=== PATIENT | female | born 2005 | race Caucasian/White ===

== ENCOUNTER 2023-07-14 01:12 | Emergency (ER) | payer OTHER, SELFPAY ==
[2023-07-14 01:22] VITALS: BP 118/68; PULSE 55; TEMP 36.4; BMI 31.9
--- NOTE | 2023-07-14 01:35 | ED.FEMALEGU1 ---
HPI - Female Genitourinary General Chief complaint: Urogenital-Female Stated complaint: STD SCREEN Time Seen by Provider: 07/14/23 01:18 Source: patient Mode of arrival: walk-in Limitations: no limitations History of Present Illness HPI Narrative: Patient was exposed to a partner who had tested positive for chlamydia last week. She did not seek care or testing after she heard the news. She developed some dysuria yesterday. She said that she slept most of the day and then decided to come to the ED tonight/this morning for evaluation. She does not have a local PCP or [employer]. No fever. No vomiting. She admits to burning with urination and some whitish discharge. She also is concerned about possible since her LMP was in May. She did not get a home test. Related Data Previous Rx's ?Medication ?Instructions ?Recorded doxycycline hyclate 100 mg capsule 100 mg PO BID #13 caps 07/14/23 Allergies Allergy/AdvReac Type Severity Reaction Status Date / Time No Known Drug Allergies Allergy Verified 07/14/23 01:26 Exam Narrative Exam Narrative: Nurses notes and vital signs reviewed and patient is not hypoxic. afebrile General: Well-appearing and in no apparent distress. Skin: Warm, dry, no pallor noted. Eye: Pupils are equal, round and EOMI. No scleral icterus. Cardiovascular: Regular Rate and Rhythm without murmur, gallop or rub. Respiratory: No accessory muscle use or respiratory distress. Lungs are clear to auscultation, no wheezing, rales or rhonchi Back: No CVA tenderness GI: Abdomen is soft, non-distended. Normal bowel sounds. No tenderness to palpation. No rebound, guarding, or rigidity noted. Neurological: A&O x4. No cranial nerve dysfunction observed. No truncal ataxia. Moves all extremities. Sensation intact. Psychiatric: Cooperative and interactive. Normal mood and affect. Constitutional Vital Signs, click to edit/add: Last Vital Signs Temp 97.6 F 07/14/23 01:22 Pulse 55 L 07/14/23 01:22 Resp 16 07/14/23 01:22 BP 118/68 07/14/23 01:22 Course Vital Signs Vital signs: Vital Signs Temperature 97.6 F 07/14/23 01:22 Pulse Rate 55 L 07/14/23 01:22 Respiratory Rate 16 07/14/23 01:22 Blood Pressure 118/68 07/14/23 01:22 Temperature 97.6 F 07/14/23 01:22 Pulse Rate 55 L 07/14/23 01:22 Respiratory Rate 16 07/14/23 01:22 Blood Pressure 118/68 07/14/23 01:22 MDM - Female Genitourinary MDM Narrative Medical decision making narrative: Patient could not give a urine sample for over 2 hours. UA revealed acute UTI. Due to potential chlamydia exposure, she was started on doxycycline, which will cover her UTI and her chlamydia exposure.She was also given a dose of pyridium.She was discharged home and referred to Dr Colin. Lab Data Labs: Lab Results 07/14/23 Range/Units 02:37 Urine Color Lt. yellow (YELLOW) Urine Clarity Clear (CLEAR) Urine pH 6.0 (5.0-9.0) Ur Specific [place] 1.010 (1.005-1.025) Urine Protein Negative (NEG/TRACE) mg/dL Urine Glucose (UA) Negative (NEGATIVE) mg/dL Urine Ketones Negative (NEGATIVE) mg/dL Urine Occult Blood Negative (NEGATIVE) Urine Nitrite Negative (NEGATIVE) Urine Bilirubin Negative (NEGATIVE) Urine Urobilinogen 0.2 (0.2-1.0) EU/dL Ur Leukocyte Esterase Small A (NEGATIVE) Urine RBC None seen (0-2) #/HPF Urine WBC 10-20 A (NONE SEEN) #/HPF Ur Squamous Epith Cells Many A (NONE/RARE) #/LPF Urine Crystals None seen (None Seen) #/HPF Urine Bacteria Moderate A (NONE SEEN) #/HPF Urine Casts None seen (NONE SEEN) #/LPF Urine Mucus Trace A (NONE SEEN) Ur Culture Indicated? Yes Urine HCG, Qual Negative (NEGATIVE) Discharge Plan Discharge Stand Alone Forms: Portal Instructions Chief Complaint: Urogenital-Female Clinical Impression: Urinary tract infection, Potential exposure to STD Patient Disposition: Home, Self-Care Time of Disposition Decision: 03:00 Prescriptions / Home Meds: New doxycycline hyclate 100 mg capsule 100 mg PO BID Qty: 13 0RF Print Language: Gambian Instructions: Sexually Transmitted Diseases (ED), Urinary Tract Infection in Women (ED) Referrals: Garfield Colin, [Physician] - As soon as possible
[2023-07-14 02:48] LABS: Bilirubin Urine NEGATIVE (NEGATIVE); Blood Urine NEGATIVE (NEGATIVE); Clarity Urine CLEAR (CLEAR); Color Urine LT. YELLOW (YELLOW); Glucose Urine UA NEGATIVE (NEGATIVE); Ketones Urine NEGATIVE (NEGATIVE); Leukocyte Esterase Urine SMALL (NEGATIVE); Nitrite Urine NEGATIVE (NEGATIVE); Protein Urine NEGATIVE (NEG/TRACE); Urobilinogen Urine 0.2 EU/dL (0.2-1.0)
[2023-07-14 02:50] LABS: HCG Qualitative Urine* NEGATIVE (NEGATIVE)
[2023-07-14 02:51] LABS: Urine Microscopic Indicated YES
[2023-07-14 02:56] LABS: Bacteria Urine MODERATE #/HPF (NONE SEEN); Cast Seen? NONE SEEN #/LPF (NONE SEEN); Crystals Seen? None Seen #/HPF (None Seen); Mucus Urine TRACE (NONE SEEN); RBC Urine NONE SEEN #/HPF (0-2); Squamous Epithelial Cell Urine MANY #/LPF (NONE/RARE)
[2023-07-14 02:57] LABS: Urine Culture Indicated YES
[2023-07-14] MEDS: PHENAZOPYRIDINE 100 MG TABLET PO (03:12)
[2023-07-14] MEDS: DOXYCYCLINE MONOHYDRATE 100 MG CAPSULE PO (03:12)
[2023-07-16 22:08] LABS: Neisseria gonorrhoeae, NAA Negative (Negative)
== END 2023-07-14 03:20 | disposition home or self-care (01) ==
PROVIDERS: Emergency Provider Emergency Medicine; PCP Family Medicine
DX: N39.0 Urinary tract infection, site not specified (principal); Z20.2 Contact with and (suspected) exposure to infections with a predominantly sexual mode of transmission
CPT/HCPCS: 81001; 84703; 87086; 87491; 87591; 99283

== ENCOUNTER 2024-06-28 08:51 | Outpatient (OUT) | payer MEDICAID, SELFPAY ==
[2024-06-28 09:51] LABS: Estimated Average Glucose 100 mg/dL; Glycohemoglobin A1C 5.1 % (4.5-6.2)
[2024-06-29 08:12] LABS: Progesterone 0.4 ng/mL (.)
== END 2024-06-28 08:52 | disposition home or self-care (01) ==
PROVIDERS: Visit Provider Obstetrics & Gynecology
DX: N93.9 Abnormal uterine and vaginal bleeding, unspecified (principal); E28.2 Polycystic ovarian syndrome
CPT/HCPCS: 36415; 82397; 83036; 84144; 84443

== ENCOUNTER 2024-09-22 08:43 | Outpatient (OUT) | payer MEDICAID, SELFPAY ==
--- OUTSIDE RECORDS SUMMARY | 2024-09-22 09:03 | XMS_ITS | CCD ---
Author Organization [facility]iniSy[facility] Care Team Providers Care Braille Proofreader Name Role Phone DR JANIE FRAGOSO Primary Care Unavailable SHELDON, DR DYLAN Romero Admitting Unavailable SHELDON, DR DYLAN Romero Attending Unavailable SHELDON, DR DYLAN Romero Consulting Unavailable JOSEF BINGHAM Admitting Unavailable JOSEF BINGHAM Attending Unavailable FOUZIA, DR LIMA Primary Care Unavailable JOSEF BINGHAM Admitting Unavailable JOSEF BINGHAM Attending Unavailable FOUZIA, DR LIMA Primary Care Unavailable JOSEF BINGHAM Consulting Unavailable Phil Melvin Unavailable SAÚL Resendiz Attending Provider Jose Miguel Resendiz Unavailable Unallocated , Osito Provider Primary Care Provi marcelino Unallocated , Noms Provider Primary Care Provi marcelino DREW COLIN Attending Unavailable DREW COLIN Referring Unavailable DAVID VALENTIN Attending Unavailable DAVID VALENTIN Referring Unavailable PETER LI Attending Unavailable KENDAL RINCON Attending Unavailable Teresa Vitale APRN Attending Provider [phone] Teresa Vitale Attending Unavailable Teresa Vitale Admitting Unavailable Medications Current Medications Medication Drug Class(es) Dates Sig (Normalized) Sig (Original) clindamycin 20 mg/ml vaginal cream (1 source) Lincosamide Antibacterial Start: 11-30-2023 End: 12-07-2023 clindamycin (Cleocin) 2 % vaginal cream Indications: Bacterial Vaginosis Insert 1 applicator into the vagina at bedtime for 7 days 40 g 2 11/30/2023 12/07/2023 Active etonogestrel 68 mg drug implant (3 sources) Progestin Nexplanon 68 MG as directed Subcutaneous Active metFORMIN hydrochloride 500 mg oral tablet (3 sources) Biguanide Start: 06-04-2024 End: 06-04-2025 Metformin 500 mg tablet Active MG PO July 31, 2024 12:00am metroNIDAZOLE 500 mg oral tablet (3 sources) Nitroimidazole Antimicrobial Start: 09-29-2021 take 1 tablet by mouth every twelve hours metroNIDAZOLE 500 MG 1 tablet Orally Twice a day for 7 days Sep, Active nitrofurantoin, macrocrystals 25 mg / nitrofurantoin, monohydrate 75 mg oral capsule (1 source) Nitrofuran Antibacterial Start: 07-31-2024 take 1 capsule by mouth every twelve hours at mealtime Nitrofurantoin Monohyd/M-Cryst (Macrobid) 100 mg capsule Active 100 MG PO Every 12 hours 20 10July 31, 2024 12:00am must administer with a meal/food phenazopyridine hydrochloride 200 mg oral tablet (2 sources) Start: 01-28-2023 take 1 tablet by mouth every eight hours Pyridium 200 MG 1 tablet after meals Orally Three times a day for 2 day(s) Jan, Active sulfamethoxazole 800 mg / trimethoprim 160 mg oral tablet (8 sources) Dihydrofolate Reductase Inhibitor Antibacterial, Sulfonamide Antimicrobial Start: 01-28-2023 take 1 tablet by mouth every twelve hours Bactrim DS 800-160 MG 1 tablet Orally Twice a day for 7 days Jan, Active Start: 09-29-2021 take 1 tablet by neena th every twelve hours Bactrim DS 800-160 MG 1 tablet Orally Twice a day for 3 days Sep, Active Completed/Discontinued Medications Medication Drug Class(es) Dates Sig (Normalized) Sig (Original) amoxicillin 500 mg oral capsule (2 sources) Penicillin-class Antibacterial Start: 02-08-2024 End: 07-31-2024 take 1 capsule by mouth twice daily Amoxicillin 500 mg capsule Discontinued 500 MG PO Twice daily 26 01February 08, 2024 12:00am February 08, 2024 5:51pm ARIPiprazole 10 mg oral tablet (4 sources) Atypical Antipsychotic Start: 04-04-2020 End: 04-22-2021 take 1 tablet by mouth once daily Aripiprazole (Abilify) 10 mg tablet Discontinued 10 MG PO Daily August 20, 2020 10:36am April 22, 2021 4:30pm azithromycin 500 mg oral tablet (7 sources) Macrolide Antimicrobial Start: 11-26-2023 End: 12-06-2023 take 1 tablet by mouth once daily azithromycin (Zithromax) 500 MG tablet Indications: Acute vaginitis Take 1 tablet (500 mg) by mouth Daily for 10 days 10 tablet 1 11/26/2023 12/06/2023 Start: 10-04-2021 take 2 tablets by mouth once A zithromycin 500 MG 2 tablets Orally once for 1 day Sep, Active Norgestimate-Ethinyl Estradiol (2 sources) Progestin, Estrogen Start: 04-04-2020 End: 08-17-2020 Norgestimate-Ethinyl Estradiol (Tri Femynor) 0.18/0.215/0.25 mg-35 mcg (28) tablet Discontinued TAB TABLET April 04, 2020 1:00am August 17, 2020 1:28pm fluconazole 150 mg oral tablet (2 sources) Azole Antifungal Start: 11-26-2023 End: 11-26-2023 take 1 tablet by mouth once fluconazole (Diflucan) 150 MG tablet Indications: Acute vaginitis Take 1 tablet (150 mg) by mouth 1 (one) time for 1 dose 1 tablet 1 11/26/2023 11/26/2023 hydrOXYzine hydrochloride 50 mg oral tablet (2 sources) Antihistamine Start: 08-17-2020 End: 08-20-2020 take 1 tablet by mouth three times daily as needed for anxiety Hydroxyzine Hcl 50 mg tablet Discontinued 50 MG PO Three times daily as needed for Anxiety August 17, 2020 12:00am August 20, 2020 10:36am lamoTRIgine 100 mg oral tablet (4 sources) Mood Stabilizer, Anti-epileptic Agent Start: 08-17-2020 End: 08-20-2020 take 1 tablet by mouth once daily Lamotrigine 100 mg tablet Discontinued 100 MG PO Daily August 17, 2020 12:00am August 20, 2020 10:36am Start: 04-04-2020 End: 08-17-2020 Lamotrigine 25 mg tablet Dis continued TABLET April 04, 2020 1:00am August 17, 2020 1:28pm Start: 04-04-2020 End: 08-17-2020 Lamotrigine Discontinued TAB LET April 04, 2020 1:00am August 17, 2020 1:28pm ondansetron 4 mg disintegrating oral tablet (2 sources) Serotonin-3 Receptor Antagonist Start: 04-22-2021 End: 02-08-2024 take 1 tablet by mouth every six hours as needed for nausea and vomiting Ondansetron 4 mg tablet,disintegrating Discontinued 4 MG PO Q6H as needed for nausea and vomiting April 22, 2021 5:04pm February 08, 2024 4:08pm Problems Active Problems Problem Classification Problem Date Documented Da te Episodic/Chronic Female infertility (2 sources) Female infertility; Translations: [Female infertility, unspecified] 02-07-2024 Chronic Genitourinary symptoms and ill-defined conditions (4 sources) Dysuria; Translations: [Dysuria] Onset: 07-31-2024 Episodic Headache; including migraine (1 source) Headache; including migraine; Translations: [HEADACHE UNSPECIFIED] Onset: 04-21-2021 Immunizations and screening for infectious disease (8 sources) Patient encounter status; Translations: [Dietary counseling and surveillance] 01-14-2024 Episodic Inflammatory diseases of female pelvic organs (6 sources) Acute vaginitis; Translations: [Acute vaginitis] Onset: 10-03-2021 12-06-2023 Episodic Menstrual disorders (4 sources) Irregular periods; Translations: [Irregular menstruation, unspecified] 02-07-2024 Chronic Other endocrine disorders (2 sources) Polycystic ovary syndrome; Translations: [Polycystic ovarian syndrome] 06-04-2024 Chronic Other female genital disorders (2 sources) Abnormal uterine bleeding; Translations: [Abnormal uterine and vaginal bleeding, unspecified] 06-04-2024 Chronic Other inflammatory condition of skin (3 sources) Other pruritus; Translations: [OTHER PRURITUS] Onset: 10-02-2021 Episodic Other nutritional; endocrine; and metabolic disorders (2 sources) Obesity caused by energy imbalance; Translations: [Class 1 obesity due to excess calories without serious comorbidity with body mass index (BMI) of 33.0 to 33.9 in adult] 01-14-2024 Chronic Other screening for suspected conditions (not mental disorders or infectious disease) (4 sources) Decreased cortisol level; Translations: [Other specified abnormal findings of blood chemistry] 01-14-2024 Episodic Other upper respiratory infections (4 sources) Upper respiratory infection; Translations: [Acute upper respiratory infection, unspecified] 04-04-2020 Episodic Suicide and intentional self-inflicted injury (2 sources) Suicide attempt ; Translations: [Poisoning by unspecified drugs, medicaments and biological substances, intentional self-harm, initial encounter] 08-17-2020 Episodic Unclassified (3 sources) CONTACT W/AND (SUSP) EXPOS COVID-19; Translations: [CONTACT W/AND (SUSP) EXPOS COVID-19] Onset: 04-21-2021 Urinary tract infections (2 sources) Acute cystitis without hematuria; Translations: [Acute cystitis with hematuria] Onset: 09-29-2021 Resolved: 09-29-2021 Episodic Viral infection (2 sources) Disease caused by 2019-nCoV; Translations: [COVID-19] 04-22-2021 Episodic Past or Other Problems Problem Classification Problem Date Documented Date Episodic/Chronic Nausea and vomiting (1 source) Nausea; Translations: [NAUSEA] Onset: 04-21-2021 Episodic Other endocrine disorders (2 sources) Disorder of endocrine system; Translations: [Endocrine disorder, unspecified] 11-26-2023 Episodic Other endocrine disorders (2 sources) Gynecological endocrinology disorder; Translations: [Endocrine disorder, unspecified] 11-26-2023 Episodic Residual codes; unclassified (1 source) High risk bisexual behavior Onset: 09-29-2021 Resolved: 09-29-2021 Episodic Unclassified (1 source) CONTACT W/AND (SUSP) EXPOS COVID-19; Translations: [CONTACT W/AND (SUSP) EXPOS COVID-19] Onset: 04-14-2021 Results Test Name Value Interpretation Reference Range Facility Urine Cultureon 07-31-2024 Bacteria identified Cx Nom (U) 25,000 colonies/ml mixed bacterial skin contaminants 2 Days PERFORMED BY: [place] [address] PATHOLOGIST LEARNING DEVELOPER YUMIKO GRIER M.D. Normal [facility] Comment on above: Performed By: #### C UU #### [address] US PELVIC COMPLETE W/ TVon 0 06-24-2024 US PELVIC COMPLETE W/ TV EXAM: US PELVIC COMPLETE W/ TV HISTORY: Abnormal uterine bleeding. COMPARISON: None available. TECHNIQUE: Two-dimensional transabdominal grayscale ultrasound imaging of the pelvis was performed. Color flow Doppler imaging of the ovaries was also performed. Transvaginal was performed. FINDINGS: UTERUS 7.8 x 3.2 x 3.2 cm The uterus is anteverted in position and demonstrates a normal, homogeneous echotexture. There is a 2.6 cm anterior fibroid visualized. Multiple nabothian cysts are visualized within the cervix. ENDOMETRIUM 0.4 cm The endometrium demonstrates a normal, homogeneous echotexture. RIGHT OVARY 3.7 x 1.8 x 2.8 cm The right ovary demonstrates a normal echotexture. There is normal color Doppler flow. LEFT OVARY 2.8 x 2.4 x 2.7 cm The left ovary demonstrates a normal echotexture. There is normal color Doppler flow. No fluid is present within the cul-de-sac. IMPRESSION: 1. Uterine fibroid. 2. Normal color Doppler flow within the bilateral ovaries. Electronically Signed:Electronical ly signed by MADYSON WARREN II, MD, PHD at 26-Jun-2024 08:43:57 AM [facility] Normal Not Available Comment on above: Order Comment: US PE LVIS-TRANSVAG IF INDICATED Patient's last menstrual period was 05/05/2024. Cortisolon 12-03-2023 Cortisol [Mass/Vol] 4.7 ug/dL Low 6.2 - 19 .4 ug/dL [facility] Comment on above: Please Note: The ref erence interval and flagging for this test is for an AM collection. If this is a PM collection please use: Cortisol PM: 2.3-11.9 Interpretation and review of laboratory results Abnormal [facility] re DHEA-sulfateon 12-03-2023 DHEA-S [Mass/Vol] 267.0 ug/dL 110.0 - 43 1.7 ug/dL [facility] Estradiolon 12-03-2023 E2 [Mass/Vol] 188.0 pg/[facility] Comment on above: Adult Female Range Follicular phase 12.5 - 166.0 Ovulation phase 85.8 - 498.0 Luteal phase 43.8 - 211.0 Postmenopausal <6.0 - 54.7 1st trimester 215.0 - >4300.0 Vidya ECLIA methodology Estroneon 12-03-2023 E1 [Mass/Vol] 104 pg/mL 27 - 231 pg/mL [facility] Comment on above: Range Adult (Premenopausal) 27 - 231 Menstrual Cycle (1-10 days) 19 - 149 Menstrual Cycle (11-20 days) 32 - 176 Menstrual Cycle (21-30 days) 37 - 200 Performed at: [address] [id number] Fitter Machinist: Collette Mesa MD, Phone: [phone] [facility] Follicle stimulating hormone on 12-03-2023 Follitropin Qn 2.3 m[IU]/mL mIU/mL [facility] Comment on above: Adult Female Range Follicular phase 3.5 - 12.5 Ovulation phase 4.7 - 21.5 Luteal phase 1.7 - 7.7 Postmenopausal 25.8 - 134.8 Insulin, fastingon Insulin Qn 20.6 u[IU]/mL [facility] No Panel Informationon 12-02 Performed at: [address] [id number] Fitter Machinist: Keenan Murillo PhD, Phone: [phone] [facility] e Progesteroneon 12-03-2023 Progesterone [Mass/Vol] 11.4 ng/mL [facility] Comment on above: Follicular phase 0.1 - 0.9 Luteal phase 1.8 - 23.9 Ovulation phase 0.1 - 12.0 First trimester 11.0 - 44.3 Second trimester 25.4 - 83.3 Third trimester 58.7 - 214.0 Postmenopausal 0.0 - 0.1 TSHon 12-03-2023 TSH Qn 3.160 m[IU]/L [facility] No Panel Informationon 11-28 ACINETOBACTER BAUMANII 0.000 [facility] ACINETOBACTER BAUMANII Not detected [facility] ATOPOBIUM VAGINAE 22.732 Abnormal [facility] ATOPOBIUM VAGINAE Detected [facility] BVAB 2,3 (BACTERIAL VAGINOSIS ASSOCIATED BACTERIA 2, 3); MOBILUNCUS SPP 0.000 [facility] BVAB 2,3 (BACTERIAL VAGINOSIS ASSOCIATED BACTERIA 2, 3); MOBILUNCUS SPP Not detected [facility] TERESA ALBICANS, PARAPSILOSIS, TROPICALIS 0.000 [facility] TERESA ALBICANS, PARAPSILOSIS, TROPICALIS Not detected [facility] TERESA GLABRATA 0.000 [facility] TERESA GLABRATA Not detected [facility] TERESA KRUSEI 0.000 [facility] TERESA KRUSEI Not detected [facility] CHLAMYDIA TRACHOMATIS 0.000 [facility] CHLAMYDIA TRACHOMATIS Not detected [facility] CITROBACTER FREUNDII 0.000 [facility] CITROBACTER FREUNDII Not detected [facility] ENTEROBACTER AEROGENES, CLOACAE 0.000 [facility] ENTEROBACTER AEROGENES, CLOACAE Not detected [facility] ENTEROCOCCUS FAECALIS, FAECIUM 0.000 [facility] ENTEROCOCCUS FAECALIS, FAECIUM Not detected [facility] ESCHERICHIA COLI 0.000 [facility] ESCHERICHIA COLI Not detected [facility] GARDNERELLA VAGINALIS 0.000 [facility] GARDNERELLA VAGINALIS Not detected [facility] Interpretation and review of laboratory results Abnormal [facility] KLEBSIELLA PNEUMONIAE, OXYTOCA 0.000 [facility] KLEBSIELLA PNEUMONIAE, OXYTOCA Not detected [facility] MEGASPHAERA (TYPES 1, 2) 0.000 [facility] MEGASPHAERA (TYPES 1, 2) Not detected [facility] MORGANELLA MORGANII 0.000 [facility] MORGANELLA MORGANII Not detected [facility] MYCOPLASMA GENITALIUM 0.000 [facility] MYCOPLASMA GENITALIUM Not detected [facility] MYCOPLASMA HOMINIS 0.000 [facility] MYCOPLASMA HOMINIS Not detected [facility] NEISSERIA GONORRHOEAE 0.000 [facility] NEISSERIA GONORRHOEAE Not detected [facility] PROTEUS MIRABILIS, VULGARIS 0.000 [facility] PROTEUS MIRABILIS, VULGARIS Not detected [facility] PSEUDOMONAS AERUGINOSA 0.000 [facility] PSEUDOMONAS AERUGINOSA Not detected [facility] SERRATIA MARCESCENS 0.000 [facility] SERRATIA MARCESCENS Not detected [facility] STAPHYLOCOCCUS AUREUS 0.000 [facility] STAPHYLOCOCCUS AUREUS Not detected [facility] STAPHYLOCOCCUS EPIDERMIDIS, HAEMOLYTICUS, LUGDUNENSIS 0.000 [facility] STAPHYLOCOCCUS EPIDERMIDIS, HAEMOLYTICUS, LUGDUNENSIS Not detected [facility] STAPHYLOCOCCUS SAPROPHYTICUS 0.000 [facility] STAPHYLOCOCCUS SAPROPHYTICUS Not detected [facility] STREPTOCOCCUS AGALACTIAE (GROUP B STREP) 0.000 [facility] STREPTOCOCCUS AGALACTIAE (GROUP B STREP) Not detected [facility] STREPTOCOCCUS PYOGENES (GROUP A STREP) 0.000 [facility] STREPTOCOCCUS PYOGENES (GROUP A STREP) Not detected [facility] TET B, TET M 24.794 Abnormal [facility] TET B, TET M Detected Abnormal [facility] TRICHOMONAS VAGINALIS 0.000 [facility] TRICHOMONAS VAGINALIS Not detected [facility] UREAPLASMA PARVUM 27.453 Abnormal [facility] UREAPLASMA PARVUM Detected Abnormal [facility] UREAPLASMA UREALYTICUM 0.000 [facility] UREAPLASMA UREALYTICUM Not detected [facility] Urinalysis - DIPSTICKon 01-08 Appearance (U) cloudy [employer] Other Bilirubin Ql (U) Negative [place] Other Color (U) dark yellow-orange [facility] Other Glucose Ql (U) Negative [employer] Other Hemoglobin Ql (U) large [place] Other Ketones Ql (U) Negative [employer] Other Leukocyte esterase Test strip Ql (U) moderate [facility] Other Nitrite Ql (U) Positive [employer] Other pH (U) 7.0 [pH] [facility] Other Protein Ql (U) Negative [employer] Other Specific gravity (U) [Rel density] 1.010 [facility] Other Urobilinogen (U) [Mass/Vol] normal [facility] Other Urinalysis - DIPSTICK [facility] Other Urine Cultureon 01-28-2023 Urine Culture 75,000 [facility] Other Urine Culture <16 Susceptible [facility] [employer] [facility] [employer] Other Urine Culture <8/4 Susceptible [facility] [employer] [facility] [employer] Other Urine Culture <8 Susceptible [place] [employer] [employer] Other Urine Culture <4 Susceptible [place] [employer] Other Urine Culture <2 Susceptible [facility] [employer] [facility] [employer] Other Urine Culture <1 Susceptible [place] [employer] Other Urine Culture <0.25 Susceptible [place] [employer] Other Urine Culture <0.5 Susceptible [place] [employer] Other Urine Culture 4 Susceptible [place] [employer] [facility] [employer] Other Urine Culture <0.5/9.5 Susceptible [facility] [employer] [employer] Other Consenton 10-24-2021 Consent [id number]:127 Normal [facility] Registrationon 10-24-2021 Registration [id number]:127 Normal [facility] Quantiferon-TB Plus (Client Incubated)on 10-18-2021 Gamma interferon background IA Qn (Bld) 0.04 International_Unit/ mL Invalid Interpretation Code [facility] Comment on above: Performed By: #### 2 [id number], [id number] #### [facility] [address] [place] [address] M. tuberculosis stim IFN-g by CD4+ CD8+ T-cells corrected for background Qn (Bld) 0.01 International_Unit/ mL Invalid Interpretation Code [facility] Comment on above: Performed By: #### 2 [id number], [id number] #### [facility] [address] [place] [address] M. tuberculosis stim IFN-g by CD4+ T-cells corrected for background Qn (Bld) 0.01 International_Unit/ mL Invalid Interpretation Code [facility] Comment on above: Performed By: #### 2 [id number], [id number] #### [facility] [address] [place] [address] M. tuberculosis stim IFN-g Ql (Bld) [Interp] Negative Invalid Interpretation Code Negative [facility] Comment on above: Result Comment: The specimen received for QuantiFERON testing was incubated by the ordering institution. Specific procedures outlined in our Directory of Services and in the package insert for the QuantiFERON Gold (In Tube) test must be followed to enable for proper stimulation of cells for the production of interferon gamma. Chemiluminescence immunoassay methodology Performed at: [facility] [id number] PhD Chidi Hussein Performed By: #### 2 [id number], [id number], [id number] #### [facility] [address] [place] [address] Mitogen stimulated gamma interferon Qn (Bld) >10.00 Invalid Interpretation Code [facility] Comment on above: Performed By: #### 2 [id number], [id number] #### [facility] [address] [place] [address] Service comment (Unsp spec) [Interp] Comment Invalid Interpretation Code [facility] Comment on above: Result Comment: The QuantiFERON-TB Gold Plus result is determined by subtracting the Nil value from either TB antigen (Ag) tube. The mitogen tube serves as a control for the test. Performed By: #### 2 [id number], [id number] #### [facility] [address] [place] [address] Hep Bs Abon 10-15-2021 HBV surface Ab Ql (S) Reactive Invalid Interpretation Code [facility] Comment on above: Result Comment: Non Reactive: Inconsistent with immunity, less than 10 mIU/mL Reactive: Consistent with immunity, greater than 9.9 mIU/mL Performed at: [address] [id number] PhD Chidi Hussein Performed By: #### 2 [id number], [id number], [id number] #### [facility] [address] [place] [address] Measles/Mumps/Rubella Immuni tyon 10-15-2021 MeV IgG IA Qn (S) {index_val} Invalid Interpretation Code Immune >16.4 [facility] Comment on above: Result Comment: Nega tive <13.5 Equivocal 13.5 - 16.4 Positive >16.4 Presence of antibodies to Rubeola is presumptive evidence of immunity except when acute infection is suspected. Performed By: #### 2 [id number], [id number], [id number] #### [facility] [address] [place] [address] MuV IgG IA Qn (S) 243.0 A unit/mL Invalid Interpretation Code Immune >10.9 [facility] Comment on above: Result Comment: Nega tive <9.0 Equivocal 9.0 - 10.9 Positive >10.9 A positive result generally indicates past exposure to Mumps virus or previous vaccination. Performed at: [facility] [address] [place] [id number] PhD Chidi Hussein Performed By: #### 2 [id number], [id number], [id number] #### [facility] [address] [place] [address] Rubella virus IgG Qn (S) 16.20 [IU]/mL Invalid Interpretation Code Immune >0.99 [facility] Comment on above: Result Comment: Non- immune <0.90 Equivocal 0.90 - 0.99 Immune >0.99 Performed By: #### 2 [id number], [id number], [id number] #### [facility] [address] [place] [address] [place] [address] Varic IgGon 10-15-2021 VZV IgG IA Qn (S) 863 Invalid Interpretation Code Immune >165 [facility] Comment on above: Result Comment: Nega tive <135 Equivocal 135 - 165 Positive >165 A positive result generally indicates exposure to the pathogen or administration of specific immunoglobulins, but it is not indication of active infection or stage of disease. Performed at: [facility] [id number] PhD Chidi Hussein Performed By: #### 2 [id number], [id number], [id number] #### [facility] [address] [place] [address] Physician Orderon 10-14-2021 Physician Order [id number]:127 Normal [facility] CULTURE URINEon 10-02-2021 CULTURE URINE Culture Observations: MODERATE GROWTH OF MIXED GENITAL BETZY. NO POTENTIAL PATHOGENS SEEN. Normal [facility] Comment on above: Performed By: #### U RCX #### [facility] [address] [place] [address] Dr. Lisa Chirinos ER URINE PROFILEon 2 Bilirubin Ql (U) Negative Normal NEGATIVE [facility] Comment on above: Performed By: #### E ZEN PALAFOX UMICRO #### [facility] [address] [place] [address] Dr. Lisa Chirinos Clarity (U) CLEAR Normal CLEAR [facility] Comment on above: Performed By: #### E ZEN PALAFOX UMICRO #### [facility] [address] [address] [address] Lisa Chirinos Color (U) YELLOW Normal YELLOW [facility] Comment on above: Performed By: #### E ZEN PALAFOX UMICRO #### [facility] [facility] [address] [place] [address] Dr. Lisa Chirinos ERUAHD A micrscopic examination will be performed if indicated. Normal [facility] Comment on above: Performed By: #### E EDENR, PREGU, UMICRO #### [facility] [address] [address] [address] Lisa Chirinos Glucose Ql (U) Negative Normal NEGATIVE [facility] Comment on above: Performed By: #### E RUR, PREGU, UMICRO #### [facility] [address] [address] [address] Lisa Chirinos Hemoglobin Ql (U) Negative Normal NEGATIVE [facility] Comment on above: Performed By: #### E RUR, PREGU, UMICRO #### [facility] [address] [address] [address] Lisa Chirinos Ketones Ql (U) Negative Normal NEGATIVE [facility] Comment on above: Performed By: #### Narciso RUR, PREGU, UMICRO #### [facility] [address] [place] [address] Dr. Lisa Chirinos LEUKOCYTES SMALL Abnormal NEGATIVE [facility] Comment on above: Performed By: #### Narciso PALAFOX PREGU, UMICRO #### [facility] [address] [address] [address] Lisa Chirinos Nitrite Ql (U) Negative Normal NEGATIVE [facility] Comment on above: Performed By: #### Narciso PALAFOX PREGU, UMICRO #### [facility] [address] [address] [address] Lisa Chirinos pH (U) 8.0 [pH] Normal 5-9 The [facility] Comment on above: Performed By: #### Narciso RUHeather PREGU, UMICRO #### [facility] [address] [address] [address] Lisa Chirinos SPEC GRAVITY 1.015 Normal 1.005-<=1.025 The [facility] Comment on above: Performed By: #### Narciso RUR PREGU, UMICRO #### [facility] [address] [address] [address] Lisa Chirinos UA PROTEIN Negative Normal NEGATIVE/ TRACE The [facility] Comment on above: Performed By: #### Narciso RUR PREGU, UMICRO #### [facility] [address] [address] [address] Lisa Chirinos UR MICRO IND INDICATED Normal The [facility] Comment on above: Performed By: #### E RUR, PREGU, UMICRO #### [facility] [address] [address] [address] Lisa Chirinos Urobilinogen Qn (U) 0.2 {Jyothi'U}/dL Normal 0.2 - 1. 0 The [facility] Comment on above: Performed By: #### E RUR, PREGU, UMICRO #### [facility] [address] [place] [address] Dr. Lisa Chirinos URon 10-02-2021 , QUAL Negative Normal NEGATIVE The [facility] Comment on above: Performed By: #### E RUR, PREGU, UMICRO #### [facility] [address] [place] [address] Dr. Lisa Chirinos URINE MICROSCOPIC ONLYon BACTERIA SMALL Abnormal NONE SEEN The [facility] Comment on above: Performed By: #### E RUR, PREGU, UMICRO #### [facility] [address] [place] [address] Dr. Lisa Chirinos Bacteria identified Cx Nom (U) INDICATED Normal The [facility] Comment on above: Performed By: #### E RUR, PREGU, UMICRO #### [facility] [address] [place] [address] Dr. Lisa Chirinos CAST NONE SEEN Normal NONE SEEN The [facility] Comment on above: Performed By: #### E RUR, PREGU, UMICRO #### [facility] [address] [address] [address] Lisa Chirinos Crystals LM Nom (Urine sed) NONE SEEN Normal NONE SEEN The [facility] Comment on above: Performed By: #### E RUR, PREGU, UMICRO #### [facility] [address] [place] [address] Dr. Lisa Chirinos Epithelial cells LM Ql (Urine sed) FEW Abnormal NONE SEEN /RARE The [facility] Comment on above: Performed By: #### E RUR, PREGU, UMICRO #### [facility] [address] [address] [address] Lisa Chirinos MUCOUS NONE SEEN Normal NONE SEEN The [facility] Comment on above: Performed By: #### ZEN GONZALEZ UMICRO #### [facility] [address] [address] [address] Lisa Chirinos RBC 0-2 Normal 0-2 The [facility] Comment on above: Performed By: #### ZEN GONZALEZ UMICRO #### [facility] [address] [address] [address] Lisa Chirinos WBC 20-50 Abnormal NONE SEEN The [facility] Comment on above: Performed By: #### ZEN GONZALEZ UMICRO #### [facility] [address] [address] [address] Lisa Chirinos Chlamydia/GC/Trich NAAon Chlamydia/GC/Trich ANSON Positive Critically abnormal Negative [facility] Other Chlamydia/GC/Trich ANSON Negative Negative [facility] Other Urinalysis - DIPSTICKon 09-08 Appearance (U) cloudy [employer] Other Bilirubin Ql (U) Negative [place] Other Color (U) dark yellow [facility] Other Glucose Ql (U) Negative [employer] Other Hemoglobin Ql (U) trace [place] Other Ketones Ql (U) Negative [employer] Other Leukocyte esterase Test strip Ql (U) moderate [facility] Other Nitrite Ql (U) Negative [employer] Other pH (U) 6.5 [pH] [facility] Other Protein Ql (U) Negative [employer] Other Specific gravity (U) [Rel density] 1.020 [facility] Other Urobilinogen (U) [Mass/Vol] 0.2 mg/dL [facility] Other Urinalysis - DIPSTICK [facility] Other Urine Cultureon 09-29-2021 Bacteria identified Cx Nom (U) [facility] Other Covid-19 PCR ([facility])on SARS-CoV-2 (COVID-19) RNA ANSON+probe Ql (Unsp spec) Not detected Normal NOT DETECTED The [facility] Comment on above: Result Comment: This test is not yet approved or cleared by the [place] FDA. When there are no FDA-approved or cleared tests available, and other criteria are met, FDA can make tests available under an emergency access mechanism called an Emergency Use Authorization (EUA). The EUA for this test is supported by the [place] of Health and Human Service's (HHS's) declaration that circumstances exist to justify the emergency use of in vitro diagnostics for the detection and/or diagnosis of the virus that causes COVID-19. This EUA will remain in effect (meaning this test can be used) for the duration of the COVID-19 declaration justifying emergency of IVDs, unless it is terminated or revoked by FDA (after which the test may no longer be used). When diagnostic testing is negative, the possibility of a false negative should be considered in the context of a patient's recent exposures and the presence of clinical signs and symptoms consistent with SARS-CoV-2. Performed By: #### [facility] #### [facility] [address] [place] [address] Dr. Lisa Chirinos Vital Signs Date Time Vital Sign Value Performing Clinician Facility 07-31-2024 10:02-0400 Body height 160.02 cm Teresa Vitale APRN Work Phone: [facility] 07-31-2024 10:02-0400 Body mass index (BMI) [Ratio] 33.6 kg/m2 Teresa Vitale [employer] Work Phone: [facility] 07-31-2024 10:02-0400 Body temperature 98.3 [degF] Teresa Vitale [employer] Work Phone: [facility] 07-31-2024 10:02-0400 Body weight 86.18 kg Teresa Vitale [employer] Work Phone: [facility] 07-31-2024 10:02-0400 Diastolic blood pressure 71 mm[Hg] Teresa Vitale [employer] Work Phone: [facility] 07-31-2024 10:02-0400 Heart rate 84 /min Teresa Vitale [employer] Work Phone: [facility] 07-31-2024 10:02-0400 SaO2% (BldA) [Mass fraction] 97 % Teresa Vitale [employer] Work Phone: [facility] 07-31-2024 10:02-0400 Systolic blood pressure 108 mm[Hg] Teresa Vitale [employer] Work Phone: [facility] 06-04-2024 13:04-0500 Body mass index (BMI) [Ratio] 36.46 kg/m2 Drew Cristi DO Work Phone: [facility] 06-04-2024 13:04-0500 Body weight 93.35 kg Drew Cristi DO Work Phone: [facility] 06-04-2024 13:04-0500 Diastolic blood pressure 74 mm[Hg] Drew Cristi DO Work Phone: [facility] 06-04-2024 13:04-0500 Systolic blood pressure 110 mm[Hg] Drew Cristi DO Work Phone: [facility] 02-07-2024 08:17-0400 Body height 160 cm Kendal Rincon NP Work Phone: [facility] 02-07-2024 08:17-0400 Body mass index (BMI) [Ratio] 34.37 kg/m2 Kendal Rincon SPREADING MACHINE OPERATOR Work Phone: [facility] 02-07-2024 08:17-0400 Body weight 88 kg Kendal Rincon SPREADING MACHINE OPERATOR Work Phone: [facility] 02-07-2024 08:17-0400 Diastolic blood pressure 82 mm[Hg] Kendal Rincon SPREADING MACHINE OPERATOR Work Phone: [facility] 02-07-2024 08:17-0400 Systolic blood pressure 118 mm[Hg] Kendal Rincon SPREADING MACHINE OPERATOR Work Phone: [facility] 01-14-2024 10:16-0400 Body height 160 cm Peter Li MD Work Phone: [facility] 01-14-2024 10:16-0400 Body mass index (BMI) [Ratio] 33.66 kg/m2 Peter Li MD Work Phone: [facility] 01-14-2024 10:16-0400 Body weight 86.18 kg Peter Li MD Work Phone: [facility] 01-14-2024 10:16-0400 Heart rate 70 /min Peter Li MD Work Phone: [facility] 01-14-2024 10:16-0400 Respiratory rate 16 /min Peter Li MD Work Phone: [facility] 11-26-2023 13:06-0400 Body weight 89.36 kg David Valentin MD Work Phone: [facility] 11-26-2023 13:06-0400 Diastolic blood pressure 80 mm[Hg] David Valentin MD Work Phone: [facility] 11-26-2023 13:06-0400 Systolic blood pressure 100 mm[Hg] David Valentin MD Work Phone: [facility] 01-28-2023 12:05-0400 Body height 160.02 cm Jose Miguel Resendiz Other [employer] Other 01-28-2023 12:05-0400 Body mass index (BMI) [Ratio] 33.65 kg/m2 Jose Miguel Resendiz Other [employer] Other 01-28-2023 12:05-0400 Body temperature 98.5 [degF] Jose Miguel Resendiz Other [employer] Other 01-28-2023 12:05-0400 Body weight 86.18 kg Jose Miguel Resendiz Other [employer] Other 01-28-2023 12:05-0400 Diastolic blood pressure 81 mm[Hg] Jose Miguel Resendiz Other [employer] Other 01-28-2023 12:05-0400 Respiratory rate 18 /min Jose Miguel Resendiz Other [employer] Other 01-28-2023 12:05-0400 SaO2% (BldA) [Mass fraction] 97 % Jose Miguel Resendiz Other [employer] Other 01-28-2023 12:05-0400 Systolic blood pressure 122 mm[Hg] Jose Miguel Resendiz Other [employer] Other 09-29-2021 12:55-0400 Body height 160.02 cm Stacielucio Melvin Other [employer] Other 09-29-2021 12:55-0400 Body mass index (BMI) [Ratio] 31.88 kg/m2 Phil Melvin Other [employer] Other 09-29-2021 12:55-0400 Body temperature 98.9 [degF] Phil Melvin Other [employer] Other 09-29-2021 12:55-0400 Body weight 81.65 kg Stacielucio Ngozi Other [employer] Other 09-29-2021 12:55-0400 Respiratory rate 18 /min Phil Ngozi Other [employer] Other 09-29-2021 12:55-0400 SaO2% (BldA) [Mass fraction] 98 % Phil Ngozi Other [employer] Other Encounters Encounter Date Encounter Type Care Provider Facility Start: 07-31-2024 End: 07-31-2024 ambulatory Teresa Vitale [facility] Work Phone: Start: 07-31-2024 End: 07-31-2024 Departed Referred Teresa Vitale APRN Work Phone: [facility] Start: 07-31-2024 End: 07-31-2024 Patient encounter procedure Teresa Vitale APRN Work Phone: [facility] Work Phone: Start: 06-24-2024 End: 06-24-2024 ambulatory DREW CRISTI Not Available Start: 06-04-2024 End: 06-04-2024 Bamboo flowsheet Drew Cirsti DO Work Phone: [facility] Start: 06-04-2024 End: 06-04-2024 Bamboo flowsheet Drew Cirsti DO Work Phone: [facility] Start: 06-04-2024 End: 06-04-2024 Office outpatient visit 15 minutes Drew Cristi DO Work Phone: [facility] Comment on above: Abnormal uterine ble eding (AUB); PCOS (polycystic ovarian syndrome) Start: 06-04-2024 End: 06-04-2024 ambulatory DREW CRISTI Not Available Start: 02-07-2024 End: 02-07-2024 Bamboo flowsheet Kendal Rincon SPREADING MACHINE OPERATOR Work Phone: [facility] Start: 02-07-2024 End: 02-07-2024 Bamboo flowsheet Kendal Rincon SPREADING MACHINE OPERATOR Work Phone: [facility] Start: 02-07-2024 End: 02-07-2024 Office outpatient visit 15 minutes Kendal Elizabeth Rincon SPREADING MACHINE OPERATOR Work Phone: [facility] Comment on above: Irregular menses (Pr imary Dx); Female infertility Start: 02-07-2024 End: 02-07-2024 ambulatory KENDAL F RINCON Not Available Start: 01-30-2024 End: 01-30-2024 Telephone encounter Peter Li MD Work Phone: [facility] Start: 01-14-2024 End: 01-14-2024 Bamboo flowsheet Peter Li MD Work Phone: [facility] Start: 01-14-2024 End: 01-14-2024 Bamboo flowsheet Peter Li MD Work Phone: [facility] Start: 01-14-2024 End: 01-14-2024 Office outpatient new 30 minutes Peter Li MD Work Phone: [facility] Comment on above: Low serum cortisol l evel (Primary Dx); Encounter for dietary consultation; Class 1 obesity due to excess calories without serious comorbidity with body mass index (BMI) of 33.0 to 33.9 in adult Start: 01-14-2024 End: 01-14-2024 ambulatory PETER LI Not Available Start: 12-06-2023 End: 12-06-2023 Patient encounter procedure David Valentin MD Work Phone: [facility] Comment on above: Low serum cortisol l evel (Primary Dx); Acute vaginitis Start: 11-30-2023 End: 12-03-2023 Telephone encounter David Valentin MD Work Phone: [facility] Start: 11-26-2023 End: 12-03-2023 Orders Only David Valentin MD Work Phone: [facility] External Department Unsolicited Start: 11-26-2023 End: 11-26-2023 Office outpatient visit 15 minutes David Valentin MD Work Phone: [facility] Comment on above: Acute vaginitis (Rachel rianna Dx); Encounter for gynecological examination without abnormal finding; control counseling; Irregular menses; Hormone imbalance; Thyroid disorder screen; Imbalance of male hormones with irregular menstruation and ovulation; Screen for STD (sexually transmitted disease) Start: 11-26-2023 End: 11-26-2023 Patient encounter status David Valentin MD Work Phone: [facility] Start: 11-26-2023 End: 11-26-2023 ambulatory DAVID VALENTIN Not Available Start: 01-31-2023 End: 01-31-2023 ambulatory Jose Miguel Resendiz Other [employer] Other Start: 01-31-2023 Telephone encounter Jose Miguel [facility] Start: 01-28-2023 Office outpatient vi sit 15 minutes Jose Miguel Resendiz [facility] Start: 01-28-2023 End: 01-28-2023 ambulatory SPREADING MACHINE OPERATOR-C Jose Miguel Astrid Work Phone: [facility] Work Phone: Start: 01-28-2023 End: 01-28-2023 Departed Referred SPREADING MACHINE OPERATOR-C Jose Miguel [place] Work Phone: [facility] Start: 10-04-2021 End: 10-04-2021 ambulatory Phil Melvin Other [facility] Other Start: 10-04-2021 Telephone encounter Phil FOL[facility] [address] Start: 10-02-2021 End: 10-02-[address] JANIE FRAGOSO Facility: Start: 09-29-2021 End: 09-29-2021 ambulatory Phil Melvin Other [facility] [employer] Other Start: 09-29-2021 Office outpatient vi sit 15 minutes Phil Melvin [facility] Start: 04-14-2021 End: 04-14-2021 ambulatory JOSEF BINGHAM Facility: Start: 01-21-2021 ambulatory [facility] Facility: Procedures Date Procedure Procedure Detail Performing Clinician Start: 11-26-2023 GENITOURINARY INFECT ION (HTRX) David Valentin MD Work Phone: Start: 11-26-2023 Cortisol total David Valentin MD Work Phone: Start: 01-28-2023 Piperacillin/tazobactam Jose Miguel Astrid Other Plan of Treatment Date Care Activity Detail Author Start: 09-03-2024 End: 09-03-2024 Patient encounter procedure 09/03/2024 2:50 PM EDT Office Visit [facility] [address] [id number] Drew Colin, DO [address] [place] [address] [facility] Start: 07-31-2024 Bacteria identified in Urine by Culture Urine Culture [facility] Start: 07-31-2024 Urine culture [facility] Start: 06-24-2024 End: 06-24-2024 Professional / ancillary services management 06/24/2024 9:30 AM EDT Ancillary Procedure [facility] [address] [facility] [place] [id number] [facility] Start: 06-04-2024 End: 06-04-2025 Antimullerian hormone (AMH) Antimullerian hormone (AMH) Lab Routine Abnormal uterine bleeding (AUB) PCOS (polycystic ovarian syndrome) Expected: 06/04/2024 (Approximate), Expires: 06/04/2025 [facility] Comment on above: Expected: 06/04/2024 (Approximate), Expires: 06/04/2025 Start: 06-04-2024 End: 06-04-2025 US Pelvis US Pelvis w/ TV Imaging Routine Abnormal uterine bleeding (AUB) Expected: 06/04/2024, Expires: 06/04/2025 [facility] Comment on above: Expected: 06/04/2024 , Expires: 06/04/2025 Start: 06-04-2024 End: 06-04-2024 Patient encounter procedure 06/04/2024 1:10 PM EST Office Visit [facility] [address] [id number] Drew Colin DO [address] [place] [address] Arrived [facility] Comment on above: Arrived Start: 02-07-2024 End: 02-07-2024 Patient encounter procedure [facility] Comment on above: Arrived Start: 01-14-2024 End: 01-13-2025 ACTH ACTH Lab Routine Low serum cortisol level Expected: 01/14/2024 (Approximate), Expires: 01/13/2025 [facility] Comment on above: Expected: 01/14/2024 (Approximate), Expires: 01/13/2025 Start: 01-14-2024 End: 01-13-2025 Cortisol Cortisol Lab Routine Low serum cortisol level Expected: 01/14/2024 (Approximate), Expires: 01/13/2025 [facility] Work Phone: Comment on above: Expected: 01/14/2024 (Approximate), Expires: 01/13/2025 Start: 01-14-2024 End: 01-14-2024 Patient encounter procedure [facility] Comment on above: Arrived Start: 12-09-2023 Influenza vaccination Influenza Vacc ine (#1) [facility] Start: 12-06-2023 End: 12-06-2023 Patient encounter procedure 12/06/2023 8:15 AM EDT Office Visit [facility] [address] [place] [address] David Valentin MD [address] [place] [address] [facility] Start: 11-26-2023 End: 11-25-2024 Cortisol Cortisol Lab Routine Hormone imbalance Expected: 11/26/2023 (Approximate), Expires: 11/25/2024 [facility] Comment on above: Expected: 11/26/2023 (Approximate), Expires: 11/25/2024 Start: 11-26-2023 End: 11-25-2024 DHEA-sulfate DHEA-sulfate Lab Routine Hormone imbalance Expected: 11/26/2023 (Approximate), Expires: 11/25/2024 [facility] Comment on above: Expected: 11/26/2023 (Approximate), Expires: 11/25/2024 Start: 11-26-2023 End: 11-25-2024 Estradiol Estradiol Lab Routine Hormone imbalance Expected: 11/26/2023 (Approximate), Expires: 11/25/2024 [facility] Comment on above: Expected: 11/26/2023 (Approximate), Expires: 11/25/2024 Start: 11-26-2023 End: 11-25-2024 Estrone Estrone Lab Routine Hormone imbalance Expected: 11/26/2023 (Approximate), Expires: 11/25/2024 [facility] Comment on above: Expected: 11/26/2023 (Approximate), Expires: 11/25/2024 Start: 11-26-2023 End: 11-25-2024 Follicle stimulating hormone Follicle stimulating hormone Lab Routine Hormone imbalance Thyroid disorder screen Expected: 11/26/2023 (Approximate), Expires: 11/25/2024 [facility] Comment on above: Expected: 11/26/2023 (Approximate), Expires: 11/25/2024 Start: 11-26-2023 End: 11-25-2024 Insulin, random Insulin, random Lab Routine Imbalance of male hormones with irregular menstruation and ovulation Expected: 11/26/2023 (Approximate), Expires: 11/25/2024 [facility] Comment on above: Expected: 11/26/2023 (Approximate), Expires: 11/25/2024 Start: 11-26-2023 End: 11-25-2024 Luteinizing hormone [facility] Comment on above: Expected: 11/26/2023 (Approximate), Expires: 11/25/2024 Ordered: 11/26/2023 Start: 11-26-2023 End: 11-25-2024 Progesterone Progesterone Lab Routine Hormone imbalance Expected: 11/26/2023 (Approximate), Expires: 11/25/2024 [facility] Comment on above: Expected: 11/26/2023 (Approximate), Expires: 11/25/2024 Start: 11-26-2023 End: 11-25-2024 Thyrotropin [Units/volume] in Serum or Plasma TSH Lab Routine Hormone imbalance Thyroid disorder screen Expected: 11/26/2023 (Approximate), Expires: 11/25/2024 [facility] Work Phone: Comment on above: Expected: 11/26/2023 (Approximate), Expires: 11/25/2024 Start: 01-28-2023 Bacteria identified in Urine by Culture [facility] Cortisol Cortisol Lab Rou maritza Low serum cortisol level Ordered: 12/06/2023 [facility] Work Phone: Comment on above: Ordered: 12/06/2023 Hemoglobin A1c/Hemoglobin.total in Blood Hemoglobin A1c Lab Routine Imbalance of male hormones with irregular menstruation and ovulation Ordered: 11/26/2023 [facility] Comment on above: Ordered: 11/26/2023 Hemoglobin A1c/Hemoglobin.total in Blood Hemoglobin A1c Lab Routine Abnormal uterine bleeding (AUB) Ordered: 06/04/2024 [facility] Comment on above: Ordered: 06/04/2024 Progesterone Progesterone Lab Routine Abnormal uterine bleeding (AUB) PCOS (polycystic ovarian syndrome) Ordered: 06/04/2024 [facility] Work Phone: Comment on above: Ordered: 06/04/2024 Thyrotropin [Units/volume] in Serum or Plasma TSH Lab Routine Abnormal uterine bleeding (AUB) PCOS (polycystic ovarian syndrome) Ordered: 06/04/2024 [facility] Comment on above: Ordered: 06/04/2024 Immunizations Immunization Date Immunization Notes Care Provider Twyla galvez 10-28-2020 Do not use COVID-19 Pfizer 2 dose Phil Osborne [facility] 10-07-2020 COVID-19 mRNA, Comirnaty (Pfizer) SAÚL Nolascoaker Work Phone: [facility] Payers Date Payer Category Payer Medicaid [id number] 2023 Medicaid [id number] 2. [id number] 2003 Unknown [id number] 2.16.84 [id number] 2003 Unknown [id number] 2.16.84 [id number] 2003 Unknown [id number] 2.16.84 [id number] 2003 Unknown [id number] 2.16.84 [id number] 2003 Unknown [id number] 2.16.84 [id number] 2003 Unknown [id number] 2.16.84 [id number] 2003 Unknown [id number] 2.16.84 [id number] 2003 Unknown [id number] 2.16.84 [id number] 1959 Self-pay 1961 Unknown [id number] Unknown [id number] [id number] Social History Date Type Detail Facility Start: 11-26-2023 End: 02-07-2024 Sex Assigned At [facility] [email or web address] Other Start: 04-22-2021 End: 11-26-2023 Tobacco smoking status NHIS Never smoked tobacco (finding) [facility] Start: 2003 Sex Assigned At Female F [facility] Start: 11-26-2023 Tobacco use and exposure Smokeless tobacco non-user [facility] Start: 11-26-2023 End: 06-04-2024 Alcoholic beverage intake Lifetime non-drinker (finding) [facility] Start: 11-26-2023 End: 02-07-2024 History of Social function [facility] Start: 2003 Sex assigned at Not on [facility] How often to you hav e a drink containing alcohol? Never [facility] How many standard drinks containing alcohol do you have on a typical day? Patient does not drink [facility] Start: 08-01-2024 Sex Female (finding) [facility] Clinical Notes 09-29-2021 to 07-31-2024 Note Date & Type Note Facility 07-31-2024 Evaluation note Diagnosis Onset Date Resolution Dysuria acute July 31 9:45am [facility] Work Phone: [phone]) 856-628602-26-2025 History of Present illness Narrative* Mariana More, PABLO - 06/04/2024 1:10 PM EST Reason for Appointment: Patient ID: Anju Molina is a 19 y.o. female who presents for Infertility Patient presents today for Acute Visit. and Consult appointment. MEDICATIONS No current outpatient medications ALLERGIES No Known Allergies PROBLEMS Active Ambulatory Problems Diagnosis Date Noted No Active Ambulatory Problems Resolved Ambulatory Problems Diagnosis Date Noted No Resolved Ambulatory Problems Past Medical History: Diagnosis Date HSV-2 (herpes simplex virus 2) infection HISTORY PAST MEDICAL HISTORY SOCIAL HISTORY Past Medical History: Diagnosis Date HSV-2 (herpes simplex virus 2) infection Social History Tobacco Use Smoking status: Never Smokeless tobacco: Never Vaping Use Vaping status: Never Used Substance Use Topics Alcohol use: Never Drug use: Yes Types: Marijuana FAMILY HISTORY No family history on file. SURGICAL HISTORY History reviewed. No pertinent surgical history. REVIEW OF SYSTEMS Review of Systems: Review of Systems Constitutional: Negative. HENT: Negative. Eyes: Negative. Respiratory: Negative. Cardiovascular: Negative. Gastrointestinal: Negative. Genitourinary: Negative. Musculoskeletal: Negative. Skin: Negative. Neurological: Negative. All other systems reviewed and are negative. Hematological: Negative. Endocrine: Negative. Allergic/Immunologic: Negative. OBJECTIVE Objective: Physical Exam Constitutional: Appearance: Normal appearance. She is well-developed. Cardiovascular: Rate and Rhythm: Normal rate and regular rhythm. Pulmonary: Effort: Pulmonary effort is normal. Breath sounds: Normal breath sounds. Abdominal: General: Bowel sounds are normal. There is no distension. Palpations: Abdomen is soft. Tenderness: There is no abdominal tenderness. There is no guarding or rebound. Musculoskeletal: General: No swelling. Normal range of motion. Right lower leg: No edema. Left lower leg: No edema. Neurological: Mental Status: She is alert and oriented to person, place, and time. Skin: General: Skin is warm and dry. Psychiatric: Mood and Affect: Mood normal. Behavior: Behavior normal. Vitals and nursing note reviewed. Exam conducted with a underground electrician present. Vitals: Estimated body mass index is 36.46 kg/m as calculated from the following: Height as of 24: 5' 3 . Weight as of this encounter: 205 lb 12.8 oz. BP: 110/74 Patient's last menstrual period was 05/05/2024. ASSESSMENT & PLAN ICD-10-CM 1. Abnormal uterine bleeding (AUB) N93.9 2. PCOS (polycystic ovarian syndrome) E28.2 Patient presents today to discuss fertility. Patient was given a standing lab order and ultrasound to have obtained. Patient was instructed to call the office once menstrual cycle begins so femara can be called into patients pharmacy. Patient has been instructed to take Femara on days 3-7 of cycle.On day 21 of cycle patient is to have progesterone labs drawn. Patient was advised to have intercourse on days 12, 14, 16, 18, and 20 of cycle. We will do three rounds of Femara and if patient has not conceived by then, we will perform HSG. Patient has voiced understanding and will call our office for any further questions/concerns. Orders Placed This Encounter Procedures US Pelvis w/ TV Progesterone TSH Hemoglobin A1c Antimullerian hormone (AMH) Follow Up: 4 months Rtc 4 months Documented by Mariana More LPN on behalf of: Drew Colin DO documented in this encounterChildren's Mercy [id number] History of Present illness Narrative* Kendal Rincon NP - 02/07/2024 8:20 AM EDT Name: Benton Meggitt Date/Time of Service:02/07/2024 8:45 AM :2005 Age: 18 y.o. Chief Complaint Patient presents with Menstrual Problem SUBJECTIVE: History of Present Illness Anju Molina is a 18 y.o. nulliparous female here for irregular menses and fertility. She had nexplanon removed Jan 2023. She has been trying to get since then. Periods were about every 45 days which is typical for her. She had a period at the beginning of November and then notagain until 02-01-24. Her partner has not fathered any children. Pt has never been . Pt and partner smoke marijuana. She has not done ovulation testing. She is pt of Dr. Valentin - normal ovulation and hormonal levels were observed in her labwork. She wasdiscussing infertility. She saw endocrinology earlier this month for low cortisol. The lab was drawn after noon, so they are doing further testing. Pt has hx HSV-2 and chlamydia. Past Medical History: Diagnosis Date HSV-2 (herpes simplex virus 2) infection Review of Systems All others negative except those mentioned in HPI. Past Medical / Surgical History Past Medical History: Diagnosis Date HSV-2 (herpes simplex virus 2) infection History reviewed. No pertinent surgical history. Family History No family history on file. Social History reports that she has never smoked. She has never used smokeless tobacco. She reports current drug use. Drug: Marijuana. She reports that she does not drink alcohol. Vitals: 02/07/24 0817 BP: 118/82 MEDICATIONS: No current outpatient medications on file prior to visit. No current facility-administered medications on file prior to visit. No Known Allergies PHYSICAL EXAM: Vitals: 02/07/24 0817 BP: 118/82 Body mass index is 34.37 kg/m . Physical Exam Constitutional: Appearance: Normal appearance. HENT: Head: Normocephalic. Eyes: Extraocular Movements: Extraocular movements intact. Conjunctiva/sclera: Conjunctivae normal. Pulmonary: Effort: Pulmonary effort is normal. Neurological: Mental Status: She is alert and oriented to person, place, and time. Skin: General: Skin is warm and dry. Psychiatric: Mood and Affect: Mood normal. Behavior: Behavior normal. ASSESSMENT / PLAN Recommend for pt and partner to quit marijuana use. Recommend for pt to ovulation test and discussed timing of intercourse. Partner needs to have semenanalysis done. Follow up with Dr. Medeiros to discuss infertility. Diagnosis Plan 1. Irregular menses 2. Female infertility No follow-ups on file. documented in this [facility]10-23-2024 Telephone encounter Note* Telephone Encounter - Dung Albert - 01/30/2024 8:23 AM EDT Pt would like lab read please. Thank you! [facility] [id number] Miscellaneous Notes* Telephone Encounter - Dung Price - 01/30/2024 8:23 AM EDT Pt would like lab read please. Thank you! documented in this [facility]10-07-2024 History of Present illness Narrative* Peter Li MD - 01/14/2024 10:00 AM EDT Anju Molina is a 18 y.o. female No ref. provider found presents with chief complaint of cortisol and Follow-up HPI: HPI 01/[address] David Valentin during workup of her infertility and irregular cycle, found cortisol in the low side 4.7, but this done after noon at around 2:00 p.m. , denies dizziness or lightheadedness, no hyponatremia or hyperkalemia, other workup for DHEA-S, testosterone, thyroid hormone came back within normal limits. SUBJECTIVE: MEDICATIONS: No current outpatient medications ALLERGIES: No Known Allergies Past Medical History: Diagnosis Date HSV-2 (herpes simplex virus 2) infection No past surgical history on file. REVIEW OF SYMPTOMS: 14 POINT OF SYSTEM REVIEWED AND NEGATIVE OBJECTIVE: Lab Results Component Value Date TSH 3.160 11/26/2023 Visit Vitals Pulse 70 Resp 16 Ht 5' 3 Wt 190 lb BMI 33.66 kg/m OB Status Having periods Smoking Status Never BSA 1.96 m Physical Exam Constitutional: Appearance: Normal appearance. She is normal weight. HENT: Head: Normocephalic and atraumatic. Right Ear: External ear normal. Nose: Nose normal. Mouth/Throat: Pharynx: Oropharynx is clear. Eyes: Extraocular Movements: Extraocular movements intact. Pupils: Pupils are equal, round, and reactive to light. Cardiovascular: Rate and Rhythm: Normal rate and regular rhythm. Pulmonary: Effort: Pulmonary effort is normal. Abdominal: General: Abdomen is flat. Palpations: Abdomen is soft. Musculoskeletal: General: Normal range of motion. Skin: General: Skin is warm. Neurological: General: No focal deficit present. Mental Status: She is alert. Psychiatric: Mood and Affect: Mood normal. Behavior: Behavior normal. ASSESSMENT AND PLAN: Assessment/Plan Diagnoses and all orders for this visit: Low serum cortisol level - Cortisol; Future - ACTH; Future Low cortisol 4.7, but done after noon , so I will repeated in the morning with ACTH within 2 hours after walking up, if it is less than 10 then I will do ACTH stimulation test,, if above 10 no need further lab testing. Encounter for dietary consultation Class 1 obesity due to excess calories without serious comorbidity with body mass index (BMI) of 33.0 to 33.9 in adult Diet and exercise reviewed with the patient documented in this encounterChildren's Mercy [id number] History of Present illness Narrative* David Valentin MD - 12/06/2023 8:15 AM EDT Images from the original note were not included. David Valentin MD Obstetrics and Gynecology Patient: Anju Molina : 2005 (18 y.o.) Exam Date: 12/06/2023 Reason for Visit - Chief Complaint Patient presents with Televisit Televisit to discuss test results and follow up on vaginitis. The patient presented with concerns about her recent lab work. She reported that she had questions about her low cortisol levels and was interested in further evaluation by an computer engineering technologist. The patient was informed that a referral had been sent for an computer engineering technologist consultation and that additional testing would be required. She was also provided with some basic information about low cortisollevels in her chart. The remainder of her lab work was satisfactory, with normal hormonal levels and evidence of ovulation. She was given the option to repeat the cortisol test if desired, but expressed reluctance to do so, stating that she believes something may be wrong with her. The patient also inquired about the timeline for seeing an computer engineering technologist and was informed that it could take about a month, depending on the availability of the specialist. She expressed willingness to travel to see the first availableendocrinologist if necessary. Visit Vitals LMP 10/21/2023 (Exact Date) OB Status Having periods Smoking Status Never History of Present Illness, Associated Treatments and Results - OB History Para Term AB Living 0 0 0 0 0 0 SAB IAB Ectopic Multiple Live Births 0 0 0 0 0 Constitutional: Negative. HENT: Negative. Eyes: Negative. Respiratory: Negative. Cardiovascular: Negative. Gastrointestinal: Negative. Endocrine: Negative. Genitourinary: Negative. Musculoskeletal: Negative. Skin: Negative. Allergic/Immunologic: Negative. Neurological: Negative. Hematological: Negative. Psychiatric/Behavioral: Negative. No Known Allergies Current Outpatient Medications: azithromycin (Zithromax) 500 MG tablet, Take 1 tablet (500 mg) by mouth Daily for 10 days, Disp: 10tablet, Rfl: 1 clindamycin (Cleocin) 2 % vaginal cream, Insert 1 applicator into the vagina at bedtime for 7 days,Disp: 40 g, Rfl: 2 Past Medical History: Diagnosis Date HSV-2 (herpes simplex virus 2) infection No past surgical history on file. No family history on file. Social History Tobacco Use Smoking Status Never Smokeless Tobacco Never Assessment/Plan Verbal consent given for televisit over the phone. Provider in office and patient at home. ICD-10-CM 1. Acute vaginitis N76.0 1. Low cortisol levels - Plan: a) Referred the patient to an computer engineering technologist for further evaluation of adrenal function. b) The patient may consider repeating the cortisol test with fasting if desired. c) Educated the patient on low cortisol and its implications. 2. Ovulation and hormonal levels - Assessment: Normal ovulation and hormonal levels were observed in the lab work. - Plan: a) No further action needed at this time. 3. Patient's concern about the computer engineering technologist appointment - Plan: a) The patient will call the referral department to inquire about the earliest available appointment. documented in this encounterChildren's Mercy [id number] History of Present illness Narrative* David Valentin MD - 11/26/2023 1:00 PM EDT Images from the original note were not included. David Valentin MD Obstetrics and Gynecology Patient: Anju Molina : 2005 (18 y.o.) Yearly Wellness Exam Date: 11/26/2023 Reason for Visit - Chief Complaint Patient presents with Gynecologic Exam LMP: 10/21/23 Complaints: patient would like STD screening, urine sent, patient has current has HSV-2, and a hx of Chlamydia Visit Vitals BP 100/80 Wt 197 lb LMP 10/21/2023 (Exact Date) OB Status Having periods Smoking Status Never History of Present Illness, Associated Treatments and Results - OB History Para Term AB Living 0 0 0 0 0 0 SAB IAB Ectopic Multiple Live Births 0 0 0 0 0 Review of Systems - Constitutional: Negative. HENT: Negative. Eyes: Negative. Respiratory: Negative. Cardiovascular: Negative. Gastrointestinal: Negative. Endocrine: Negative. Genitourinary: Negative. Musculoskeletal: Negative. Skin: Negative. Allergic/Immunologic: Negative. Neurological: Negative. Hematological: Negative. Psychiatric/Behavioral: Negative. No Known Allergies No current outpatient medications on file. Past Medical History: Diagnosis Date HSV-2 (herpes simplex virus 2) infection History reviewed. No pertinent surgical history. No family history on file. Social History Tobacco Use Smoking Status Never Smokeless Tobacco Never Physical Exam - General appearance, mentation, extraocular movements, facial strength and movement, hearing, upper and lower extremity strength and tone, sensation to gross testing, coordination, and gait are normalor at baseline unless noted below. Physical Exam Constitutional: Appearance: Normal appearance. Genitourinary: Breasts: Breasts are soft. Right: Normal. Left: Normal. HENT: Head: Normocephalic and atraumatic. Pulmonary: Breath sounds: Normal breath sounds and air entry. Abdominal: Tenderness: There is no abdominal tenderness. Neurological: Mental Status: She is alert and oriented to person, place, and time. Psychiatric: Mood and Affect: Mood normal. Behavior: Behavior normal. Assessment/Plan ICD-10-CM 1. Acute vaginitis N76.0 azithromycin (Zithromax) 500 MG tablet fluconazole (Diflucan) 150 MG tablet 2. Encounter for gynecological examination without abnormal finding Z01.419 3. control counseling Z30.09 4. Irregular menses N92.6 5. Hormone imbalance E34.9 TSH Cortisol Luteinizing hormone DHEA-sulfate Estradiol Estrone Follicle stimulating hormone Progesterone TSH Cortisol Luteinizing hormone DHEA-sulfate Estradiol Estrone Follicle stimulating hormone Progesterone 6. Thyroid disorder screen Z13.29 TSH Luteinizing hormone Follicle stimulating hormone TSH Luteinizing hormone Follicle stimulating hormone 7. Imbalance of male hormones with irregular menstruation and ovulation E34.9 Luteinizing hormone E28.8 Insulin, random N92.6 Hemoglobin A1c Insulin, random 8. Screen for STD (sexually transmitted disease) Z11.3 GENITOURINARY INFECTION (HTRX) Anju was seen today for gynecologic exam. Diagnoses and all orders for this visit: Acute vaginitis (Primary) - azithromycin (Zithromax) 500 MG tablet; Take 1 tablet (500 mg) by mouth Daily for 10 days - fluconazole (Diflucan) 150 MG tablet; Take 1 tablet (150 mg) by mouth 1 (one) time for 1 dose Encounter for gynecological examination without abnormal finding control counseling Irregular menses Hormone imbalance - TSH; Future - Cortisol; Future - Luteinizing hormone; Future - DHEA-sulfate; Future - Estradiol; Future - Estrone; Future - Follicle stimulating hormone; Future - Progesterone; Future - TSH - Cortisol - Luteinizing hormone - DHEA-sulfate - Estradiol - Estrone - Follicle stimulating hormone - Progesterone Thyroid disorder screen - TSH; Future - Luteinizing hormone; Future - Follicle stimulating hormone; Future - TSH - Luteinizing hormone - Follicle stimulating hormone Imbalance of male hormones with irregular menstruation and ovulation - Luteinizing hormone - Insulin, random; Future - Hemoglobin A1c - Insulin, random Screen for STD (sexually transmitted disease) - GENITOURINARY INFECTION (HTRX) Pt presents for STD screen Cultures and bloodwork ordered . Recurrent vaginal infection with cramping, burning, and odor: - Plan: a) Prescribe Zithromax, based on past cultureresults b) Obtain vaginal culture to identify the causative organism c) Advise patient to call if symptoms do not improve or worsen, and schedule a follow-up visit for swabbing if needed d) Prescribe medication for yeast infection prophylaxis 2. History of herpes infection: - Plan: a) No active lesions or symptoms reported during this visit b) Continue monitoring for any outbreaks or complications 3. Anovulation and difficulty conceiving: - Plan: a) Obtain blood work to evaluate hormonal levels and possible causes of anovulation b) Consider prescribing medications to stimulate ovulation once the infection is cleared and blood work results are available c) Schedule a telephone visit to discuss blood work results and plan for fertility treatment sens Pt will be informed and results will be available [facility] Return for annual and prn documented in this encounterChildren's Mercy [id number] Evaluation note* Encounter Date Diagnosis Assessment Notes Treatment Notes Treatment Clinical Notes Jan, Dysuria (ICD-10 - R30.0) Jan, Acute cystitis with hematuria (ICD-10 - N30.01) Take medication as directed. Urine analysis shows abnormalities today in office. Urine culture will be sent to lab. Will call with results if resistance present to antibiotic. Increase fluid intake. Follow hygiene guidelines such as wiping front to back, avoid using perfumed lotions, bath beads, bubble bath. Prevention tips inlcude urinating after sexual intercourse. Follow up with primary care provider or boat canvas installer if no improvement of symptoms. [facility] Other 06-23-2022 Evaluation note* Encounter Date Diagnosis Assessment Notes Treatment Notes Treatment Clinical Notes Sep, High risk bisexual behavior (ICD-10 - Z72.53) Vaginal exam performed in office today. Pt treated prophylactically for BV. Specimen sent to lab and pt will be notified of results. Treatment plan may be adjusted accordingly based on these results. Pt advised to abstain from sexual activity while awaiting results. Pt understood and agreed to treatment plan. Sep, Acute cystitis without hematuria (ICD-10 - N30.00) Meds as prescribed. Push fluids. Urine sent for culture and pt will be notified of results if any change needs to be made. Advised good hygeine and no sexual activity while on meds. Pt to f/u as needed with pcp for persistent or recurrent sx. Immediate eval in ER for abdominal pain, severe back pain, N/V/D, fever/chills, or severe dehydration. Pt understood and agreed to teatment plan. [facility] Other Evaluation noteNo InformationNort [employer] Other Evaluation noteNo assessment information available [facility] Work Phone: Evaluation note* Diagnosis Low serum cortisol level- Primary Encounter for dietary consultation Class 1 obesity due to excess calories without serious comorbidity with body mass index (BMI) of 33.0 to 33.9 in adult documented in this encounter [facility] HealthcareEvaluation note* Diagnosis Low serum cortisol level- Primary Acute vaginitis Unspecified vaginitis and vulvovaginitis documented in this encounter [facility] HealthcareEvaluation note* Diagnosis Irregular menses- Primary Irregular menstrual cycle Female infertility Female infertility of unspecified origin documented in this encounter [facility] HealthcareEvaluation note* Diagnosis Acute vaginitis- Primary Unspecified vaginitis and vulvovaginitis documented in this encounter [facility] HealthcareEvaluation note* Diagnosis Acute vaginitis- Primary Unspecified vaginitis and vulvovaginitis Encounter for gynecological examination without abnormal finding control counseling Irregular menses Irregular menstrual cycle Hormone imbalance Thyroid disorder screen Screening for thyroid disorder Imbalance of male hormones with irregular menstruation and ovulation Polycystic ovaries Screen for STD (sexually transmitted disease) Screening examination for venereal disease documented in this encounter [facility] HealthcareEvaluation note* Diagnosis Abnormal uterine bleeding (AUB) PCOS (polycystic ovarian syndrome) Polycystic ovaries documented in this encounter [facility] HealthcareHistory general Narrative - Reported* Type Description Date Surgical History appendectomy [facility] Other Summary Purpose Family History No Family History Records FoundNo Family History Records FoundNo Family History Records FoundNo Family History Records Found Advance Directives No Advanced Directives Records Found Advance Directive Response Recorded Date/ Time Advance Directives No March 5:53pm Chief Complaint and Reason for Visit Chief Complaint Dysuria Chief Complaint Admit Date poss UTI July 31, 2024 9:4 5am Reason for Visit Admit Date Dysuria July 31, 2024 9:4 5am Additional Source Comments INFORMATION SOURCE (unrecogn ized section and content) DATE CREATED AUTHOR 10/03/2021 [facility] DATE CREATED AUTHOR AUTHOR'S ORGANIZ ATION 10/28/2021 [facility] DATE CREATED AUTHOR AUTHOR'S ORGANIZ ATION 06/28/2024 [facility] EPIC DATE CREATED AUTHOR AUTHOR'S ORGANIZ ATION 08/07/2024 [facility] REASON FOR VISIT (unrecogniz ed section and content) Reason Comments Infertility Reason Comments Gynecologic Exam Reason Comments Menstrual Problem Reason Comments Televisit Reason Comments cortisol Follow-up POSS UTISTI CHECK Care Teams (unrecognized sec tion and content) Team Status: Inactive Member Role Status Dates Jose Miguel Resendiz , SPREADING MACHINE OPERATOR-C Attending Provider Activ e Braille Proofreader Relationship Specialty Start Date End Date Unallocated, Osito Tsang MD [facility] [place] [place] [address] PCP - General Family Medicine 11/26/23 Braille Proofreader Relationship Specialty Start Date End Date Unallocated, Osito Tsang MD [facility] [place] [address] PCP - General Family Medicine 11/26/23 Braille Proofreader Relationship Specialty Start Date End Date Unallocated, Osito Tsang MD [facility] [place] [address] PCP - General Family Medicine 11/26/23 Braille Proofreader Relationship Specialty Start Date End Date Unallocated, Osito Tsang MD [facility] [place] [address] PCP - General Family Medicine 11/26/23 Braille Proofreader Relationship Specialty Start Date End Date Unallocated, Osito Tsang MD [facility] [place] [address] PCP - General Family Medicine 11/26/23 Braille Proofreader Relationship Specialty Start Date End Date Unallocated, Osito Tsang MD [address] [place] [address] [place] [address] PCP - General Family Medicine 11/26/23 Braille Proofreader Relationship Specialty Start Date End Date Unallocated, Osito Provider, [address] [place] [address] PCP - General Family Medicine 11/26/23 Braille Proofreader Relationship Specialty Start Date End Date Unallocated, Osito ProviderMD [address] [place] [address] PCP - General Family Medicine 11/26/23 Braille Proofreader Relationship Specialty Start Date End Date Unallocated, Osito Provider, [address] [place] [address] PCP - General Family Medicine 11/26/23 Team Status: Inactive Member Role Status Dates PHYSICIAN NO FAMILY Primary Care Provider Active Start: July 31, 2024 End: July 31, 2024 Teersa Vitale APRN Attending Provider Active Start: July 31, 2024 End: July 31, 2024 Team Status: Inactive Member Role Status Dates Teresa Vitale APRN Attending Provider Active Start: July 31, 2024 End: July 31, 2024 Goals (unrecognized section and content) Goals may be documented in a n alternate section FOR RECORDS PERTAINING TO PATIENTS WHO ARE OR HAVE BEEN ENROLLED IN A CHEMICAL DEPENDENCY/SUBSTANCEABUSE PROGRAM, SOME INFORMATION MAY BE OMITTED. This clinical summary was aggregated from multiple sources. Caution should be exercised in using it in the provision of clinical care. This summary normalizes information from multiple sources, and as a consequence, information in this document may materially change the coding, format and clinical context of patient data. In addition, data may be omitted in some cases. CLINICAL DECISIONS SHOULD BE BASED ON THE PRIMARY CLINICAL RECORDS. [employer] provides no warranty or guarantee of the accuracy or completeness of information in this document.
[2024-09-23 08:09] LABS: Progesterone 15.5 ng/mL (.)
== END 2024-09-22 08:44 | disposition home or self-care (01) ==
LOC: LAB 08:45
PROVIDERS: Visit Provider Obstetrics & Gynecology
DX: N93.9 Abnormal uterine and vaginal bleeding, unspecified (principal); E28.2 Polycystic ovarian syndrome; N92.6 Irregular menstruation, unspecified
CPT/HCPCS: 36415; 84144

== ENCOUNTER 2024-09-30 08:08 | Outpatient (RCR) | payer MEDICAID, SELFPAY | END 2024-10-07 09:47 | disposition home or self-care (01) | LOC: LAB 08:08 | PROVIDERS: Visit Provider Obstetrics & Gynecology | DX: Z51.81 Encounter for therapeutic drug level monitoring (principal); Z32.01 Encounter for pregnancy test, result positive | CPT/HCPCS: 36415; 84702 ==

== ENCOUNTER 2024-11-04 12:32 | Outpatient (OUT) | payer MEDICAID, SELFPAY ==
--- OUTSIDE RECORDS SUMMARY | 2024-10-30 12:30 | XMS_ITS ---
Author Organization [facility] es Address [address] [place] [address] Care Team Providers Care Sanitation Worker Name Role Phone Kandis Paredes Primary Care Provider Dali aRy Unavailable [phone] REASON FOR VISIT FILLING Encounters Encounter Location Date Provider Diagnosis [place] [address] [place] [address] 10/30/2024 Dali Ray Plan Of Treatment No Information Progress Notes * SAADKIMBERLEE PACHECOUM RDOB:[birth year] (19 yo F)Acc No.[id number]:10/30/2024 Patient: ETIENNE GARCIA Provider: Mae Ray DDS :2005 A ge:19 Y S ex:Female Date:10/30/2024 Address:[address] [place], [phone] Pcp:Kandis Paredes Subjective: * Chief Complaints: * 1 . FILLING. * Medical History: Objective: * Vitals: Assessment: Plan: * Treatment: * Images: * Electronic signature of Luz Elena Ray DDS on 11/04/2024 at 12:34 PM EDT Sign off status: Pending * Provider: Mae Ray DDS Date: 10/30/2024 Generated for Alejandro sullivan/Jeanne/Jeffersonsmitting on: 0 11/04/2024 12:34 PM EDT
--- OUTSIDE RECORDS SUMMARY | 2024-10-31 10:00 | XMS_ITS | Encounter Summary ---
Author Organization [facility] Address [address] [place] [address] Care Team Providers Care Toll Ticket Clerk Name Role Phone Unallocated, Noms Provider Primary Care Provi marcelino Encounter Details Date Type Department Care Team (Latest Contact Info) Description 10/31/2024 10:00 AM EDT Ancillary Procedure [facility] TRUJ[facility] [address] [place] [address] Missed menses; Positive urine test ([facility] Social History Tobacco Use Types Packs/Day Years Used Date Smoking Tobacco: Never Smokeless Tobacco: Never Alcohol Use Standard Drinks/Week Comments Never 0 (1 standard drink = 0.6 oz pur e alcohol) AUDIT-C Answer Date Recorded Q1: How often do you have a drink containing alcohol? Never 02/07/2024 Q2: How many drinks containi ng alcohol do you have on a typical day when you are drinking? Patient does not drink Q3: How often do you have si x or more drinks on one occasion? Never 02/07/2024 PHQ-2 Answer Date Recorded Patient Health Questionnaire-2 Score 0 11/26/2023 Estimated Date of Delivery Comme nts Yes 06/09/2025 Based on last me nstrual period of 09/02/2024 Sex and Gender Information Value Date Recorded Sex Assigned at Not on file Legal Sex Female 7:20 PM EDT Gender Identity Not on file Sexual Orientation Not on file documented as of this encounter Plan of Treatment Upcoming Encounters Date Type Department Care Team (Late Contact Info) Description 12/01/2024 10:50 AM EDT Routine F[facility]NA TRUJILLO [address] [place] [address] Garfield Colin, DO [address] [facility] [place] [address] documented as of this encounter Procedures Procedure Name Priority Date/Time Associated Diagnosis Comments US OB TRANSVAGINAL Routine 10/31/2024 10 :13 AM EDT Missed menses Positive urine test ([facility]) documented in this encounter Results * US OB transvaginal (10/31/2024 10:13 AM EDT) Anatomical Region Laterality Modality Body Ultrasound 11/03/2024 11:4 3 PM EDT Narrative 11/03/2024 11:44 PM EDT EXAM: US OB TRANSVAGINAL HISTORY: Dating. COMPARISON: None available. TECHNIQUE: Two-dimensional transvaginal grayscale ultrasound imaging of the pelvis was performed. Color Doppler evaluation of the ovaries was also performed. FINDINGS: The uterus demonstrates a normal homogeneous echotexture. 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 The cervix measures 3.6 cm in length and the cervical os is closed. The right ovary measures 3.2 x 2.7 x 2.8 cm and demonstrates a normal echotexture. There is normal color Doppler flow. There is a 2.5 cm presumed corpus luteal cyst. The left ovary measures 2.4 x 2.1 x 2.4 cm and demonstrates a normal echotexture. There is normal color Doppler flow. Trace fluid is present within the cul-de-sac. There is a single, live intrauterine gestation identified with a heart rate of 170 beats per minute and a crown-rump length measurement of 1.8 cm, correlating to a gestational age of 8 weeks 2 days (+/- 5 days). There is no subchorionic hemorrhage visualized. A yolk sac is visualized. IMPRESSION: 1. Single, live intrauterine gestation 8 weeks, 3 days by LMP. Today's ultrasound measurements correlate with a gestational age of 8 weeks 2 days (+/- 5 days). LILIANE by today's ultrasound is 06/10/2025. 2. Normal color Doppler evaluation of the bilateral ovaries. Interpreted by: Electronically signed by MADYSON WARREN II, MD, PHD at 03-Nov-2024 11:42:05 PM [facility] Procedure Note Madyson Warren MD - 11/03/2024 EXAM: US OB TRANSVAGINAL HISTORY: Dating. COMPARISON: None available. TECHNIQUE: Two-dimensional transvaginal grayscale ultrasound imaging ofthe pelvis was performed. Color Doppler evaluation of the ovaries was alsoperformed. FINDINGS: The uterus demonstrates a normal homogeneous echotexture. The performingtechnologist noted of a bicornuate uterus; however, is not welldemonstrated on the provided images. The cervix measures 3.6 cm in lengthand the cervical os is closed. The right ovary measures 3.2 x 2.7 x 2.8 cm and demonstrates a normalechotexture. There is normal color Doppler flow. There is a 2.5 cmpresumed corpus luteal cyst. The left ovary measures 2.4 x 2.1 x 2.4 cm and demonstrates a normalechotexture. There is normal color Doppler flow. Trace fluid is present within the cul-de-sac. There is a single, live intrauterine gestation identified with a fetalheart rate of 170 beats per minute and a crown-rump length measurement of1.8 cm, correlating to a gestational age of 8 weeks 2 days (+/- 5 days).There is no subchorionic hemorrhage visualized. A yolk sac isvisualized. IMPRESSION: 1. Single, live intrauterine gestation 8 weeks, 3 days by LMP. Today'sultrasound measurements correlate with a gestational age of 8 weeks 2 days(+/- 5 days). LILIANE by today's ultrasound is 06/10/2025. 2. Normal color Doppler evaluation of the bilateral ovaries. Interpreted by: Electronically signed by MADYSON WARREN II, MD, PHD [id number] 11:42:05 PM [facility] us Garfield Cristi DO IMG OB US PROCEDURES Final Resul t documented in this encounter Visit Diagnoses Diagnosis Missed menses Positive urine test ([facility]) documented in this encounter Care Teams Toll Ticket Clerk Relationship Specialty Start Date End Date Unallocated, Noms ProviderMD [address] [place] [address] PCP - General Family Medicine 11/26/23 documented as of this encounter
--- OUTSIDE RECORDS SUMMARY | 2024-11-03 04:00 | XMS_ITS ---
Author Organization [facility] es Address [address] [place] [address] Care Team Providers Care Mandrel Maker Name Role Phone Kandis Paredes Primary Care Provider Dali Ray Unavailable [phone] REASON FOR VISIT FILLING Encounters Encounter Location Date Provider Diagnosis [facility] [address] [address] 11/03/2024 Dali Ray Plan Of Treatment No Information Progress Notes * SAADKIMBERLEE PACHECOUM RDOB:[birth year] (19 yo F)Acc No.[id number]:11/03/2024 Patient: ETIENNE GARCIA Provider: Mae Ray DDS :2005 A ge:19 Y S ex:Female Date:11/03/2024 Address:[address] [place], [id number] Pcp:Kandis Paredes Subjective: * Chief Complaints: * 1 . FILLING. * Medical History: Objective: * Vitals: Assessment: Plan: * Treatment: * Images: * Electronic signature of Luz Elena Ray DDS on 11/04/2024 at 12:34 PM EDT Sign off status: Pending * Provider: Mae Ray DDS Date: 11/03/2024 Generated for Alejandro sullivan/Jeanne/Jeffersonsmitting on: 0 11/04/2024 12:34 PM EDT
--- OUTSIDE RECORDS SUMMARY | 2024-11-04 12:34 | XMS_ITS | Encounter Summary ---
Author Organization [facility] Address [address] [place] [address] Care Team Providers Care Child Development Specialist Name Role Phone Unallocated, Noms Provider Primary Care Provi marcelino Encounter Details Date Type Department Care Team (Late Contact Info) Description 07/10/2024 Abstract [facility]NA TRUJILLO [address] [place] [phone] Garfield Colin DO [address] [facility] [address] [place], [facility] Social History Tobacco Use Types Packs/Day Years [...] Recorded Patient Health Questionnaire-2 Score 0 11/26/2023 Comments No Sex and Gender Information Value Date Recorded Sex Assigned at Not on file Legal Sex Female 7:20 PM EDT Gender Identity Not on file Sexual Orientation Not on file documented as of this encounter Plan of Treatment Upcoming Encounters Date Type Department Care Team (Late Contact Info) Description 12/01/2024 10:50 AM EDT Routine [facility]NA TRUJILLO [address] [place] [address] Garfield Colin, [address] [place] [address] [place] [address] documented as of this encounter Visit Diagnoses Not on filedocumented in this encounter Care Teams Child Development Specialist Relationship Specialty Start Date End Date Unallocated, Noms Provider, [place] [address] PCP - General Family Medicine 11/26/23 documented as of this encounter
--- OUTSIDE RECORDS SUMMARY | 2024-11-04 12:34 | XMS_ITS | Patient Health Record ---
Author Organization [facility] es Address [address] [place] [address] Care Team Providers Care Director Regulatory Compliance Name Role Phone Kandis Paredes Primary Care Provider Saskia Contreras Unavailable [phone] Dali Ray Unavailable [phone] Reason For Referral No Information Medications Medication SIG (Take, Route, Frequency, Duration) Notes Start Date End Date Status Nexplanon Active Tri Femynor 0.18/0.215/0.25 MG-35 MCG 1 tablet Orally Once a day Not-Taking LaMICtal 25 MG 1 tab daily x 2 wks, 2 tabs daily x2 weeks, 3 tabs daily x2 wks, 4 tabs daily x2 wks Orally; Duration: 30 day(s) 03/21/2021 Active LaMICtal 100 MG 1 tablet Orally Once a day; Duration: 30 day(s) 03/30/2020 Not-Taking hydrOXYzine HCl 50 MG 1 tablet as needed Orally every 8 hrs; Duration: 30 day(s) 04/12/2020 Not-Taking Abilify 10 MG 1 tablet Orally Once a day; Duration: 30 day(s) 03/30/2020 Not-Taking Social History Tobacco Use: Social History Observation Description Date Details (start date - stop date) Never Smoker NA - NA Tobacco Screen: Question Answer Notes Are you a: never smoker Alcohol Screening: Question Answer Notes Did you have a drink contain ing alcohol in the past year? Yes How often did you have a dri nk containing alcohol in the past year? Monthly or less (1 point) How many drinks did you have on a typical day when you were drinking in the past year? 1 or 2 (0 points) How often did you have six o r more drinks on one occasion in the past year? Less than monthly (1 point) Points 2 Interpretation Negative Problems Problem Type SNOMED Code ICD Code Onset Dates Problem Status W/U Status Risk Notes Problem Anxiety (95773168) Anxiety (F41.9) Active confirmed Problem Bipolar disorder (F31.9) Active confirmed Encounters Encounter Location Date Provider Diagnosis [address] [address] 07/02/2024 Saskia Gomez Dental caries on pit and fissure surface penetrating into dentin K02.52 ; Encounter for dental examination and cleaning with abnormal findings Z01.21 ; Other dental procedure status Z98.818 and Disturbances in tooth eruption K00.[address] [address] 07/03/2024 Dali Ray Dental caries on pit and fissure surface penetrating into dentin K02.52 Assessments Encounter Date Diagnosis (ICD Code) Assessment Notes Treatment Notes Treatment Clinical Notes Section Notes 07/02/2024 Dental caries on pit and fissure surface penetrating into dentin (ICD-10 - K02.52) 07/03/2024 Dental caries on pit and fissure surface penetrating into dentin (ICD-10 - K02.52) 07/02/2024 Encounter for dental examination and cleaning with abnormal findings (ICD-10 - Z01.21) 07/02/2024 Other dental procedure status (ICD-10 - Z98.818) 07/02/2024 Disturbances in tooth eruption (ICD-10 - K00.6) Plan Of Treatment No Information Insurance Providers Payer Name Payer Address Payer Phone Subscriber Number Group Number Insured Name Patient Relationship to Insured Coverage Start Date Coverage End Date [employer] [place] Medicaid [address] [place] [address] [id number] ETIENNE LEYVA Self - patient is the insured 3 4 Wrap [facility] [address] [place] [address] [phone] [id number] ETIENNE LEYVA Self - patient is the insured 3 4 zDENTAL DQ PARAMOUNT -termed 22 [address] [place] [address] [id number] GORDON ETIENNE Self - patient is the insured 0 3 zDental MEDICAID CFC after PARAMOUNT -termed 22 [address] [place] [address] [id number] GORDON, ETIENNE Self - patient is the insured 0 3 zBH PARAMOUNT ADVANTAGE -termed 22 [address] [place] [address] [id number] GORDON ETIENNE Self - patient is the insured 1 3 z MEDICAID CFC after PARAMOUNT -termed 22 [address] [place] [address] [phone] [id number] GORDON ETIENNE Self - patient is the insured 1 3 Dental Quinn DQ Terminate d 24 [address] [place] [address] [id number] ETIENNE LEYVA Self - patient is the insured 3 4 Dental Wrap CF Quinn BCBS Termed 4 [address] [place] [address] [phone] [id number] GORDON ETIENNE Self - patient is the insured 3 4 [facility] [address] [place] [address] [id number] OLD, JUANJO Grandparent 3 4 BH [facility]rap [facility] [address] [place] [address] [id number] OLD, JUANJO Grandparent 3 4 Dental [employer] DQ [address] [address] [place] [address] [id number] ETIENNE LEYVA Self - patient is the insured 5 Dental Wrap C[employer] [address] [place] [address] [phone] [id number] ETIENNE LEYVA Self - patient is the insured 5 Medical (General) History Surgical History Surgery Date(Month/Year) APPENDECTOMY
--- OUTSIDE RECORDS SUMMARY | 2024-11-04 12:34 | XMS_ITS | Clinical Summary ---
Author Organization [facility] Address [address] [place] [address] Care Team Providers Care Channeler Outsole Name Role Phone Unallocated, Noms Provider Primary Care Provi marcelino Allergies No known active allergies Medications MV-Min-Fe Fum-FA-DHA ( 1 PO) Take 1 tablet by mouth Daily Active ondansetron ODT (Zofran-ODT) 4 MG disintegrating tabletIndications: Nausea Take 1 tablet (4 mg) by mouth every 6 (six) hours if needed for nausea or vomiting 30 tablet 2 11/01/19 25 025 Active metFORMIN (Glucophage) 500 MG tabletIndications: Abnormal uterine bleeding (AUB),PCOS (polycystic ovarian syndrome) Take 1 tablet (500 mg) by mouth in the morning. Take with meals. 30 tablet 11 06/04/19 25 025 Discontinued Active Problems Problem Noted Date Diagnosed Date Positive urine test ([facility]) 09/30/19 25 Abnormal uterine bleeding (AUB) 09/02/2024 PCOS (polycystic ovarian syndrome) 09/02/2024 Irregular menses 09/02/2024 Estimated Date of Delivery Comme nts Yes 06/09/2025 Based on last me nstrual period of 09/02/2024 Encounters Date Type Department Care Team Description 10/31/2024 10:30 [place] [address] [place]: 8w3d 10/31/2024 10:00 AM EDT [place] [address] Missed menses; Positive urine test ([facility]) 10/02/2024 Clinisync Result Encounter [facility] External Department Unsolicited Garfield Colin, DO 09/30/2024 Clinisync Result Encounter [facility]OMS External Department Unsolicited Garfield Colin, DO 09/29/2024 Telephone [facility] [address] [place] [address] Latanya Oneal LPN 09/25/2024 Telephone [facility] [address] [place] [address] Latanya Oneal LPN 09/22/2024 Clinisync Result Encounter [facility] External Department Unsolicited Garfield Colin, DO 09/22/2024 Refill [facility] [address] [place] [address] Garfield Colin, DO Genital herpes simplex, unspecified site 09/11/2024 Telephone [facility] [address] [facility] [place] [address] Latanya Oneal, PABLO 09/03/2024 Abstract [facility] [address] [facility] [place] [address] Garfield Colin, DO 09/02/2024 Telephone [facility] [address] [place] [address] Latanya Oneal, RECRUITMENT MANAGER from Last 3 Months Family History Relation Name Status Comments Father Alive Mother Alive Social History Tobacco Use Types Packs/Day Years Used Date Smoking Tobacco: Never Smokeless Tobacco: Never Tobacco Cessation:Counseling Given: Not Answered Alcohol Use Standard Drinks/Week Comments Never 0 [...] on file Sexual Orientation Not on file Last Filed Vital Signs Vital Sign Reading Time Taken Comments Blood Pressure 120/80 10/31/2024 10:35 AM EDT Pulse 70 01/14/2024 10:16 AM EDT Temperature - - Respiratory Rate 16 01/14/2024 10:16 AM EDT Oxygen Saturation - - Inhaled Oxygen Concentration - - Weight 93 kg (205 lb) 10/31/2024 10:35 AM EDT Height 160 cm (5' 3 ) 02/07/2024 8:17 AM EDT Body Mass Index 36.31 02/07/2024 8:17 AM EDT Plan of Treatment Upcoming Encounters Date Type Department Care Team (Late st Contact Info) Description 12/01/2024 10:50 AM EDT Routine [facility] [address] [facility] [place] [address] Garfield Colin DO [address] [facility] [address] [place], [place] [phone] Health Maintenance Due Date Last Done Comments Influenza Vaccine (#1) 2024 Procedures Procedure Name Priority Date/Time Associated Diagnosis Comments POCT URINALYSIS DIPSTICK Routine 10/31/2024 10:40 AM EDT Missed menses POCT , URINE Routine 10/31/2024 10:40 AM EDT Missed menses OB TRANSVAGINAL Routine 10/31/2024 10 :13 AM EDT Missed menses Positive urine test ([facility] PREG QUANT HCG Routine 10/02/2024 7: 53 AM EDT [facility] PREG QUANT HCG Routine 09/30/2024 8: 19 AM EDT ALL PROGESTERONE Routine 09/22/2024 8:54 AM EDT from Last 3 Months Results * (ABNORMAL) POCT , urine manually resulted (10/31/2024 10:40 AM EDT) Preg Test, Ur Positive Negative Urine 10/31/2024 10:4 0 AM EDT Garfield Cristi DO POINT OF CARE TEST ENTER/EDIT OR DERABLES Final Result * POCT urinalysis dipstick manually resulted (10/31/2024 10:40 AM EDT) Color, UA Yellow Clarity, UA Clear Glucose, UA Negative Negative - 2000(110) ++++ mg/dL Bilirubin, UA Negative Negative - 4(70) +++ mg/dL Ketones, UA Negative Negative - 160(16) ++++ mg/dL Spec Grav, UA 1.020 1 - 1.03 Blood, UA Negative Negative - 50 Juan Alberto/mcL pH, UA 6.5 5 - 9 Protein, UA Negative Negative - 2000(20) ++++ mg/dL Urobilinogen, UA 1.0 0.2 - 12 mg/dL Leukocytes, UA Negative Negative - 500+++ Artie/mcL Nitrite, UA Negative Negative - Positive Urine 10/31/2024 10:4 0 AM EDT Garfield Cristi DO POINT OF CARE TEST ENTER/EDIT OR DERABLES Final Result * US OB transvaginal (10/31/2024 10:13 AM [...] II, MD, PHD at 03-Nov-2024 11:42:05 PM [facility] Procedure Note Madyson Warren MD - [...] signed by MADYSON WARREN II, MD, PHD 11:42:05 PM [facility] us Garfield Cristi DO IMG OB US PROCEDURES Final Resul t * [facility] PREG QUANT HCG (10/02/2024 7:53 AM EDT) Only the most recent of2 resultswithin the time period is included. HCG QUANTITATIVE 454 mIU/mL [facility] Comment: 5-50 0.2-1 WEEK 50-500 1-2 WEEKS 100-5,000 2-3 WEEKS 500-10,000 3-4 WEEKS 1,000-50,000 4-5 WEEKS 10,000-100,000 5-6 WEEKS 15,000-200,000 6-8 WEEKS 10,000-100,000 2-3 MONTHS 10/02/2024 7:53 AM EDT 10/02/2024 7:54 AM EDT Narrative CLINISYNC - 10/02/2024 10:52 AM EDT us Garfield Cristi DO CLINISYNC Final Result [facility]NC TB * ALL PROGESTERONE (09/22/2024 8:54 AM EDT) PROGESTERONE 15.5 . ng/mL [facility] Comment: Follicular phase 0.1 - 0.9 Luteal phase 1.8 - 23.9 Ovulation phase 0.1 - 12.0 First trimester 11.0 - 44.3 Second trimester 25.4 - 83.3 Third trimester 58.7 - 214.0 Postmenopausal 0.0 - 0.1 Performed at: [facility] [address] [id number] Paper Final Inspector: Keenan Murillo PhD, Phone: [phone] 09/22/2024 8:54 AM EDT 09/22/2024 8:55 AM EDT Narrative CLINISYNC - 09/23/2024 8:09 AM EDT us Garfield Cristi DO CLINISYNC Final Result JIMMIE TB from Last 3 Months Insurance [employer] MED[employer] [place] Care Teams Channeler Outsole Relationship Specialty Start Date End Date Unallocated, Noms Provider, [address] [place] [address] PCP - General Family Medicine 11/26/23
--- OUTSIDE RECORDS SUMMARY | 2024-11-04 12:35 | XMS_ITS | Encounter Summary ---
Author Organization [facility] Address [address] [facility] [place] [address] Care Team Providers Care Assistant Production Editor Name Role Phone Unallocated, Noms Provider Primary Care Provi marcelino Encounter Details Date Type Department Care Team (Late Contact Info) Description 11/30/2023 Abstract [facility] [address] [facility] [address] [place] [address] Lisset Matos MD [address] [facility] [address] [place] [address] Social History Tobacco Use Types Packs/Day Years Used Date Smoking Tobacco: Never Smokeless Tobacco: Never Alcohol Use Standard Drinks/Week Comments Never 0 (1 standard drink = 0.6 oz pur e alcohol) PHQ-2 Answer Date Recorded Patient Health Questionnaire-2 [...] 10:50 AM EDT Routine FARHANA TRUJILLO [address] [place] [address] Garfield Colin DO [address] [place] [address] documented as of this encounter Visit Diagnoses Not on filedocumented in this encounter Care Teams Assistant Production Editor Relationship Specialty Start Date End Date Unallocated, Noms Provider, [address] [place] [address] PCP - General Family Medicine 11/26/23 documented as of this encounter
--- OUTSIDE RECORDS SUMMARY | 2024-11-04 12:35 | XMS_ITS | Clinical Summary ---
Author Organization [facility] Address [facility] [id number] [address] [place] [address] Care Team Providers Care Supervisor Propellant Charge Loading Name Role Phone Chato Sol MD Primary Care Provider [phone] Allergies No known active allergies Medications * This document contains information received from the source organization and may not represent a complete record from that organization. LAMOTRIGINE (LAMICTAL ORAL) Take by mouth. Active NAPROXEN ORAL Take by mouth. Active Active Problems Problem Noted Date Diagnosed Date Social phobia 07/02/2017 Social History Tobacco Use Types Packs/Day Years Used Date Smoking Tobacco: Never Smokeless Tobacco: Never Childcare Answer Date Recorded Childcare Unknown 09/12/2018 Employment Answer Date Recorded Employment Unknown 09/12/2018 Purpose - Life Answer Date Recorded Purpose and direction in life Unknown Comments Unknown Sex and Gender Information Value Date Recorded Sex Assigned at Not on file Legal Sex Female 10:43 AM EST Gender Identity Not on file Sexual Orientation Not on file Plan of Treatment Health Maintenance Due Date Last Done Comments Depression Screening 2015 Tobacco Screening 2015 Adult BMI Screening 2021 DTaP,Tdap and Td Vaccines (1 - Tdap) 2022 Pap Smear 2024 Influenza Vaccine 12/08/2024 Medical Devices Not on file Insurance [facility] [place] [address] [place] [address] MEDICAID Care Teams Supervisor Propellant Charge Loading Relationship Specialty Start Date End Date Chato Sol MD PCP - General 05/04/17
--- OUTSIDE RECORDS SUMMARY | 2024-11-04 12:35 | XMS_ITS | Encounter Summary ---
Author Organization [facility] Address [address] [place] [address] Care Team Providers Care Black Oxide Operator Name Role Phone Unallocated, Noms Provider Primary Care Provi marcelino Encounter Details Date Type Department Care Team (Late Contact Info) Description 07/10/2024 Abstract FARHANA TRUJILLO [address] [place] [id number] Garfield Colin DO [address] [facility] [address] [place], [facility] Social History Tobacco Use Types Packs/Day Years [...] EDT Routine FARHANA TRUJILLO [address] [place] [address] Garfield Colin, [address] [place] [address] [place] [address] documented as of this encounter Visit Diagnoses Not on filedocumented in this encounter Care Teams Black Oxide Operator Relationship Specialty Start Date End Date Unallocated, Noms Provider, [place] [address] PCP - General Family Medicine 11/26/23 documented as of this encounter
--- OUTSIDE RECORDS SUMMARY | 2024-11-04 12:35 | XMS_ITS | Encounter Summary ---
Author Organization [facility] Address [address] [place] [address] Care Team Providers Care Outdoor Adventure Guides Name Role Phone Unallocated, Noms Provider Primary Care Provi marcelino Encounter Details Date Type Department Care Team (Late Contact Info) Description 09/03/2024 Abstract FARHANA TRUJILLO [address] [place] [id number] Garfield Colin DO [address] [facility] [address] [place], [facility]11 Social History Tobacco Use Types Packs/Day [...] EDT Routine FARHANA TRUJILLO [address] [place] [address] Garfield Colin, [address] [place] [address] [place] [address] documented as of this encounter Visit Diagnoses Not on filedocumented in this encounter Care Teams Outdoor Adventure Guides Relationship Specialty Start Date End Date Unallocated, Noms Provider, [place] [address] PCP - General Family Medicine 11/26/23 documented as of this encounter
--- OUTSIDE RECORDS SUMMARY | 2024-11-04 12:35 | XMS_ITS | Encounter Summary ---
Author Organization [facility] Address [address] [facility] [place] [address] Care Team Providers Care Mortgage Specialist Name Role Phone Unallocated, Noms Provider Primary Care Provi marcelino Reason for Referral * Consultation (Routine) - Closed Specialty Diagnoses / Procedures Referred By Contac t Referred To Contact Endocrinology Diagnoses Low serum cortisol level Procedures IA OFFICE/OUTPATIENT NEW HIGH MDM 60 MINUTES Lisset Matos MD [address] [facility] [address] [place] [address] Phone: tel: fax: Peter Romero MD [address] [place] [address] Phone: tel: fax: Referral ID Status Reason Start Date Expiration Date V isits Requested Visits Authorized [id number] Closed Specialty Services Required 12/04/2023 06/01/2024 1 1 Encounter Details Date Type Department Care Team (Late st Contact Info) Description 12/04/2023 Orders Only [facility] [address] [facility] [address] [place] [phone] Lisset Matos MD [address] [facility] [address] [place] [address] Low serum cortisol level (Primary Dx) Social History Tobacco Use Types Packs/Day Years [...] Description 12/01/2024 10:50 AM EDT Routine [facility] [place] [facility] [address] [facility] [address] Garfield Colin DO [address] [facility] [place] [address] Scheduled Referrals Name Type Priority Associated Diagnoses Order Schedule Ambulatory referral to Endocrinology Outpatient Referral Routine Low serum cortisol level Expected: 12/04/2023 (Approximate), Expires: 06/05/2024 documented as of this encounter Visit Diagnoses Diagnosis Low serum cortisol level- Primary documented in this encounter Care Teams Mortgage Specialist Relationship Specialty Start Date End Date Unallocated, Noms MD Trinh [address] [place] [address] PCP - General Family Medicine 11/26/23 documented as of this encounter
[2024-11-04 13:08] LABS: Hematocrit 38.3 % (36.0-48.0); Hemoglobin 12.9 g/dL (12.0-16.0); Immature Granulocytes Abs Auto 0.02 10^3/uL (0.00-0.03); Immature Granulocytes Pct Auto 0.2 % (0.0-0.5); Lymphocytes Absolute Auto 2.1 10^3/uL (1.2-3.8); Mean Corpuscular HGB Conc 33.7 g/dL (29.9-35.2); Mean Corpuscular Hemoglobin 29.9 pg (26.7-34.0); Mean Corpuscular Volume 88.9 fL (81.0-99.0); Platelet Count 343 10^3/uL (150-450); Red Blood Count 4.31 10^6/uL (4.20-5.40); White Blood Count 11.2 10^3/uL (4.0-11.0)
[2024-11-04 13:56] LABS: Cannabinoid Screen Urine NEGATIVE (NEGATIVE); Methamphetamines Screen Urine NEGATIVE (NEGATIVE); Tricyclic Antidepressant Urine NEGATIVE (NEGATIVE)
[2024-11-05 08:09] LABS: Rubella Antibodies, IgG 8.86 index (Immune >0.99)
[2024-11-05 12:08] LABS: Rapid Plasma Reagin, Quant Non Reactive titer (NonRea<1:1)
== END 2024-11-04 12:33 | disposition home or self-care (01) ==
LOC: LAB 12:32
PROVIDERS: Visit Provider Obstetrics & Gynecology
DX: Z34.01 Encounter for supervision of normal first pregnancy, first trimester (principal); N92.6 Irregular menstruation, unspecified
CPT/HCPCS: 36415; 80307; 83036; 85025; 86592; 86762; 86803; 86850; 86900; 86901; 87086; 87340; 87389

== ENCOUNTER 2024-12-26 20:14 | Emergency (ER) | payer MEDICAID, SELFPAY ==
[2024-12-26 20:18] VITALS: BP 106/77; PULSE 94; TEMP 36.9; O2SAT 100; BMI 35.4
--- OUTSIDE RECORDS SUMMARY | 2024-12-26 20:23 | XMS_ITS | CCD ---
Author Organization [facility] Care Team Providers Care Project Management Consultant Name Role Phone DR JANIE FRAGOSO Primary [...] Provider Jose Miguel Resendiz Unavailable Unallocated , [place] Provider Primary Care Provi marcelino Unallocated , [place] Provider Primary Care Provi marcelino Teresa Vitale APRN Attending Provider [phone] Teresa Vitale Attending Unavailable Teresa Vitale Admitting Unavailable DREW COLIN Attending Unavailable DREW COLIN Referring Unavailable PETER LI Attending Unavailable DREW COLIN Attending Unavailable KENDAL RINCON Attending Unavailable Medications Current Medications Medication Drug Class(es) [...] Active metFORMIN hydrochloride 500 mg oral tablet (7 sources) Biguanide Start: 06-04-2024 End: 06-04-2025 take 1 tablet by mouth at mealtime metFORMIN (Glucophage) 500 MG tablet Indications: Abnormal uterine bleeding (AUB) , PCOS (polycystic ovarian syndrome) Take 1 tablet (500 mg) by mouth in the morning. Take with meals. 30 tablet 11 06/04/2024 10/31/2024 Discontinued metroNIDAZOLE 500 mg oral tablet (3 sources) [...] Active 100 MG PO Every 12 hours 14 July 31, 2024 12:00am must administer with a meal/food ondansetron 4 mg disintegrating oral tablet (4 sources) Serotonin-3 Receptor Antagonist Start: 10-31-2024 End: 11-30-2024 take 1 tablet by mouth every six hours as needed for nausea and vomiting and nausea and nausea ondansetron ODT (Zofran-ODT) 4 MG disintegrating tablet Indications: Nausea Take 1 tablet (4 mg) by mouth every 6 (six) hours if needed for nausea or vomiting 30 tablet 2 10/31/2024 11/30/2024 Active Start: 04-22-2021 End: 02-08-2024 take 1 tablet by mouth every six hours as needed for nausea and vomiting Ondansetron 4 mg tablet,disintegrating Discontinued 4 MG PO Q6H as needed for nausea and vomiting April 22, 2021 5:04pm February 08, 2024 4:08pm phenazopyridine hydrochloride 200 mg oral tablet (2 sources) Start: 01-28-2023 take 1 tablet by mouth every eight hours Pyridium 200 MG 1 tablet after meals Orally Three times a day for 2 day(s) Jan, Active MV-Min-Fe Fum-FA-DHA ( 1 PO) (5 sources) MV-Min-Fe Fum-FA-DHA ( 1 PO) Take 1 tablet by mouth Daily Active Vit-Fe Fumarate-FA ( Vitamins) 28-0.8 MG tablet (2 sources) Start: 12-01-2024 End: 12-01-2025 take 1 tablet by mouth once daily Vit-Fe Fumarate-FA ( Vitamins) 28-0.8 MG tablet Indications: Second trimester ([facility]) , 12 weeks gestation of ([facility]) Take 1 tablet by mouth Daily 30 tablet 11 12/01/2024 12/01/2025 Active sulfamethoxazole 800 mg / trimethoprim 160 [...] a day for 3 days Sep, Active valACYclovir 1000 mg oral tablet (3 sources) Herpesvirus Nucleoside Analog DNA Polymerase Inhibitor, Herpes Simplex Virus Nucleoside Analog DNA Polymerase Inhibitor, Herpes Zoster Virus Nucleoside Analog DNA Polymerase Inhibitor Start: 09-22-2024 End: 10-02-2024 take 1 tablet by mouth in the morning valACYclovir (Valtrex) 1 g tablet Indications: Genital herpes simplex, unspecified site Take 1 tablet (1,000 mg) by mouth in the morning and 1 tablet (1,000 mg) before bedtime. Do all this for 10 days. 20 tablet 09/22/2024 10/02/2024 Active Completed/Discontinued Medications Medication Drug Class(es) Dates Sig (Normalized) Sig (Original) amoxicillin 500 mg oral capsule (2 sources) Penicillin-class Antibacterial Start: 02-08-2024 End: 07-31-2024 take 1 capsule by mouth twice daily Amoxicillin 500 mg capsule Discontinued 500 MG PO Twice daily 20 February 08, 2024 12:00am February 08, 2024 5:51pm [...] 04, 2020 1:00am August 17, 2020 1:28pm Problems Active Problems Problem Classification Problem Date [...] vaginitis] Onset: 10-03-2021 12-06-2023 Episodic Menstrual disorders (13 sources) Irregular periods; Translations: [Irregular menstruation, unspecified] Onset: 09-02-2024 02-07-2024 Chronic Nausea and vomiting (2 sources) Nausea; Translations: [Nausea] Onset: 04-21-2021 10-31-2024 Episodic Other endocrine disorders (10 sources) Polycystic ovary syndrome; Translations: [Polycystic ovarian syndrome] Onset: 09-02-2024 06-04-2024 Chronic Other female genital disorders (10 sources) Abnormal uterine bleeding; Translations: [Abnormal uterine and vaginal bleeding, unspecified] Onset: 09-02-2024 06-04-2024 Chronic Other inflammatory condition of skin (3 sources) Other pruritus; Translations: [OTHER PRURITUS] Onset: 10-02-2021 Episodic Other nutritional; endocrine; and metabolic disorders (2 sources) Obesity caused by energy imbalance; Translations: [Class 1 obesity due to excess calories without serious comorbidity with body mass index (BMI) of 33.0 to 33.9 in adult] 01-14-2024 Chronic Other and delivery including normal (11 sources) Urine test positive; Translations: [Encounter for test, result positive] Onset: 09-29-2024 09-29-2024 Episodic Other screening for suspected conditions (not mental disorders or infectious disease) (4 sources) Decreased cortisol level; Translations: [Other specified abnormal findings of blood chemistry] 01-14-2024 Episodic Other upper respiratory infections (4 sources) Upper respiratory infection; Translations: [Acute upper respiratory infection, unspecified] 04-04-2020 Episodic Residual codes; unclassified (2 sources) Gestation period, 12 weeks; Translations: [12 weeks gestation of ] 12-01-2024 Episodic Suicide and intentional self-inflicted injury (2 [...] Problem Classification Problem Date Documented Date Episodic/Chronic Other endocrine disorders (2 sources) Disorder of [...] Test Name Value Interpretation Reference Range Facility Urinalysis macro (dipstick) panel (U)on 12-01-2024 Bilirubin, UA Negative Negative - 4(70) +++ mg/dL [facility] Blood, UA Negative Negative - 50 Juan Alberto/mcL [facility] Clarity, UA Clear [facility] Color, UA Yellow [facility] Glucose, UA Negative Negative - 2000(110) ++++ mg/dL [facility] Interpretation and review of laboratory results Normal [facility] Ketones, UA Negative Negative - 160(16) ++++ mg/dL [facility] Leukocytes, UA Negative Negative - 500+++ Artie/mcL [facility] Nitrite, UA Negative Negative - Positive [facility] pH, UA 7 5 - 9 [facility] Protein, UA Negative Negative - 1999(20) ++++ mg/dL [facility] Spec Grav, UA 1.01 1 - 1.03 [facility] Urobilinogen, UA 1.0 0.2 - 12 mg/dL [facility] BOX TESTon 11-04-2024 BOX TEST SENT OUT [facility] [address] [facility] [address]OX2 11/04/24 [facility] [employer] e HCG ( test) Ql (U)o n 10-31-2024 Interpretation and review of laboratory results Abnormal [facility] re Preg Test, Ur Positive Negative [facility] US OB TRANSVAGINALon 025 US OB TRANSVAGINAL EXAM: US OB TRANSVAGINAL HISTORY: Dating. COMPARISON: [...] II, MD, PHD at 03-Nov-2024 11:42:05 PM [facility] Normal Not Available Comment on above: Order Comment: US OB TRANSVAGINAL No LMP recorded. Urinalysis macro (dipstick) panel (U)on 10-31-2024 Bilirubin, UA Negative Negative - 4(70) +++ mg/dL [facility] Blood, UA Negative Negative - 50 Juan Alberto/mcL [facility] Clarity, UA Clear [facility] Color, UA Yellow [facility] [employer] Glucose, UA Negative Negative - 1999(110) ++++ mg/dL [facility] Interpretation and review of laboratory results Normal [facility] re Ketones, UA Negative Negative - 160(16) ++++ mg/dL [facility] Leukocytes, UA Negative Negative - 500+++ Artie/mcL [facility] Nitrite, UA Negative Negative - Positive [facility] pH, UA 6.5 5 - 9 [facility] [employer] [facility] Protein, UA Negative Negative - 1999(20) ++++ mg/dL [facility] Spec Grav, UA 1.02 1 - 1.03 [facility] Urobilinogen, UA 1.0 0.2 - 12 mg/dL [facility] PREG QUANT HCGon 10-02- 025 HCG QUANTITATIVE 454 mIU/mL [facility] Comment on above: 5-50 0.2-1 WEEK 50-500 1-2 WEEKS 100-5,000 2-3 WEEKS 500-10,000 3-4 WEEKS 1,000-50,000 4-5 WEEKS 10,000-100,000 5-6 WEEKS 15,000-200,000 6-8 WEEKS 10,000-100,000 2-3 MONTHS [facility] TBH PREG QUANT HCGon 09-30- 025 HCG QUANTITATIVE 156 mIU/mL [facility] Comment on above: 5-50 0.2-1 WEEK 50-500 1-2 WEEKS 100-5,000 2-3 WEEKS 500-10,000 3-4 WEEKS 1,000-50,000 4-5 WEEKS 10,000-100,000 5-6 WEEKS 15,000-200,000 6-8 WEEKS 10,000-100,000 2-3 MONTHS [facility] ALL PROGESTERONEon 5 PROGESTERONE 15.5 ng/mL . [facility] Health are Comment on above: Follicular phase 0.1 - 0.9 Luteal phase 1.8 - 23.9 Ovulation phase 0.1 - 12.0 First trimester 11.0 - 44.3 Second trimester 25.4 - 83.3 Third trimester 58.7 - 214.0 Postmenopausal 0.0 - 0.1 Performed at: - [facility] [id number] Rn Charge: Keenan Murillo PhD, Phone: [phone] [facility] [employer] [facility] Urine Cultureon 07-31-2024 Bacteria identified Cx Nom (U) 25,000 colonies/ml mixed bacterial skin contaminants 2 Days PERFORMED BY: [place] [address] PATHOLOGIST GRINDER AND HONER OPERATOR AUTOMATIC YUMIKO GRIER M.D. Normal [facility] Comment on above: Performed By: #### C UU #### [address] US PELVIC COMPLETE W/ TVon 0 [...] II, MD, PHD at 26-Jun-2024 08:43:57 AM [facility] Normal Not Available Comment on above: Order Comment: US PE LVIS-TRANSVAG IF INDICATED Patient's last menstrual period was 05/05/2024. Cortisolon 12-03-2023 Cortisol [Mass/Vol] 4.7 ug/dL Low 6.2 - 19 .4 ug/dL [facility] Comment on above: Please Note: The ref erence interval and flagging for this test is for an AM collection. If this is a PM collection please use: Cortisol PM: 2.3-11.9 Interpretation and review of laboratory results Abnormal [facility] re DHEA-sulfateon 12-03-2023 DHEA-S [Mass/Vol] 267.0 ug/dL 110.0 - 43 1.7 ug/dL [facility] Estradiolon 12-03-2023 E2 [Mass/Vol] 188.0 pg/mL [facility] Healt hcare Comment on above: Adult Female Range Follicular phase 12.5 - 166.0 Ovulation phase 85.8 - 498.0 Luteal phase 43.8 - 211.0 Postmenopausal <6.0 - 54.7 1st trimester 215.0 - >4300.0 [employer] ECLIA methodology Estroneon 12-03-2023 E1 [Mass/Vol] 104 pg/mL 27 - 231 pg/mL [facility] Comment on above: Range Adult (Premenopausal) 27 - 231 Menstrual Cycle (1-10 days) 19 - 149 Menstrual Cycle (11-20 days) 32 - 176 Menstrual Cycle (21-30 days) 37 - 200 Performed at: 02 - [address] [id number] Rn Charge: Collette Mesa MD, Phone: [phone] [facility] Follicle stimulating hormone on 12-03-2023 Follitropin Qn 2.3 m[IU]/mL mIU/mL [facility] Comment on above: Adult Female Range Follicular phase 3.5 - 12.5 Ovulation phase 4.7 - 21.5 Luteal phase 1.7 - 7.7 Postmenopausal 25.8 - 134.8 Insulin, fastingon Insulin Qn 20.6 u[IU]/mL [facility] No Panel Informationon 12-02 Performed at: [address] [place] [id number] Rn Charge: Keenan Murillo PhD, Phone: [phone] [facility] Progesteroneon 12-03-2023 Progesterone [Mass/Vol] 11.4 ng/mL [facility] Comment on above: Follicular phase 0.1 - 0.9 Luteal phase 1.8 - 23.9 Ovulation phase 0.1 - 12.0 First trimester 11.0 - 44.3 Second trimester 25.4 - 83.3 Third trimester 58.7 - 214.0 Postmenopausal 0.0 - 0.1 TSHon 12-03-2023 TSH Qn 3.160 m[IU]/L [facility] No Panel Informationon 11-28 ACINETOBACTER BAUMANII 0.000 [facility] ACINETOBACTER BAUMANII Not detected [facility] ATOPOBIUM VAGINAE 22.732 Abnormal [facility] ATOPOBIUM VAGINAE Detected Abnormal [facility] BVAB 2,3 (BACTERIAL VAGINOSIS ASSOCIATED BACTERIA 2, 3); MOBILUNCUS SPP 0.000 [facility] BVAB 2,3 (BACTERIAL VAGINOSIS ASSOCIATED BACTERIA 2, 3); MOBILUNCUS SPP Not detected [facility] TERESA ALBICANS, PARAPSILOSIS, TROPICALIS 0.000 [facility] TERESA ALBICANS, PARAPSILOSIS, TROPICALIS Not detected [facility] TERESA GLABRATA 0.000 [facility] TERESA GLABRATA Not detected [facility] TERESA KRUSEI 0.000 [facility] [...] STREPTOCOCCUS PYOGENES (GROUP A STREP) Not detected [facility] TET B, TET M 24.794 Abnormal [facility] TET B, TET M Detected Abnormal [facility] are TRICHOMONAS VAGINALIS 0.000 [facility] TRICHOMONAS VAGINALIS Not detected [facility] UREAPLASMA PARVUM 27.453 Abnormal [facility] UREAPLASMA PARVUM Detected Abnormal [facility] UREAPLASMA UREALYTICUM 0.000 [facility] UREAPLASMA UREALYTICUM Not detected [facility] Urinalysis - DIPSTICKon 10-2 Appearance (U) cloudy [facility] [employer] Other Bilirubin Ql (U) Negative [employer] Other Color (U) dark yellow-orange [employer] Other Glucose Ql (U) Negative [employer] Other Hemoglobin Ql (U) large [employer] Other Ketones Ql (U) Negative [employer] Other Leukocyte esterase Test strip Ql (U) moderate [employer] Other Nitrite Ql (U) Positive [employer] Other pH (U) 7.0 [pH] [employer] Other Protein Ql (U) Negative [employer] Other Specific gravity (U) [Rel density] 1.010 [employer] Other Urobilinogen (U) [Mass/Vol] normal [employer] Other Urinalysis - DIPSTICK [employer] Other Urine Cultureon 01-28-2023 Urine Culture 75,000 [employer] Other Urine Culture <16 Susceptible [employer] Other Urine Culture <8/4 Susceptible [employer] Other Urine Culture <8 Susceptible [employer] Other Urine Culture <4 Susceptible [employer] Other Urine Culture <2 Susceptible [employer] Other Urine Culture <1 Susceptible [employer] Other Urine Culture <0.25 Susceptible [employer] Other Urine Culture <0.5 Susceptible [employer] Other Urine Culture 4 Susceptible [employer] Other Urine Culture <0.5/9.5 Susceptible [employer] Other Consenton 10-24-2021 Consent [id number]:127 Normal [facility] Registrationon 10-24-2021 Registration [id number]:127 Normal [facility] Quantiferon-TB Plus (Client Incubated)on 10-18-2021 Gamma interferon background IA Qn (Bld) 0.04 International_Unit/ mL Invalid Interpretation Code [facility] Comment on above: Performed By: #### 2 [id number], [id number] #### [facility] Laboratory [address] [place] [address] M. tuberculosis stim IFN-g by CD4+ CD8+ T-cells corrected for background Qn (Bld) 0.01 International_Unit/ mL Invalid Interpretation Code [facility] Comment on above: Performed By: #### 2 [id number], [id number], [id number] #### [facility] [address] [place] [address] M. tuberculosis stim IFN-g by CD4+ T-cells corrected for background Qn (Bld) 0.01 International_Unit/ mL Invalid Interpretation Code [facility] Comment on above: Performed By: #### 2 346970, [id number] #### [facility] [address] [place] [address] M. tuberculosis stim IFN-g Ql (Bld) [Interp] Negative Invalid Interpretation Code Negative [facility] Comment on above: Result Comment: The specimen received for QuantiFERON testing was incubated by the ordering institution. Specific procedures outlined in our Directory of Services and in the package insert for the QuantiFERON Gold (In Tube) test must be followed to enable for proper stimulation of cells for the production of interferon gamma. Chemiluminescence immunoassay methodology Performed at: [facility] [address] [place], [place] [id number] PhD Chidi Hussein Performed By: #### 2 750096, [id number], [id number] #### [facility] [address] [place] [address] Mitogen stimulated gamma interferon Qn (Bld) >10.00 Invalid Interpretation Code [facility] Comment on above: Performed By: #### 2 [id number], [id number] #### [facility] [address] [place] [address] Service comment (Unsp spec) [Interp] Comment Invalid Interpretation Code [facility] Comment on above: Result Comment: The QuantiFERON-TB Gold Plus result is determined by subtracting the Nil value from either TB antigen (Ag) tube. The mitogen tube serves as a control for the test. Performed By: #### 2 [id number], [id number] #### [facility] [address] [place] [address] Hep Bs Abon 10-15-2021 HBV surface Ab Ql (S) Reactive Invalid Interpretation Code [facility] Comment on above: Result Comment: Non Reactive: Inconsistent with immunity, less than 10 mIU/mL Reactive: Consistent with immunity, greater than 9.9 mIU/mL Performed at: [facility] [address] [place], [place] [id number] PhD Chidi Hussein Performed By: #### 2 716057, [id number], [id number], [id number] #### [facility] [address] [place] [address] Measles/Mumps/Rubella Immuni tyon 10-15-2021 MeV IgG IA Qn (S) {index_val} Invalid Interpretation Code Immune >16.4 [facility] Comment on above: Result Comment: Nega tive <13.5 Equivocal 13.5 - 16.4 Positive >16.4 Presence of antibodies to Rubeola is presumptive evidence of immunity except when acute infection is suspected. Performed By: #### 2 [id number], [id number], [id number] #### [facility] [address] [place] [address] MuV IgG IA Qn (S) 243.0 A unit/mL Invalid Interpretation Code Immune >10.9 [facility] Comment on above: Result Comment: Nega tive <9.0 Equivocal 9.0 - 10.9 Positive >10.9 A positive result generally indicates past exposure to Mumps virus or previous vaccination. Performed at: [address] [id number] PhD Chidi Hussein Performed By: #### 2 278937, [id number], [id number], [id number] #### [facility] [address] [place] [address] Rubella virus IgG Qn (S) 16.20 [IU]/mL Invalid Interpretation Code Immune >0.99 [facility] Comment on above: Result Comment: Non- immune <0.90 Equivocal 0.90 - 0.99 Immune >0.99 Performed By: #### 2 [id number], [id number], [id number] #### [facility] [address] [place] [address] Varic IgGon 10-15-2021 VZV IgG IA Qn (S) 863 Invalid Interpretation Code Immune >165 [facility] Comment on above: Result Comment: Nega tive <135 Equivocal 135 - 165 Positive >165 A positive result generally indicates exposure to the pathogen or administration of specific immunoglobulins, but it is not indication of active infection or stage of disease. Performed at: [address] [id number] PhD Chidi Hussein Performed By: #### 2 981659, [id number], [id number] #### [facility] [address] [place] [address] Physician Orderon 10-14-2021 Physician Order [id number]:127 Normal [facility] CULTURE URINEon 10-02-2021 CULTURE URINE Culture Observations: MODERATE GROWTH OF MIXED GENITAL BETZY. NO POTENTIAL PATHOGENS SEEN. Normal [facility] Comment on above: Performed By: #### U RCX #### [facility] [address] [address] [address] Lisa Chirinos ER URINE PROFILEon Bilirubin Ql (U) Negative Normal NEGATIVE [facility] Comment on above: Performed By: #### E RUR, PREGU, UMICRO #### [facility] [address] [place] [address] Dr. Lisa Chirinos Clarity (U) CLEAR Normal CLEAR [facility] Comment on above: Performed By: #### E RUR, PREGU, UMICRO #### [facility] [address] [place] [address] Dr. Lisa Chirinos Color (U) YELLOW Normal YELLOW [facility] Comment on above: Performed By: #### E RUR, PREGU, UMICRO #### [facility] [address] [address] [address] Lisa RAMSAY A micrscopic examination will be performed if indicated. Normal [facility] Comment on above: Performed By: #### E RUR, PREGU, UMICRO #### [facility] [address] [address] [address] Lisa Chirinos Glucose Ql (U) Negative Normal NEGATIVE [facility] Comment on above: Performed By: #### E RUR, PREGU, UMICRO #### [facility] [address] [address] [address] Lisa Chirinos Hemoglobin Ql (U) Negative Normal NEGATIVE [facility] Comment on above: Performed By: #### E RUR, PREGU, UMICRO #### [facility] [address] [place] [address] Dr. Lisa Chirinos Ketones Ql (U) Negative Normal NEGATIVE [facility] Comment on above: Performed By: #### E RUR, PREGU, UMICRO #### [facility] [address] [place] [address] Dr. Lisa Chirinos LEUKOCYTES SMALL Abnormal NEGATIVE [facility] Comment on above: Performed By: #### E RUR, PREGU, UMICRO #### [facility] [address] [address] [address] Lisa Chirinos Nitrite Ql (U) Negative Normal NEGATIVE [facility] Comment on above: Performed By: #### E RUR, PREGU, UMICRO #### [facility] [address] [address] [address] Lisa Chirinos pH (U) 8.0 [pH] Normal 5-9 [facility] Comment on above: Performed By: #### E RUR, PREGU, UMICRO #### [facility] [address] [place] [address] Dr. Lisa Chirinos SPEC GRAVITY 1.015 Normal 1.005-<=1.025 [facility] Comment on above: Performed By: #### E RUR, PREGU, UMICRO #### [facility] [address] [address] [address] Lisa Chirinos UA PROTEIN Negative Normal NEGATIVE/ TRACE [facility] Comment on above: Performed By: #### E RUR, PREGU, UMICRO #### [facility] [address] [place] [address] Dr. Lisa Chirinos UR MICRO IND INDICATED Normal [facility] Comment on above: Performed By: #### E RUR, PREGU, UMICRO #### [facility] [address] [address] [address] Lisa Chirinos Urobilinogen Qn (U) 0.2 {Jyothi'U}/dL Normal 0.2 - 1. 0 [facility] Comment on above: Performed By: #### E RUR, PREGU, UMICRO #### [facility] [address] [place] [address] Dr. Lisa Chirinos URon 10-02-2021 , QUAL Negative Normal NEGATIVE [facility] Comment on above: Performed By: #### E RUR, PREGU, UMICRO #### [facility] [address] [address] [address] Lisa Chirinos URINE MICROSCOPIC ONLYon BACTERIA SMALL Abnormal NONE SEEN [facility] Comment on above: Performed By: #### E RUR, PREGU, UMICRO #### [facility] [address] [address] [address] Lisa Chirinos Bacteria identified Cx Nom (U) INDICATED Normal [facility] Comment on above: Performed By: #### E RUR, PREGU, UMICRO #### [facility] [address] [address] [address] Lisa Chirinos CAST NONE SEEN Normal NONE SEEN [facility] Comment on above: Performed By: #### E RUR, PREGU, UMICRO #### [facility] [address] [address] [address] Lisa Chirinos Crystals LM Nom (Urine sed) NONE SEEN Normal NONE SEEN [facility] Comment on above: Performed By: #### E RUR, PREGU, UMICRO #### [facility] [address] [address] [address] Lisa Chirinos Epithelial cells LM Ql (Urine sed) FEW Abnormal NONE SEEN /RARE [facility] Comment on above: Performed By: #### E RUR, PREGU, UMICRO #### [facility] [address] [address] [address] Lisa Chirinos MUCOUS NONE SEEN Normal NONE SEEN [facility] Comment on above: Performed By: #### E RUR, PREGU, UMICRO #### [facility] [address] [address] [address] Lisa Chirinos RBC 0-2 Normal 0-2 [facility] Comment on above: Performed By: #### E RUR, PREGU, UMICRO #### [facility] [address] [address] [address] Lisa Chirinos WBC 20-50 Abnormal NONE SEEN [facility] Comment on above: Performed By: #### E RUR, PREGU, UMICRO #### [facility] [address] [address] [address] Lisa Chirinos Chlamydia/GC/Trich NAAon Chlamydia/GC/Trich ANSON Positive Critically abnormal Negative [facility] Other Chlamydia/GC/Trich ANSON Negative Negative [facility] Other Urinalysis - DIPSTICKon 09-08 Appearance (U) cloudy [employer] Other Bilirubin Ql (U) Negative [employer] Other Color (U) dark yellow [facility] Other Glucose Ql (U) Negative [employer] Other Hemoglobin Ql (U) trace [employer] Other Ketones Ql (U) Negative [employer] Other Leukocyte esterase Test strip Ql (U) moderate [facility] Other Nitrite Ql (U) Negative [employer] Other pH (U) 6.5 [pH] [facility] Other Protein Ql (U) Negative [employer] Other Specific gravity (U) [Rel density] 1.020 [facility] Other Urobilinogen (U) [Mass/Vol] 0.2 mg/dL [facility] Other Urinalysis - DIPSTICK [facility] Other Urine Cultureon 09-29-2021 Bacteria identified Cx Nom (U) [facility] Other Covid-19 PCR (CVDTB)on SARS-CoV-2 (COVID-19) RNA ANSON+probe Ql (Unsp spec) Not detected Normal NOT DETECTED [facility] Comment on above: Result Comment: This test is not yet approved or cleared by the [place] FDA. When there are no FDA-approved or cleared tests available, and other criteria are met, FDA can make tests available under an emergency access mechanism called an Emergency Use Authorization (EUA). The EUA for this test is supported by the Congress of Health and Human Service's (HHS's) declaration [...] consistent with SARS-CoV-2. Performed By: #### C FOR[facility] #### [facility] [address] [place] [address] Dr. Lisa Chirinos Vital Signs Date Time Vital Sign Value Performing Clinician Facility 12-01-2024 11:07-0400 Body mass index (BMI) [Ratio] 36.34 kg/m2 Drew bluebottlebiz Work Phone: [facility] 12-01-2024 [id number] Body weight 93.04 kg Drew [employer] Work Phone: [facility] 12-01-2024 11:07-0400 Diastolic blood pressure 74 mm[Hg] Drew Cristi DO Work Phone: [facility] 12-01-2024 11:07-0400 Systolic blood pressure 116 mm[Hg] Drew [employer] Work Phone: [facility] 10-31-2024 10:35-0400 Body mass index (BMI) [Ratio] 36.31 kg/m[facility] 10-31-2024 10:35-0400 Body weight 92.99 kg [facility] 10-31-2024 10:35-0400 Diastolic blood pressure 80 mm[Hg] [facility] 10-31-2024 10:35-0400 Systolic blood pressure 120 mm[Hg] Cristi Ob [facility] 07-31-2024 10:02-0400 Body height 160.02 cm Teresa Vitale APPLICATION ANALYST Work Phone: [facility] 07-31-2024 10:02-0400 Body mass index (BMI) [Ratio] 33.6 kg/m2 Teresa Vitale APPLICATION ANALYST Work Phone: [facility] 07-31-2024 10:02-0400 Body temperature 98.3 [degF] Teresa Vitale APPLICATION ANALYST Work Phone: [facility] 07-31-2024 10:02-0400 Body weight 86.18 kg Teresa Vitale APPLICATION ANALYST Work Phone: [facility] 07-31-2024 10:02-0400 Diastolic blood pressure 71 mm[Hg] Teresa Vitale APPLICATION ANALYST Work Phone: [facility] 07-31-2024 10:02-0400 Heart rate 84 /min Teresa Vitale APPLICATION ANALYST Work Phone: [facility] 07-31-2024 10:02-0400 SaO2% (BldA) [Mass fraction] 97 % Teresa Vitale APPLICATION ANALYST Work Phone: [facility] 07-31-2024 10:02-0400 Systolic blood pressure 108 mm[Hg] Teresa Vitale APPLICATION ANALYST Work Phone: [facility] 06-04-2024 13:04-0500 Body mass index (BMI) [Ratio] 36.46 kg/m2 Drew Cristi DO Work Phone: [facility] 06-04-2024 13:04-0500 Body weight 93.35 kg Drew Cristi DO Work Phone: [facility] 06-04-2024 13:04-0500 Diastolic blood pressure 74 mm[Hg] Drew Cristi DO Work Phone: [facility] 06-04-2024 13:04-0500 Systolic blood pressure 110 mm[Hg] Drew Colin DO Work Phone: [facility] 02-07-2024 08:17-0400 Body height 160 cm Kendal Rincon LICENSE EXAMINER Work Phone: [facility] 02-07-2024 08:17-0400 Body mass index (BMI) [Ratio] 34.37 kg/m2 Kendal Rincon LICENSE EXAMINER Work Phone: [facility] 02-07-2024 08:17-0400 Body weight 88 kg Kendal Rincon LICENSE EXAMINER Work Phone: [facility] 02-07-2024 08:17-0400 Diastolic blood pressure 82 mm[Hg] Kendal Rincon LICENSE EXAMINER Work Phone: [facility] 02-07-2024 08:17-0400 Systolic blood pressure 118 mm[Hg] Kendal Rincon LICENSE EXAMINER Work Phone: [facility] 01-14-2024 10:16-0400 Body height 160 cm Peter Li MD Work Phone: [facility] 01-14-2024 10:16-0400 Body mass index (BMI) [Ratio] 33.66 kg/m2 Peter Li MD Work Phone: [facility] 01-14-2024 10:16-0400 Body weight 86.18 kg Peter Li MD Work Phone: [facility] 01-14-2024 10:16-0400 Heart rate 70 /min Peter Li MD Work Phone: [facility] 01-14-2024 10:16-0400 Respiratory rate 16 /min Peter Li MD Work Phone: [facility] 11-26-2023 13:06-0400 Body weight 89.36 kg Lisset Matos MD Work Phone: [facility] 11-26-2023 13:06-0400 Diastolic blood pressure 80 mm[Hg] Lisset Matos MD Work Phone: [facility] 11-26-2023 13:06-0400 Systolic blood pressure 100 mm[Hg] Lisset Matos MD Work Phone: [facility] 01-28-2023 12:05-0400 Body height 160.02 cm Jose Miguel Resendiz Other [facility] Other 01-28-2023 12:05-0400 Body mass index (BMI) [Ratio] 33.65 kg/m2 Jose Miguel Resendiz Other [facility] Other 01-28-2023 12:05-0400 Body temperature 98.5 [degF] Jose Miguel Resendiz Other [facility] Other 01-28-2023 12:05-0400 Body weight 86.18 kg Jose Miguel Resendiz Other [facility] Other 01-28-2023 12:05-0400 Diastolic blood pressure 81 mm[Hg] Jose Miguel Resendiz Other [facility] Other 01-28-2023 12:05-0400 Respiratory rate 18 /min Jose Miguel Resendiz Other [facility] Other 01-28-2023 12:05-0400 SaO2% (BldA) [Mass fraction] 97 % Jose Miguel Resendiz Other [facility] Other 01-28-2023 12:05-0400 Systolic blood pressure 122 mm[Hg] Jose Miguel Resendiz Other [facility] Other 09-29-2021 12:55-0400 Body height 160.02 cm Phil Melvin Other [facility] Other 09-29-2021 12:55-0400 Body mass index (BMI) [Ratio] 31.88 kg/m2 Phil Melvin Other [facility] Other 09-29-2021 12:55-0400 Body temperature 98.9 [degF] Phil Melvin Other [facility] Other 09-29-2021 12:55-0400 Body weight 81.65 kg Phil Melvin Other [facility] Other 09-29-2021 12:55-0400 Respiratory rate 18 /min Phil Melvin Other [facility] Other 09-29-2021 12:55-0400 SaO2% (BldA) [Mass fraction] 98 % Phil Melvin Other [facility] Other Encounters Encounter Date Encounter Type Care Provider Facility Start: 12-01-2024 End: 12-01-2024 Bamboo flowsheet Drew Cristi DO Work Phone: [facility] Start: 12-01-2024 End: 12-01-2024 Bamboo flowsheet Drew Cristi DO Work Phone: [facility] Start: 12-01-2024 End: 12-01-2024 Office outpatient visit 15 minutes Drew Cristi DO Work Phone: [facility] Comment on above: Second trimester pre gnancy ([facility]); 12 weeks gestation of ([facility]) Start: 12-01-2024 End: 12-01-2024 ambulatory DREW CRISTI Not Available Start: 11-04-2024 End: 11-04-2024 Clinisync Result Encounter Drew Cristi DO Work Phone: [facility] Unsolicited Start: 11-04-2024 End: 11-04-2024 Clinisync Result Encounter Drew Cristi DO Work Phone: [facility] Unsolicited Start: 10-31-2024 End: 10-31-2024 Office outpatient visit 5 minutes Cristi Nurse [facility] Comment on above: GA: 8w3d Start: 10-31-2024 End: 10-31-2024 ambulatory DREW CRISTI Not Available Start: 10-02-2024 End: 10-02-2024 Clinisync Result Encounter Drew Cristi DO Work Phone: [facility] Unsolicited Start: 10-02-2024 End: 10-02-2024 Clinisync Result Encounter Drew Cristi DO Work Phone: [facility] Unsolicited Start: 09-30-2024 End: 09-30-2024 Clinisync Result Encounter Drew Cristi DO Work Phone: [facility] Unsolicited Start: 09-30-2024 End: 09-30-2024 Clinisync Result Encounter Drew Cristi DO Work Phone: [facility] Unsolicited Start: 09-22-2024 End: 09-23-2024 Clinisync Result Encounter Drew Cristi DO Work Phone: [facility] Unsolicited Start: 09-22-2024 End: 09-23-2024 Clinisync Result Encounter Drew Cristi DO Work Phone: [facility] Unsolicited Start: 07-31-2024 End: 07-31-2024 ambulatory Teresa Vitale [facility] Work Phone: Start: 07-31-2024 End: 07-31-2024 Departed Referred Teresa Vitale APRN Work Phone: [facility] Start: 07-31-2024 End: 07-31-2024 Patient encounter procedure Teresa Vitale APRN Work Phone: [facility] Work Phone: Start: 06-24-2024 End: 06-24-2024 ambulatory DREW CRISTI Not Available Start: 06-04-2024 End: 06-04-2024 Bamboo flowsheet Drew Cristi DO Work Phone: [facility] Start: 06-04-2024 End: 06-04-2024 Bamboo flowsheet Drew Cristi DO Work Phone: [facility] Start: 06-04-2024 End: 06-04-2024 Office outpatient visit 15 minutes Drew Cristi DO Work Phone: [facility] Comment on above: Abnormal uterine ble eding (AUB); PCOS (polycystic ovarian syndrome) Start: 06-04-2024 End: 06-04-2024 ambulatory DREW CRISTI Not Available Start: 02-07-2024 End: 02-07-2024 Bamboo flowsheet Kendal Rincon LICENSE EXAMINER Work Phone: [facility] Start: 02-07-2024 End: 02-07-2024 Bamboo flowsheet Kendal Rincon LICENSE EXAMINER Work Phone: [facility] Start: 02-07-2024 End: 02-07-2024 Office outpatient visit 15 minutes Kendal Rincon LICENSE EXAMINER Work Phone: [facility] Comment on above: Irregular menses (Pr imary Dx); Female infertility Start: 02-07-2024 End: 02-07-2024 ambulatory KENDAL RINCON Not Available Start: 01-30-2024 End: 01-30-2024 Telephone encounter Peter Li MD Work Phone: [facility] Start: 01-14-2024 End: 01-14-2024 Bamboo flowsheet Peter Li MD Work Phone: [facility] Start: 01-14-2024 End: 01-14-2024 Bamboo flowsheet Peter Li MD Work Phone: [facility] Start: 01-14-2024 End: 01-14-2024 Office outpatient new 30 minutes Peter Li MD Work Phone: [facility] Comment on above: Low serum cortisol l evel (Primary Dx); Encounter for dietary consultation; Class 1 obesity due to excess calories without serious comorbidity with body mass index (BMI) of 33.0 to 33.9 in adult Start: 01-14-2024 End: 01-14-2024 ambulatory PETER LI Not Available Start: 12-06-2023 End: 12-06-2023 Patient encounter procedure Lisset Matos MD Work Phone: [facility] Comment on above: Low serum cortisol l evel (Primary Dx); Acute vaginitis Start: 11-30-2023 End: 12-03-2023 Telephone encounter Lisset Matos MD Work Phone: [facility] Start: 11-26-2023 End: 12-03-2023 Orders Only Lisset Matos MD Work Phone: [facility] External Department Unsolicited Start: 11-26-2023 End: 11-26-2023 Office outpatient visit 15 minutes Lisset Matos MD Work Phone: [facility] Comment on above: Acute vaginitis (Rachel rianna Dx); Encounter for gynecological examination without abnormal finding; control counseling; Irregular menses; Hormone imbalance; Thyroid disorder screen; Imbalance of male hormones with irregular menstruation and ovulation; Screen for STD (sexually transmitted disease) Start: 11-26-2023 End: 11-26-2023 Patient encounter status Lisset Matos MD Work Phone: [facility] Start: 01-31-2023 End: 01-31-2023 ambulatory Jose Miguel eRsendiz Other [facility] Other Start: 01-31-2023 Telephone encounter Jose Miguel [facility] Start: 01-28-2023 Office outpatient vi sit 15 minutes Jose Miguel Resendiz [facility] Start: 01-28-2023 End: 01-28-2023 ambulatory LICENSE EXAMINER-C Jose Miguel Resendiz Work Phone: [facility] Work Phone: Start: 01-28-2023 End: 01-28-2023 Departed Referred LICENSE EXAMINER-C Jose Miguel Resendiz Work Phone: [facility] Start: 10-04-2021 End: 10-04-2021 ambulatory Phil Melvin Other [facility] Other Start: 10-04-2021 Telephone encounter Phil Melvin [facility] [address] Start: 10-02-2021 End: 10-02-[address] JANIE FRAGOSO Facility:[facility] Start: 09-29-2021 End: 09-29-2021 ambulatory Phil Melvin Other [facility] Other Start: 09-29-2021 Office outpatient vi sit 15 minutes Phil Melvin [facility] [address] Start: 04-14-2021 End: 04-14-2021 ambulatory JOSEF BINGHAM Facility:[facility] Start: 01-21-2021 ambulatory JOSEF BINGHAM Facility: Procedures Date Procedure Procedure Detail Performing Clinician Start: 12-01-2024 Urnls dip stick/tabl et rgnt non-auto w/o micrscp Drew Cristi DO Work Phone: Start: 11-04-2024 BOX TEST Drew Fazi o DO Work Phone: Start: 10-31-2024 Urnls dip stick/tabl et rgnt non-auto w/o micrscp Drew Cristi DO Work Phone: Start: 10-02-2024 [facility] PREG QUANT HCG Core y Cristi DO Work Phone: Start: 09-30-2024 [facility] PREG QUANT HCG Core y Cristi DO Work Phone: Start: 09-22-2024 ALL PROGESTERONE Drew Cristi DO Work Phone: Start: 11-26-2023 GENITOURINARY INFECT ION (HTRX) Lisset Matos MD Work Phone: Start: 11-26-2023 Cortisol total Lisset Matos MD Work Phone: Start: 01-28-2023 Piperacillin/tazobactam Jose Miguel [employer] Other Plan of Treatment Date Care Activity Detail Author Start: 12-29-2024 End: 12-29-2024 Patient encounter procedure 12/29/2024 11:00 AM EDT Routine [facility] [address] [place] [id number] Kimberley Knott PA [address] [place], [place] [id number] [facility] Start: 12-08-2024 Influenza vaccination N [facility] Start: 12-01-2024 End: 12-01-2024 Patient encounter procedure [facility] Comment on above: Arrived Start: 10-31-2024 End: 10-31-2025 ABO/Rh ABO/Rh Lab Routine Missed menses , unspecified gestational age ([facility]) Expected: 10/31/2024 (Approximate), Expires: 10/31/2025 [facility] Comment on above: Expected: 10/31/2024 (Approximate), Expires: 10/31/2025 Start: 10-31-2024 End: 10-31-2025 Blood type and Indirect antibody screen panel - Blood Type and screen Lab Routine Missed menses , unspecified gestational age [facility] Expected: 10/31/2024 (Approximate), Expires: 10/31/2025 [facility] Work Phone: Comment on above: Expected: 10/31/2024 (Approximate), Expires: 10/31/2025 Start: 10-31-2024 End: 10-31-2025 Drugs of abuse panel - Urine by Screen method Rapid drug screen, urine Lab Routine , unspecified gestational age ([facility]) Encounter for supervision of normal first in first trimester ([facility]) Expected: 10/31/2024 (Approximate), Expires: 10/31/2025 [facility] Comment on above: Expected: 10/31/2024 (Approximate), Expires: 10/31/2025 Start: 09-03-2024 End: 09-03-2024 Patient encounter procedure 09/03/2024 2:50 PM EDT Office Visit [facility] [address] [place] [address] Drew Colin, [address] [place], [place] [address] [address] [facility] Start: 07-31-2024 Bacteria identified in Urine by Culture Urine [facility] Start: 07-31-2024 Urine culture [facility] Start: 06-24-2024 End: 06-24-2024 Professional / ancillary services management 06/24/2024 9:30 AM EDT Ancillary Procedure [facility] [address] [place] [address] [place] [address] [facility] Start: 06-04-2024 End: 06-04-2025 Antimullerian hormone (AMH) Antimullerian hormone (AMH) Lab Routine Abnormal uterine bleeding (AUB) PCOS (polycystic ovarian syndrome) Expected: 06/04/2024 (Approximate), Expires: 06/04/2025 [facility] Comment on above: Expected: 06/04/2024 (Approximate), Expires: 06/04/2025 Start: 06-04-2024 End: 06-04-2025 US Pelvis US Pelvis w/ TV Imaging Routine Abnormal uterine bleeding (AUB) Expected: 06/04/2024, Expires: 06/04/2025 [facility] Comment on above: Expected: 06/04/2024 , Expires: 06/04/2025 Start: 06-04-2024 End: 06-04-2024 Patient encounter procedure 06/04/2024 1:10 PM EST Office Visit [facility] [address] [place] [address] Drew Colin, DO [address] [place] [address] Arrived [facility] Comment on above: Arrived Start: 02-07-2024 End: 02-07-2024 Patient encounter procedure [facility] Comment on above: Arrived Start: 01-14-2024 End: 01-13-2025 ACTH ACTH Lab Routine Low serum cortisol level Expected: 01/14/2024 (Approximate), Expires: 01/13/2025 [facility] Comment on above: Expected: 01/14/2024 (Approximate), Expires: 01/13/2025 Start: 01-14-2024 End: 01-13-2025 Cortisol Cortisol Lab Routine Low serum cortisol level Expected: 01/14/2024 (Approximate), Expires: 01/13/2025 [facility] Work Phone: Comment on above: Expected: 01/14/2024 (Approximate), Expires: 01/13/2025 Start: 01-14-2024 End: 01-14-2024 Patient encounter procedure [facility] Comment on above: Arrived Start: 12-09-2023 Influenza vaccination Influenza Vacc ine (#1) [facility] Start: 12-06-2023 End: 12-06-2023 Patient encounter procedure 12/06/2023 8:15 AM EDT Office Visit [facility] [address] [facility] [address] [place] [phone] Lisset Matos MD [address] [facility] [address] [place] [address] [facility] Start: 11-26-2023 End: 11-25-2024 Cortisol Cortisol Lab Routine Hormone imbalance Expected: 11/26/2023 (Approximate), Expires: 11/25/2024 [facility] Comment on above: Expected: 11/26/2023 (Approximate), Expires: 11/25/2024 Start: 11-26-2023 End: 11-25-2024 DHEA-sulfate DHEA-sulfate Lab Routine Hormone imbalance Expected: 11/26/2023 (Approximate), Expires: 11/25/2024 [facility] Comment on above: Expected: 11/26/2023 (Approximate), Expires: 11/25/2024 Start: 11-26-2023 End: 11-25-2024 Estradiol Estradiol Lab Routine Hormone imbalance Expected: 11/26/2023 (Approximate), Expires: 11/25/2024 [facility] Comment on above: Expected: 11/26/2023 (Approximate), Expires: 11/25/2024 Start: 11-26-2023 End: 11-25-2024 Estrone Estrone Lab Routine Hormone imbalance Expected: 11/26/2023 (Approximate), Expires: 11/25/2024 [facility] Comment on above: Expected: 11/26/2023 (Approximate), Expires: 11/25/2024 Start: 11-26-2023 End: 11-25-2024 Follicle stimulating hormone Follicle stimulating hormone Lab Routine Hormone imbalance Thyroid disorder screen Expected: 11/26/2023 (Approximate), Expires: 11/25/2024 [facility] Comment on above: Expected: 11/26/2023 (Approximate), Expires: 11/25/2024 Start: 11-26-2023 End: 11-25-2024 Insulin, random Insulin, random Lab Routine Imbalance of male hormones with irregular menstruation and ovulation Expected: 11/26/2023 (Approximate), Expires: 11/25/2024 [facility] Comment on above: Expected: 11/26/2023 (Approximate), Expires: 11/25/2024 Start: 11-26-2023 End: 11-25-2024 Luteinizing hormone [facility] Comment on above: Expected: 11/26/2023 (Approximate), Expires: 11/25/2024 Ordered: 11/26/2023 Start: 11-26-2023 End: 11-25-2024 Progesterone Progesterone Lab Routine Hormone imbalance Expected: 11/26/2023 (Approximate), Expires: 11/25/2024 [facility] Comment on above: Expected: 11/26/2023 (Approximate), Expires: 11/25/2024 Start: 11-26-2023 End: 11-25-2024 Thyrotropin [Units/volume] in Serum or Plasma TSH Lab Routine Hormone imbalance Thyroid disorder screen Expected: 11/26/2023 (Approximate), Expires: 11/25/2024 [facility] Work Phone: Comment on above: Expected: 11/26/2023 (Approximate), Expires: 11/25/2024 Start: 01-28-2023 Bacteria identified in Urine by Culture [facility] Bacteria identified in Urine by Culture Urine culture Microbiology Routine Missed menses Ordered: 10/31/2024 [facility] Comment on above: Ordered: 10/31/2024 CBC W Auto Different ial panel - Blood CBC and differential Lab Routine Missed menses , unspecified gestational age ([facility]) Ordered: 10/31/2024 [facility] Comment on above: Ordered: 10/31/2024 Cortisol Cortisol Lab Rou maritza Low serum cortisol level Ordered: 12/06/2023 [facility] Work Phone: Comment on above: Ordered: 12/06/2023 Hemoglobin A1c/Hemoglobin.total in Blood Hemoglobin A1c Lab Routine Imbalance of male hormones with irregular menstruation and ovulation Ordered: 11/26/2023 [facility] Comment on above: Ordered: 11/26/2023 Hemoglobin A1c/Hemoglobin.total in Blood Hemoglobin A1c Lab Routine Abnormal uterine bleeding (AUB) Ordered: 06/04/2024 [facility] Comment on above: Ordered: 06/04/2024 Hemoglobin A1c/Hemoglobin.total in Blood Hemoglobin A1c Lab Routine Missed menses , unspecified gestational age ([facility]) Ordered: 10/31/2024 [facility] Comment on above: Ordered: 10/31/2024 Hepatitis B virus surface Ag [Presence] in Serum or Plasma by Immunoassay Hepatitis B surface antigen Lab Routine Missed menses , unspecified gestational age ([facility]) Ordered: 10/31/2024 [facility] Comment on above: Ordered: 10/31/2024 Hepatitis C virus Ab [Presence] in Serum or Plasma by Immunoassay Hepatitis C antibody Lab Routine Missed menses , unspecified gestational age ([facility]) Ordered: 10/31/2024 [facility] Comment on above: Ordered: 10/31/2024 HIV-1/HIV-2 antigen/antibody combination immunoassay HIV-1 and HIV-2 antibodies Lab Routine Missed menses , unspecified gestational age ([facility]) Ordered: 10/31/2024 [facility] Comment on above: Ordered: 10/31/2024 Progesterone Progesterone Lab Routine Abnormal uterine bleeding (AUB) PCOS (polycystic ovarian syndrome) Ordered: 06/04/2024 [facility] Work Phone: Comment on above: Ordered: 06/04/2024 Reagin Ab [Presence] in Serum by RPR RPR Lab Routine Missed menses , unspecified gestational age ([facility]) Ordered: 10/31/2024 [facility] Comment on above: Ordered: 10/31/2024 Rubella antibody, IgG Rubella an tibody, IgG Lab Routine Missed menses , unspecified gestational age ([facility]) Ordered: 10/31/2024 [facility] Comment on above: Ordered: 10/31/2024 Thyrotropin [Units/volume] in Serum or Plasma TSH Lab Routine Abnormal uterine bleeding (AUB) PCOS (polycystic ovarian syndrome) Ordered: 06/04/2024 [facility] Comment on above: Ordered: 06/04/2024 Immunizations Immunization Date Immunization Notes Care Provider Twyla galvez 10-28-2020 Do not use COVID-19 Pfizer 2 dose Phil Melvin Other [facility] 10-07-2020 COVID-19 Balta Warner (Pfizer) SAÚL Resendiz Work Phone: [facility] Payers Date Payer Category Payer Medicaid [id number] 2023 Medicaid [id number]. [id number] 2003 Unknown [id number] [id number] 2003 Unknown [id number] [id number] [id number] 2003 Unknown [id number] [id number] [id number] 2003 Unknown [id number] [id number] 2003 Unknown [id number] 2.16.8 [id number] 2003 Unknown [id number] 2.16.8 [id number] 2003 Unknown [id number] 2.16.84 [id number] 2003 Unknown [id number] 2.16.84 [id number] 2003 Unknown [id number] 2.16.84 [id number] 2003 Unknown [id number] 2.16.84 [id number] 1961 Self-pay 1961 Unknown [id number] Unknown [id number] [id number] Social History Date Type Detail Facility Start: 11-26-2023 End: 02-07-2024 Sex Assigned At [facility] Other Start: 04-22-2021 End: 11-26-2023 Tobacco smoking status NHIS Never smoked tobacco (finding) [facility] Start: 2005 Sex Assigned At Female F [facility] Start: 11-26-2023 Tobacco use and exposure Smokeless tobacco non-user [facility] Start: 11-26-2023 End: 12-01-2024 Alcoholic beverage intake Lifetime non-drinker (finding) [facility] Start: 11-26-2023 End: 02-07-2024 History of Social function [facility] Start: 2005 Sex assigned at Not on file [facility] How often to you hav e a drink containing alcohol? Never [facility] How many standard drinks containing alcohol do you have on a typical day? Patient does not drink [facility] Start: 08-01-2024 Sex Female (finding) [facility] Start: 09-16-2024 [facility] Clinical Notes 09-29-2021 to 12-01-2024 Tiana Renner NP - 12/01/2024 10:50 AM EDTCarryasmin Alves LPN - 10/31/2024 10:30 AM EDT Note Date & Type Note Facility 12-01-2024 History of Presen t illness Narrative Reason for Appointment: Patient ID: Anju Molina is a 19 y.o. female who presents for Routine Visit Patient presents today for Return OB appointment. MEDICATIONS Current Outpatient Medications Medication Instructions MV-Min-Fe Fum-FA-DHA ( 1 PO) 1 tablet, Daily Vit-Fe Fumarate-FA ( Vitamins) 28-0.8 MG tablet 1 tablet, Oral, Daily ALLERGIES No Known Allergies PROBLEMS Active Ambulatory Problems Diagnosis Date Noted Abnormal uterine bleeding (AUB) 09/02/2024 PCOS (polycystic ovarian syndrome) 09/02/2024 Irregular menses 09/02/2024 Positive urine test ([facility]) 09/29/2024 Resolved Ambulatory Problems Diagnosis Date Noted No [...] No family history on file. SURGICAL HISTORY Past Surgical History: Procedure Laterality Date APPENDECTOMY REVIEW OF SYSTEMS Review of Systems: Review [...] nursing note reviewed. Exam conducted with a candy spreader present. Vitals: Estimated body mass index is 36.34 kg/m as calculated from the following: Height as of 24: 5' 3 . Weight as of this encounter: 205 lb 1.9 oz. BP: 116/74 Patient's last menstrual period was 09/02/2024. ASSESSMENT & PLAN ICD-10-CM 1. Second trimester ([facility]) Z34.92 Vit-Fe Fumarate-FA ( Vitamins) 28-0.8 MG tablet POCT urinalysis dipstick manually resulted 2. 12 weeks gestation of ([facility]) Z3A.12 Vit-Fe Fumarate-FA ( Vitamins) 28-0.8 MG tablet POCT urinalysis dipstick manually resulted Return OB: Patient presents today for a routine obstetrics appointment. Patient is currently 12w6d . Patient states she is doing well but has complaints of being tired due to current . Patient has verbalizes frequent movement. labor precautions was discussed/given and patient was instructed to perform kick counts three times a day. Orders Placed This Encounter Procedures POCT urinalysis dipstick manually resulted Follow Up: Patient is to return to office in 4 week for routine OB appointment. Documented by Tiana Renner NP on behalf of: Drew Colin DO documented in this encounter [facility] 10-31-2024 History of Presen t illness Narrative Reason for Appointment: Patient ID: Anju Molina is a 19 y.o. female who presents for No chief complaint on file. Patient presents today for a Nurse OB Intake appointment. Patient is 8w3d with a Estimated Date of Delivery: 06/09/25 OB History Para Term AB Living 1 0 0 0 0 0 SAB IAB Ectopic Multiple Live Births 0 0 0 0 0 # Outcome Date GA Lbr Jose Angel/2nd Weight Sex Type Anes PTL Lv 1 Current Current Medications: has a current medication list which includes the following prescription(s): mv-min-fe fum-fa-dha. Medical History: Active Ambulatory Problems Diagnosis Date Noted Abnormal uterine bleeding (AUB) 09/02/2024 PCOS (polycystic ovarian syndrome) 09/02/2024 Irregular menses 09/02/2024 Positive urine test ([facility]) 09/29/2024 Resolved Ambulatory Problems Diagnosis Date Noted No Resolved Ambulatory Problems Past Medical History: Diagnosis Date HSV-2 (herpes simplex virus 2) infection No family history on file. Social History Tobacco Use Smoking status: Never Smokeless tobacco: Never Vaping Use Vaping status: Never Used Substance Use Topics Alcohol use: Never Drug use: Yes Types: Marijuana Past Surgical History: Procedure Laterality Date APPENDECTOMY No Known Allergies Vitals: Estimated body mass index is 36.31 kg/m as calculated from the following: Height as of 02/07/24: 5' 3 . Weight as of this encounter: 205 lb. BP: 120/80 Patient's last menstrual period was 09/02/2024. Assessment/Plan Diagnoses and all orders for this visit: Missed menses - Type and screen; Future - ABO/Rh; Future - CBC and differential - Hemoglobin A1c - RPR - Rubella antibody, IgG - Hepatitis B surface antigen - Hepatitis C antibody - HIV-1 and HIV-2 antibodies - Urine culture - POCT , urine manually resulted - POCT urinalysis dipstick manually resulted , unspecified gestational age ([facility]) - Type and screen; Future - ABO/Rh; Future - CBC and differential - Hemoglobin A1c - RPR - Rubella antibody, IgG - Hepatitis B surface antigen - Hepatitis C antibody - HIV-1 and HIV-2 antibodies - Rapid drug screen, urine; Future Encounter for supervision of normal first in first trimester ([facility]) - Rapid drug screen, urine; Future Nurse Note: OB Intake: Patient presents today for first OB visit. Patients history has been reviewed in great detail including any potential risks. Patient signed consent forms and patient desires testing in both trimesters. Patient currently has no complaints and has been advised to drink 6-8 glasses of water a day, eat no raw or undercooked meat, and stay away from [facility]. Patient has also been advised to not change litter boxes and eat 6 small meals a day. Patient has been consulted regarding the do's and don'ts of . Patient was given labs and all questions and concerns were answered. Patient was given [place] to have completed at initial lab draw. 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 Follow Up: Patient is to return in 4 weeks for routine OB appointment. Follow Up: Patient is to have labs drawn at directed and return to office for initial OB appointment with provider. Patient may call office as needed with any concerns or questions. Nurse Visit Completed by: Nichol Alves LPN documented in this encounter [facility] 07-31-2024 Evaluation note Diagnosis Onset Date Resolution Dysuria acute July 31 9:45am [facility] Work Phone: [phone] History of Present illness Narrative* Mariana More LPN - 06/04/2024 1:10 PM EST Reason for [...] nursing note reviewed. Exam conducted with a candy spreader present. Vitals: Estimated body mass index is [...] of: Drew Colin DO documented in this encounterSt. Luke's [id number] History of Present illness Narrative* Kendal Rincon NP - 02/07/2024 8:20 AM EDT Name: Anju Molina Date/Time of Service:02/07/2024 8:45 AM :2005 Age: [...] ovulation testing. She is pt of Dr. Matos - normal ovulation and hormonal levels were [...] she does not drink alcohol. Vitals: 02/07/24 08 BP: 118/82 MEDICATIONS: No current outpatient medications on file prior to visit. No current facility-administered medications on file prior to visit. No Known Allergies PHYSICAL EXAM: Vitals: 02/07/2417 BP: 118/82 Body mass index is 34.37 [...] No follow-ups on file. documented in this [facility]10-23-2024 Telephone encounter Note* Telephone Encounter - Dung Albert - 01/30/2024 8:23 AM EDT Pt would like lab read please. Thank you! [facility] [id number] Miscellaneous Notes* Telephone Encounter - Dungsteven Price - 01/30/2024 8:23 AM EDT Pt would like lab read please. Thank you! documented in this [facility]10-07-2024 History of Present illness Narrative* Peter Li MD - 01/14/2024 10:00 AM EDT Anju Molina is a 18 y.o. female No ref. provider found presents with chief complaint of cortisol and Follow-up HPI: HPI 01/[address] Lisset Matos during workup of her infertility and irregular [...] reviewed with the patient documented in this encounterSt. Luke's [id number] History of Present illness Narrative* Lisset Matos MD - 12/06/2023 8:15 AM EDT Images from the original note were not included. Lisset Matos MD Obstetrics and Gynecology Patient: Anju Molina : 2005 (18 y.o.) Exam Date: 12/06/2023 Reason for Visit - Chief Complaint Patient presents with Televisit Televisit to discuss test results and follow up on vaginitis. The patient presented with concerns about her recent lab work. She reported that she had questions about her low cortisol levels and was interested in further evaluation by an denier control operator. The patient was informed that a referral had been sent for an denier control operator consultation and that additional testing would be [...] inquired about the timeline for seeing an denier control operator and was informed that it could take [...] Plan: a) Referred the patient to an denier control operator for further evaluation of adrenal function. b) The patient may consider repeating the cortisol test with fasting if desired. c) Educated the patient on low cortisol and its implications. 2. Ovulation and hormonal levels - Assessment: Normal ovulation and hormonal levels were observed in the lab work. - Plan: a) No further action needed at this time. 3. Patient's concern about the denier control operator appointment - Plan: a) The patient will call the referral department to inquire about the earliest available appointment. documented in this encounterSt. Luke's [id number] History of Present illness Narrative* Lisset Matos MD - 11/26/2023 1:00 PM EDT Images from the original note were not included. Lisset Matos MD Obstetrics and Gynecology Patient: Anju Molina [...] informed and [facility] Return for annual and prn documented in this encounterSt. Luke's [id number] Evaluation note* Encounter Date Diagnosis Assessment Notes [...] Follow up with primary care provider or security systems technician if no improvement of symptoms. [facility] 06-23-2022 Evaluation note* Encounter Date Diagnosis [...] Pt understood and agreed to teatment plan. [facility] Other Evaluation noteNo InformationNort [employer] Other Evaluation noteNo assessment information available [facility] Work Phone: Evaluation note* Diagnosis Low serum cortisol level- Primary Encounter for dietary consultation Class 1 obesity due to excess calories without serious comorbidity with body mass index (BMI) of 33.0 to 33.9 in adult [facility] Diagnosis Low serum cortisol level- Primary Acute vaginitis Unspecified vaginitis and vulvovaginitis [facility]* Diagnosis Irregular menses- Primary Irregular menstrual cycle Female infertility Female infertility of unspecified origin [facility] Diagnosis Acute vaginitis- Primary Unspecified vaginitis and vulvovaginitis [facility] Diagnosis Acute vaginitis- Primary Unspecified vaginitis and vulvovaginitis Encounter for gynecological examination without abnormal finding control counseling Irregular menses Irregular menstrual cycle Hormone imbalance Thyroid disorder screen Screening for thyroid disorder Imbalance of male hormones with irregular menstruation and ovulation Polycystic ovaries Screen for STD (sexually transmitted disease) Screening examination for venereal disease [facility] Diagnosis Abnormal uterine bleeding (AUB) PCOS (polycystic ovarian syndrome) Polycystic ovaries [facility] Diagnosis Missed menses , unspecified gestational age ([facility]) Encounter for supervision of normal first in first trimester ([facility]) Nausea Nausea alone [facility] Diagnosis Second trimester ([facility]) state, incidental 12 weeks gestation of ([facility]) documented in this encounter [facility] Narrative - Reported* Type Description Date Surgical History appendectomy [facility] Other Summary Purpose Family History No Family [...] DATE CREATED AUTHOR AUTHOR'S ORGANIZ ATION 10/28/2021 [place] [facility] DATE CREATED AUTHOR AUTHOR'S ORGANIZ ATION 08/07/2024 [facility] DATE CREATED AUTHOR AUTHOR'S ORGANIZ ATION 12/02/2024 [facility] EPIC REASON FOR VISIT (unrecogniz ed section and content) Reason Comments Routine Visit Reason Comments Infertility Reason Comments Gynecologic Exam Reason Comments Menstrual Problem Reason Comments Televisit Reason Comments cortisol Follow-up POSS UTISTI CHECK Care Teams (unrecognized sec tion and content) Team Status: Inactive Member Role Status Dates Jose Miguel Resendiz , LICENSE EXAMINER-C Attending Provider Activ e Project Management Consultant Relationship Specialty Start Date End Date Unallocated, Osito Tsang MD [facility] [place] [address] PCP - General Family Medicine 11/26/23 Project Management Consultant Relationship Specialty Start Date End Date Unallocated, Osito Tsang MD [address] [place] [address] [place] [address] PCP - General Family Medicine 11/26/23 Project Management Consultant Relationship Specialty Start Date End Date Unallocated, Osito Tsang MD [facility] [place] [address] PCP - General Family Medicine 11/26/23 Project Management Consultant Relationship Specialty Start Date End Date Unallocated, Osito Tsang MD [facility] [place] [address] PCP - General Family Medicine 11/26/23 Project Management Consultant Relationship Specialty Start Date End Date Unallocated, Osito Tsang MD [facility] [place] [address] PCP - General Family Medicine 11/26/23 Project Management Consultant Relationship Specialty Start Date End Date Unallocated, [place] [address] PCP - General Family Medicine 11/26/23 Project Management Consultant Relationship Specialty Start Date End Date Unallocated, [place] [address] PCP - General Family Medicine 11/26/23 Project Management Consultant Relationship Specialty Start Date End Date Unallocated, Osito Tsang MD [address] [place] [address] PCP - General Family Medicine 11/26/23 Project Management Consultant Relationship Specialty Start Date End Date Unallocated, [place] [address] PCP - General Family Medicine 11/26/23 Team Status: Inactive Member Role Status Dates PHYSICIAN NO FAMILY Primary Care Provider Active Start: July 31, 2024 End: July 31, 2024 Teresa Vitale APRN Attending Provider Active Start: July 31, 2024 End: July 31, 2024 Team Status: Inactive Member Role Status Dates Teresa Vitale APRN Attending Provider Active Start: July 31, 2024 End: July 31, 2024 Project Management Consultant Relationship Specialty Start Date End Date Unallocated, Osito Tsang MD [address] [place] [address] PCP - General Family Medicine 11/26/23 Project Management Consultant Relationship Specialty Start Date End Date Unallocated, [place] [address] PCP - General Family Medicine 11/26/23 Project Management Consultant Relationship Specialty Start Date End Date Unallocated, [place] [address] PCP - General Family Medicine 11/26/23 Project Management Consultant Relationship Specialty Start Date End Date Unallocated, [place] [address] PCP - General Family Medicine 11/26/23 Goals (unrecognized section and content) Goals may [...] BE BASED ON THE PRIMARY CLINICAL RECORDS. [email or web address] provides no warranty or guarantee of the accuracy or completeness of information in this document.
--- NOTE | 2024-12-26 20:37 | ED_ITS ---
HPI HPI - General Adult General Chief complaint: Skin/Abscess/Foreign Body Stated complaint: RASH ON BACK HAS GOTTEN BIGGER Time Seen by Provider: 12/26/24 20:15 Source: patient Mode of arrival: walk-in Limitations: no limitations History of Present Illness HPI narrative: Patient is a healthy 19-year-old female presenting to the emergency department for evaluation of a rash on her back. Patient is currently 17 weeks by ultrasound. She states she has had a normal up to this point with no complications. She has had routine follow-up with her AUTOMOTIVE HARDWARE ENGINEER. Patient states that 1 week ago she had a small rash on the lower part of her back. Since then, the rash is spread to involve almost the entire back. She states it is itchy and painful, interfering with her ability to sleep at night. She has been trying Benadryl, topical steroids, and aloe vera, however symptoms seem to worsen. She denies any new detergents, soaps, or other possible allergen exposures. She has had no new or changes in medications. She denies any involvement of her eyes or mouth. She has no other systemic symptoms such as chest pain, shortness of breath, fevers, chills, abdominal pain, nausea, or vomiting. No vaginal bleeding or pelvic cramping. Related Data Previous Rx's ?Medication ?Instructions ?Recorded doxycycline hyclate 100 mg capsule 100 mg PO BID #13 c aps 07/14/23 prednisone 20 mg tablet 20 mg PO ONCE 4 days #4 tabs 12/26/24 Allergies Allergy/AdvReac Type Severity Reaction Status Date / Time No Known Drug Allergies Allergy Verified 12/26/24 20:24 Opioid HPI Opioid Management Most Recent Opioid Data: Ur Phencyclidine Scrn, (NEGATIVE) Negative , 12:41 Review of Systems ROS Status of ROS 10 or more systems reviewed and unremark able except as noted in history and below PFSH PFSH Social History Little interest or pleasure in doing things: not at all Feeling down, depressed, or hopeless: not at all Exam Narrative Exam Narrative: CONSTITUTIONAL: Well-appearing, answering questions and following commands appropriately SKIN: On the patient's back, more so on the left side, there is a large confluent erythematous rash with wheals. There is no evidence of superimposed infection/cellulitis. There is no induration or fluctuance. There are no vesicles. No blistering. No sloughing of the skin, EYES: Sclerae white. No conjunctival exudates. No orbital lesions. EARS, NOSE, THROAT: Moist oral mucosa. There are no lesions or blistering within the oral mucosa/lips. No tongue swelling. No facial edema. Speaking with a normal voice. RESPIRATORY: Clear to auscultation bilaterally, no wheezes, crackles, or stridor, no use of accessory muscles CARDIOVASCULAR: Normal rate and regular rhythm. There is no S3, S4, murmur, rub. GASTROINTESTINAL: Abdomen is nontender and nondistended. MUSCULOSKELETAL: No peripheral edema. NEUROLOGIC: Patient is awake and alert. Facies were symmetrical. Constitutional Vital Signs, click to edit/add: Last Vital Signs Temp 98.4 F 12/26/24 20:18 Pulse 94 H 12/26/24 20:18 Resp 16 12/26/24 20:18 BP 106/77 12/26/24 20:18 Pulse Ox 100 12/26/24 20:18 O2 Del Method Room Air 12/26/24 20:18 Course Vital Signs Vital signs: Vital Signs Temperature 98.4 F 12/26/24 20:18 Pulse Rate 94 H 12/26/24 20:18 Respiratory Rate 16 12/26/24 20:18 Blood Pressure 106/77 12/26/24 20:18 Pulse Oximetry 100 12/26/24 20:18 Oxygen Delivery Method Room Air 12/26/24 20:18 Temperature 98.4 F 12/26/24 20:18 Pulse Rate 94 H 12/26/24 20:18 Respiratory Rate 16 12/26/24 20:18 Blood Pressure 106/77 12/26/24 20:18 Pulse Oximetry 100 12/26/24 20:18 Oxygen Delivery Method Room Air 12/26/24 20:18 Medical Decision Making MDM Narrative Medical decision making narrative: Patient is a healthy 19-year-old female, currently 17 weeks , presenting to the emergency department for evaluation of 1 week history of a rash on the patient's back. Her vital signs on arrival are within normal limits. She is afebrile and hemodynamically stable. Patient's history and physical examination is consistent with hives/urticarial rash. The rash is localized to the back, crosses midline, and does not involve mucosal surfaces. She has no other systemic symptoms and has had no new/changes in medication. I have low concern for more insidious etiology such as herpes zoster/SJS/TENS/DRESS syndrome. She has no evidence of anaphylaxis or angioedema. I do believe the patient is stable for discharge at this time. She was given 10 mg IM dexamethasone in the ED for treatment. She was also given a prescription for prednisone 20 mg daily x 4 days. I recommened continued use of antihistamines. They were instructed to follow up with her AUTOMOTIVE HARDWARE ENGINEER, she has an appointment already scheduled for next week. Return precautions were given including any new or worsening symptoms. Patient understands and agrees to the plan. FINAL IMPRESSION: #Acute urticaria DISPOSITION: Discharged home CONDITION: Good Discharge Plan Discharge Chief Complaint: Skin/Abscess/Foreign Body Clinical Impression: Acute urticaria Patient Disposition: Home, Self-Care Time of Disposition Decision: 20:26 Condition: Good Mode of Transportation: Private Vehicle Prescriptions / Home Meds: New prednisone 20 mg tablet 20 mg PO ONCE 4 Days Qty: 4 0RF No Action doxycycline hyclate 100 mg capsule 100 mg PO BID Qty: 13 0RF Print Language: Tristanian Instructions: Urticaria (ED) Referrals: Physician,Non-Staff, MD [Primary Care Provider] - 1 week
[2024-12-26] MEDS: DEXAMETHASONE SOD PHOS 10 MG/ML VIAL IM (20:39)
== END 2024-12-26 20:45 | disposition home or self-care (01) ==
PROVIDERS: Emergency Provider Student in an Organized Health Care Education/Training Program
DX: O99.891 Other specified diseases and conditions complicating pregnancy (principal); L50.9 Urticaria, unspecified; Z3A.17 17 weeks gestation of pregnancy
CPT/HCPCS: 96372; 99284; J1100

== ENCOUNTER 2024-12-29 21:19 | Outpatient (REF) | payer MEDICAID, SELFPAY ==
--- OUTSIDE RECORDS SUMMARY | 2024-12-29 21:24 | XMS_ITS | CCD ---
Author Organization [facility] Care Team Providers Care Frame Carver Spindle Name Role Phone DR JANIE FRAGOSO Primary [...] Provi marcelino Teresa Vitale APRN Attending Provider [phone] Teresa Vitale Attending Unavailable Teresa Vitale Admitting [...] Nexplanon 68 MG as directed Subcutaneous Active fluconazole 150 mg oral tablet (4 sources) Azole Antifungal Start: 12-29-2024 End: 12-29-2024 fluconazole (Diflucan) 150 MG tablet Indications: Tinea Take 1 tablet (150 mg) by mouth 1 (one) time for 1 dose Repeat in 7 days if symptoms persist. 2 tablet 12/29/2024 12/29/2024 Active Start: 11-26-2023 End: 11-26-2023 take 1 tablet by mouth once fluconazole (Diflucan) 150 MG tablet Indications: Acute vaginitis Take 1 tablet (150 mg) by mouth 1 (one) time for 1 dose 1 tablet 1 11/26/2023 11/26/2023 metFORMIN hydrochloride 500 mg oral tablet (7 sources) Biguanide Start: 06-04-2024 End: 06-04-2025 take 1 tablet by mouth at mealtime metFORMIN (Glucophage) 500 MG tablet Indications: Abnormal uterine bleeding (AUB) , PCOS (polycystic ovarian syndrome) Take 1 tablet (500 mg) by mouth in the morning. Take with meals. 30 tablet 11 06/04/2024 10/31/2024 Discontinued methylPREDNISolone (2 sources) Corticosteroid Start: 12-29-2024 End: 01-05-2025 methylPREDNISolone (Medrol Dospak) 4 MG tablets Indications: Tinea Follow schedule on package instructions 21 tablet 12/29/2024 01/05/2025 Active metroNIDAZOLE 500 mg oral tablet (3 sources) [...] Jan, Active MV-Min-Fe Fum-FA-DHA ( 1 PO) (8 sources) MV-Min-Fe Fum-FA-DHA ( 1 PO) Take 1 tablet by mouth Daily Active Vit-Fe Fumarate-FA ( Vitamins) 28-0.8 MG tablet (5 sources) Start: 12-01-2024 End: 12-01-2025 take 1 tablet by mouth once daily Vit-Fe Fumarate-FA ( Vitamins) 28-0.8 MG tablet Indications: Second trimester ([facility]) , 12 weeks gestation of ([facility]) Take 1 tablet by mouth Daily 30 [...] 04, 2020 1:00am August 17, 2020 1:28pm hydrOXYzine hydrochloride 50 mg oral tablet (2 [...] Active Problems Problem Classification Problem Date Documented Date Episodic/Chronic Female infertility (2 sources) Female infertility; Translations: [Female infertility, unspecified] 02-07-2024 Chronic Genitourinary symptoms and ill-defined conditions (4 sources) Dysuria; Translations: [Dysuria] Onset: 07-31-2024 Episodic Headache; including migraine (1 source) Headache; including migraine; Translations: [HEADACHE UNSPECIFIED] Onset: 04-21-2021 Immunizations and screening for infectious disease (10 sources) Patient encounter status; Translations: [Dietary counseling and surveillance] 01-14-2024 Episodic Immunizations and screening for infectious disease (2 sources) Exposure to sexually transmissible disorder; Translations: [Contact with and (suspected) exposure to infections with a predominantly sexual mode of transmission] 12-29-2024 Episodic Inflammatory diseases of female pelvic organs (6 sources) Acute vaginitis; Translations: [Acute vaginitis] Onset: 10-03-2021 12-06-2023 Episodic Menstrual disorders (16 sources) Irregular periods; Translations: [Irregular menstruation, unspecified] Onset: 09-02-2024 02-07-2024 Chronic Mycoses (2 sources) Dermatophytosis; Translations: [Dermatophytosis, unspecified] 12-29-2024 Episodic Nausea and vomiting (2 sources) Nausea; Translations: [Nausea] Onset: 04-21-2021 10-31-2024 Episodic Other endocrine disorders (13 sources) Polycystic ovary syndrome; Translations: [Polycystic ovarian syndrome] Onset: 09-02-2024 06-04-2024 Chronic Other female genital disorders (13 sources) Abnormal uterine bleeding; Translations: [Abnormal uterine [...] 01-14-2024 Chronic Other and delivery including normal (16 sources) Urine test positive; Translations: [Encounter for [...] [12 weeks gestation of ] 12-01-2024 Episodic Residual codes; unclassified (2 sources) Gestation period, 16 weeks; Translations: [16 weeks gestation of ] 12-29-2024 Episodic Suicide and intentional self-inflicted injury (2 [...] Range Facility Urinalysis macro (dipstick) panel (U)on 12-29-2024 Bilirubin, UA Negative Negative - 4(70) +++ mg/dL [facility] Blood, UA Negative Negative - 50 Juan Alberto/mcL [facility] Clarity, UA Clear [facility] Color, UA Yellow [facility] Glucose, UA Negative Negative - 1999(110) ++++ mg/dL [facility] Interpretation and review of laboratory results Abnormal [facility] Ketones, UA Negative Negative - 160(16) ++++ mg/dL [facility] Leukocytes, UA Positive Negative - 500+++ Artie/mcL [facility] Healthcare Comment on above: 1+ Nitrite, UA Negative Negative - Positive [facility] pH, UA 7 5 - 9 [facility] Protein, UA Negative Negative - 1999(20) ++++ mg/dL [facility] Spec Grav, UA 1.01 1 - 1.03 [facility] Urobilinogen, UA 0.2 0.2 - 12 mg/dL [facility] Urinalysis macro (dipstick) panel (U)on 12-01-2024 Bilirubin, UA Negative Negative - 4(70) +++ mg/dL [facility] Blood, UA Negative Negative - 50 Juan Alberto/mcL [facility] Clarity, UA Clear [facility] Color, UA Yellow [facility] Glucose, UA Negative Negative - 1999(110) ++++ mg/dL [facility] Interpretation and review of laboratory results Normal [facility] Ketones, UA Negative Negative - 160(16) ++++ mg/dL [facility] Leukocytes, UA Negative Negative - 500+++ Artie/mcL [facility] Nitrite, UA Negative Negative - Positive [facility] pH, UA 7 5 - 9 [facility] Protein, UA Negative Negative - 1999(20) ++++ mg/dL [facility] Spec Grav, UA 1.01 1 - 1.03 [facility] Urobilinogen, UA 1.0 0.2 - 12 mg/dL [facility] BOX TESTon 11-04-2024 BOX TEST SENT OUT [facility] [address] HENRRY [facility] [employer] [facility] [place] [facility] [address] 11/04/24 [facility] she[facility] e HCG ( test) Ql (U)o n 10-31-2024 Interpretation and review of laboratory results Abnormal [facility] [facility] [place] [facility] Preg Test, Ur Positive Negative [facility] OB TRANSVAGINALon 025 US [...] II, MD, PHD at 03-Nov-2024 11:42:05 PM [facility] Normal Not Available Comment on above: Order Comment: US OB TRANSVAGINAL No LMP recorded. Urinalysis macro (dipstick) panel (U)on 10-31-2024 Bilirubin, UA Negative Negative - 4(70) +++ mg/dL [facility] Blood, UA Negative Negative - 50 Juan Alberto/mcL [facility] Clarity, UA Clear [facility] Color, UA Yellow [facility] Glucose, UA Negative Negative - 1999(110) ++++ mg/dL [facility] Interpretation and review of laboratory results Normal [facility] re Ketones, UA Negative Negative - 160(16) ++++ mg/dL [facility] Leukocytes, UA Negative Negative - 500+++ Ratie/mcL [facility] Nitrite, UA Negative Negative - Positive [facility] pH, UA 6.5 5 - 9 [facility] Protein, UA Negative Negative - 1999(20) ++++ mg/dL [facility] Spec Grav, UA 1.02 1 - 1.03 [facility] Urobilinogen, UA 1.0 0.2 - 12 mg/dL [facility] TBH PREG QUANT HCGon 10-02- 025 HCG QUANTITATIVE 454 mIU/mL [facility] Comment on above: 5-50 0.2-1 WEEK 50-500 1-2 WEEKS 100-5,000 2-3 WEEKS 500-10,000 3-4 WEEKS 1,000-50,000 4-5 WEEKS 10,000-100,000 5-6 WEEKS 15,000-200,000 6-8 WEEKS 10,000-100,000 2-3 MONTHS [facility] Health[facility] e TBH PREG QUANT HCGon 09-30- 025 HCG QUANTITATIVE 156 mIU/mL [facility] Comment on above: 5-50 0.2-1 WEEK 50-500 1-2 WEEKS 100-5,000 2-3 WEEKS 500-10,000 3-4 WEEKS 1,000-50,000 4-5 WEEKS 10,000-100,000 5-6 WEEKS 15,000-200,000 6-8 WEEKS 10,000-100,000 2-3 MONTHS [facility] ALL PROGESTERONEon PROGESTERONE 15.5 ng/mL . [facility] Comment on above: Follicular phase 0.1 - 0.9 Luteal phase 1.8 - 23.9 Ovulation phase 0.1 - 12.0 First trimester 11.0 - 44.3 Second trimester 25.4 - 83.3 Third trimester 58.7 - 214.0 Postmenopausal 0.0 - 0.1 Performed at: - [facility] [id number] Crew Caller: Keenan Murillo PhD, Phone: [phone] [facility] Urine Cultureon 07-31-2024 Bacteria identified Cx Nom (U) 25,000 colonies/ml mixed bacterial skin contaminants 2 Days PERFORMED BY: [place] [address] PATHOLOGIST [employer] SUPERVISOR YUMIKO GRIER M.D. Normal [facility] Comment on above: Performed By: #### C UU #### [address] US PELVIC COMPLETE W/ TVon 0 [...] II, MD, PHD at 26-Jun-2024 08:43:57 AM [facility] Normal Not Available Comment on above: Order Comment: US PE LVIS-TRANSVAG IF INDICATED Patient's last menstrual period was 05/05/2024. Cortisolon 12-03-2023 Cortisol [Mass/Vol] 4.7 ug/dL Low 6.2 - 19 .4 ug/dL [facility] Comment on above: Please Note: The ref erence interval and flagging for this test is for an AM collection. If this is a PM collection please use: Cortisol PM: 2.3-11.9 Interpretation and review of laboratory results Abnormal [facility] re DHEA-sulfateon 12-03-2023 DHEA-S [Mass/Vol] 267.0 ug/dL 110.0 - 43 1.7 ug/dL [facility] Estradiolon 12-03-2023 E2 [Mass/Vol] 188.0 pg/mL [facility] Comment on above: Adult Female Range Follicular phase 12.5 - 166.0 Ovulation phase 85.8 - 498.0 Luteal phase 43.8 - 211.0 Postmenopausal <6.0 - 54.7 1st trimester 215.0 - >4300.0 Vidya ECLIA methodology Estroneon 12-03-2023 E1 [Mass/Vol] 104 pg/mL 27 - 231 pg/mL [facility] Comment on above: Range Adult (Premenopausal) 27 - 231 Menstrual Cycle (1-10 days) 19 - 149 Menstrual Cycle (11-20 days) 32 - 176 Menstrual Cycle (21-30 days) 37 - 200 Performed at: 02 - [address] [id number] Crew Caller: Collette Mesa MD, Phone: [phone] [facility] Follicle stimulating hormone on 12-03-2023 Follitropin Qn 2.3 m[IU]/mL mIU/mL [facility] Comment on above: Adult Female Range Follicular phase 3.5 - 12.5 Ovulation phase 4.7 - 21.5 Luteal phase 1.7 - 7.7 Postmenopausal 25.8 - 134.8 Insulin, fastingon Insulin Qn 20.6 u[IU]/mL [facility] No Panel Informationon 12-02 Performed at: 01 - [facility] [address] [id number] Crew Caller: Keenan Murillo PhD, Phone: [phone] [facility] Progesteroneon 12-03-2023 Progesterone [Mass/Vol] 11.4 ng/mL [facility] Comment on above: Follicular phase 0.1 - 0.9 Luteal phase 1.8 - 23.9 Ovulation phase 0.1 - 12.0 First trimester 11.0 - 44.3 Second trimester 25.4 - 83.3 Third trimester 58.7 - 214.0 Postmenopausal 0.0 - 0.1 TSHon 12-03-2023 TSH Qn 3.160 m[IU]/L [facility] No Panel Informationon 11-28 ACINETOBACTER BAUMANII 0.000 [facility] ACINETOBACTER BAUMANII Not detected [facility] ATOPOBIUM VAGINAE 22.732 Abnormal [facility] ATOPOBIUM VAGINAE Detected Abnormal [facility] BVAB 2,3 (BACTERIAL VAGINOSIS ASSOCIATED BACTERIA 2, 3); MOBILUNCUS SPP 0.000 [facility] BVAB 2,3 (BACTERIAL VAGINOSIS ASSOCIATED BACTERIA 2, 3); MOBILUNCUS SPP Not detected [facility] TERESA ALBICANS, PARAPSILOSIS, TROPICALIS 0.000 [facility] TERESA ALBICANS, PARAPSILOSIS, TROPICALIS Not detected [facility] TERESA GLABRATA 0.000 [facility] TERESA GLABRATA Not detected [facility] TERESA KRUSEI 0.000 [facility] TERESA KRUSEI Not detected [facility] CHLAMYDIA TRACHOMATIS 0.000 [facility] CHLAMYDIA TRACHOMATIS Not detected [facility] CITROBACTER FREUNDII 0.000 [facility] CITROBACTER FREUNDII Not detected [facility] ENTEROBACTER AEROGENES, CLOACAE 0.000 [facility] ENTEROBACTER AEROGENES, CLOACAE Not detected [facility] re ENTEROCOCCUS FAECALIS, FAECIUM 0.000 [facility] ENTEROCOCCUS FAECALIS, FAECIUM Not detected [facility] ESCHERICHIA COLI 0.000 [facility] ESCHERICHIA COLI Not detected [facility] GARDNERELLA VAGINALIS 0.000 [facility] GARDNERELLA VAGINALIS Not detected [facility] Healthcare Interpretation and review of laboratory results [...] Healthcare [facility] Urinalysis - DIPSTICKon 10-2 Appearance (U) cloudy [employer] Other Bilirubin Ql (U) Negative [employer] Other Color (U) dark yellow-orange [employer] Other Glucose Ql (U) Negative [employer] Other Hemoglobin Ql (U) large [employer] Other Ketones Ql (U) Negative [employer] Other Leukocyte esterase Test strip Ql (U) moderate [employer] Other Nitrite Ql (U) Positive [employer] Other pH (U) 7.0 [pH] [employer] Other Protein Ql (U) Negative [employer] Other Specific gravity (U) [Rel density] 1.010 [employer] Other Urobilinogen (U) [Mass/Vol] normal [employer] Other Urinalysis - DIPSTICK [employer] Other Urine Cultureon 01-28-2023 Urine Culture 75,000 [employer] Other Urine Culture <16 Susceptible [employer] Other Urine Culture <8/4 Susceptible [employer] Other Urine Culture <8 Susceptible [employer] Other Urine Culture <4 Susceptible [employer] Other Urine Culture <2 Susceptible [employer] Other Urine Culture <1 Susceptible [employer] Other Urine Culture <0.25 Susceptible [employer] Other Urine Culture <0.5 Susceptible [employer] Other Urine Culture 4 Susceptible [employer] Other Urine Culture <0.5/9.5 Susceptible [employer] Other Consenton 10-24-2021 Consent [id number]:127 Normal [facility] Registrationon 10-24-2021 Registration [id number]:127 Normal [facility] Quantiferon-TB Plus (Client Incubated)on 10-18-2021 Gamma interferon background IA Qn (Bld) 0.04 International_Unit/ mL Invalid Interpretation Code [facility] Comment on above: Performed By: #### 2 [id number], [id number], [id number], [id number] #### [facility] [address] [place] [address] M. tuberculosis stim IFN-g by CD4+ CD8+ T-cells corrected for background Qn (Bld) 0.01 International_Unit/ mL Invalid Interpretation Code [facility] Comment on above: Performed By: #### 2 447394, [id number], [id number], [id number] #### [facility] [address] [place] [address] M. tuberculosis stim IFN-g by CD4+ T-cells corrected for background Qn (Bld) 0.01 International_Unit/ mL Invalid Interpretation Code [facility] Comment on above: Performed By: #### 2 260483, [id number], [id number], [id number] #### [facility] [address] [place] [address] M. tuberculosis stim IFN-g Ql (Bld) [Interp] Negative Invalid Interpretation Code Negative [facility] Comment on above: Result Comment: The specimen received for QuantiFERON testing was incubated by the ordering institution. Specific procedures outlined in our Directory of Services and in the package insert for the QuantiFERON Gold (In Tube) test must be followed to enable for proper stimulation of cells for the production of interferon gamma. Chemiluminescence immunoassay methodology Performed at: [facility] [id number] PhD Chidi Hussein Performed By: #### 2 [id number], [id number], [id number] #### [facility] [address] [place], [place] [id number] Mitogen stimulated gamma interferon Qn (Bld) >10.00 Invalid Interpretation Code [facility] Comment on above: Performed By: #### 2 710693, [id number], [id number], [id number] #### [facility] [address] [place], [place] [id number] Service comment (Unsp spec) [Interp] Comment Invalid Interpretation Code [facility] Comment on above: Result Comment: The QuantiFERON-TB Gold Plus result is determined by subtracting the Nil value from either TB antigen (Ag) tube. The mitogen tube serves as a control for the test. Performed By: #### 2 616402, [id number], [id number] #### [facility] [address] [place], [place] [id number] Hep Bs Abon 10-15-2021 HBV surface Ab Ql (S) Reactive Invalid Interpretation Code [facility] Comment on above: Result Comment: Non Reactive: Inconsistent with immunity, less than 10 mIU/mL Reactive: Consistent with immunity, greater than 9.9 mIU/mL Performed at: [facility] [id number] PhD Chidi Hussein Performed By: #### 2 032460, [id number], [id number], [id number] #### [facility] [address] [place] [address] Measles/Mumps/Rubella Immuni tyon 10-15-2021 MeV IgG IA Qn (S) {index_val} Invalid Interpretation Code Immune >16.4 [facility] Comment on above: Result Comment: Nega tive <13.5 Equivocal 13.5 - 16.4 Positive >16.4 Presence of antibodies to Rubeola is presumptive evidence of immunity except when acute infection is suspected. Performed By: #### 2 929832, [id number], [id number], [id number] #### [facility] [address] [place] [address] MuV IgG IA Qn (S) 243.0 A unit/mL Invalid Interpretation Code Immune >10.9 [facility] Comment on above: Result Comment: Nega tive <9.0 Equivocal 9.0 - 10.9 Positive >10.9 A positive result generally indicates past exposure to Mumps virus or previous vaccination. Performed at: [address] [id number] PhD Chidi Hussein Performed By: #### 2 507393, [id number], [id number], [id number] #### [facility] [address] [place] [address] Rubella virus IgG Qn (S) 16.20 [IU]/mL Invalid Interpretation Code Immune >0.99 [facility] Comment on above: Result Comment: Non- immune <0.90 Equivocal 0.90 - 0.99 Immune >0.99 Performed By: #### 2 351174, [id number], [id number], [id number] #### [facility] [address] [place] [address] Varic IgGon 10-15-2021 VZV IgG IA Qn (S) 863 Invalid Interpretation Code Immune >165 [facility] Comment on above: Result Comment: Nega tive <135 Equivocal 135 - 165 Positive >165 A positive result generally indicates exposure to the pathogen or administration of specific immunoglobulins, but it is not indication of active infection or stage of disease. Performed at: [address] [id number] PhD Chidi Hussein Performed By: #### 2 265024, [id number], [id number], [id number] #### [facility] [address] [place] [address] Physician Orderon 10-14-2021 Physician Order [id number]:127 Normal [facility] CULTURE URINEon 10-02-2021 CULTURE URINE Culture Observations: MODERATE GROWTH OF MIXED GENITAL BETZY. NO POTENTIAL PATHOGENS SEEN. Normal [facility] Comment on above: Performed By: #### U RCX #### [facility] [address] [place] [address] Dr. Lisa Chirinos ER URINE PROFILEon 2 Bilirubin Ql (U) Negative Normal NEGATIVE [facility] Comment on above: Performed By: #### E RUR, PREGU, UMICRO #### [facility] [address] [place] [address] Dr. Lisa Chirinos Clarity (U) CLEAR Normal CLEAR [facility] Comment on above: Performed By: #### E RUR, PREGU, UMICRO #### [facility] [address] [place] [address] Dr. Lisa Chirinos Color (U) YELLOW Normal YELLOW [facility] Comment on above: Performed By: #### E RUR, PREGU, UMICRO #### [facility] [address] [place] [address] Dr. Lisa CAMARGOAHTricia A micrscopic examination will be performed if indicated. Normal [facility] Comment on above: Performed By: #### E RUR, PREGU, UMICRO #### [facility] [address] [place] [address] Dr. Lisa Chirinos Glucose Ql (U) Negative Normal NEGATIVE [facility] Comment on above: Performed By: #### E RUR, PREGU, UMICRO #### [facility] [address] [address] [address] Lisa Chirinos Hemoglobin Ql (U) Negative Normal NEGATIVE [facility] Comment on above: Performed By: #### E RUR, PREGU, UMICRO #### [facility] [address] [place] [address] Dr. Lisa Chirinos Ketones Ql (U) Negative Normal NEGATIVE [facility] Comment on above: Performed By: #### E RUR, PREGU, UMICRO #### [facility] [address] [place] [address] Dr. Lisa Chirinos LEUKOCYTES SMALL Abnormal NEGATIVE [facility] Comment on above: Performed By: #### E RUR, PREGU, UMICRO #### [facility] [address] [place] [address] Dr. Lisa Chirinos Nitrite Ql (U) Negative Normal NEGATIVE [facility] Comment on above: Performed By: #### E RUR, PREGU, UMICRO #### [facility] [address] [place] [address] Dr. Lisa Chirinos pH (U) 8.0 [pH] Normal 5-9 [facility] Comment on above: Performed By: #### E RUR, PREGU, UMICRO #### [facility] [address] [place] [address] Dr. Lisa Chirinos SPEC GRAVITY 1.015 Normal 1.005-<=1.025 [facility] Comment on above: Performed By: #### E RUR, PREGU, UMICRO #### [facility] [address] [place] [address] Dr. Lisa Chirinos UA PROTEIN Negative Normal NEGATIVE/ TRACE [facility] Comment on above: Performed By: #### E RUR, PREGU, UMICRO #### [facility] [address] [place] [address] Dr. Lisa Chirinos UR MICRO IND INDICATED Normal [facility] Comment on above: Performed By: #### E RUR, PREGU, UMICRO #### [facility] [address] [place] [address] Dr. Lisa Chirinos Urobilinogen Qn (U) 0.2 {Jyothi'U}/dL Normal 0.2 - 1. 0 [facility] Comment on above: Performed By: #### E RUR, PREGU, UMICRO #### [facility] [address] [place] [address] Dr. Lisa Cihrinos URon 10-02-2021 , QUAL Negative Normal NEGATIVE [facility] Comment on above: Performed By: #### E RUR, PREGU, UMICRO #### [facility] [address] [place] [address] Dr. Lisa Chirinos URINE MICROSCOPIC ONLYon BACTERIA SMALL Abnormal NONE SEEN [facility] Comment on above: Performed By: #### Narciso RUR PREGU, UMICRO #### [facility] [address] [place] [address] Dr. Lisa Chirinos Bacteria identified Cx Nom (U) INDICATED Normal [facility] Comment on above: Performed By: #### E RUR PREGU, UMICRO #### [facility] [address] [place] [address] Dr. Lisa Chirinos CAST NONE SEEN Normal NONE SEEN [facility] Comment on above: Performed By: #### Narciso RUR PREGU, UMICRO #### [facility] [address] [place] [address] Dr. Lisa Chirinos Crystals LM Nom (Urine sed) NONE SEEN Normal NONE SEEN [facility] Comment on above: Performed By: #### Narciso RUR PREGU, UMICRO #### [facility] [address] [place] [address] Dr. Lisa Chirinos Epithelial cells LM Ql (Urine sed) FEW Abnormal NONE SEEN /RARE [facility] Comment on above: Performed By: #### Narciso RUR PREGU, UMICRO #### [facility] [address] [place] [address] Dr. Lisa Chirinos MUCOUS NONE SEEN Normal NONE SEEN [facility] Comment on above: Performed By: #### Narciso RUR PREGU, UMICRO #### [facility] [address] [place] [address] Dr. Lisa Chirinos RBC 0-2 Normal 0-2 [facility] Comment on above: Performed By: #### E RUR PREGU, UMICRO #### [facility] [address] [place] [address] Dr. Lisa Chirinos WBC 20-50 Abnormal NONE SEEN [facility] Comment on above: Performed By: #### E RUR PREGU, UMICRO #### [facility] [address] [place] [address] Dr. Lisa Chirinos Chlamydia/GC/Trich NAAon Chlamydia/GC/Trich ANSON Positive Critically abnormal Negative [employer] Other Chlamydia/GC/Trich ANSON Negative Negative [employer] Other Urinalysis - DIPSTICKon 09-08 Appearance (U) cloudy [employer] Other Bilirubin Ql (U) Negative [employer] Other Color (U) dark yellow [employer] Other Glucose Ql (U) Negative [employer] Other Hemoglobin Ql (U) trace [employer] Other Ketones Ql (U) Negative [employer] Other Leukocyte esterase Test strip Ql (U) moderate [employer] Other Nitrite Ql (U) Negative [employer] Other pH (U) 6.5 [pH] [employer] Other Protein Ql (U) Negative [employer] Other Specific gravity (U) [Rel density] 1.020 [employer] Other Urobilinogen (U) [Mass/Vol] 0.2 mg/dL [employer] Other Urinalysis - DIPSTICK [employer] Other Urine Cultureon 09-29-2021 Bacteria identified Cx Nom (U) [employer] Other Covid-19 PCR (CVDTB)on SARS-CoV-2 (COVID-19) RNA ANSON+probe Ql (Unsp spec) Not detected Normal NOT DETECTED [facility] Comment on above: Result Comment: This test is not yet approved or cleared by the [place] FDA. When there are no FDA-approved or cleared tests available, and other criteria are met, FDA can make tests available under an emergency access mechanism called an Emergency Use Authorization (EUA). The EUA for this test is supported by the [place] of Health and Human Service's (HHS's) declaration [...] consistent with SARS-CoV-2. Performed By: #### C [facility] #### [facility] [address] [place] [address] Dr. Lisa Chirinos Vital Signs Date Time Vital Sign Value Performing Clinician Facility 12-29-2024 11:16-0400 Body mass index (BMI) [Ratio] 36.58 kg/m2 Kimberley Knott PA Work Phone: [facility] 12-29-2024 11:16-0400 Body weight 93.67 kg Kimberley Knott PA Work Phone: [facility] 12-29-2024 11:16-0400 Diastolic blood pressure 70 mm[Hg] Kimberley Knott PA Work Phone: [facility] 12-29-2024 11:16-0400 Systolic blood pressure 108 mm[Hg] Kimberley Knott PA Work Phone: [facility] 12-01-2024 11:07-0400 Body mass index (BMI) [Ratio] 36.34 kg/m2 Drew Cristi DO Work Phone: [facility] 12-01-2024 11:07-0400 Body weight 93.04 kg Drew Cristi DO Work Phone: [facility] 12-01-2024 11:07-0400 Diastolic blood pressure 74 mm[Hg] Drew Cristi DO Work Phone: [facility] 12-01-2024 11:07-0400 Systolic blood pressure 116 mm[Hg] Drew Colin DO Work Phone: [facility] 10-31-2024 10:35-0400 Body mass index (BMI) [Ratio] 36.31 kg/m2 Cristi Ob [facility] 10-31-2024 10:35-0400 Body weight 92.99 kg Cristi Ob [facility] 10-31-2024 10:35-0400 Diastolic blood pressure 80 mm[Hg] Cristi Ob [facility] 10-31-2024 10:35-0400 Systolic blood pressure 120 mm[Hg] Cristi Ob [facility] 07-31-2024 10:02-0400 Body height 160.02 cm Teresa Iam CARPENTERN Work Phone: [facility] 07-31-2024 10:02-0400 Body mass index (BMI) [Ratio] 33.6 kg/m2 Teresa Iam CARPENTERN Work Phone: [facility] 07-31-2024 10:02-0400 Body temperature 98.3 [degF] Teresa Vitale [employer]AX SERVICES SPECIALIST Work Phone: [facility] 07-31-2024 10:02-0400 Body weight 86.18 kg Teresa Vitale TAX SERVICES SPECIALIST Work Phone: [facility] 07-31-2024 10:02-0400 Diastolic blood pressure 71 mm[Hg] Treesa Vitale TAX SERVICES SPECIALIST Work Phone: [facility] 07-31-2024 10:02-0400 Heart rate 84 /min Teresa Vitale TAX SERVICES SPECIALIST Work Phone: [facility] 07-31-2024 10:02-0400 SaO2% (BldA) [Mass fraction] 97 % Teresa Vitale TAX SERVICES SPECIALIST Work Phone: [facility] 07-31-2024 10:02-0400 Systolic blood pressure 108 mm[Hg] Teresa Vitale TAX SERVICES SPECIALIST Work Phone: [facility] 06-04-2024 13:04-0500 Body mass index (BMI) [Ratio] 36.46 kg/m2 Drew Cristi DO Work Phone: [facility] 06-04-2024 13:04-0500 Body weight 93.35 kg Drew Cristi DO Work Phone: [facility] 06-04-2024 13:04-0500 Diastolic blood pressure 74 mm[Hg] Drew Cristi DO Work Phone: [facility] 06-04-2024 13:04-0500 Systolic blood pressure 110 mm[Hg] Drew Cristi DO Work Phone: [facility] 02-07-2024 08:17-0400 Body height 160 cm Kendal Robbinsman [employer] Work Phone: [facility] 02-07-2024 08:17-0400 Body mass index (BMI) [Ratio] 34.37 kg/m2 Kendalmarc Robbinsman [employer] Work Phone: [facility] 02-07-2024 08:17-0400 Body weight 88 kg Kendal Robbinsman [employer] Work Phone: [facility] 02-07-2024 08:17-0400 Diastolic blood pressure 82 mm[Hg] Kendal Robbinsman [employer] Work Phone: [facility] 02-07-2024 08:17-0400 Systolic blood pressure 118 mm[Hg] Kendal Rincon [employer] Work Phone: [facility] 01-14-2024 10:16-0400 Body height 160 cm Peter Li MD Work Phone: [facility] 01-14-2024 10:16-0400 Body mass index (BMI) [Ratio] 33.66 kg/m2 Peter Li MD Work Phone: [facility] 01-14-2024 10:16-0400 Body weight 86.18 kg Peter Li MD Work Phone: [facility] 01-14-2024 10:16-0400 Heart rate 70 /min Peter Li MD Work Phone: [facility] [employer] 01-14-2024 10:16-0400 Respiratory rate 16 /min Peter Li MD Work Phone: [facility] [employer] 11-26-2023 13:06-0400 Body weight 89.36 kg Lisset Matos MD Work Phone: [facility] [employer] 11-26-2023 13:06-0400 Diastolic blood pressure 80 mm[Hg] Lisset Matos MD Work Phone: [facility] [employer] 11-26-2023 13:06-0400 Systolic blood pressure 100 mm[Hg] Lisset Matos MD Work Phone: [facility] [employer] 01-28-2023 12:05-0400 Body height 160.02 cm Jose Miguel Resendiz Other [employer] Other 01-28-2023 12:05-0400 Body mass index (BMI) [Ratio] 33.65 kg/m2 Jose Miguel Resendiz Other [employer] Other 01-28-2023 12:05-0400 Body temperature 98.5 [degF] Jose Miguel Resendiz Other [employer] Other 01-28-2023 12:05-0400 Body weight 86.18 kg Jose Miguel Resendiz Other [employer] Other 01-28-2023 12:05-0400 Diastolic blood pressure 81 mm[Hg] Jose Miguel Resendiz Other [employer] Other 01-28-2023 12:05-0400 Respiratory rate 18 /min Jose Miguel Resendiz Other [employer] Other 01-28-2023 12:05-0400 SaO2% (BldA) [Mass fraction] 97 % Jose Miguel Resendiz Other [employer] Other 01-28-2023 12:05-0400 Systolic blood pressure 122 mm[Hg] Jose Miguel Resendiz Other [employer] Other 09-29-2021 12:55-0400 Body height 160.02 cm Phil Melvin Other [employer] Other 09-29-2021 12:55-0400 Body mass index (BMI) [Ratio] 31.88 kg/m2 Phil Melvin Other [employer] Other 09-29-2021 12:55-0400 Body temperature 98.9 [degF] Phil Melvin Other [employer] Other 09-29-2021 12:55-0400 Body weight 81.65 kg Phil Melvin Other [employer] Other 09-29-2021 12:55-0400 Respiratory rate 18 /min Phil Melvin Other [employer] Other 09-29-2021 12:55-0400 SaO2% (BldA) [Mass fraction] 98 % Phil Melvin Other [employer] Other Encounters Encounter Date Encounter Type Care Provider Facility Start: 12-29-2024 End: 12-29-2024 Bamboo flowsheet Kimberley HAINES Work Phone: [facility] Start: 12-29-2024 End: 12-29-2024 Bamboo flowsheet Kimberley HAINES Work Phone: [facility] Start: 12-29-2024 End: 12-29-2024 Patient encounter procedure Kimberley HAINES Work Phone: [facility] Start: 12-29-2024 End: 12-29-2024 Periodic preventive med est patient 18-39 yrs Kimberley HAINES Work Phone: [facility] Comment on above: Tinea (Primary Dx); Second trimester ([facility]); 16 weeks gestation of ([facility]); Screening, , for anatomic survey ([facility]); STD exposure; Well woman exam with routine gynecological exam Start: 12-01-2024 End: 12-01-2024 Bamboo flowsheet Drew Cristi DO Work Phone: [facility] Start: 12-01-2024 End: 12-01-2024 Bamboo flowsheet Drew Cristi DO Work Phone: [facility] Start: 12-01-2024 End: 12-01-2024 Office outpatient visit 15 minutes Drew Cristi DO Work Phone: [facility] Comment on above: Second trimester pre gnancy ([facility]); 12 weeks gestation of ([facility]) Start: 12-01-2024 End: 12-01-2024 ambulatory DREW CRISTI [...] Start: 07-31-2024 End: 07-31-2024 ambulatory Teresa Vitale [facility] Work Phone: Start: 07-31-2024 End: 07-31-2024 Departed Referred Teresa Vitale TAX SERVICES SPECIALIST Work Phone: [facility] Start: 07-31-2024 End: 07-31-2024 Patient encounter procedure Teresa Vitale APRN Work Phone: [facility] [place] Work Phone: Start: 06-24-2024 End: 06-24-2024 ambulatory DREW CRISTI Not Available Start: 06-04-2024 End: 06-04-2024 Bamboo flowsheet Drew Cristi DO Work Phone: [facility] Start: 06-04-2024 End: 06-04-2024 Bamboo flowsheet Drew Cristi DO Work Phone: [facility] Start: 06-04-2024 End: 06-04-2024 Office outpatient visit 15 minutes Drew Cristi DO Work Phone: [facility] Comment on above: Abnormal uterine ble eding (AUB); PCOS (polycystic ovarian syndrome) Start: 06-04-2024 End: 06-04-2024 ambulatory DREW COLIN Not Available Start: 02-07-2024 End: 02-07-2024 Bamboo flowsheet Kendal Rincon [employer] Work Phone: [facility] Start: 02-07-2024 End: 02-07-2024 Bamboo flowsheet Kendal Rincon [employer] Work Phone: [facility] Start: 02-07-2024 End: 02-07-2024 Office outpatient visit 15 minutes Kendal Rincon [employer] Work Phone: [facility] Comment on above: Irregular menses (Pr imary Dx); Female infertility Start: 02-07-2024 End: 02-07-2024 ambulatory KENDAL RINCON Not Available Start: 01-30-2024 End: 01-30-2024 Telephone encounter Peter Li MD Work Phone: [facility] Start: 01-14-2024 End: 01-14-2024 Bamboo flowsheet Peter Li MD Work Phone: [facility] Start: 01-14-2024 End: 01-14-2024 Bamboo flowsheet Peter Li MD Work Phone: [facility] Start: 01-14-2024 End: 01-14-2024 Office outpatient new 30 minutes Peter Li MD Work Phone: [facility] Comment on above: Low serum cortisol l evel (Primary Dx); Encounter for dietary consultation; Class 1 obesity due to excess calories without serious comorbidity with body mass index (BMI) of 33.0 to 33.9 in adult Start: 01-14-2024 End: 01-14-2024 ambulatory PETER LI Not Available Start: 12-06-2023 End: 12-06-2023 Patient encounter procedure Lisset Matos MD Work Phone: [facility] Comment on above: Low serum cortisol l evel (Primary Dx); Acute vaginitis Start: 11-30-2023 End: 12-03-2023 Telephone encounter Lisset Matos MD Work Phone: [facility] Start: 11-26-2023 End: 12-03-2023 Orders Only Lisset Matos MD Work Phone: [facility] External Department Unsolicited Start: 11-26-2023 End: 11-26-2023 Office outpatient visit 15 minutes Lisset Matos MD Work Phone: [facility] Comment on above: Acute vaginitis (Rachel rianna Dx); Encounter for gynecological examination without abnormal finding; control counseling; Irregular menses; Hormone imbalance; Thyroid disorder screen; Imbalance of male hormones with irregular menstruation and ovulation; Screen for STD (sexually transmitted disease) Start: 11-26-2023 End: 11-26-2023 Patient encounter status Lisset Matos MD Work Phone: [facility] Start: 01-31-2023 End: 01-31-2023 ambulatory Jose Miguel Resendiz Other [employer] Other Start: 01-31-2023 Telephone encounter Jose Miguel [facility] Start: 01-28-2023 Office outpatient vi sit 15 minutes Jose Miguel Resendiz [facility] Start: 01-28-2023 End: 01-28-2023 ambulatory [employer] Jose Miguel Resendiz Work Phone: [facility] Work Phone: Start: 01-28-2023 End: 01-28-2023 Departed Referred [employer]C Jose Miguel Resendiz Work Phone: [facility] Start: 10-04-2021 End: 10-04-2021 ambulatory Phil Melvin Other [employer] Other Start: 10-04-2021 Telephone encounter Phil Melvin [facility] Start: 10-02-2021 End: 10-02-[address] JANIE FRAGOSO Facility:[facility] Start: 09-29-2021 End: 09-29-2021 ambulatory Phil Melvin Other [employer] Other Start: 09-29-2021 Office outpatient vi sit 15 minutes Phil Melvin [facility] Start: 04-14-2021 End: 04-14-2021 ambulatory JOSEF BINGHAM Facility:[facility] Start: 01-21-2021 ambulatory JOSEFML BINGHAM Facility: Procedures Date Procedure Procedure Detail Performing Clinician Start: 12-29-2024 Urnls dip stick/tabl et rgnt non-auto w/o micrscp Kimberley HAINES Work Phone: Start: 12-01-2024 Urnls dip stick/tabl et rgnt [...] Treatment Date Care Activity Detail Author Start: 01-26-2025 End: 01-26-2025 Patient encounter procedure 01/26/2025 10:00 AM EDT Routine [facility] [address] [place] [phone] Drew Colin DO [address] [place] [address] [facility] Start: 01-26-2025 End: 01-26-2025 Professional / ancillary services management 01/26/2025 9:00 AM EDT Ancillary Procedure [facility] [address] [place] [phone] [facility] Start: 12-29-2024 End: 02-28-2025 Alpha fetoprotein, maternal Alpha fetoprotein, maternal Lab Routine 16 weeks gestation of ([facility]) Expected: 12/29/2024 (Approximate), Expires: 02/28/2025 [facility] Comment on above: Expected: 12/29/2024 (Approximate), Expires: 02/28/2025 Start: 12-29-2024 End: 03-30-2025 US for US OB 14+ weeks anatomy scan Imaging Routine Screening, , for anatomic survey ([facility]) Expected: 12/29/2024, Expires: 03/30/2025 [facility] Comment on above: Expected: 12/29/2024 , Expires: 03/30/2025 Start: 12-29-2024 End: 12-29-2024 Patient encounter procedure [facility] Comment on above: Arrived Start: 12-08-2024 Influenza vaccination [facility] Start: 12-01-2024 End: 12-01-2024 Patient encounter procedure [facility] Comment on above: Arrived Start: 10-31-2024 End: 10-31-2025 ABO/Rh ABO/Rh Lab Routine Missed menses , unspecified gestational age ([facility]) Expected: 10/31/2024 (Approximate), Expires: 10/31/2025 [facility] Comment on above: Expected: 10/31/2024 (Approximate), Expires: 10/31/2025 Start: 10-31-2024 End: 10-31-2025 Blood type and Indirect antibody screen panel - Blood Type and screen Lab Routine Missed menses , unspecified gestational age ([facility]) Expected: 10/31/2024 (Approximate), Expires: 10/31/2025 [facility] Work Phone: Comment on above: Expected: 10/31/2024 (Approximate), Expires: 10/31/2025 Start: 10-31-2024 End: 10-31-2025 Drugs of abuse panel - Urine by Screen method Rapid drug screen, urine Lab Routine , unspecified gestational age ([facility]) Encounter for supervision of normal first in first trimester ([facility]) Expected: 10/31/2024 (Approximate), Expires: 10/31/2025 [facility] Comment on above: Expected: 10/31/2024 (Approximate), Expires: 10/31/2025 Start: 09-03-2024 End: 09-03-2024 Patient encounter procedure 09/03/2024 2:50 PM EDT Office Visit [facility] [address] [place] [phone] Drew Colin, DO [address] [place] [address] [facility] Start: 07-31-2024 Bacteria identified in Urine by Culture Urine Culture [facility] Start: 07-31-2024 Urine culture [facility] Start: 06-24-2024 End: 06-24-2024 Professional / ancillary services management 06/24/2024 9:30 AM EDT Ancillary Procedure [facility] [address] [place] [phone] [facility] Start: 06-04-2024 End: 06-04-2025 Antimullerian hormone (AMH) Antimullerian hormone (AMH) Lab Routine Abnormal uterine bleeding (AUB) PCOS (polycystic ovarian syndrome) Expected: 06/04/2024 (Approximate), Expires: 06/04/2025 [facility] Comment on above: Expected: 06/04/2024 (Approximate), Expires: 06/04/2025 Start: 06-04-2024 End: 06-04-2025 US Pelvis US Pelvis w/ TV Imaging Routine Abnormal uterine bleeding (AUB) Expected: 06/04/2024, Expires: 06/04/2025 [facility] Comment on above: Expected: 06/04/2024 , Expires: 06/04/2025 Start: 06-04-2024 End: 06-04-2024 Patient encounter procedure 06/04/2024 1:10 PM EST Office Visit [facility] [address] [phone] Drew Colin DO [address] [place] [address] Arrived [facility] Comment on above: Arrived Start: 02-07-2024 End: 02-07-2024 Patient encounter procedure [facility] Comment on above: Arrived Start: 01-14-2024 End: 01-13-2025 ACTH ACTH Lab Routine Low serum cortisol level Expected: 01/14/2024 (Approximate), Expires: 01/13/2025 [facility] Comment on above: Expected: 01/14/2024 (Approximate), Expires: 01/13/2025 Start: 01-14-2024 End: 01-13-2025 Cortisol Cortisol Lab Routine Low serum cortisol level Expected: 01/14/2024 (Approximate), Expires: 01/13/2025 [facility] Work Phone: Comment on above: Expected: 01/14/2024 (Approximate), Expires: 01/13/2025 Start: 01-14-2024 End: 01-14-2024 Patient encounter procedure [facility] Comment on above: Arrived Start: 12-09-2023 Influenza vaccination Influenza Vacc ine (#1) [facility] Start: 12-06-2023 End: 12-06-2023 Patient encounter procedure 12/06/2023 8:15 AM EDT Office Visit [facility] [address] [place] [phone] Lisset Matos MD [address] [place] [address] [facility] Start: 11-26-2023 End: 11-25-2024 Cortisol Cortisol Lab Routine Hormone imbalance Expected: 11/26/2023 (Approximate), Expires: 11/25/2024 [facility] Comment on above: Expected: 11/26/2023 (Approximate), Expires: 11/25/2024 Start: 11-26-2023 End: 11-25-2024 DHEA-sulfate DHEA-sulfate Lab Routine Hormone imbalance Expected: 11/26/2023 (Approximate), Expires: 11/25/2024 [facility] Comment on above: Expected: 11/26/2023 (Approximate), Expires: 11/25/2024 Start: 11-26-2023 End: 11-25-2024 Estradiol Estradiol Lab Routine Hormone imbalance Expected: 11/26/2023 (Approximate), Expires: 11/25/2024 [facility] Comment on above: Expected: 11/26/2023 (Approximate), Expires: 11/25/2024 Start: 11-26-2023 End: 11-25-2024 Estrone Estrone Lab Routine Hormone imbalance Expected: 11/26/2023 (Approximate), Expires: 11/25/2024 [facility] Comment on above: Expected: 11/26/2023 (Approximate), Expires: 11/25/2024 Start: 11-26-2023 End: 11-25-2024 Follicle stimulating hormone Follicle stimulating hormone Lab Routine Hormone imbalance Thyroid disorder screen Expected: 11/26/2023 (Approximate), Expires: 11/25/2024 [facility] Comment on above: Expected: 11/26/2023 (Approximate), Expires: 11/25/2024 Start: 11-26-2023 End: 11-25-2024 Insulin, random Insulin, random Lab Routine Imbalance of male hormones with irregular menstruation and ovulation Expected: 11/26/2023 (Approximate), Expires: 11/25/2024 [facility] Comment on above: Expected: 11/26/2023 (Approximate), Expires: 11/25/2024 Start: 11-26-2023 End: 11-25-2024 Luteinizing hormone [facility] Comment on above: Expected: 11/26/2023 (Approximate), Expires: 11/25/2024 Ordered: 11/26/2023 Start: 11-26-2023 End: 11-25-2024 Progesterone Progesterone Lab Routine Hormone imbalance Expected: 11/26/2023 (Approximate), Expires: 11/25/2024 [facility] Comment on above: Expected: 11/26/2023 (Approximate), Expires: 11/25/2024 Start: 11-26-2023 End: 11-25-2024 Thyrotropin [Units/volume] in Serum or Plasma TSH Lab Routine Hormone imbalance Thyroid disorder screen Expected: 11/26/2023 (Approximate), Expires: 11/25/2024 [facility] Work Phone: Comment on above: Expected: 11/26/2023 (Approximate), Expires: 11/25/2024 Start: 01-28-2023 Bacteria identified in Urine by Culture [facility] Bacteria identified in Urine by Culture Urine culture Microbiology Routine Missed menses Ordered: 10/31/2024 [facility] Comment on above: Ordered: 10/31/2024 CBC W Auto Different ial panel - Blood CBC and differential Lab Routine Missed menses , unspecified gestational age ([facility]) Ordered: 10/31/2024 [facility] Comment on above: Ordered: 10/31/2024 CHLAMYDIA TRACHOMATI S (GENITO/STI) CHLAMYDIA TRACHOMATIS (GENITO/STI) Lab Routine STD exposure Ordered: 12/29/2024 [facility] Comment on above: Ordered: 12/29/2024 Cortisol Cortisol Lab Rou maritza Low serum cortisol level Ordered: 12/06/2023 [facility] [employer] Work Phone: Comment on above: Ordered: 12/06/2023 Cytology Cervical or vaginal smear or scraping study Pap Smear Pathology and Cytology Routine Well woman exam with routine gynecological exam Ordered: 12/29/2024 [facility] Work Phone: Comment on above: Ordered: 12/29/2024 Hemoglobin A1c/Hemoglobin.total in Blood Hemoglobin A1c Lab Routine Imbalance of male hormones with irregular menstruation and ovulation Ordered: 11/26/2023 [facility] Comment on above: Ordered: 11/26/2023 Hemoglobin A1c/Hemoglobin.total in Blood Hemoglobin A1c Lab Routine Abnormal uterine bleeding (AUB) Ordered: 06/04/2024 [facility] Comment on above: Ordered: 06/04/2024 Hemoglobin A1c/Hemoglobin.total in Blood Hemoglobin A1c Lab Routine Missed menses , unspecified gestational age ([facility]) Ordered: 10/31/2024 [facility] Comment on above: Ordered: 10/31/2024 Hepatitis B virus surface Ag [Presence] in Serum or Plasma by Immunoassay Hepatitis B surface antigen Lab Routine Missed menses , unspecified gestational age ([facility]) Ordered: 10/31/2024 [facility] Comment on above: Ordered: 10/31/2024 Hepatitis C virus Ab [Presence] in Serum or Plasma by Immunoassay Hepatitis C antibody Lab Routine Missed menses , unspecified gestational age ([facility]) Ordered: 10/31/2024 [facility] Comment on above: Ordered: 10/31/2024 HIV-1/HIV-2 antigen/antibody combination immunoassay HIV-1 and HIV-2 antibodies Lab Routine Missed menses , unspecified gestational age ([facility]) Ordered: 10/31/2024 [facility] Comment on above: Ordered: 10/31/2024 Neisseria gonorrhoea e DNA [Presence] in Unspecified specimen by ANSON with probe detection Neisseria gonorrhea DNA probe, direct Lab Routine STD exposure Ordered: 12/29/2024 [facility] Comment on above: Ordered: 12/29/2024 Progesterone Progesterone Lab Routine Abnormal uterine bleeding (AUB) PCOS (polycystic ovarian syndrome) Ordered: 06/04/2024 [facility] Work Phone: Comment on above: Ordered: 06/04/2024 Reagin Ab [Presence] in Serum by RPR RPR Lab Routine Missed menses , unspecified gestational age ([facility]) Ordered: 10/31/2024 [facility] Comment on above: Ordered: 10/31/2024 Rubella antibody, IgG Rubella an tibody, IgG Lab Routine Missed menses , unspecified gestational age ([facility]) Ordered: 10/31/2024 [facility] Comment on above: Ordered: 10/31/2024 SURESWAB(R) ADVANCED VAGINITIS PLUS, TMA SURESWAB(R) ADVANCED VAGINITIS PLUS, TMA Pathology and Cytology Routine STD exposure Ordered: 12/29/2024 [facility] Comment on above: Ordered: 12/29/2024 Thyrotropin [Units/volume] in Serum or Plasma TSH Lab Routine Abnormal uterine bleeding (AUB) PCOS (polycystic ovarian syndrome) Ordered: 06/04/2024 [facility] Comment on above: Ordered: 06/04/2024 Immunizations Immunization Date Immunization Notes Care Provider Twyla galvez 10-28-2020 Do not use COVID-19 Pfizer 2 dose Phil Melvin Other [facility] 10-07-2020 COVID-19 mRNA, Comirnaty (Pfizer) SAÚL Nolascoaker Work Phone: [facility] Payers Date Payer Category Payer Medicaid [id number] 2023 Medicaid [id number] 2. [id number] 2003 Unknown [id number] 2.16.84 [id number] 2003 Unknown [id number] 2.16.84 0.1.507022.3.579.2.593 2003 Unknown [id number] 2.16.84 0.1.239732.3.579.2.593 2003 Unknown [id number] 2.16.8 40.1.359385.3.579.2.1259 2003 Unknown [id number] 2.16.8 40.1.622342.3.579.2.1259 2003 Unknown [id number] 2.16.8 40.1.297519.3.579.2.1259 2003 Unknown [id number] 2.16.84 0.1.184961.3.579.2.1259 2003 Unknown [id number] 2.16.84 0.1.359594.3.579.2.1259 2003 Unknown [id number] 2.16.84 0.1.386195.3.579.2.1259 2003 Unknown [id number] 2.16.84 0.1.576595.3.579.2.1259 1959 Self-pay 1959 Unknown [id number] Unknown [id number] 2.16.8 [id number] Social History Date Type Detail Facility Start: 11-26-2023 End: 02-07-2024 Sex Assigned At [facility] [employer] Other Start: 04-22-2021 End: 11-26-2023 Tobacco smoking status NHIS Never smoked tobacco (finding) [facility] Start: 2003 Sex Assigned At Female [facility] Start: 11-26-2023 Tobacco use and exposure [...] [facility] Start: 08-01-2024 Sex Female (finding) [facility] Start: 09-16-2024 [facility] Clinical Notes 09-29-2021 to 12-29-2024 YANCY Izquierdo - 12/29/2024 11:00 AM Maximino Renner NP - 12/01/2024 10:50 AM Umberto Alves LPN - 10/31/2024 10:30 AM EDT Note Date & Type Note Facility 12-29-2024 History of Presen t illness Narrative Reason [...] 09/02/2024 Irregular menses 09/02/2024 Positive urine test ([facility]) 09/29/2024 Resolved Ambulatory Problems Diagnosis Date Noted [...] Negative. Genitourinary: Negative. Musculoskeletal: Negative. Skin: Negative. Tinea rash to back trunk Neurological: Negative. All other systems reviewed and are negative. Hematological: Negative. Endocrine: Negative. Allergic/Immunologic: Negative. OBJECTIVE Objective: Physical Exam Constitutional: Appearance: Normal appearance. She is well-developed. Genitourinary: Vulva normal. Breasts: Breasts are soft. Right: Normal. Left: Normal. Cardiovascular: Rate and Rhythm: Normal rate and [...] Skin: General: Skin is warm and dry. Comments: Tinea versicolor rash to back Psychiatric: Mood and Affect: Mood normal. Behavior: Behavior normal. Vitals and nursing note reviewed. Exam conducted with a security ambassador present. Vitals: Estimated body mass index is 36.58 kg/m as calculated from the following: Height as of 24: 5' 3 . Weight as of this encounter: 206 lb 8 oz. BP: 108/70 Patient's last menstrual period was 09/02/2024. ASSESSMENT & PLAN ICD-10-CM 1. Second trimester ([facility]) Z34.92 2. 16 weeks gestation of ([facility]) Z3A.16 POCT urinalysis dipstick manually resulted Alpha fetoprotein, maternal Alpha fetoprotein, maternal 3. Screening, , for anatomic survey ([facility]) Z36.89 US OB 14+ weeks anatomy scan US OB 14+ weeks anatomy scan 4. STD exposure Z20.2 SURESWAB(R) ADVANCED VAGINITIS PLUS, TMA CHLAMYDIA TRACHOMATIS (GENITO/STI) Neisseria gonorrhea DNA probe, direct 5. Well woman exam with routine gynecological exam Z01.419 Pap Smear Return OB/Annual Exam: Patient presents today for a annual exam/routine obstetrics appointment. Patient is currently 16w6d . Patient states she is doing well but has complaints of nausea in the morning. Pap and cultures was obtained without difficulty and patient was given orders for anatomy scan and msAFP to be obtained. Orders Placed This Encounter Procedures US OB 14+ weeks anatomy scan Alpha fetoprotein, maternal CHLAMYDIA TRACHOMATIS (GENITO/STI) Neisseria gonorrhea DNA probe, direct POCT urinalysis dipstick manually resulted Follow Up: Patient is to schedule annual exam for next year and return to office in 4 weeks for OB appointment. Documented by Tiana Renner NP on behalf of: YANCY Izquierdo documented in this encounter [facility] 12-01-2024 History of Presen t illness Narrative [...] 09/02/2024 Irregular menses 09/02/2024 Positive urine test ([facility]) 09/29/2024 Resolved Ambulatory Problems Diagnosis Date [...] nursing note reviewed. Exam conducted with a security ambassador present. Vitals: Estimated body mass index is 36.34 kg/m as calculated from the following: Height as of 02/07/24: 5' 3 . Weight as of this encounter: 205 lb 1.9 oz. BP: 116/74 Patient's last menstrual period was 09/02/2024. ASSESSMENT & PLAN ICD-10-CM 1. Second trimester ([facility]) Z34.92 Vit-Fe Fumarate-FA ( Vitamins) 28-0.8 MG tablet POCT urinalysis dipstick manually resulted 2. 12 weeks gestation of ([facility]) Z3A.12 Vit-Fe Fumarate-FA ( Vitamins) 28-0.8 [...] Drew Colin DO documented in this encounter [facility] 10-31-2024 History of Presen t illness [...] 09/02/2024 Irregular menses 09/02/2024 Positive urine test ([facility]) 09/29/2024 Resolved Ambulatory Problems Diagnosis Date [...] dipstick manually resulted , unspecified gestational age ([facility]) - Type and screen; Future - ABO/Rh; Future - CBC and differential - Hemoglobin A1c - RPR - Rubella antibody, IgG - Hepatitis B surface antigen - Hepatitis C antibody - HIV-1 and HIV-2 antibodies - Rapid drug screen, urine; Future Encounter for supervision of normal first in first trimester ([facility]) - Rapid drug screen, urine; Future [...] or undercooked meat, and stay away from [facility]. Patient has also been advised to not change litter boxes and eat 6 small meals a day. Patient has been consulted regarding the do's and don'ts of . Patient was given labs and all questions and concerns were answered. Patient was given [place] to have completed at initial lab draw. [...] Nichol Alves LPN documented in this encounter [facility] 07-31-2024 Evaluation note Diagnosis Onset Date Resolution Dysuria acute July 31 9:45am [facility] Work Phone: [phone]) 723-805402-26-2025 History of Present illness Narrative* Mariana More, DIRECTOR OF ARCHITECTURE - 06/04/2024 1:10 PM EST Reason for [...] nursing note reviewed. Exam conducted with a security ambassador present. Vitals: Estimated body mass index is [...] of: Drew Colin DO documented in this encounterEastern [facility] HospitalUqwunihuwj23-15-7605 History of Present illness Narrative* Kendal Rincon [...] that she does not drink alcohol. Vitals: 02/07/24816 BP: 118/82 MEDICATIONS: No current outpatient medications on file prior to visit. No current facility-administered medications on file prior to visit. No Known Allergies PHYSICAL EXAM: Vitals: 02/07/24816 BP: 118/82 Body mass index is 34.37 [...] No follow-ups on file. documented in this encounterEastern Missouri State HospitalLborbrppok91-08-1062 Telephone encounter Note* Telephone Encounter - Dung Price - 01/30/2024 8:23 AM EDT Pt would like lab read please. Thank you! [facility] [id number] Miscellaneous Notes* Telephone Encounter - Dung Price - 01/30/2024 8:23 AM EDT Pt would like lab read please. Thank you! documented in this encounterEastern Missouri State [id number] History of Present illness Narrative* Peter Li [...] reviewed with the patient documented in this encounterEastern [facility] State HospitalRpgjebebth92-06-6051 History of Present illness Narrative* Lisset Matos [...] was interested in further evaluation by an mechanical engineering director. The patient was informed that a referral had been sent for an mechanical engineering director consultation and that additional testing would be [...] inquired about the timeline for seeing an mechanical engineering director and was informed that it could take [...] Plan: a) Referred the patient to an mechanical engineering director for further evaluation of adrenal function. b) The patient may consider repeating the cortisol test with fasting if desired. c) Educated the patient on low cortisol and its implications. 2. Ovulation and hormonal levels - Assessment: Normal ovulation and hormonal levels were observed in the lab work. - Plan: a) No further action needed at this time. 3. Patient's concern about the mechanical engineering director appointment - Plan: a) The patient will call the referral department to inquire about the earliest available appointment. documented in this encounterEastern Missouri State HospitalLpncppmean37-78-0745 History of Present illness Narrative* Lisset Matos [...] [facility] and [facility] Return for annual and prn documented in this encounterEastern [facility] State HospitalDrfwdcywqm36-18-5201 Evaluation note* Encounter Date Diagnosis Assessment Notes [...] Follow up with primary care provider or cardiac cath tech if no improvement of symptoms. [employer] Other 06-23-2022 Evaluation note* Encounter Date Diagnosis [...] Pt understood and agreed to teatment plan. [employer] Other Evaluation noteNo InformationNort [employer] Other Evaluosepv noteNo assessment information available [facility] Work Phone: Evalufmaxx note* Diagnosis Low serum cortisol level- Primary Encounter for dietary consultation Class 1 obesity due to excess calories without serious comorbidity with body mass index (BMI) of 33.0 to 33.9 in adult documented in this encounter [facility] HealthcareEvaluation note* Diagnosis Low serum cortisol [...] Diagnosis Missed menses , unspecified gestational age ([facility]) Encounter for supervision of normal first in first trimester ([facility]) Nausea Nausea alone [facility] Diagnosis Second trimester ([facility]) state, incidental 12 weeks gestation of ([facility]) documented in this [facility]* Diagnosis Tinea- Primary Dermatophytosis of unspecified site Second trimester ([facility]) state, incidental 16 weeks gestation of ([facility]) Screening, , for anatomic survey ([facility]) Encounter for anatomic survey STD exposure Well woman exam with routine gynecological exam Routine gynecological examination documented in this encounter [facility] general Narrative - Reported* Type Description Date Surgical History appendectomy [employer] Other Summary Purpose Family History No Family History Records FoundNo Family History Records FoundNo Family History Records FoundNo Family History Records Found Advance Directives Advance Directive Response Recorded Date/ Time Advance Directives No March 5:53pm Chief Complaint and Reason for Visit Chief Complaint Dysuria Chief Complaint Admit Date poss UTI July 31, 2024 9:4 5am Reason for Visit Admit Date Dysuria July 31, 2024 9:4 5am Additional Source Comments INFORMATION SOURCE (unrecogn ized section and content) DATE CREATED AUTHOR 10/03/2021 Michael langford DATE CREATED AUTHOR AUTHOR'S ORGANIZ ATION 10/28/2021 [facility] DATE CREATED AUTHOR AUTHOR'S ORGANIZ ATION 08/07/2024 [facility] DATE CREATED AUTHOR AUTHOR'S ORGANIZ ATION 12/02/2024 [facility] EPIC REASON FOR VISIT (unrecogniz ed section and content) Reason Comments Routine Visit Reason Comments Infertility Reason Comments Gynecologic Exam Reason Comments Menstrual Problem Reason Comments Televisit Reason Comments cortisol Follow-up POSS UTISTI CHECK Care Teams (unrecognized sec tion and content) Team Status: Inactive Member Role Status Dates Jose Miguel Resendiz , CIELO-C Attending Provider Activ e Frame Carver Spindle Relationship Specialty Start Date End Date Unallocated, Osito Tsang MD [facility] [place] [address] PCP - General Family Medicine 11/26/23 Frame Carver Spindle Relationship Specialty Start Date End Date Unallocated, Osito Tsang MD [address] [place] [address] [place] [address] PCP - General Family Medicine 11/26/23 Frame Carver Spindle Relationship Specialty Start Date End Date Unallocated, Osito Tsang MD [facility] [place] [address] PCP - General Family Medicine 11/26/23 Frame Carver Spindle Relationship Specialty Start Date End Date Unallocated, Osito Tsang MD [facility] [place] [address] PCP - General Family Medicine 11/26/23 Frame Carver Spindle Relationship Specialty Start Date End Date Unallocated, Osito Tsang MD [facility] [address] [facility] [place] [address] PCP - General Family Medicine 11/26/23 Frame Carver Spindle Relationship Specialty Start Date End Date Unallocated, Osito Tsang MD [facility] [address] [facility] [place] [address] PCP - General Family Medicine 11/26/23 Frame Carver Spindle Relationship Specialty Start Date End Date Unallocated, Osito Tsang MD [facility] [place] [address] PCP - General Family Medicine 11/26/23 Frame Carver Spindle Relationship Specialty Start Date End Date Unallocated, [facility] [place] [address] PCP - General Family Medicine 11/26/23 Frame Carver Spindle Relationship Specialty Start Date End Date Unallocated, [place] [address] PCP - General Family Medicine 11/26/23 Team Status: Inactive Member Role Status Dates PHYSICIAN NO FAMILY Primary Care Provider Active Start: July 31, 2024 End: July 31, 2024 Teresa Vitale APRN Attending Provider Active Start: July 31, 2024 End: July 31, 2024 Team Status: Inactive Member Role Status Dates Teresa Vitale APRN Attending Provider Active Start: July 31, 2024 End: July 31, 2024 Frame Car[employer] Spindle Relationship Specialty Start Date End Date Unallocated, Osito Tsang MD [facility] [place] [address] PCP - General Family Medicine 11/26/23 Frame Carver Spindle Relationship Specialty Start Date End Date Unallocated, Osito Tsang [facility] [place] [address] PCP - General Family Medicine 11/26/23 Frame Carver Spindle Relationship Specialty Start Date End Date Unallocated, [place] [address] PCP - General Family Medicine 11/26/23 Frame Carver Spindle Relationship Specialty Start Date End Date Unallocated, [place] [address] PCP - General Family Medicine 11/26/23 Frame Carver Spindle Relationship Specialty Start Date End Date Unallocated, [place] [address] PCP - General Family Medicine 11/26/23 Goals [...] BE BASED ON THE PRIMARY CLINICAL RECORDS. [facility] [employer] [facility]. provides no warranty or guarantee of the accuracy or completeness of information in this document.
[2025-01-05 19:08] LABS: Age Gdln ACOG Testing Note (.); IGP, rfx Aptima HPV ASCU Note (.)
== END 2024-12-29 21:20 | disposition home or self-care (01) ==
LOC: LAB 21:19
PROVIDERS: Visit Provider Physician Assistant
DX: Z01.419 Encounter for gynecological examination (general) (routine) without abnormal findings (principal)
CPT/HCPCS: 88175

== ENCOUNTER 2025-02-10 09:26 | Outpatient (OUT) | payer MEDICAID, SELFPAY ==
--- OUTSIDE RECORDS SUMMARY | 2024-02-05 10:07 | XMS_ITS | Continuity of Care Document ---
Author Organization [facility] Address [address] [place] [address] Phone Care Team Providers Care Web Site Specialist Name Role Phone Clayton Latanya JUAREZ Unavailable Unavaila ble Allergies, Adverse Reactions, Alerts Substance Reaction Status Criticality No Known Allergies Active No Inform ation Medications Medication Instructions Dosage Effective Dates (start - stop) Status Comments Valtrex 500 mg tablet take 1 tablet by oral route BID PRN for 3-5 days - Active nystatin 100,000 unit/gram topical cream apply by topical route 2 times every day to the affected area(s) 0.00 - Active 30 gram tube triamcinolone acetonide 0.025 % topical cream apply by topical route 2 times every day a thin layer to the affected area(s) 0.00 - Active 30gm tube ibuprofen 200 mg capsule take 1 capsule by oral route every 6 hours as needed 200 MG - Active fluconazole 100 mg tablet take 1 tablet by oral route every day 100 MG - Active Domeboro 952 mg-1,347 mg topical powder in packet Apply to area TID as needed - Active Apply to area PRN Problems Condition Type Effective Dates (start - stop) Clini katherine Status Comments No Known Problems Procedures Procedure Date PREV VISIT, EST, AGE 18-39 URINALYSIS NONAUTO W/O SCOPE OFFICE/OUTPATIENT VISIT, EST Imm Admin Through 18 Yrs Of Age 021 MENB RP W/OMV VACCINE IM Imm Admin Through 18 Yrs Of Age Meningococcal Conjugate Vaccine Imm Admin Through 18 Yrs Of Age 021 MENB RP W/OMV VACCINE IM Nexplanon 68mg Implant INSERT DRUG IMPLANT DEVICE OFFICE/OUTPATIENT VISIT, EST URINE TEST PREV VISIT, NEW, AGE 12-17 HEPB VACC PED/ADOL 3 DOSE IM DTAP VACCINE, < 7 YRS, IM MMR VACCINE, SC POLIOVIRUS, IPV, SC/IM CHICKEN POX VACCINE, DC OFFICE/OUTPATIENT VISIT, EST Advance Directives Directive Yes / No Effective Date File Name No Information Encounters Encounter Description Practice Location Reason(s) For Visit Diagnoses Date Provider Providers Copied on Encounter [facility], [address] [place] [address], [id number] , tel:+ [phone] [facility] No Information 4 [facility] Latanya. [address] [place] [address], [id number] , [place]. tel:[phone] PREV VISIT, EST, AGE 18-39 [facility], [address], [place], [id number] , [place] tel:+ [phone] [facility] annual exam (chief complaint) Encounter for gynecological examination (general) (routine) without abnormal findingsBody mass index [BMI] 31.0-31.9, adult- STD screen- STD liefstyle codeHerpes 2 [facility] Latanya. [address] [place] [address], [id number] , [place]. tel:+ [phone] OFFICE/OUTPA TIENT VISIT, EST [facility], [address], [place], [id number] , [place] tel: [phone] [facility] annual exam (chief complaint) - STD liefstyle codeBody mass index [BMI] 31.0-31.9, adult- STD screenVulvar lesionDysuria 2 [facility] Latanya. [address], [place], [id number] , [place]. tel: [phone] [facility], [address] [place] [address], [id number] , [place] tel: [phone] [facility] No Information 1 Karlenetan Farah. [address], [place], [id number] , [place]. tel: [phone] [facility], [address] [place] [address], [id number] , [place] tel: [phone] [facility] No Information 1 Edilson LAO Ivan. [address], [place], [id number] , [place]. tel: [phone] OFFICE/OUTPA TIENT VISIT, EST [facility], [address] [place] [address], [id number] , [place] tel: [phone] [facility] contraception (chief complaint) Encounter for test, result negativeBody mass index [BMI]30.0-30.9, adultInsertion of NexplanonEncounte r for surveillance of other contraceptives 1 [facility] Latanya. [address], [place], [id number] , [place]. tel: [phone] PREV VISIT, NEW, AGE 12-17 [facility], [address] [place] [address], [id number] , [place] tel: [phone] [facility] annual exam (chief complaint) Body mass index [BMI]30.0-30.9, adult- Well woman normal findings- STD screen- STD liefstyle codecontraceptive management 1 [facility] Latanya. [address], [place], [id number] , [place]. tel: [phone] OFFICE/OUTPA TIENT VISIT, EST [facility], [address], [place], [id number] , [place] tel: [phone] [facility] No Information Mar-0 3-200 9 Visci DO Ivan. [address], [place], [id number] , [place]. tel: [phone] Family History Family Member Type Diagnosis Age At Onset No Information Immunizations Vaccine Date Status Comments meningococcal B, OMV, 2 dose schedule administered Source: New Immuniza tion Record Meningococcal MCV4O administered Source: New Immunization Record meningococcal B, OMV, 2 dose schedule administered Source: New Immuniza tion Record Payers Payer name Insurance type Covered constitution party ID Authoriza tion(s) Medicaid [facility] [id number] [place] [facility] 190 [id number] Medicaid Wrap [facility] [id number] [place] [employer] 190 [id number] Medicaid Wrap - [facility] [id number] Social History Type Description Quantity Date Captured Comments Alcohol Use Details Unknown Caffeine Use Details Unknown Tobacco Use Status No Information Smoking Status No Information Sex Female Sexual Orientation Straight or heterosexual Gender Identity Female Chief Complaint And Reason For Visit No Information Reason For Referral Reason For Referral No Information Plan Of Treatment Date Type Action Status Goal Influenza vaccine. Due on Oc due Goal RLP. Due on due Goal Tdap Vaccine. Due on 2023 due Goal Tdap. Due on due Goal Hepatitis C scre ening. Due on due Goal Hep A. Due on du e Goal Unhealthy drug u se screening. Due on due Goal PRAPARE ASSESSMENT. Due on O due Goal Depression scree clau. Due on due Goal Tdap. Due on due Goal Depression scree clau. Due on due Goal Influenza vaccine. Due on l due Goal RLP. Due on due Goal Dietary manageme nt education, guidance, and counseling completed Goal Tdap. Due on due Goal Influenza vaccine. Due on Ju n due Goal RLP. Due on due Goal Depression scree clau. Due on due Goal Dietary manageme nt education, guidance, and counseling completed Goal Dietary manageme nt education, guidance, and counseling completed Goal Dietary manageme nt education, guidance, and counseling completed Future Order: Lab Order Ct, Ng, Trich vag by ANSON ([id number]), Collected on: , Sent on: Sent History Of Present Illness Encounter Date Complaint History Of Prese nt Illness annual exam Currently pregna nt: no. The patient states she uses Nexplanon for control. Her menses is absent. Negative for dysmenorrhea and menorrhagia. Negative for: breast discharge, breast lump(s), breast pain and breast self exam. The patient does not use tobacco. She does not drink alcohol. Additional information: Patient is here for annual exam. She is currently using Nexplanon for prevention of . States her herpes lesions resolved and she is doing well. SHe had IC last PM and c/o cut in the perineum area. It is irritation and not pain. 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 Denies other problems at this time.. annual exam Currently pregna nt: no. Patient is not contemplating . The patient states she uses Nexplanon for control. Her menses is absent. Negative for dysmenorrhea and menorrhagia. Negative for: breast discharge, breast lump(s), breast pain and breast self exam. The patient does not use tobacco. She does not drink alcohol. Additional information: Patient is here due to lesions of the vaginal area. States she went to the ER 2 days ago and the physician would not physically evaluate her issue. She now c/o day 3-4 of painful lesion in the vaginal area. States the lesions have ruptures and have yellow pus and blood. States she has done some research and believes it may be HSV.. contraception Patient is here for Nexplanon insertion. States understanding of BTB associated with Nexplanon and is willing to have Nexplanon inserted today. annual exam Patient is not c ontemplating . The patient states she uses oral contraceptive for control. Last LMP was 04/03/2020. Her menses is regular with heavy flow with a frequency of every 28 days. Negative for dysmenorrhea and menorrhagia. Negative for: breast discharge, breast lump(s), breast pain and breast self exam.The patient is not post-menopausal. Negative for Hormone replacement therapy. Additional information: Patient is here for annual exam. Currently on OCPs for BC and desires to change to Nexplanon. Expected to start her menses later this week and desires to schedule appt for early next week. Has had 3 lifetime partner and has completed the gardasil vaccine. States she has an open relationship with her parents. Denies other collarette separator problems at this time.. Functional Status Date Functional Assessmen t No Information Instructions Date Instruction Additional Infor brenna Discussed HSV type 1 in detail and Rx for valtrex to keep on hand was sent to her pharmacy. Related to Herpes Cervical cultures se nt to lab. Patient to call in 1 week for results Related to - STD screen Encouraged monthly B SE. Recommend calcium 1000mg QD. Encouraged good dietary intake and exercise. Laboratory specimens sent to lab. Patient to call in 2 weeks if desires results.Discussed control options and patient desires to continue Nexplanon Related to Encounter for gynecological examination (general) (routine) without abnormal findings Dietary management e ducation, guidance, and counseling Related to Body mass index [BMI] 31.0-31.9, adult Giving encouragement to exercise Related to Body mass index [BMI] 31.0-31.9, adult Discussed HSV in det ail and Rx for valtrex 1gm BID for 10 days, Domburrow solution apply to area TID or as needed for pain. Encouraged Motrin 800mg and rest. Patient to RTC in 2 weeks for annual exam. Related to Vulvar lesion Urine culture sent to lab. Relat ed to Dysuria HSV culture sent to lab. Patient to call in 1 week for result. Related to - STD liefstyle code Dietary management e ducation, guidance, and counseling Related to Body mass index [BMI] 31.0-31.9, adult Giving encouragement to exercise Related to Body mass index [BMI] 31.0-31.9, adult Encouraged to monito r Nexplanon insertion site for s/s of infection. RTC 1 month for follow up visit. Encouraged condoms to prevent STDs. May take motrin 800mg po Q 8hr PRN discomfort. Patient states understanding Related to Insertion of Nexplanon Dietary management e ducation, guidance, and counseling Related to Body mass index [BMI]30.0-30.9, adult Giving encouragement to exercise Related to Body mass index [BMI]30.0-30.9, adult Cervical cultures se nt to lab. Patient to call in 1 week for results Related to - STD screen Discussed BC options and patient desires to change from OCPs to the nexplanon. Understands there may be BTB associated with Nexplanon and is okay with that side effect Related to contraceptive management Encouraged monthly B SE. Recommend calcium 1000mg QD. Encouraged good dietary intake and exercise. Laboratory specimens sent to lab. Patient to call in 2 weeks if desires results.Discussed control options and patient desires change from OCPs to Nexplanon Related to - Well woman normal findings Dietary management e ducation, guidance, and counseling Related to Body mass index [BMI]30.0-30.9, adult Giving encouragement to exercise Related to Body mass index [BMI]30.0-30.9, adult Assessments Type Assessment Date No Information Patient Care Teams Name Effective Dates (start - stop) Status Members No Information
--- NOTE | 2025-02-10 09:29 | US_ITS ---
The [address] [address] Patient Name: ETIENNE LEYVA MRN: [id number] date: 2005 Sex: F Assigned Patient Location: Current Patient Location: [place] Accession/Order Number: [id number] Exam Date: 02/10/2025 09:34 Report Date: 02/10/2025 10:31 At the request of: DREW BRASHER DO Procedure: US OB cervical length CLINICAL DATA: Follow-up anatomy. ULTRASOUND OB INCOMPLETE ANATOMY COMPARISON: 01/27/2024 There is a single live intrauterine gestation in cephalic presentation. There is cardiac and somatic activity with heart rate of 147 bpm. The facial features were imaged. The spine is better visualized and no abnormalities were detected. US/US OB incomplete anatomy IMPRESSION: NO DETECTED SPINAL ABNORMALITIES. ULTRASOUND OB CERVICAL COMPARISON: 01/27/2024 The cervix was evaluated with the transvaginal probe. Minimal funneling is again seen. Estimated cervical length is 3.2 cm. There is a posterior placenta with no evidence of previa. IMPRESSION: MINOR FUNNELING. CERVICAL LENGTH 3.2 CM. Impression dictated by: Mariana Lan M.D. 02/10/2025 10:31 AM Dictation Location: [place] [address] Electronically authenticated by: [id number] Y Date: 02/10/2025 10:31
--- NOTE | 2025-02-10 09:29 | US_ITS ---
The [address] [address] Patient Name: ETIENNE LEYVA MRN: [id number] date: 2005 Sex: F Assigned Patient Location: Current Patient Location: US Accession/Order Number: [id number] Exam Date: 02/10/2025 09:34 Report Date: 02/10/2025 10:31 At the request of: DREW BRASHER DO Procedure: US OB cervical length CLINICAL DATA: Follow-up anatomy. ULTRASOUND OB INCOMPLETE ANATOMY COMPARISON: 01/27/2024 There is a single live intrauterine gestation in cephalic presentation. There is cardiac and somatic activity with heart rate of 147 bpm. The facial features were imaged. The spine is better visualized and no abnormalities were detected. US/US OB cervical length IMPRESSION: NO DETECTED SPINAL ABNORMALITIES. ULTRASOUND OB CERVICAL COMPARISON: 01/27/2024 The cervix was evaluated with the transvaginal probe. Minimal funneling is again seen. Estimated cervical length is 3.2 cm. There is a posterior placenta with no evidence of previa. IMPRESSION: MINOR FUNNELING. CERVICAL LENGTH 3.2 CM. Impression dictated by: Mariana Lan M.D. 02/10/2025 10:31 AM Dictation Location: [place] [address] Electronically authenticated by: [id number] Y Date: 02/10/2025 10:31
--- OUTSIDE RECORDS SUMMARY | 2025-02-10 09:29 | XMS_ITS | Clinical Summary ---
Author Organization [employer] [facility] tem Address [id number] [address] [place] [address] Care Team Providers Care Cane Feeder Name Role Phone Chato Sol MD Primary Care Provider [phone] Allergies No known active allergies Medications * This document contains information received from the source organization and may not represent a complete record from that organization. MedicationSigDispense QuantityRefillsLast FilledStart DateEnd DateStatus LAMOTRIGINE (LAMICTAL ORAL) Take by mouth.Active NAPROXEN ORAL Take by mouth.Active Active Problems ProblemNoted DateDiagnosed DateSocial ffxlus5307/02/2017 Social History Tobacco UseTypesPacks/DayYears UsedDateSmoking Tobacco: NeverSmokeless Tobacco: NeverChildcareAnswerDate MojgyeltNedipmuvkCmhqdpo37/06/2019EmploymentAnswerDate WryezbjcZdcevlkcbjYnnvuku94/06/2019Purpose - LifeAnswerDate RecordedPurpose and direction in gastMxyumjt76/11/2021CommentsUnknownSex and Gender InformationValueDate RecordedSex Assigned at BirthNot on fileLegal SexFemale 05/03/2017 10:43 AM ESTGender IdentityNot on fileSexual OrientationNot on file Plan of Treatment Health MaintenanceDue DateLast DoneCommentsDepression Reatgkhcc01/15/2015Tobacco Huhaalxtj82/15/2015dult BMI Qjfipmeef89/15/2021DTaP,Tdap and Td Vaccines (1 - Tdap)2Pap Smear2024Influenza Dnasbha8412/08/2024 Medical Devices Not on file Insurance Care Teams Team MemberRelationshipSpecialtyStart DateEnd Chato Sol MD PCP - General05/04/17
--- OUTSIDE RECORDS SUMMARY | 2025-02-10 09:29 | XMS_ITS | Encounter Summary ---
Author Organization [facility] Address [address] [place] [address] Care Team Providers Care Director Community Health Nursing Name Role Phone Unallocated, [facility]oms Provider Primary Care Provi marcelino Encounter Details DateTypeDepartmentCare Team (Latest Contact Info)Visvslxhdgz10/30/2025Telephone FARHANA Mitchell O[facility]YJ[facility] [address] [place] [address] Yanelis Bradford MA [address] [place] [address] Social History Tobacco UseTypesPacks/DayYears UsedDateSmoking Tobacco: NeverSmokeless Tobacco: NeverAlcohol UseStandard Drinks/WeekCommentsNever0 (1 standard drink = 0.6 oz pure alcohol)AUDIT-CAnswerDate RecordedQ1: How often do you have a drink containing alcohol?Never02/07/2024Q2: How many drinks containing alcohol do you have on a typical day when you are drinking?Patient does not drink02/07/2024Q3: How often do you have six or more drinks on one occasion?Never02/07/2024HQ-2 AnswerDate RecordedPatient Health Questionnaire-2 [id number] Estimated Date of SbddsmxcJstbvelbVmr00/03/2026Based on last menstrual period of 09/02/2024Sex and Gender InformationValueDate RecordedSex Assigned at BirthNot on fileLegal WvjZytrct47/15/2023 7:20 PM EDTGender IdentityNot on fileSexual OrientationNot on filedocumented as of this encounter Plan of Treatment DateTypeDepartmentCare Team (Latest Contact Info)Rjmgsjcrguq16/17/2025 9:30 AM ESTRoutine NOMMeño Mitchell OBG[facility] [address] [id number] Kimberley Knott PA [address] [place] [address] NameTypePriorityAssociated DiagnosesOrder ScheduleUS OB transvaginalImaging Routine Encounter for screening for cervical length ([facility]) Expected: 03/08/2025 (Approximate), Expires: 04/07/2025documented as of this encounter Visit Diagnoses Diagnosis Encounter for screening for cervical length ([facility]) documented in this encounter Care Teams Team MemberRelationshipSpecialtyStart DateEnd Date Unallocated, Noms MD Trinh [address] [place] [address] PCP - GeneralFamily Medicine11/26/23documented as of this encounter
--- OUTSIDE RECORDS SUMMARY | 2025-02-10 09:29 | XMS_ITS | Clinical Summary ---
Author Organization [facility] Address [address] [place] [address] Care Team Providers Care On Site Soil Evaluator Name Role Phone Unallocated, Noms Provider Primary Care Provi marcelino Allergies No known active allergies Medications MedicationSigDispense QuantityRefillsLast FilledStart DateEnd DateStatus MV-Min-Fe Fum-FA-DHA ( 1 PO) Take 1 tablet by mouth DailyActive Vit-Fe Fumarate-FA ( Vitamins) 28-0.8 MG tablet Indications:Second trimester ([facility]),12 weeks gestation of ([facility])Take 1 tablet by mouth Daily 30 tablet 1108/169950/6Active Active Problems ProblemNoted DateDiagnosed DateEncounter for follow-up ultrasound of anatomy ([facility])02/09/2025Positive urine test ([facility])09/29/2024 Abnormal uterine bleeding (AUB)09/02/2024PCOS (polycystic ovarian syndrome) 09/02/2024Irregular irrtgp3309/02/2024Estimated Date of DeliveryComments Yes06/09/2025ased on last menstrual period of 09/02/2024 Encounters DateTypeDepartmentCare CvdpIasqiklkzcw97/03/2025Telephone [facility] [address] [place] [address] Tiana Renner NP 02/05/2025Telephone [facility] [address] [place] [address] Yanelis Bradford MA 01/26/2025 10:00 AM EDTRoutine [facility] [address] [place] [address] Garfield Colin DO Second trimester ([facility]); 20 weeks gestation of ([facility])01/26/2025 9:00 AM EDTAncillary Procedure [facility] [address] [place] [address] 01/13/2025Orders Only [facility] [address] [place] [address] Yanelis Bradford MA 12/30/2024Telephone [facility] [address] [place] [address] Kimberley Knott PA 12/29/2024 11:00 AM EDTRoutine [facility] [address] [place] [address] Kimberley Knott PA Tinea (Primary Dx); Second trimester ([facility]); 16 weeks gestation of ([facility]); Screening, , for anatomic survey ([facility]); STD exposure; Well woman exam with routine gynecological exam12/29/2024linisync Result Encounter [facility] External Department Unsolicited Kimberley Knott PA 12/29/2024External Result Encounter [facility] External Department Unsolicited Kimberley Knott PA 12/29/2024amboo flowsheet [facility] [address] [place] [address] Kimberley Knott PA 12/15/2024bstract [facility] [address] [place] [address] Garfield Colin DO 12/01/2024 10:50 AM EDTRoutine [facility] [address] [place] [address] Garfield Colin DO Second trimester ([facility]); 12 weeks gestation of ([facility])12/01/2024[place] [address] Garfield Colin DO from Last 3 Months Family History RelationNameStatusCommentsFatherAliveMotherAlive Social History Tobacco UseTypesPacks/DayYears UsedDateSmoking Tobacco: NeverSmokeless Tobacco: Never Tobacco Cessation:Counseling Given: Not Answered Alcohol UseStandard Drinks/WeekCommentsNever0 (1 standard drink = 0.6 oz pure alcohol)AUDIT-CAnswerDate RecordedQ1: How often do you have a drink containing alcohol?Never02/07/2024Q2: How many drinks containing alcohol do you have on a typical day when you are drinking?Patient does not drink02/07/2024Q3: How often do you have six or more drinks on one occasion?Never02/07/2024HQ-2AnswerDate RecordedPatient Health Questionnaire-2 Zvmiv212Estimated Date of MhjxucixIfscsnnuFxz21/03/2026ased on last menstrual period of 09/02/2024Sex and Gender InformationValueDate RecordedSex Assigned at BirthNot on fileLegal Sex Phfhuo7406/21/2022 7:20 PM EDTGender IdentityNot on fileSexual OrientationNot on file Last Filed Vital Signs Vital SignReadingTime TakenCommentsBlood Lhhjclcc104/801 11:16 AM EDT Uwipk700601/14/2024 10:16 AM EDTTemperature--Respiratory Ncyw3673 10:16 AM EDTOxygen Saturation--Inhaled Oxygen Concentration--Pexlkr71.3 kg (208 lb) 01/26/2025 11:16 AM GNXQrkoma626 cm (5' 3 )02/07/2024 8:17 AM EDTBody Mass Index 36.8502/07/2024 8:17 AM EDT Plan of Treatment DateTypeDepartmentCare Team (Latest Contact Info)Anvuhtzvdjg25/17/2025 9:30 AM ESTRoutine [facility] [place] [address] Kimberley Knott PA [address] [place] [address] Health MaintenanceDue DateLast DoneCommentsCOVID-19 Vaccine (2024- season) , 10/07/2020Influenza Vaccine (#1)2024Pneumococcal Vaccine: Pediatrics (0 to 5 Years) and At-Risk Patients (6 to 64 Years)Aged Out No longer eligible based on patient's age to complete this topic Procedures Procedure NamePriorityDate/TimeAssociated DiagnosisCommentsPOCT URINALYSIS TTQSWMBXCenmquc87/20/2025 11:17 AM EDT 20 weeks gestation of ([facility]) OB 14+ WEEKS ANATOMY XTOJDrhnegl25/20/2025 10:33 AM EDT Screening, , for anatomic survey ([facility]) RECURRENT VAGINITIS (HTRX)Geejcun7112/29/2024 12:49 PM EDT POCT URINALYSIS LPRHJBRGEkljwsx70/22/2025 11:22 AM EDT 16 weeks gestation of ([facility]) IGP,APTIMA HPV,AGE JMQKBgslrrd85/22/2025 11:02 AM EDT PAP HAQFIIutanvk22/22/2025 12:00 AM EDTPOCT URINALYSIS AMUIEIUTCwvbger19/25/2025 11:13 AM EDT Second trimester ([facility]) 12 weeks gestation of ([facility]) from Last 3 Months Results * (ABNORMAL) POCT urinalysis dipstick manually resulted (01/26/2025 11:17 AM EDT) Only the most recent of3 resultswithin the time period is included. ComponentValueRef RangeTest MethodAnalysis TimePerformed AtPathologist Signature Color, UAAmberClarity, UAClearGlucose, UANegativeNegative - 2000(110) ++++ mg/dL Bilirubin, UANegativeNegative - 4(70) +++ mg/dLKetones, UANegativeNegative - 160(16) ++++ mg/dLSpec Grav, UA1.0201 - 1.03Blood, UANegativeNegative - 50 Juan Alberto/mcLpH, UA6.05 - 9Protein, UANegativeNegative - 2000(20) ++++ mg/dL Urobilinogen, UA1.00.2 - 12 mg/dLLeukocytes, UA3+Negative - 500+++ Artie/mcL Nitrite, UANegativeNegative - PositiveSpecimen (Source)Anatomical Location / LateralityCollection Method / VolumeCollection TimeReceived QnriUwpyh72/20/2025 11:17 AM EDT Narrative Authorizing ProviderResult TypeResult StatusCorey Cristi DOPOINT OF CARE TEST ENTER/EDIT ORDERABLESFinal Result * US OB 14+ weeks anatomy scan (01/26/2025 10:33 AM EDT)Anatomical Region LateralityModalityBodyUltrasoundSpecimen (Source)Anatomical Location / LateralityCollection Method / VolumeCollection TimeReceived Time01/26/2025 2:20 PM EDT Addenda Addendum by Dony José MD on 01/27/2025 7:40 AM EDT ADDENDUM #1 Spinal anatomy was suboptimal at time of imaging. Recommend follow-up dedicated spinal anatomy evaluation. TRANSCRIBED BY: ? ELECTRONICALLY SIGNED BY: Dony José MD Impressions 01/26/2025 2:30 PM EDT 1. Single, live intrauterine , current sonographic age of 20 weeks and 2 days, with an estimated date of delivery of June 13, 2025 2. Very subtle funneling of the internal cervical os. ??This study can serve as a baseline for follow-up examinations. * ??Estimated Weight (g) by Percentile is based upon an accurate estimated age based onlast menstrual period. ?? TRANSCRIBED BY: ? ELECTRONICALLY SIGNED BY: Dony José MD Narrative 01/26/2025 2:30 PM EDT FINDINGS: A single, live intrauterine is present with normal cardiac rate of 149 ??beats per minute. Normal activity and amniotic fluid volume. Morphology is grossly normal. The cervix islong and closed, 3.7 cm. ??The placenta is posterior, inferior margin 3.3 cm from the cervical os, 3.9 cm. ?? Subtle funneling of the internal cervical os. ??The current sonographic age is 20 weeks and 2 days, based on the following measurements: ?BPD ? 4.3 cm (19 weeks, 1 day) ?Head Circumference ?17.7 cm (20 weeks, 1 day) ?Abdominal Circumference ?16.0 cm (21 weeks, 1 day) ?Femur Length ?3.5 cm (20 weeks, 6 days) ?Placenta ? Posterior Grade I ? Weight (g) by Percentile ??42.8 % * These measurements result in an estimated date of delivery of June 13, 2025. ?? The current estimated weight is 380 grams (0 pounds, 13 ounces). ?? Procedure Note Dony José MD - 01/26/2025 FINDINGS: A single, live intrauterine is present with normal cardiacrate of 149 beats per minute. Normal activity and amniotic fluidvolume. Morphology is grossly normal. The cervix is long and closed, 3.7cm. The placenta is posterior, inferior margin 3.3 cm from the cervicalos, 3.9 cm. Subtle funneling of the internal cervical os. The currentsonographic age is 20 weeks and 2 days, based on the followingmeasurements: BPD 4.3 cm (19 weeks, 1 day) Head Circumference 17.7 cm (20 weeks, 1 day) Abdominal Circumference 16.0 cm (21 weeks, 1 day) Femur Length 3.5 cm (20 weeks, 6 days) Placenta Posterior Grade I Weight (g) by Percentile 42.8 % * These measurements result in an estimated date of delivery of June. The current estimated weight is 380 grams (0 pounds, 13ounces). IMPRESSION: 1. Single, live intrauterine , current sonographic age of 20weeks and 2 days, with an estimated date of delivery of June 13, 2025 2. Very subtle funneling of the internal cervical os. This study canserve as a baseline for follow-up examinations. * Estimated Weight (g) by Percentile is based upon an accurateestimated age based on last menstrual period. TRANSCRIBED BY: ELECTRONICALLY SIGNED BY: Dony José MD Authorizing ProviderResult TypeResult StatusAmy Nikos BARROSO OB US PROCEDURES Edited Result - Final * (ABNORMAL) RECURRENT VAGINITIS (HTRX) (12/29/2024 12:49 PM EDT)ComponentValue Ref RangeTest MethodAnalysis TimePerformed AtPathologist SignatureATOPOBIUM NZWCSGB23.285(A)19.961 - 24.689 ppm12/30/2024 8:16 AM EDTHealthTrackRx at [facility] CenterATOPOBIUM VAGINAEDetected(A)19.961 - 24.689 ppm12/30/2024 8:16 AM EDT [facility] (BACTERIAL VAGINOSIS ASSOCIATED BACTERIA 2, 3); MOBILUNCUS WCZ356.961 - 24.689 ppm12/30/2024 8:16 AM EDTHealthTrackRx at [facility] HospitalAB 2,3 (BACTERIAL VAGINOSIS ASSOCIATED BACTERIA 2, 3); MOBILUNCUS SPP Not Jycvogle13.961 - 24.689 ppm12/30/2024 8:16 AM EDTHealthTrackRx at [facility] TERESA ALBICANS, PARAPSILOSIS, AULHIACVYF029.000 - 30.347 ppm12/30/2024 8:16 AM EDTHealthTrackRx at [facility] CenterCANDIDA ALBICANS, PARAPSILOSIS, TROPICALISNot Niuzazmp65.000 - 30.347 ppm12/30/2024 8:16 AM EDTHealthTrackRx at [facility] [place] XOXJNQGA742.000 - 31.618 ppm12/30/2024 8:16 AM EDTHealthTrackRx at LabPortCANDIDA GLABRATANot Vyapokpq15.000 - 31.618 ppm12/30/2024 8:16 AM EDT [facility]CANDIDA RIEDQQ919.000 - 30.873 ppm12/30/2024 8:16 AM EDTHealthTrackRx at LabPortCANDIDA KRUSEINot Cjltczip94.000 - 30.873 ppm 12/30/2024 8:16 AM EDTHealthTrackRx at LabPortCHLAMYDIA EJQDSDHPZMS286.000 - 31.586 ppm12/30/2024 8:16 AM EDTHealthTrackRx at LabPortCHLAMYDIA TRACHOMATIS Not Avnobelt84.000 - 31.586 ppm12/30/2024 8:16 AM EDTHealthTrackRx at [facility] GARDNERELLA JYTJYUJKJ41.6180(A)19.961 - 24.689 ppm12/30/2024 8:16 AM EDT [facility]GARDNERELLA VAGINALISDetected(A)19.961 - 24.689 ppm 12/30/2024 8:16 AM EDTHealthTrackRx at LabPortMEGASPHAERA (TYPES 1, 2)019.961 - 24.689 ppm12/30/2024 8:16 AM EDTHealthTrackRx at LabPortMEGASPHAERA (TYPES 1, 2)Not Kvxtsooe38.961 - 24.689 ppm12/30/2024 8:16 AM EDTHealthTrackRx at LabPortNEISSERIA QJXKWIZFKXR774.000 - 32.587 ppm12/30/2024 8:16 AM EDT [facility] LabPortNEISSERIA GONORRHOEAENot Nnihkhwv15.000 - 32.587 ppm 12/30/2024 8:16 AM EDTHealthTrackRx at LabPortTRICHOMONAS VLKKBXNCY812.000 - 31.995 ppm12/30/2024 8:16 AM EDTHealthTrackRx at LabPortTRICHOMONAS VAGINALIS Not Bbnexpfb70.000 - 31.995 ppm12/30/2024 8:16 AM EDTHealthTrackRx at [facility] MYCOPLASMA HBOIASMZLR898.961 - 24.689 ppm12/30/2024 8:16 AM EDTHealthTrackRx at [facility] CenterMYCOPLASMA GENITALIUMNot Oybzlvkq38.961 - 24.689 ppm12/30/2024 8:[address] [facility], C; MEFA19.094(A)23.000 - 27.500 ppm 12/30/2024 8:[address] [facility], C; MEFADetected(A)23.000 - 27.500 ppm12/30/2024 8:16 AM EDTHealthTrackRx at [facility] CenterTET B, TET M16.686(A) 23.000 - 27.500 ppm12/30/2024 8:16 AM EDTHealthTrackRx at [facility] CenterTET B, TET M Detected(A)23.000 - 27.500 ppm12/30/2024 8:16 AM EDTHealthTrackRx at [facility] Specimen (Source)Anatomical Location / LateralityCollection Method / Volume Collection TimeReceived JhfhDybiep44/22/2025 12:49 PM EDT12/30/2024 2:48 AM EDT Narrative Authorizing ProviderResult TypeResult StatusAmy Nikos WILKERSON BLOOD ORDERABLES Final ResultPerforming OrganizationAddressCity/State/ZIP CodePhone Number [facility] [address] [address] * IGP,APTIMA HPV,AGE GDLN (12/29/2024 11:02 AM EDT)ComponentValueRef RangeTest MethodAnalysis TimePerformed AtPathologist SignatureAGE GDLN ACOG TESTINGNote. TBHComment: ?? TESTS ? RESULT ??FLAG ??UNITS ?REF RANGE ??LAB ?? Clinician Provided Cytology Information ?? Source.............Endocervix ?? Other.............. ?? No. of containers..01 ThinPrep Vial Age Algo ACOG Cat... ??21-29 ? 01 ?FLAG LEGEND: ?L-Low Normal,H-High Normal,LL-Alert Low,HH-Alert High <-Panic Low,>-Panic High,A-Abnormal,AA-Critical Abnormal Performed at: 01 =G ?[facility] ?? [address] [place] ??[address] ?? Noemi Bond MD, IGP, RFX APTIMA HPV ASCUNote.TBHComment: ?? TESTS ? RESULT ??FLAG ??UNITS ?REF RANGE ??LAB DIAGNOSIS: ?02 ?? NEGATIVE FOR INTRAEPITHELIAL LESION OR MALIGNANCY. Specimen adequacy: ?02 ?? Satisfactory for evaluation. ??Endocervical and/or squamous metaplastic ?? cells (endocervical component) are present. Performed by: ? 02 ?? [employer] Utility Locator (ASCP) . ? 02 Note: ? Note ?02 ?? The Pap smear is a screening test designed to aid in the ?? detection of premalignant and malignant conditions of the ?? uterine cervix. ??It is not a diagnostic procedure and ?? should not be used as the sole means of detecting cervical ?? cancer. ??Both false-positive and false-negative reports do ?? occur. Test Methodology: ? Note ?02 ?? This liquid based ThinPrep(R) pap test was screened with ?? the use of an image guided system. . ? 02 ?? The HPV DNA reflex criteria were not met with this specimen ?? result therefore, no HPV testing was performed. ?FLAG LEGEND: ?L-Low Normal,H-High Normal,LL-Alert Low,HH-Alert High <-Panic Low,>-Panic High,A-Abnormal,AA-Critical Abnormal Performed at: 02 WB ?[facility] ?? [address] [place], [place] ??[address] ?? Noemi Bond MD, Performed at: ??=G - [facility] ??[id number] Jacker Feeder: Noemi Bond MD, Phone: ??[phone] Performed at: ??WB - [facility] ??[id number] Jacker Feeder: Noemi Bond MD, Phone: ??[phone] Specimen (Source)Anatomical Location / LateralityCollection Method / Volume Collection TimeReceived Time12/29/2024 11:02 AM EDT12/30/2024 6:48 AM EDT Narrative CLINISYNC - 01/05/2025 7:08 PM EDT SPATULA-ALONE ENDOCERVIX Authorizing ProviderResult TypeResult StatusAmy [facility] BLOOD ORDERABLES Final ResultPerforming OrganizationAddressCity/State/ZIP CodePhone Number CLINISYNC [facility] * Pap Smear (12/29/2024 12:00 AM EDT)Specimen (Source)Anatomical Location / LateralityCollection Method / VolumeCollection TimeReceived TimeSwabCervical swab / Unknown Narrative Authorizing ProviderResult TypeResult StatusAmy Nikos PALAB CYTOLOGY ORDERABLES Final ResultPerforming OrganizationAddressCity/State/ZIP CodePhone Number EXTERNAL LAB from Last 3 Months Insurance Care Teams Team MemberRelationshipSpecialtyStart DateEnd Date Unallocated, Noms Provider, [address] [place], [place] [id number] PCP - GeneralFamily Medicine11/26/23
--- OUTSIDE RECORDS SUMMARY | 2025-02-10 09:29 | XMS_ITS | Encounter Summary ---
Author Organization [facility] Address [address] [place] [address] Care Team Providers Care Digital Marketing Strategist Name Role Phone Unallocated, Noms Provider Primary Care Provi marcelino Encounter Details DateTypeDepartmentCare Team (Latest Contact Info)Dnzmmuriviv65/03/2025Telephone [facility] [place] [facility] [address] [place] [address] Tiana Renner, CIELO [address] [place] [address] Social History Tobacco UseTypesPacks/DayYears UsedDateSmoking Tobacco: NeverSmokeless [...] on one occasion?Never02/07/2024HQ-2 AnswerDate RecordedPatient Health Questionnaire-2 Zijtn6554 Estimated Date of CgimgznzZrlgxprnGmb44/03/2026Based on last menstrual period of 09/02/2024Sex and Gender InformationValueDate RecordedSex Assigned at BirthNot on fileLegal BamZwawxi92/15/2023 7:20 PM EDTGender IdentityNot on fileSexual OrientationNot on filedocumented as of this encounter Miscellaneous Notes * Addendum Note - Latanya Thurman LPN - 02/09/2025 5:09 PM ESTAddended by: LATANYA THURMAN on: 02/09/2025 05:09 PM Modules accepted: Orders * Telephone Encounter - Nichol Alves LPN - 02/09/2025 11:19 AM EST Hi, this is Jennifer. Over at [facility] scheduling extension [phone]. Calling in regards to patient Anju Molina. Anju is scheduled tomorrow for a follow up anatomy ultrasound. Well, then we might have that ultrasound order bear with me. She called in and said she was scheduling a follow up. When I talked to the office. They said it was a follow up anatomy from her anatomy scan that she had. Okay, so we called for an order we did not get one before the office closed on Sunday and we end up having to reschedule her to Sunday, so she is coming in tomorrow. So the order that I got is follow up cervical length, which is not what Yanelis and I spoke about, I believe on . So I just want to double check and make sure that, yes, she is not coming in for a follow up anatomy. She is Coming injust for cervical length tomorrow, if that is the case, then the order we have is fine. If it is supposed to be a follow up anatomy to then we will need an order for that as well. So if someone couldjust give me a call extension [phone] just want to make sure we are doing the right test for her tomor row. Spoke with Yanelis to clarify and advised the correct testing was ordered for a cervical length to be repeated not Anatomy. Jennifer was called and advised the correct order was sent over and Anatomy is not needed. Jennifer voiced understanding and correct order was sent over and they do have. documented in this encounter Plan of Treatment DateTypeDepartmentCare Team (Latest Contact Info)Bqzpasnbdax24/17/2025 9:30 AM ESTRoutine [facility] [address] [place] [address] Kimberley Knott PA [address] [place] [address] NameTypePriorityAssociated DiagnosesOrder ScheduleUS OB limited 1+ fetuses ImagingRoutine Encounter for follow-up ultrasound of anatomy ([facility]) Cervical funneling Expected: 02/09/2025, Expires: 05/12/2025US OB transvaginalImagingRoutine Encounter for follow-up ultrasound of anatomy ([facility]) Cervical funneling Expected: 02/09/2025, Expires: 05/12/2025documented as of this encounter Visit Diagnoses Diagnosis Encounter for follow-up ultrasound of anatomy ([facility]) Cervical funneling Other specified noninflammatory disorder of cervix documented in this encounter Care Teams Team MemberRelationshipSpecialtyStart DateEnd Date Unallocated, Nomjennie Tsang MD [address] [place] [address] PCP - GeneralFamily Medicine11/26/23documented as of this encounter
--- OUTSIDE RECORDS SUMMARY | 2025-02-10 09:32 | XMS_ITS | CCD ---
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 Name Role Phone DR JANIE FRAGOSO Primary [...] Attending Provider Jose Miguel Resendiz Unavailable Unallocated Osito EDMONDS Provider Primary Care Provi marcelino Unallocated , [place] Provider Primary Care Provi marcelino Teresa Vitale APRN Attending Provider [phone] Teresa Vitale Attending Unavailable Teresa Vitale Admitting Unavailable GARFIELD COLIN Attending Unavailable GARFIELD COLIN Referring Unavailable GARFIELD COLIN Attending Unavailable KIMBERLEY STEVENSON Attending Unavailable KENDAL RINCON Attending Unavailable KIMBERLEY STEVENSON Referring Unavailable GARFIELD COLIN Attending Unavailable Medications Current Medications MedicationDrug Class(es)DatesSig (Normalized)Sig (Original)clindamycin 20 mg/ml vaginal cream (1 source)Lincosamide AntibacterialStart: 11-30-2023 End: 90-86-6507ffzgmjsomfl (Cleocin) 2 % vaginal cream Indications: Bacterial Vaginosis Insert 1 applicator into the vagina at bedtime for 7 days 40 g 2 11/30/2023 12/07/2023 Activeetonogestrel 68 mg drug implant (3 sources)ProgestinNexplanon 68 MG as directed Subcutaneous Activefluconazole 150 mg oral tablet (4 sources)Azole AntifungalStart: 12-29-2024 End: 47-29-2101ikjjlyjreex (Diflucan) 150 MG tablet Indications: Tinea Take 1 tablet (150 mg) by mouth 1 (one) time for 1 dose Repeat in 7 days if symptoms persist. 2 tablet 12/29/2024 12/29/2024 ActiveStart: 11-26-2023 End: 02-66-7444urpx 1 tablet by mouth oncefluconazole (Diflucan) 150 MG tablet Indications: Acute vaginitis Take 1 tablet (150 mg) by mouth 1(one) time for 1 dose 1 tablet 1 11/26/2023 11/26/2023 ExpiredmetFORMIN hydrochloride 500 mg oral tablet (7 sources)BiguanideStart: 06-04-2024 End: 74-72-2007ikjg 1 tablet by mouth at mealtimemetFORMIN (Glucophage) 500 MG tablet Indications: Abnormal uterine bleeding (AUB) , PCOS (polycystic ovarian syndrome) Take 1 tablet (500 mg) by mouth in the morning. Take with meals. 30 tablet 11 06/04/2024 10/31/2024 DiscontinuedmethylPREDNISolone (4 sources)CorticosteroidStart: 12-29-2024 End: 08-68-6560yeixwpFIYUONKlrskd (Medrol Dospak) 4 MG tablets Indications: Tinea Follow schedule on package instructions 21 tablet 12/29/2024 01/05/2025 ActivemetroNIDAZOLE 500 mg oral tablet (3 sources)Nitroimidazole AntimicrobialStart: 34-18-3999ejkm 1 tablet by mouth every twelve hoursmetroNIDAZOLE 500 MG 1 tablet Orally Twice a day for 7 days Sep, Activenitrofurantoin, macrocrystals 25 mg / nitrofurantoin, monohydrate 75 mg oral capsule (1 source)Nitrofuran AntibacterialStart: 91-15-6591xopo 1 capsule by mouth every twelve hours at mealtimeNitrofurantoin Monohyd/M-Cryst (Macrobid) 100 mg capsule Active 100 MG PO Every 12 hours 14 2024 12:00am must administer with a meal/foodondansetron 4 mg disintegrating oral tablet (4 sources)Serotonin-3 Receptor AntagonistStart: 10-31-2024 End: 34-83-6937okwq 1 tablet by mouth every six hours as needed for nausea and vomiting and nausea and nauseaondansetron ODT (Zofran-ODT) 4 MG disintegrating tablet Indications: Nausea Take 1 tablet (4 mg) bymouth every 6 (six) hours if needed for nausea or vomiting 30 tablet 2 10/31/2024 11/30/2024 ActiveStart: 04-22-2021 End: 65-54-4898lwmx 1 tablet by mouth every six hours as needed for nausea and vomitingOndansetron 4 mg tablet,disintegrating Discontinued 4 MG PO Q6H as needed for nausea and vomiting April 22, 2021 5:04pm February 08, 2024 4:08pmphenazopyridine hydrochloride 200 mg oral tablet (2 sources)Start: 82-97-5045qjuw 1 tablet by mouth every eight hoursPyridium 200 MG 1 tablet after meals Orally Three times a day for 2 day(s) Jan, ActivePrenatal MV-Min-Fe Fum-FA-DHA ( 1 PO) (12 sources) MV-Min-Fe Fum-FA-DHA ( 1 PO) Take 1 tablet by mouth Daily ActivePrenatal Vit-Fe Fumarate-FA ( Vitamins) 28-0.8 MG tablet (9 sources)Start: 12-01-2024 End: 99-03-9043cjwe 1 tablet by mouth once dailyPrenatal Vit-Fe Fumarate-FA ( Vitamins) 28-0.8 MG tablet Indications: Second trimester ([facility]) , 12 weeks gestation of ([facility] Take 1 tablet by mouth Daily 30 tablet 11 12/01/2024 12/01/2025 Activesulfamethoxazole 800 mg / trimethoprim 160 mg oral tablet (8 sources)Dihydrofolate Reductase Inhibitor Antibacterial, Sulfonamide AntimicrobialStart: 99-99-0442lawt 1 tablet by mouth every twelve hoursBactrim DS 800-160 MG 1 tablet Orally Twice a day for 7 days Jan, ActiveStart: 21-60-9203rnop 1 tablet by mouth every twelve hoursBactrim DS 800-160 MG 1 tablet Orally Twice a day for 3 days Sep, ActivevalACYclovir 1000 mg oral tablet (3 sources)Herpesvirus Nucleoside Analog DNA Polymerase Inhibitor, Herpes Simplex Virus Nucleoside Analog DNA Polymerase Inhibitor, Herpes Zoster Virus Nucleoside Analog DNA Polymerase InhibitorStart: 09-22-2024 End: 35-31-7341hyxe 1 tablet by mouth in the morningvalACYclovir (Valtrex) 1 g tablet Indications: Genital herpes simplex, unspecified site Take 1 tablet (1,000 mg) by mouth in the morning and 1 tablet (1,000 mg) before bedtime. Do all this for 10 days. 20 tablet 09/22/2024 10/02/2024 Active Completed/Discontinued Medications MedicationDrug Class(es)DatesSig (Normalized)Sig (Original)amoxicillin 500 mg oral capsule (2 sources)Penicillin-class AntibacterialStart: 02-08-2024 End: 52-67-6449ufhb 1 capsule by mouth twice dailyAmoxicillin 500 mg capsule Discontinued 500 MG PO Twice daily 26 01February 08, 2024 12:00am February 08, 2024 5:51pmARIPiprazole 10 mg oral tablet (4 sources)Atypical AntipsychoticStart: 04-04-2020 End: 86-73-6837uqyq 1 tablet by mouth once dailyAripiprazole (Abilify) 10 mg tablet Discontinued 10 MG PO Daily August 20, 2020 10:36am April 22, 2021 4:30pmazithromycin 500 mg oral tablet (7 sources)Macrolide AntimicrobialStart: 11-26-2023 End: 23-66-3658melf 1 tablet by mouth once dailyazithromycin (Zithromax) 500 MG tablet Indications: Acute vaginitis Take 1 tablet (500 mg) by mouthDaily for 10 days 10 tablet 1 11/26/2023 12/06/2023 ExpiredStart: 64-45-6954dgqn 2 tablets by mouth onceAzithromycin 500 MG 2 tablets Orally once for 1 day Sep, ActiveNorgestimate-Ethinyl Estradiol (2 sources)Progestin, EstrogenStart: 04-04-2020 End: 10-00-0856Qqgjocmmokqs-Ethinyl Estradiol (Tri Femynor) 0.18/0.215/0.25 mg- 35 mcg () tablet Discontinued TABTABLET April 04, 2020 1:00am August 17, 2020 1:28pmhydrOXYzine hydrochloride 50 mg oral tablet (2 sources)AntihistamineStart: 08-17-2020 End: 17-46-7378rvqe 1 tablet by mouth three times daily as needed for anxiety Hydroxyzine Hcl 50 mg tablet Discontinued 50 MG PO Three times daily as needed for Anxiety August 17, 2020 12:00am August 20, 2020 10:36amlamoTRIgine 100 mg oral tablet (4 sources)Mood Stabilizer, Anti-epileptic AgentStart: 08-17-2020 End: 97-62-8809wdwx 1 tablet by mouth once dailyLamotrigine 100 mg tablet Discontinued 100 MG PO Daily August 17, 2020 12:00am August 20, 2020 10:36amStart: 04-04-2020 End: 70-37-9901Wnvnztshosu 25 mg tablet Discontinued TABLET April 04, 2020 1:00am August 17, 2020 1:28pmStart: 04-04-2020 End: 12-40-0151Kkmmoxtqxou Discontinued TABLET April 04, 2020 1:00am August 17, 2020 1:28pm Problems Active Problems Problem ClassificationProblemDateDocumented DateEpisodic/ChronicFemale infertility (2 sources)Female infertility; Translations: [Female infertility, unspecified] 25-05-1879HkzzuxjHknxegsoziglt symptoms and ill-defined conditions (4 sources)Dysuria; Translations: [Dysuria]Onset: 73-69-7410OmiupgtrUbrqboqe; including migraine (1 source)Headache; including migraine; Translations: [HEADACHE UNSPECIFIED] Onset: 10-48-8979Ffgxdzjitcyoq and screening for infectious disease (10 sources)Patient encounter status; Translations: [Dietary counseling and surveillance]59-79-5566NvisdpemIduwloqhihiph and screening for infectious disease (2 sources)Exposure to sexually transmissible disorder; Translations: [Contact with and (suspected) exposure to infections with a predominantly sexual mode of transmission]35-47-7530ZwomsogxHdgbozyvxcyr diseases of female pelvic organs (6 sources)Acute vaginitis; Translations: [Acute vaginitis]Onset: 10-03-2021 76-21-5776EkpyjjnnMfyxyhotn disorders (20 sources)Irregular periods; Translations: [Irregular menstruation, unspecified]Onset: 094689-57-0053SzaaantKmpaivv (2 sources)Dermatophytosis; Translations: [Dermatophytosis, unspecified] 82-45-0255YpnyiawdVcrxuc and vomiting (2 sources)Nausea; Translations: [Nausea]Onset: 277674-94-8646Xukjigkb Other endocrine disorders (17 sources)Polycystic ovary syndrome; Translations: [Polycystic ovarian syndrome]Onset: 310700-39-4749CbmtfvsExovk female genital disorders (17 sources)Abnormal uterine bleeding; Translations: [Abnormal uterine and vaginal bleeding, unspecified]Onset: 776136-96-9350FjfyqajXymnj inflammatory condition of skin (3 sources)Other pruritus; Translations: [OTHER PRURITUS]Onset: 10-02-2021 EpisodicOther nutritional; endocrine; and metabolic disorders (2 sources)Obesity caused by energy imbalance; Translations: [Class 1 obesity due to excess calories without serious comorbidity with body mass index (BMI) of 33.0 to 33.9 in adult]42-21-3574UuhavpwWjfoy and delivery including normal (20 sources)Urine test positive; Translations: [Encounter for test, result positive]Onset: 099605-15-7966EdtpsdlkFhumy screening for suspected conditions (not mental disorders or infectious disease) (4 sources)Decreased cortisol level; Translations: [Other specified abnormal findings of blood chemistry]29-26-5153GojbkdptOebnu upper respiratory infections (4 sources)Upper respiratory infection; Translations: [Acute upper respiratory infection, unspecified]62-49-2892WkwpwjudVxnswbhj codes; unclassified (2 sources)Gestation period, 12 weeks; Translations: [12 weeks gestation of ]44-41-0291XddchqgcLxtnbliw codes; unclassified (2 sources)Gestation period, 16 weeks; Translations: [16 weeks gestation of ]08-51-0417LnzhkyqcCaswgakb codes; unclassified (2 sources)Gestation period, 20 weeks; Translations: [20 weeks gestation of ]40-02-7161AgsrhquzNxdpvnt and intentional self-inflicted injury (2 sources)Suicide attempt ; Translations: [Poisoning by unspecified drugs, medicaments and biological substances, intentional self-harm, initial encounter] 81-40-9199LniampqtLrxhtmjezmsw (3 sources)CONTACT W/AND (SUSP) EXPOS COVID-19; Translations: [CONTACT W/AND (SUSP) EXPOS COVID-19]Onset: 94-33-4130Tljqguq tract infections (2 sources)Acute cystitis without hematuria; Translations: [Acute cystitis with hematuria]Onset: 09-29-2021 Resolved: 18-96-2067DlnumbzkUcefb infection (2 sources)Disease caused by 2019-nCoV; Translations: [COVID-19]04-22-2021 Episodic Past or Other Problems Problem ClassificationProblemDateDocumented DateEpisodic/ChronicOther endocrine disorders (2 sources)Disorder of endocrine system; Translations: [Endocrine disorder, unspecified]62-42-9700QrzxmmouGqism endocrine disorders (2 sources)Gynecological endocrinology disorder; Translations: [Endocrine disorder, unspecified]29-98-3861IdemkxqgAkrnqlrx codes; unclassified (1 source)High risk bisexual behaviorOnset: 09-29-2021 Resolved: 19-86-4919QllmauzpZyzpjcgkmgxt (1 source)CONTACT W/AND (SUSP) EXPOS COVID-19; Translations: [CONTACT W/AND (SUSP) EXPOS COVID-19]Onset: 04-14-2021 Results Test NameValueInterpretationReference RangeFacilityUrinalysis macro (dipstick) panel (U)on 80-83-9544Ufosqeksw, UANegativeNegative - 4(70) +++ mg/dLNOMS HealthcareBlood, UANegativeNegative - 50 Juan Alberto/mcLNOMS HealthcareClarity, UAClear NOMS HealthcareColor, UAAmberNOMS HealthcareGlucose, UANegativeNegative - 2000(110) ++++ mg/dLNOMS HealthcareInterpretation and review of laboratory resultsAbnormalNOMS HealthcareKetones, UANegativeNegative - 160(16) ++++ mg/dL NOMS HealthcareLeukocytes, UA3+Negative - 500+++ Artie/mcLNOMS HealthcareNitrite, UANegativeNegative - PositiveNOMS HealthcarepH, UA6.05 - 9N[facility] Healthcare Protein, UANegativeNegative - 2000(20) ++++ mg/dLNOMS HealthcareSpec Grav, UA 1.0201 - 1.03NOMS HealthcareUrobilinogen, UA1.00.2 - 12 mg/dLNOMS HealthcareNOMS HealthcareIGP,APTIMA HPV,AGE GDLNon 62-59-1787RBH GDLN ACOG TESTINGNote.[facility] HealthcareComment on above:TESTS RESULT FLAG UNITS REF RANGE LAB Clinician Provided Cytology Information Source.............Endocervix Other.............. No. of containers..01 ThinPrep Vial Age Algo ACOG Cat... FLAG LEGEND: L-Low Normal,H-High Normal,LL-Alert Low,HH-Alert High <-Panic Low,>-Panic High,A-Abnormal,AA-Critical Abnormal Performed at: 01 =[facility] [address] [facility] [place] [address] Noemi Bond MD, IGP, RFX APTIMA HPV ASCUNote.[facility] HealthcareComment on above:TESTS RESULT FLAG UNITS REF RANGE LAB DIAGNOSIS: 02 NEGATIVE FOR INTRAEPITHELIAL LESION OR MALIGNANCY. Specimen adequacy: 02 Satisfactory for evaluation. Endocervical and/or squamous metaplastic cells (endocervical component) are present. Performed by: 02 Sin [place] Examiner ([facility]) . 02 Note: Note 02 The Pap smear is a screening test designed to aid in the detection of premalignant and malignant conditions of the uterine cervix. It is not a diagnostic procedure and should not be used as the sole means of detecting cervical cancer. Both false-positive and false-negative reports do occur. Test Methodology: Note 02 This liquid based ThinPrep(R) pap test was screened with the use of an image guided system. . 02 The HPV DNA reflex criteria were not met with this specimen result therefore, no HPV testing was performed. FLAG LEGEND: L-Low Normal,H-High Normal,LL-Alert Low,HH-Alert High <-Panic Low,>-Panic High,A-Abnormal,AA-Critical Abnormal Performed at: [address] [address] Noemi Bond MD, Performed at: =G - [facility] [address] [id number] Fast Food Sales Assistant: Noemi Bond MD, Phone: [phone] Performed at: - [address] [id number] Fast Food Sales Assistant: Noemi Bond MD, Phone: [phone] SPATULA-ALONE ENDOCERVIX CLINISYNCNOMS HealthcareRECURRENT VAGINITIS (HTRX)on 78-11-1511RYEZRELXC VAGINAE 24.285AbnormalNOMS HealthcareATOPOBIUM VAGINAEDetectedAbnormalNOMS Healthcare BVAB 2,3 (BACTERIAL VAGINOSIS ASSOCIATED BACTERIA 2, 3); MOBILUNCUS [id number] HealthcareBVAB 2,3 (BACTERIAL VAGINOSIS ASSOCIATED BACTERIA 2, 3); MOBILUNCUS SPPNot detectedNOMS HealthcareCANDIDA ALBICANS, PARAPSILOSIS, [id number] HealthcareCANDIDA ALBICANS, PARAPSILOSIS, TROPICALISNot detectedNOMS Healthcare TERESA ZTCEKCEH3AHWW HealthcareCANDIDA GLABRATANot detectedNOMS Healthcare TERESA UXRVHM6EOQY HealthcareCANDIDA KRUSEINot detectedNOMS HealthcareCHLAMYDIA XVFATSUFYYA5WMEQ HealthcareCHLAMYDIA TRACHOMATISNot detectedNOMS HealthcareERMB, C; MEFA19.094AbnormalNOMS HealthcareERMB, C; MEFADetectedAbnormalNOMS Healthcare GARDNERELLA FWEYCBNHD69.618AbnormalNOMS HealthcareGARDNERELLA VAGINALISDetected AbnormalNOMS HealthcareInterpretation and review of laboratory resultsAbnormal NOMS HealthcareMEGASPHAERA (TYPES 1, 2)0NOMS HealthcareMEGASPHAERA (TYPES 1, 2) Not detectedNOMS HealthcareMYCOPLASMA UAUEEUORWE2DRLI HealthcareMYCOPLASMA GENITALIUMNot detectedNOMS HealthcareNEISSERIA MHPLINGABGI5UESO Healthcare NEISSERIA GONORRHOEAENot detectedNOMS HealthcareTET B, TET M16.686AbnormalNOMS HealthcareTET B, TET MDetectedAbnormalNOMS HealthcareTRICHOMONAS EAJGMCESK7SAIV HealthcareTRICHOMONAS VAGINALISNot detectedNOMS HealthcareNOMS HealthcareUS OB 14+ WEEKS ANATOMY SCANon 32-70-4395JL OB 14+ WEEKS ANATOMY SCAN ADDENDUM #1 Spinal anatomy was suboptimal at time of imaging. Recommend follow-up dedicated spinal anatomy evaluation. TRANSCRIBED BY: ELECTRONICALLY SIGNED BY: Dony José MD FINDINGS: A single, live intrauterine is present with normal cardiac rate of 149 beats per minute. Normal activity and amniotic fluid volume. Morphology is grossly normal. The cervix is long and closed, 3.7 cm. The placenta is posterior, inferior margin 3.3 cm from the cervical os, 3.9 cm. Subtle funneling of the internal cervical os. The current sonographic age is 20 weeks and 2 days, based on the following measurements: BPD 4.3 cm (19 weeks, 1 day) Head Circumference 17.7 cm (20 weeks, 1 day) Abdominal Circumference 16.0 cm (21 weeks, 1 day) Femur Length 3.5 cm (20 weeks, 6 days) Placenta Posterior Grade I Weight (g) by Percentile 42.8 % * These measurements result in an estimated date of delivery of June 13, 2025. The current estimated weight is 380 grams (0 pounds, 13 ounces). IMPRESSION: 1. Single, live intrauterine , current sonographic age of 20 weeks and 2 days, with an estimated date of delivery of June 13, 2025 2. Very subtle funneling of the internal cervical os. This study can serve as a baseline for follow-up examinations. * Estimated Weight (g) by Percentile is based upon an accurate estimated age based on last menstrual period. TRANSCRIBED BY: ELECTRONICALLY SIGNED BY: Monisha GallowayNot AvailableComment on above:Order Comment: US OB ANATOMY SINGLE W US OB CERVICAL LENGTH Estimated Date of Delivery: 06/09/25 Gestational Age as of 12/29/2024: 27k7yUigkeuaavv macro (dipstick) panel (U)on 66-90-8739Llvoinewa, UANegativeNegative - 4(70) +++ mg/dLNOMS HealthcareBlood, UANegativeNegative - 50 Juan Alberto/mcLNOMS HealthcareClarity, UAClearNOMS Healthcare Color, UAYellowNOMS HealthcareGlucose, UANegativeNegative - 2000(110) ++++ mg/dL NOMS HealthcareInterpretation and review of laboratory resultsAbnormalNOMS HealthcareKetones, UANegativeNegative - 160(16) ++++ mg/dLNOMS Healthcare Leukocytes, UAPositiveNegative - 500+++ Artie/mcLNOMS HealthcareComment on above: 1+Nitrite, UANegativeNegative - PositiveNOMS HealthcarepH, UA75 - 9NOMS HealthcareProtein, UANegativeNegative - 2000(20) ++++ mg/dLNOMS HealthcareSpec Grav, UA1.011 - 1.03NOMS HealthcareUrobilinogen, UA0.20.2 - 12 mg/dLNOMS HealthcareNOMS HealthcareUrinalysis macro (dipstick) panel (U)on 12-01-2024 Bilirubin, UANegativeNegative - 4(70) +++ mg/dLMOUNTAINSTAR HEALTHCARE HealthcareBlood, UANegative Negative - 50 Juan Alberto/mcLMOUNTAINSTAR HEALTHCARE HealthcareClarity, UAClearNOVA HealthcareColor, UA YellowNOVA HealthcareGlucose, UANegativeNegative - 2000(110) ++++ mg/dLMOUNTAINSTAR [facility]ALTHCARE HealthcareInterpretation and review of laboratory resultsNoEinstein [facility] Center-[place] Ketones, UANegativeNegative - 160(16) ++++ mg/dLResearch Belton HospitalLeukocytes, UA NegativeNegative - 500+++ Artie/mcLResearch Belton HospitalNitrite, UANegativeNegative - PositiveNOVA HealthcarepH, UA75 - 9NOVA HealthcareProtein, UANegativeNegative - 2000(20) ++++ mg/dLMOUNTAINSTAR HEALTHCARE HealthcareSpec Grav, UA1.011 - 1.03[facility] Urobilinogen, UA1.00.2 - 12 mg/dLReynolds County General [facility] HealthcareBOX TESTon 20-85-8228CKO TEST SENT OUTUNUniversity of Tennessee Medical CenterYyrexrhpybWKF9IXHXUOSLD HealthcareBOX2 11/04/24NOCedar County Memorial HospitalCLINISYNCNOMS HealthcareHCG ( test) Ql (U)on 64-97-5024Ztrunnnwtnyesb and review of laboratory resultsAbnoEinstein Medical Center-[place] Preg Test, UrPositiveNegativeReynolds County General Memorial Hospital HealthcareUS OB TRANSVAGINALon 88-97-7809BL OB TRANSVAGINALEXAM: US OB TRANSVAGINAL HISTORY: Dating. COMPARISON: None [...] II, MD, PHD at 03-Nov-2024 11:42:05 PM [facility]-Turk[facility] TeleradiologyNormalNot AvailableComment on above:Order Comment: US OB TRANSVAGINAL No LMP recorded.Urinalysis macro (dipstick) panel (U)on 72-42-1574Kwtlcnvkh, UA NegativeNegative - 4(70) +++ mg/dLNOVA HealthcareBlood, UANegativeNegative - 50 Juan Alberto/[facility] HealthcareClarity, UAClearNOVA HealthcareColor, UAYellowNOVA HealthcareGlucose, UANegativeNegative - 2000(110) ++++ mg/dLNOVA Healthcare Interpretation and review of laboratory resultsNormalNOVA HealthcareKetones, UA NegativeNegative - 160(16) ++++ mg/dLMOUNTAINSTAR HEALTHCARE HealthcareLeukocytes, UANegative Negative - 500+++ Artie/[facility] HealthcareNitrite, UANegativeNegative - Positive NOMS HealthcarepH, UA6.55 - 9NOMS HealthcareProtein, UANegativeNegative - 2000(20) ++++ mg/dLNOVA HealthcareSpec Grav, UA1.021 - 1.03N[facility] Healthcare Urobilinogen, UA1.00.2 - 12 mg/dLNOMS HealthcareNOVA HealthcareTBH PREG QUANT HCGon 76-11-1667ZAP OSSOMQGHRKFQ211yHV/mLNOMS HealthcareComment on above:5-50 0.2-1 WEEK 50-500 1-2 WEEKS 100-5,000 2-3 WEEKS 500-10,000 3-4 WEEKS 1,000-50,000 4-5 WEEKS 10,000-100,000 5-6 WEEKS 15,000-200,000 6-8 WEEKS 10,000-100,000 2-3 MONTHS [facility] CountyTB[facility] PREG QUANT HCGon 52-74-5790WJA TJJYTBFDYIIV092rSE/mL NOMS HealthcareComment on above:5-50 0.2-1 WEEK 50-500 1-2 WEEKS 100-5,000 2-3 WEEKS 500-10,000 3-4 WEEKS 1,000-50,000 4-5 WEEKS 10,000-100,000 5-6 WEEKS 15,000-200,000 6-8 WEEKS 10,000-100,000 2-3 MONTHS [facility] CountyALL PROGESTERONEon 31-00-8534EQJQXKRCPKCR93.5 ng/mL.NOMS HealthcareComment on above:Follicular phase 0.1 - 0.9 Luteal phase 1.8 - 23.9 Ovulation phase 0.1 - 12.0 First trimester 11.0 - 44.3 Second trimester 25.4 - 83.3 Third trimester 58.7 - 214.0 Postmenopausal 0.0 - 0.1 Performed at: [facility] [id number] Fast Food Sales Assistant: Keenan Murillo PhD, Phone: [phone] [facility] CountyUrine Cultureon 26-75-5836Haouhvwd identified Cx Nom (U) 25,000 colonies/ml mixed bacterial skin contaminants 2 Days PERFORMED BY: [place] [address] PATHOLOGIST MANAGER UNIVERSAL YUMIKO GRIER M.D.[facility] Boulevard Physician GroupComment on above: Performed By: #### CUU #### [place] [address] USAUS PELVIC COMPLETE W/ TVon 75-59-6411KE PELVIC COMPLETE W/ TVEXAM: US PELVIC COMPLETE W/ TV HISTORY: Abnormal uterine bleeding. COMPARISON: None available. TECHNIQUE: Two-dimensional transabdominal grayscale ultrasound imaging of the pelvis was performed.Color flow Doppler imaging of the ovaries was also performed. Transvaginal was performed. FINDINGS: UTERUS 7.8 x 3.2 x 3.2 cm The uterus is anteverted in position and demonstrates a normal, homogeneous echotexture. There is a2.6 cm anterior fibroid visualized. Multiple nabothian cysts [...] Doppler flow within the bilateral ovaries. Electronically Signed:Electronically signed by MADYSNO WARREN II, MD, PHD at 26-Jun-2024 08:43:57 AM [facility]-Turk[facility] TeleradiologyNormalNot AvailableComment on above:Order Comment: US PELVIS-TRANSVAG IF INDICATED Patient's last menstrual period was 05/05/2024.Cortisolon 56-25-7427Iijrlbod [Mass/Vol]4.7 ug/dLLow6.2 - 19.4 ug/dLNOVA HealthcareComment on above:Please Note: The reference interval and flagging for this test is for an AM collection. If this is a PM collection please use: Cortisol PM: 2.3-11.9 Interpretation and review of laboratory resultsAbnormalNOCedar County Memorial Hospital DHEA-sulfateon 98-02-9706MWUN-S [Mass/Vol]267.0 ug/dL110.0 - 431.7 ug/dLNOVA HealthcareEstradiolon 86-17-5834G5 [Mass/Vol]188.0 pg/mLNOMS HealthcareComment on above:Adult Female Range Follicular phase 12.5 - 166.0 Ovulation phase 85.8 - 498.0 Luteal phase 43.8 - 211.0 Postmenopausal <6.0 - 54.7 1st trimester 215.0 - >4300.0 Vidya ECLIA methodology Estroneon 79-76-6642Y3 [Mass/Vol]104 pg/mL27 - 231 pg/mLNOMS HealthcareComment on above:Range Adult (Premenopausal) 27 - 231 Menstrual Cycle (1-10 days) 19 - 149 Menstrual Cycle (11-20 days) 32 - 176 Menstrual Cycle (21-30 days) 37 - 200 Performed at: - [address] [id number] Fast Food Sales Assistant: Collette Mesa MD, Phone: [phone] stimulating hormoneon 56-62-5057Cozclzpmlyp Qn2.3 m[IU]/mLmIU/mLNOMS HealthcareComment on above:Adult Female Range Follicular phase 3.5 - 12.5 Ovulation phase 4.7 - 21.5 Luteal phase 1.7 - 7.7 Postmenopausal 25.8 - 134.8 Insulin, fastingon 25-94-8320Vmvnkdp Qn20.6 u[IU]/mLNOMS HealthcareNo Panel Informationon 18-75-9743Ktglkaaqf at: [address] [id number] Fast Food Sales Assistant: Keenan Murillo PhD, Phone: [phone] Healthcare Progesteroneon 97-68-8928Ohjkxeknhnve [Mass/Vol]11.4 ng/mLNOMS HealthcareComment on above:Follicular phase 0.1 - 0.9 Luteal phase 1.8 - 23.9 Ovulation phase 0.1 - 12.0 First trimester 11.0 - 44.3 Second trimester 25.4 - 83.3 Third trimester 58.7 - 214.0 Postmenopausal 0.0 - 0.1 TSHon 06-09-4821NTI Qn3.160 m[IU]/LNOMS HealthcareNo Panel Informationon 31-72-3712KVLLRNLJVYBRW BAUMANII0.000NOMS HealthcareACINETOBACTER BAUMANIINot detectedNOMS HealthcareATOPOBIUM YZBYGQN61.732AbnormalNOMS HealthcareATOPOBIUM VAGINAEDetectedAbnormalNOMS HealthcareBVAB 2,3 (BACTERIAL VAGINOSIS ASSOCIATED BACTERIA 2, 3); MOBILUNCUS SPP0.000NOMS HealthcareBVAB 2,3 (BACTERIAL VAGINOSIS ASSOCIATED BACTERIA 2, 3); MOBILUNCUS SPPNot detectedNOMS HealthcareCANDIDA ALBICANS, PARAPSILOSIS, TROPICALIS0.000NOMS HealthcareCANDIDA ALBICANS, PARAPSILOSIS, TROPICALISNot detectedNOMS HealthcareCANDIDA GLABRATA0.000NOMS HealthcareCANDIDA GLABRATANot detectedNOMS HealthcareCANDIDA KRUSEI0.000NOMS HealthcareCANDIDA KRUSEINot detectedNOMS HealthcareCHLAMYDIA TRACHOMATIS0.000 NOMS HealthcareCHLAMYDIA TRACHOMATISNot detectedNOMS HealthcareCITROBACTER FREUNDII0.000NOMS HealthcareCITROBACTER FREUNDIINot detectedNOMS Healthcare ENTEROBACTER AEROGENES, CLOACAE0.000NOMS HealthcareENTEROBACTER AEROGENES, CLOACAENot detectedNOMS HealthcareENTEROCOCCUS FAECALIS, FAECIUM0.000NOMS HealthcareENTEROCOCCUS FAECALIS, FAECIUMNot detectedNOMS HealthcareESCHERICHIA COLI0.000NOMS HealthcareESCHERICHIA COLINot detectedNOMS HealthcareGARDNERELLA VAGINALIS0.000NOMS HealthcareGARDNERELLA VAGINALISNot detectedNOMS Healthcare Interpretation and review of laboratory resultsAbnormalNOMS HealthcareKLEBSIELLA PNEUMONIAE, OXYTOCA0.000NOMS HealthcareKLEBSIELLA PNEUMONIAE, OXYTOCANot detectedNOMS HealthcareMEGASPHAERA (TYPES 1, 2)0.000NOMS HealthcareMEGASPHAERA (TYPES 1, 2)Not detectedNOMS HealthcareMORGANELLA MORGANII0.000[facility] MORGANELLA MORGANIINot detectedNOMS HealthcareMYCOPLASMA GENITALIUM0.000NOMS HealthcareMYCOPLASMA GENITALIUMNot detectedNOMS HealthcareMYCOPLASMA HOMINIS 0.000NOMS HealthcareMYCOPLASMA HOMINISNot detectedNOMS HealthcareNEISSERIA GONORRHOEAE0.000NOMS HealthcareNEISSERIA GONORRHOEAENot detectedNOMS Healthcare PROTEUS MIRABILIS, VULGARIS0.000NOMS HealthcarePROTEUS MIRABILIS, VULGARISNot detectedNOMS HealthcarePSEUDOMONAS AERUGINOSA0.000NOMS HealthcarePSEUDOMONAS AERUGINOSANot detectedNOMS HealthcareSERRATIA MARCESCENS0.000[facility] SERRATIA MARCESCENSNot detectedNOMS HealthcareSTAPHYLOCOCCUS AUREUS0.000NOMS HealthcareSTAPHYLOCOCCUS AUREUSNot detectedNOMS HealthcareSTAPHYLOCOCCUS EPIDERMIDIS, HAEMOLYTICUS, LUGDUNENSIS0.000NOMS HealthcareSTAPHYLOCOCCUS EPIDERMIDIS, HAEMOLYTICUS, LUGDUNENSISNot detectedNOMS HealthcareSTAPHYLOCOCCUS SAPROPHYTICUS0.000NOMS HealthcareSTAPHYLOCOCCUS SAPROPHYTICUSNot detectedNOMS HealthcareSTREPTOCOCCUS AGALACTIAE (GROUP B STREP)0.000[facility] STREPTOCOCCUS AGALACTIAE (GROUP B STREP)Not detectedNOMS HealthcareSTREPTOCOCCUS PYOGENES (GROUP A STREP)0.000NOMS HealthcareSTREPTOCOCCUS PYOGENES (GROUP A STREP)Not detectedNOMS HealthcareTET B, TET M24.794AbnormalNOMS HealthcareTET B, TET MDetectedAbnormalNOMS HealthcareTRICHOMONAS VAGINALIS0.000[facility] TRICHOMONAS VAGINALISNot detectedNOMS HealthcareUREAPLASMA QWPFSK88.453Abnormal NOMS HealthcareUREAPLASMA PARVUMDetectedAbnormalNOMS HealthcareUREAPLASMA UREALYTICUM0.000NOMS HealthcareUREAPLASMA UREALYTICUMNot detectedNOMS Healthcare NOMS HealthcareUrinalysis - DIPSTICKon 98-61-7467Ptainjnsmh (U)cloudFulton State Hospital [employer] Other Bilirubin Ql (U)NegativeBaydin [employer] Other Color (U)dark yellow-orangeBaydin [employer] Other Glucose Ql (U)NegativeBaydin [employer] Other Hemoglobin Ql (U)largePetty [employer] Other Ketones Ql (U)NegativePetty [employer] Other Leukocyte esterase Test strip Ql (U)moderatePetty [employer] Other Nitrite Ql (U)PositivePetty [employer] Other pH (U)7.0 [pH]Petty [employer] Other Protein Ql (U)NegativeBaydin [employer] Other Specific gravity (U) [Rel density]1.010Petty [employer] Other Urobilinogen (U) [Mass/Vol]normalPetty [employer] Other Urinalysis - DIPSTICKBaydin [employer] Other Urine Cultureon 63-72-3491Yvyqb Alcgmha26,000North [employer] Other Urine Culture<16SusceptibleNorth i[employer] Other Urine Culture<8/4SusceptibleNorth [employer] Other Urine Culture<8SusceptibleNortProjjix Other Urine Culture<4SusceptibleNorth i[employer] Other Urine Culture<2SusceptibleNorth i[employer] Other Urine Culture<1SusceptibleNorth [employer] Other Urine Culture<0.25SusceptibleNorth [employer] Other Urine Culture<0.5SusceptibleNortProjjix Other Urine Hgftwnq5VebcaddznvhWanlxProjjix Other Urine Culture<0.5/9.5SusceptibleNorth [employer] Other Consenton 76-00-1252Kabzyeq [id number]#1.00CD:[address] [place], [place] [address]Registrationon 10-36-3606Evkwbbhmoqeg [id number]#1.00CD:[address] [place], [place] [address]Quantiferon-TB Plus (Client Incubated)on 92-20-9360Jtvgx interferon background IA Qn (Bld)0.04 International_Unit/mLInvalid Interpretation Code [facility] HospitalComment on above:Performed By: #### [id number], [id number], [id number], [id number] #### [facility] [address] [place] [address]. tuberculosis stim IFN-g by CD4+ CD8+ T-cells corrected for background Qn (Bld)0.01 International_Unit/mLInvalid Interpretation [facility] HospitalComment on above:Performed By: #### [id number], [id number], [id number], [id number] #### [facility] [address], [place] [address]Y. tuberculosis stim IFN-g by CD4+ T-cells corrected for background Qn (Bld)0.01 International_Unit/mLInvalid Interpretation [facility] HospitalComment on above:Performed By: #### [id number], [id number], [id number], [id number] #### [facility] [address], [place] [address]T. tuberculosis stim IFN-g Ql (Bld) [Interp]NegativeInvalid Interpretation CodeNegativeGerman HospitalComment on above:Result Comment: The specimen received for QuantiFERON testing was incubated by the ordering institution. Specific procedures outlined in our Directory of Services and in the package insert for the QuantiFERON Gold (In Tube) test must be followed to enable for proper stimulation of cells for the production of interferon gamma. Chemiluminescence immunoassay methodology Performed at: [address] [id number] PhD Chidi Del Rosarioformed By: #### [id number], [id number], [id number], [id number] #### [facility] [address] [place] [address]Yonypni stimulated gamma interferon Qn (Bld)>10.00Invalid Interpretation [facility] HospitalComment on above:Performed By: #### [id number], [id number], [id number], [id number] #### [facility] [address], [place] [address]Igzocue comment (Unsp spec) [Interp]CommentInvalid Interpretation [facility] HospitalComment on above:Result Comment: The QuantiFERON-TB Gold Plus result is determined by subtracting the Nil value from either TB antigen (Ag) tube. The mitogen tube serves as a control for the test.Performed By: #### [id number], [id number], [id number], [id number] #### [facility] [address], [place] [address]Wgq Bs Abon 89-99-3488IIE surface Ab Ql (S)ReactiveInvalid Interpretation CodeGerman HospitalComment on above:Result Comment: Non Reactive: Inconsistent with immunity, less than 10 mIU/mL Reactive: Consistent with immunity, greater than 9.9 mIU/mL Performed at: [address] [id number] PhD Chidi HusseinPerformed By: #### [id number], [id number], [id number], [id number] #### [facility] [address], [place] [address]Sfumuvi/Mumps/Rubella Immunityon 22-86-3545RaQ IgG IA Qn (S) {index_val}Invalid Interpretation CodeImmune >16.4FMercy Health – The Jewish Hospital Comment on above:Result Comment: Negative <13.5 Equivocal 13.5 - 16.4 Positive >16.4 Presence of antibodies to Rubeola is presumptive evidence of immunity except when acute infection is suspected.Performed By: #### [id number], [id number], [id number], [id number] #### [facility] [address], [place] [address]SoC IgG IA Qn (S)243.0 A unit/mLInvalid Interpretation Code Immune >10.9German HospitalComment on above:Result Comment: Negative <9.0 Equivocal 9.0 - 10.9 Positive >10.9 A positive result generally indicates past exposure to Mumps virus or previous vaccination. Performed at: [address] [id number] PhD Chidi Del Rosarioformed By: #### [id number], [id number], [id number], [id number] #### [facility] [address] [place] [address]Ykaothr virus IgG Qn (S)16.20 [IU]/mLInvalid Interpretation CodeImmune >0.99German HospitalComment on above:Result Comment: Non- immune <0.90 Equivocal 0.90 - 0.99 Immune >0.99Performed By: #### [id number], [id number], [id number], [id number] #### [facility] [address] [place], [place] [address]Oqpgj IgGon 73-50-6088NLI IgG IA Qn (S)863Invalid Interpretation CodeImmune >165German HospitalComment on above:Result Comment: Negative <135 Equivocal 135 - 165 Positive >165 A positive result generally indicates exposure to the pathogen or administration of specific immunoglobulins, but it is not indication of active infection or stage of disease. Performed at: [facility] [id number] PhD Chidi HusseinPerformed By: #### [id number], [id number], [id number], [id number] #### [facility] [address] [place] [address]Vepsyrodp Orderon 25-80-5305Jvuvpopnd Order [id number]#1.00CD:127NormalGerman HospitalCULTURE URINEon 29-28-1583IHWMMCP URINECulture Observations: MODERATE GROWTH OF MIXED GENITAL BETZY. NO POTENTIAL PATHOGENS SEEN.NormalSelect Medical Specialty Hospital - Akron HospitalComment on above:Performed By: #### URCX #### [facility] [address] [place] [address] Dr. Lisa Kirkpatrick URINE PROFILEon 96-33-4378Qqiuljvuu Ql (U)NegativeNormal NEGATIVEMount St. Mary HospitalComment on above:Performed By: #### ZEN PAGE UMICRO #### [facility] [address] [place] [address] Dr. Gonzalez ChangClarity (U)CLEARNormalCLEARMount St. Mary HospitalComment on above: Performed By: #### ERUR, PREGU, UMICRO #### [facility] [address] [address] [address] Lisa Beck (U)YELLOWNormalYELLOWMount St. Mary HospitalComment on above: Performed By: #### ERUR, PREGU, UMICRO #### [facility] [address] [address] [address] Lisa Mendosa micrscopic examination will be performed if indicated. NormalThe [place] HospitalComment on above:Performed By: #### ERUR, PREGU, UMICRO #### [facility] [address] [address] [address] Lisa ChirinosGlucose Ql (U)NegativeNormalNEGATIVEMount St. Mary HospitalComment on above:Performed By: #### ERUR, PREGU, UMICRO #### [facility] [address] [address] [address] Lisa ChirinosHemoglobin Ql (U)NegativeNormalNEGATIVEThe [facility] Comment on above:Performed By: #### ERUR, PREGU, UMICRO #### [facility] [address] [address] [address] Lisa Jacobsen Ql (U)NegativeNormalNEGATIVEMount St. Mary HospitalComment on above:Performed By: #### ERUR, PREGU, UMICRO #### [facility] [address] [address] [address] Lisa ChirinosLEUKOCYTESSMALLAbnormalNEGATIVEMount St. Mary HospitalComment on above:Performed By: #### ERUR, PREGU, UMICRO #### [facility] [address] [address] [address] Lisa ChirinosNitrite Ql (U)NegativeNormalNEGATIVEMount St. Mary HospitalComment on above:Performed By: #### ERUR, PREGU, UMICRO #### [facility] [address] [address] [address] Lisa ChirinospH (U)8.0 [pH]Normal5-9The [facility] GlenbeighComment on above: Performed By: #### ERUR, PREGU, UMICRO #### [facility] [address] [address] [address] Lisa ChirinosSPEC GRAVITY1.195Cwsiyx4.005-<=1.025The [facility] GlenbeighComment on above:Performed By: #### ERUR, PREGU, UMICRO #### [facility] [address] [address] [address] Lisa ChirinosUA PROTEINNegativeNormalNEGATIVE/ TRACEThe [facility] Comment on above:Performed By: #### ERUR, PREGU, UMICRO #### [facility] [address] [address] [address] Lisa Rubalcava MICRO INDINDICATEDBethesda North HospitalComment on above: Performed By: #### ERUR, PREGU, UMICRO #### [facility] [address] [place] [address] Dr. Lisa Treviñobilinogen Qn (U)0.2 {Jyothi'U}/dLNormal0.2 - 1.0The [facility] GlenbeighComment on above:Performed By: #### ERUR, PREGU, UMICRO #### [facility] [address] [address] [address] Lisa ClineGNANCY URon 82-28-1404ZPQGUHGXM, QUALNegativeNormalNEGATIVEThe [facility] GlenbeighComment on above:Performed By: #### ERUR, PREGU, UMICRO #### [facility] [address] [address] [address] Lisa Mooney MICROSCOPIC ONLYon 51-88-7081PZHAHLSLCQQLSDxsfgyqcKXXC SEEN The [facility] GlenbeighComment on above:Performed By: #### ERUR, PREGU, UMICRO #### [facility] [address] [place] [address] Dr. Lisa Corbett identified Cx Nom (U)INDICATEDNoAkron Children's HospitalComment on above:Performed By: #### ERUR, PREGU, UMICRO #### [facility] [address] [place] [address] Dr. Lisa ChirinosCASTCOURTNEY SEENNormalNONE SEENThe [facility] GlenbeighComment on above:Performed By: #### ERUR, PREGU, UMICRO #### [facility] [address] [address] [address] Lisa ChirinosCrystals LM Nom (Urine sed)NONE SEENNormalNONE SEENThe [facility] GlenbeighComment on above:Performed By: #### ERUR, PREGU, UMICRO #### [facility] [address] [address] [address] Lisa Valenzuelathelial cells LM Ql (Urine sed)FEWAbnormalNONE SEEN /RAREThe [facility]ighCombeaumont hospital on above:Performed By: #### ERUR, PREGU, UMICRO #### [facility] [address] [place] [address] Dr. Lisa AlexUSCOURTNEY SEENNormalNONE SEENThe [facility]ighCombeaumont hospital on above:Performed By: #### ERUR, PREGU, UMICRO #### [facility] [address] [address] [address] Lisa BurkettXvzctZOC1-8Ptxzyh1-5Ydi [facility]ighComment on above:Performed By: #### ERUR, PREGU, UMICRO #### [facility] [address] [place] [address] Dr. Lisa ChirinosTmfiqHZC25-63AnrnqeujAMAW SEENThe [facility]ighCombeaumont hospital on above: Performed By: #### ERUR, PREGU, UMICRO #### [facility] [address] [place] [address] Dr. Lisa ChirinosChlamydia/GC/Trich NAAon 19-22-8245Yowsdkpwz/GC/Trich NAAPositive Critically abnormalNegativeVoxli Other Chlamydia/GC/Trich NAANegativeNegativeVoxli Other Urinalysis - DIPSTICKon 81-02-6629Yqsypgrbuj (U)[facility] [employer] Other Bilirubin Ql (U)NegativeNoranken jordan pediatric specialty hospital [employer] Other Color (U)dark yellowNoranken jordan pediatric specialty hospital [employer] Other Glucose Ql (U)NegativePetty i[employer] Other Hemoglobin Ql (U)traceNoranken jordan pediatric specialty hospital [employer] Other Ketones Ql (U)NegativePetty [employer] Other Leukocyte esterase Test strip Ql (U)moderateNoranken jordan pediatric specialty hospital [employer] Other Nitrite Ql (U)NegativePetty [employer] Other pH (U)6.5 [pH]Petty [employer] Other Protein Ql (U)[facility] [employer] Other Specific gravity (U) [Rel density]1.020Norank[facility] [employer] Other Urobilinogen (U) [Mass/Vol]0.2 mg/dLPetty i[employer] Other Urinalysis - DIPSTICKPetty i[employer] Other Urine Cultureon 07-39-2270Icgvpbdv identified Cx Nom (U)[facility] [employer] Other 086-7035Jzqrw-89 PCR (CVDTBH)on 44-10-7808QRXJ-CoV-2 (COVID- 19) RNA ANSON+probe Ql (Unsp spec)Not detectedNormalNOT DETECTEDThe Marion Hospitalment on above:Result Comment: This test is not yet approved or cleared by the [place] FDA. When there are no FDA-approved or cleared tests available, and other criteria are met, FDA can make tests available under an emergency access mechanism called an Emergency Use Authorization (EUA). The EUA for this test is supported by the [place] of Health and Human Service's (HHS's) declaration [...] of clinical signs and symptoms consistent with SARS-CoV-2.Performed By: #### CVDTB #### [facility] [address] [address] [address] Lisa Chirinos Vital Signs Date TimeVital SignValuePerforming CoznhspqhOppvnajc75-34-1684 11:16-0400Body mass index (BMI) [Ratio]36.85 kg/w9DhaqhBomgar Work Phone: [phone] HospitalOtzchgrzfq65-93-2094 11:16-0400Body ekqiey29.35 kgCorey [employer] Work Phone: [phone] [place], [place] [address]Pyxsvsdriy76-62-2186 11:16-0400Diastolic blood mm[Hg]GarfieldBomgar Work Phone: [phone] HospitalHprrtpdjlf85-29-8402 11:16-0400Systolic blood mm[Hg]GarfieldBomgar Work Phone: [phone] HospitalKnbbrvdmxq68-83-8522 11:16-0400Body mass index (BMI) [Ratio]36.58 kg/m2Kimberley HAINES Work Phone: [phone] HospitalOuaflvumdu42-13-0204 11:16-0400Body uhscpo45.67 kgKimberley HAIENS Work Phone: [phone] access hospitalResearch Belton HospitalOytturvabo53-79-2113 11:16-0400Diastolic blood mm[Hg]Kimberley HAINES Work Phone: [phone] access hospitalResearch Belton HospitalXxflmxhzgj93-97-1767 11:16-0400Systolic blood rigebmkh862 mm[Hg]Kimberley HAINES Work Phone: [phone] [place], [place] [address]Pfhvcikusc53-35-7559 11:07-0400Body mass index (BMI) [Ratio]36.34 kg/d5Sprde Cristi DO Work Phone: [facility] HospitalRridalfejk71-56-0865 11:07-0400Body ihexwz07.04 kgCorey Cristi DO Work Phone: [facility] HospitalPgmdzlzdqf67-66-7902 11:07-0400Diastolic blood ckglrmaf48 mm[Hg]Garfield Cristi DO Work Phone: [facility] HospitalOerpnsircj08-20-3355 11:07-0400Systolic blood dulnrpar089 mm[Hg]Garfield Cristi DO Work Phone: [phone] [place], [place] [address]Dajgqvecxs71-61-2983 10:35-0400Body mass index (BMI) [Ratio]36.31 kg/m2TyohmNY[facility]07-25-2025 10:35-0400Body weight 92.99 kgNY[facility]07-25-2025 10:35-0400Diastolic blood edcoomvw90 mm[Hg][facility]07-25-2025 10:35-0400Systolic blood yhvvslkg347 mm[Hg][facility]04-24-2025 10:02-0400Body qvlgde869.02 Sea Vitale APRN Work Phone: [facility]04-24-2025 10:02-0400 Body mass index (BMI) [Ratio]33.6 kg/l1FoviuTeresa Vitale APRN Work Phone: [facility]04-24-2025 10:02-0400 Body tafzdjtpvum63.3 [degF]Teresa Vitale APRN Work Phone: [facility]04-24-2025 10:02-0400 Body hubdvl82.18 kgTeresa Vitale APRN Work Phone: [facility]04-24-2025 10:02-0400 Diastolic blood nylzwzfl31 mm[Hg]Teresa Vitale APRN Work Phone: [facility]04-24-2025 10:02-0400 Heart rate84 /minTeresa Vitale APRN Work Phone: [facility]04-24-2025 10:02-0400 SaO2% (BldA) [Mass fraction]97 %Teresa Vitale APRN Work Phone: [facility]04-24-2025 10:02-0400 Systolic blood nuitfngc848 mm[Hg]Teresa Vitale APRN Work Phone: [facility]02-26-2025 13:04-0500 Body mass index (BMI) [Ratio]36.46 kg/u3Ggsrh Cristi DO Work Phone: [facility] HospitalUuwivbmtcv91-41-4766 13:04-0500Body scwuxc89.35 kgCorey Cristi DO Work Phone: [facility] HospitalJpgiunezvi96-75-6159 13:04-0500Diastolic blood jnporoan19 mm[Hg]Garfield Cristi DO Work Phone: [facility] HospitalUpkatubltb25-26-6285 13:04-0500Systolic blood clfkhzat546 mm[Hg]Garfield Cristi DO Work Phone: [facility] HospitalXbfysxfmls04-25-9080 08:17-0400Body izrkun129 cm Kendal Rincon CHEMICAL RADIATION TECHNICIAN Work Phone: [facility] HospitalJbyjeucnax84-17-7204 08:17-0400Body mass index (BMI) [Ratio]34.37 kg/k9Skyrpssenloretta Rincon CHEMICAL RADIATION TECHNICIAN Work Phone: [facility] HospitalXbfyxdcgtw44-75-9055 08:17-0400Body boobpb83 kg Kendal Rincon CHEMICAL RADIATION TECHNICIAN Work Phone: [facility] HospitalOgbngiwlmc55-20-5076 08:17-0400Diastolic blood qbgzhpsi24 mm[Hg]Kendal Rincon CHEMICAL RADIATION TECHNICIAN Work Phone: [facility] HospitalFaxxgnngat28-48-6124 08:17-0400Systolic blood bxgadvpb339 mm[Hg]Kendal Rincon CHEMICAL RADIATION TECHNICIAN Work Phone: [facility] HospitalOjmcspljta05-45-9754 10:16-0400Body tswjha403 cm Peter Romero MD Work Phone: [facility] HospitalOyplrajaxl00-21-9965 10:16-0400Body mass index (BMI) [Ratio]33.66 kg/w4JiimyPeter Romero MD Work Phone: [facility] HospitalHnwtcuanlh12-30-8186 10:16-0400Body pywreq93.18 kgPeter Romero MD Work Phone: [facility] HospitalXmujeoarot50-57-2695 10:16-0400Heart rate70 /min Peter Romero MD Work Phone: [facility] HospitalXjucheftzs04-15-9280 10:16-0400Respiratory rate16 /minPeter Romero MD Work Phone: [facility] HospitalUpkienyrqf36-16-6602 13:06-0400Body iodphh44.36 kgLisset Matos MD Work Phone: [facility] HospitalHxukcomoeq04-13-2235 13:06-0400Diastolic blood mm[Hg]Lisset Matos MD Work Phone: [facility] HospitalTfehwfgtza92-41-8196 13:06-0400Systolic blood kvshexsq785 mm[Hg]Lisset Matos MD Work Phone: [facility] HospitalDirufqggyr30-68-8694 12:05-0400Body wywuul447.02 cmThomas Astrid Other [employer] Other 10-22-2023 12:05-0400Body mass index (BMI) [Ratio] 33.65 kg/n7Rkslys Astrid Other [employer] Other 10-22-2023 12:05-0400Body vpvfnzqculx80.5 [degF]Jose Miguel Astrid Other [employer] Other 10-22-2023 12:05-0400Body wzolzy62.18 kgThomas Astrid Other [employer] Other 10-22-2023 12:05-0400Diastolic blood ylxdnxuu62 mm[Hg] Jose Miguel Resendiz Other [employer] Other 10-22-2023 12:05-0400Respiratory rate18 /minThomas Astrid Other [employer] Other 10-22-2023 12:05-3045UpG6% (BldA) [Mass fraction]97 % Jose Miguel Resendiz Other [employer] Other 10-22-2023 12:05-0400Systolic blood iysnulas653 mm[Hg] Jose Miguel Resendiz Other [employer] Other 06-23-2022 12:55-0400Body yrfefl006.02 cmCcarolina Ngozi Other [employer] Other 06-23-2022 12:55-0400Body mass index (BMI) [Ratio] 31.88 kg/c3CnrzcbPhil Melvin Other [employer] Other 06-23-2022 12:55-0400Body zuluhtbspqh35.9 [degF]Phil Melvin Other [employer] Other 06-23-2022 12:55-0400Body vvrxee88.65 kgPhil Melvin Other [employer] Other 06-23-2022 12:55-0400Respiratory rate18 /minPhil Melvin Other [employer] Other 06-23-2022 12:55-5117RpE2% (BldA) [Mass fraction]98 % Phil Melvin Other [facility] [employer] Other Encounters Encounter DateEncounter TypeCare ProviderFacilityStart: 01-26-2025 End: 75-22-6819noxwxgudvoEZGMV FAZIONot AvailableStart: 01-26-2025 End: 64-96-1868Rfthog outpatient visit 15 minutesCorey Cristi DO Work Phone: [facility] [place] OBGYNComment on above:Second trimester ([facility]); 20 weeks gestation of ([facility])Start: 01-26-2025 End: 31-73-8975mqgjcftngkZSM RAMEYNot AvailableStart: 12-29-2024 End: 49-79-7754Nuerrj flowsheetKimberley HAINES Work Phone: [facility] [place] OBGYNStart: 12-29-2024 End: 17-67-5022Lbqysh flowsheetKimberley HAINES Work Phone: [facility]oms [place] OBGYNStart: 12-29-2024 End: 15-66-3373Gjoyerskt Result EncounterKimberley HAINES Work Phone: noms External Department UnsolicitedStart: 12-29-2024 End: 80-13-8553Kgrmbgqc Result EncounterKimberley HAINES Work Phone: noMS External Department UnsolicitedStart: 12-29-2024 End: 98-96-7274Ucnbjuk encounter procedureKimberley HAINES Work Phone: noMS HealthcareStart: 12-29-2024 End: 39-74-5544Kiyzgtrg preventive med est patient 18-39 yrsKimberley HAINES Work Phone: NOPR [place] OBGYNComment on above:Tinea (Primary Dx); Second trimester ([facility]); 16 weeks gestation of ([facility]); Screening, , for anatomic survey ([facility]); STD exposure; Well woman exam with routine gynecological examStart: 12-29-2024 End: 22-30-4253ntpswedhqcOBI RAMEYNot AvailableStart: 12-01-2024 End: 04-60-9120Vrhpaa flowsheetCorey Cristi DO Work Phone: NO [facility] OBGYNStart: 12-01-2024 End: 26-83-7513Yhfzgv flowsheetCorey Cristi DO Work Phone: NO [place] OBGYNStart: 12-01-2024 End: 40-59-1215Meenbn outpatient visit 15 minutesCorey Cristi DO Work Phone: NO [place] OBGYNComment on above:Second trimester ([facility]); 12 weeks gestation of ([facility])Start: 12-01-2024 End: 55-96-1945sauzhpqkksDHCQR FAZIONot AvailableStart: 11-04-2024 End: 02-62-8640Ywigkbnhv Result EncounterCorey Cristi DO Work Phone: noms External Department UnsolicitedStart: 11-04-2024 End: 59-23-9424Wzacxyohq Result EncounterCorey Cristi DO Work Phone: noms External Department UnsolicitedStart: 10-31-2024 End: 86-06-7184Pukgyf outpatient visit 5 minutesFazio Nurse Noms Bcp ObNOMS BCP OBComment on above:GA: 0i4tOxcda: 10-31-2024 End: 89-07-2689mbdmqywrhdJQDDQ FAZIONot AvailableStart: 10-02-2024 End: 52-88-4737Uvfzuqlgw Result EncounterCorey Cristi DO Work Phone: noms External Department UnsolicitedStart: 10-02-2024 End: 80-17-2277Gosrpqnxh Result EncounterCorey Cristi DO Work Phone: noms External Department UnsolicitedStart: 09-30-2024 End: 22-74-9126Emntaekxd Result EncounterCorey Cristi DO Work Phone: noms External Department UnsolicitedStart: 09-30-2024 End: 62-50-9865Fiwowdavq Result EncounterCorey Cristi DO Work Phone: noms External Department UnsolicitedStart: 09-22-2024 End: 20-14-1959Whfwdxzwj Result EncounterCorey Cristi DO Work Phone: noms External Department UnsolicitedStart: 09-22-2024 End: 46-68-4972Luxrymieg Result EncounterCorey Cristi DO Work Phone: noms External Department UnsolicitedStart: 07-31-2024 End: 23-25-9345hcihgygvcxDmtef L [facility] Work Phone: Start: 07-31-2024 End: 95-98-5745Tblhjumk ReferredTeresa Vitale APRN Work Phone: [facility] [address] Start: 07-31-2024 End: 61-34-9889Jkkhzjk encounter procedureTeresa Vitale APRN Work Phone: [facility] [place] Work Phone: Start: 06-24-2024 End: 99-54-1919jetyfrzjtsNWSUA FAZIONot AvailableStart: 06-04-2024 End: 68-24-8583Xyqfom flowsheetCorey Cristi DO Work Phone: NOSI BCP OBStart: 06-04-2024 End: 57-75-7062Cdpgni flowsheetCorey Cristi DO Work Phone: NOMS BCP OBStart: 06-04-2024 End: 77-19-3433Pevkna outpatient visit 15 minutesCorey Cristi DO Work Phone: NOLX BCP OBComment on above:Abnormal uterine bleeding (AUB); PCOS (polycystic ovarian syndrome)Start: 06-04-2024 End: 04-28-4455cacaszjmfvNMCRQ Solanget AvailableStart: 02-07-2024 End: 88-84-8162Wszmlw flowsAleena Clara Rincon CHEMICAL RADIATION TECHNICIAN Work Phone: noms NB OBStart: 02-07-2024 End: 05-04-2325Ijaucg flowsArikcornel Clara RobbinsRincon CHEMICAL RADIATION TECHNICIAN Work Phone: noms NB OBStart: 02-07-2024 End: 97-31-8579Ldccnu outpatient visit 15 minutesStepmarc Clara Lucius CHEMICAL RADIATION TECHNICIAN Work Phone: noms NB OBComment on above:Irregular menses (Primary Dx); Female infertilityStart: 02-07-2024 End: 80-20-3393tmbgjothpiQHBTYFCUS F HOFFMANNot AvailableStart: 01-30-2024 End: 53-83-8177Izictzifx encounterPeter Romero MD Work Phone: noms ENDOCRINOLOGYStart: 01-14-2024 End: 01-43-5877Dternk flowsMoi Romero MD Work Phone: noms ENDOCRINOLOGYStart: 01-14-2024 End: 87-64-5151Ktspef Carmel Romero MD Work Phone: noms ENDOCRINOLOGYStart: 01-14-2024 End: 65-88-4883Zkkleq outpatient new 30 minutesPeter Romero MD Work Phone: noms ENDOCRINOLOGYComment on above:Low serum cortisol level (Primary Dx); Encounter for dietary consultation; Class 1 obesity due to excess calories without serious comorbidity with body mass index (BMI) of 33.0 to 33.9 in adultStart: 12-06-2023 End: 83-39-7694Qmssvjc encounter Cary Matos MD Work Phone: noms SWS OBComment on above:Low serum cortisol level (Primary Dx); Acute vaginitisStart: 11-30-2023 End: 36-11-8753Jmrbvxzyc encounterLisset Matos MD Work Phone: noms [facility] OBStart: 11-26-2023 End: 37-12-7300Likbxx OnlyLisset Matos MD Work Phone: noms External Department UnsolicitedStart: 11-26-2023 End: 72-45-0638Lsyneo outpatient visit 15 minutesLisset Matos MD Work Phone: noms [facility] OBComment on above:Acute vaginitis (Primary Dx); Encounter for gynecological examination without abnormal finding; control counseling; Irregular menses; Hormone imbalance; Thyroid disorder screen; Imbalance of male hormones with irregular menstruation and ovulation; Screen for STD (sexually transmitted disease)Start: 11-26-2023 End: 16-06-5617Hknxzmk encounter statusLisset Matos MD Work Phone: noVA HealthcareStart: 01-31-2023 End: 56-17-0812jtanzgjeqqSvzrky Astrid Other [employer] Other Start: 81-12-3374Ywqxphsvz encounterThalexis ForzaneFPG Urgent [facility] River RoadStart: 90-22-7215Lccfue outpatient visit 15 minutesThomas ForzaneFPG [facility] Healthtart: 01-28-2023 End: 73-31-6451ooshnevqxtFL-C Thomas Astrid Work Phone: [facility] Work Phone: Start: 01-28-2023 End: 76-75-5899Jsbbaefe ReferredSAÚL Gillespie Astrid Work Phone: [facility] 250 Start: 10-04-2021 End: 69-00-1108vxlfxdxggmCekbmj Taylor Other [employer] Other Start: 26-77-8423Keyvicepl encounterPhil Jerez [facility] [address] River RoadStart: 10-02-2021 End: 49-79-4702uxxjncveuuPA JANIE Jaramillocility:L9Zdxrf: 09-29-2021 End: 53-78-4102aoohocoitiQmlmek Taylor Other Nort [employer] Other Start: 83-68-1735Hblzsp outpatient visit 15 minutes Stacielucio Meri [facility] [address] RoadStart: 04-14-2021 End: 45-94-5752haujcyrrowLNNIXE CRAMERFacility:C9Bdxhi: 72-09-2552gkfgjtbexj JOSEF CRAMERFacility:H1 Procedures DateProcedureProcedure DetailPerforming ClinicianStart: 70-70-4650Cihxe dip stick/tablet rgnt non-auto w/o micrscpCorey Cristi DO Work Phone: Start: 96-58-2242QNTIWKXQC VAGINITIS (HTRX)Kimberley HAINES Work Phone: Start: 12-24-2195Wievp dip stick/tablet rgnt non-auto w/o micrscpAmy Nikos HAINES Work Phone: Start: 32-09-3339CRR,APTIMA HPV,AGE GDLNAmy Nikos HAINES Work Phone: Start: 32-10-7563Vjhxh dip stick/tablet rgnt non-auto w/o micrscpCorey Cristi DO Work Phone: Start: 83-82-3892VQS TESTCorey Cristi DO Work Phone: Start: 05-94-3574Tplkg dip stick/tablet rgnt non-auto w/o micrscpCorey Cristi DO Work Phone: Start: 76-65-6190RBK PREG QUANT HCGCorey Cristi DO Work Phone: Start: 55-69-0803DJZ PREG QUANT HCGCorey Cristi DO Work Phone: Start: 79-97-8677SZX PROGESTERONECorey Cristi DO Work Phone: Start: 30-97-3434RFEBXDLZGBWYQ INFECTION (HTRX)Lisset Matos MD Work Phone: start: 75-67-5068Pzzyfdne totalLisset Matos MD Work Phone: start: 68-92-0448Uuuwujhjktfc/tazobactamThomas Otterbein Other Plan of Treatment DateCare ActivityDetailAuthorStart: 02-23-2025 End: 26-49-0982Kuqagzd encounter gocaqcnat96/17/2025 9:30 AM EST Routine [facility] [address] [place], [id number] Kimberley Stevenson PA [address] [place], [place] [id number] NOMS Stephen OBGYNStart: 01-26-2025 End: 47-58-2000Hrbfawo encounter nnzemnosq82/20/2025 10:00 AM EDT Routine [facility] [address] [place] [id number] Garfield Colin DO [address] [place] [address] NOMS Stephen OBGYNStart: 01-26-2025 End: 66-22-3408Arfkbgfvttit / ancillary services unmhhqggag21/20/2025 9:00 AM EDT Ancillary Procedure [facility] [address] [place] [id number] NOMS Stephen OBGYNStart: 12-29-2024 End: 87-65-6993Agrfd fetoprotein, maternalAlpha fetoprotein, maternal Lab Routine 16 weeks gestation of ([facility]) Expected: 12/29/2024 (Approximate), Expires: 02/28/2025NOMS HealthcareComment on above:Expected: 12/29/2024 (Approximate), Expires: 02/28/2025Start: 12-29-2024 End: 72-07-3528MQ for pregnancyUS OB 14+ weeks anatomy scan Imaging Routine Screening, , for anatomic survey ([facility]) Expected: 12/29/2024, Expires: 03/30/2025NOVA HealthcareComment on above:Expected: 12/29/2024, Expires: 03/30/2025Start: 12-29-2024 End: 52-41-0019Fwvhoar encounter procedureNOMS [place] OBGYNComment on above: ArrivedStart: 13-13-8926Vqtelvyfe vaccinationNOVA HealthcareStart: 12-01-2024 End: 37-94-0738Rgjdbmh encounter procedureNOMS BCP OBComment on above:Arrived Start: 10-31-2024 End: 99-06-5994DXI/RhABO/Rh Lab Routine Missed menses , unspecified gestational age ([facility]) Expected: 10/31/2024 (Approximate), Expires: 10/31/2025N[facility] HealthcareComment on above:Expected: 10/31/2024 (Approximate), Expires: 10/31/2025Start: 10-31-2024 End: 31-84-7320Atxjh type and Indirect antibody screen panel - BloodType and screen Lab Routine Missed menses , unspecified gestational age ([facility]) Expected: 10/31/2024 (Approximate), Expires: 10/31/2025[facility] Work Phone: comment on above:Expected: 10/31/2024 (Approximate), Expires: 10/31/2025Start: 10-31-2024 End: 27-04-2769Rwszd of abuse panel - Urine by Screen methodRapid drug screen, urine Lab Routine , unspecified gestational age ([facility]) Encounter for supervision of normal first in first trimester ([facility]) Expected: 10/31/2024 (Approximate), Expires: 10/31/2025[facility] HealthcareComment on above: Expected: 10/31/2024 (Approximate), Expires: 10/31/2025Start: 09-03-2024 End: 43-31-2977Nohlbua encounter cnvathvvt87/28/2025 2:50 PM EDT Office Visit [facility] [address] [place] [address] Garfield Colin, DO [address] [place] [address] NOMS BCP OBStart: 57-16-0945Ienfobpt identified in Urine by CultureUrine CultureSelect [facility] Southtart: 07-31-2024 Urine cultureSelect [facility] Southtart: 06-24-2024 End: 06-48-8285Edbofdlbymwp / ancillary services pkfifzyvgr80/18/2025 9:30 AM EDT Ancillary Procedure [facility] [address] [place] [phone] BCP OBStart: 06-04-2024 End: 40-79-7501Hipzzzgdowohq hormone (AMH)Antimullerian hormone (AMH) Lab Routine Abnormal uterine bleeding (AUB) PCOS (polycystic ovarian syndrome) Expected: 06/04/2024 (Approximate), Expires: 06/04/2025NOMS HealthcareComment on above:Expected: 06/04/2024 (Approximate), Expires: 06/04/2025Start: 06-04-2024 End: 75-02-3267IN PelvisUS Pelvis w/ TV Imaging Routine Abnormal uterine bleeding (AUB) Expected: 06/04/2024, Expires: 06/04/2025NOMS HealthcareComment on above:Expected: 06/04/2024, Expires: 06/04/2025Start: 06-04-2024 End: 12-53-5283Apkessf encounter hpnleaemc48/26/2025 1:10 PM EST Office Visit [facility] [address] [phone] Garfield Colin, DO [address] [place] [address] ArrivedNOMS BCP OBComment on above:ArrivedStart: 02-07-2024 End: 98-71-6330Ozkzdcv encounter procedureNOMS OBComment on above:Arrived Start: 01-14-2024 End: 08-31-7844YKXOWISB Lab Routine Low serum cortisol level Expected: 01/14/2024 (Approximate), Expires: 01/13/2025N[facility] HealthcareComment on above: Expected: 01/14/2024 (Approximate), Expires: 01/13/2025Start: 01-14-2024 End: 46-41-5898DnbdovlaOnpxzmle Lab Routine Low serum cortisol level Expected: 01/14/2024 (Approximate), Expires: 01/13/2025[facility] Work Phone: Comment on above:Expected: 01/14/2024 (Approximate), Expires: 01/13/2025Start: 01-14-2024 End: 29-69-8253Kqmoppc encounter procedureNOSAINT JOSEPH [facility] ENDOCRINOLOGYComment on above: ArrivedStart: 16-51-0071Dvypgfthf vaccinationInfluenza Vaccine (#1)NOMS HealthcareStart: 12-06-2023 End: 51-38-9053Revuige encounter /29/2024 8:15 AM EDT Office Visit [facility] OB [address] [place] [address] Lisset Matos MD [address] [place] [address] NOMS SWS OBStart: 11-26-2023 End: 49-43-5218WtedfbdwGodpipod Lab Routine Hormone imbalance Expected: 11/26/2023 (Approximate), Expires: 11/25/2024N[facility] HealthcareComment on above: Expected: 11/26/2023 (Approximate), Expires: 11/25/2024Start: 11-26-2023 End: 98-66-7764NCCN-sulfateDHEA-sulfate Lab Routine Hormone imbalance Expected: 11/26/2023 (Approximate), Expires: 11/25/2024N[facility] HealthcareComment on above: Expected: 11/26/2023 (Approximate), Expires: 11/25/2024Start: 11-26-2023 End: 07-99-4756LkklkonkiQjxqfufco Lab Routine Hormone imbalance Expected: 11/26/2023 (Approximate), Expires: 11/25/2024N[facility] HealthcareComment on above: Expected: 11/26/2023 (Approximate), Expires: 11/25/2024Start: 11-26-2023 End: 36-66-0050BmgvpzzGhadciq Lab Routine Hormone imbalance Expected: 11/26/2023 (Approximate), Expires: 11/25/2024N[facility] HealthcareComment on above:Expected: 11/26/2023 (Approximate), Expires: 11/25/2024Start: 11-26-2023 End: 93-66-5930Cjrtqhvq stimulating hormoneFollicle stimulating hormone Lab Routine Hormone imbalance Thyroid disorder screen Expected: 11/26/2023 (Approximate), Expires: 11/25/2024N[facility] HealthcareComment on above:Expected: 11/26/2023 (Approximate), Expires: 11/25/2024Start: 11-26-2023 End: 35-17-9705Wgkkzkk, randomInsulin, random Lab Routine Imbalance of male hormones with irregular menstruation and ovulation Expected: 11/26/2023 (Approximate), Expires: 11/25/2024N[facility] HealthcareComment on above:Expected: 11/26/2023 (Approximate), Expires: 11/25/2024Start: 11-26-2023 End: 83-29-6014Hbrmjrqnmhh hormoneNOVA HealthcareComment on above:Expected: 11/26/2023 (Approximate), Expires: 11/25/2024Ordered: 11/26/2023Start: 11-26-2023 End: 84-06-5856TmmexyqbstueKqlsujtrkyia Lab Routine Hormone imbalance Expected: 11/26/2023 (Approximate), Expires: 11/25/2024N[facility] HealthcareComment on above: Expected: 11/26/2023 (Approximate), Expires: 11/25/2024Start: 11-26-2023 End: 36-15-1493Xyrdtttqmtz [Units/volume] in Serum or PlasmaTSH Lab Routine Hormone imbalance Thyroid disorder screen Expected: 11/26/2023 (Approximate), Expires: 11/25/2024[facility] Work Phone: comment on above:Expected: 11/26/2023 (Approximate), Expires: 11/25/2024Start: 65-27-2870Jouhddfq identified in Urine by Culture [facility] HospitalBacteria identified in Urine by CultureUrine culture Microbiology Routine Missed menses Ordered: 10/31/2024[facility] Healthcare Comment on above:Ordered: 10/31/2024BC W Auto Differential panel - BloodCBC and differential Lab Routine Missed menses , unspecified gestational age ([facility]) Ordered: 10/31/2024[facility] HealthcareComment on above:Ordered: 10/31/2024 CHLAMYDIA TRACHOMATIS (GENITO/STI)CHLAMYDIA TRACHOMATIS (GENITO/STI) Lab Routine STD exposure Ordered: 12/29/2024[facility] HealthcareComment on above:Ordered: 12/29/2024ortisolCortisol Lab Routine Low serum cortisol level Ordered: 12/06/2023[facility] Healthcare Work Phone: comment on above:Ordered: 12/06/2023ytology Cervical or vaginal smear or scraping studyPap Smear Pathology and Cytology Routine Well woman exam with routine gynecological exam Ordered: 12/29/2024[facility] Healthcare Work Phone: comment on above:Ordered: 12/29/2024Hemoglobin A1c/Hemoglobin.total in BloodHemoglobin A1c Lab Routine Imbalance of male hormones with irregular menstruation and ovulation Ordered: 11/26/2023[facility] HealthcareComment on above:Ordered: 11/26/2023Hemoglobin A1c/Hemoglobin.total in BloodHemoglobin A1c Lab Routine Abnormal uterine bleeding (AUB) Ordered: 06/04/2024[facility] HealthcareComment on above:Ordered: 06/04/2024Hemoglobin A1c/Hemoglobin.total in BloodHemoglobin A1c Lab Routine Missed menses , unspecified gestational age ([facility]) Ordered: 10/31/2024[facility] HealthcareComment on above:Ordered: 10/31/2024Hepatitis B virus surface Ag [Presence] in Serum or Plasma by ImmunoassayHepatitis B surface antigen Lab Routine Missed menses , unspecified gestational age ([facility]) Ordered: 10/31/2024[facility] HealthcareComment on above:Ordered: 10/31/2024Hepatitis C virus Ab [Presence] in Serum or Plasma by ImmunoassayHepatitis C antibody Lab Routine Missed menses , unspecified gestational age ([facility]) Ordered: 10/31/2024[facility] HealthcareComment on above:Ordered: 10/31/2024HIV-1/HIV-2 antigen/antibody combination immunoassayHIV-1 and HIV-2 antibodies Lab Routine Missed menses , unspecified gestational age ([facility]) Ordered: 10/31/2024[facility] HealthcareComment on above:Ordered: 10/31/2024Neisseria gonorrhoeae DNA [Presence] in Unspecified specimen by ANSON with probe detectionNeisseria gonorrhea DNA probe, direct Lab Routine STD exposure Ordered: 12/29/2024[facility] HealthcareComment on above:Ordered: 12/29/2024ProgesteroneProgesterone Lab Routine Abnormal uterine bleeding (AUB) PCOS (polycystic ovarian syndrome) Ordered: 06/04/2024[facility] Healthcare Work Phone: comment on above:Ordered: 06/04/2024Reagin Ab [Presence] in Serum by RPRRPR Lab Routine Missed menses , unspecified gestational age ([facility]) Ordered: 10/31/2024[facility] HealthcareComment on above: Ordered: 10/31/2024Rubella antibody, IgGRubella antibody, IgG Lab Routine Missed menses , unspecified gestational age ([facility]) Ordered: 10/31/2024[facility] HealthcareComment on above:Ordered: 10/31/2024SURESWAB(R) ADVANCED VAGINITIS PLUS, TMASURESWAB(R) ADVANCED VAGINITIS PLUS, TMA Pathology and Cytology Routine STD exposure Ordered: 12/29/2024[facility] HealthcareComment on above:Ordered: 12/29/2024Thyrotropin [Units/volume] in Serum or PlasmaTSH Lab Routine Abnormal uterine bleeding (AUB) PCOS (polycystic ovarian syndrome) Ordered: 06/04/2024 [facility] HealthcareComment on above:Ordered: 06/04/2024 Immunizations Immunization DateImmunizationNotesCare HnklfgpaPkcdzrpy28-04-2301Zl not use COVID-19 Pfizer 2 [place] Melvin Other [facility]07-01-2021COVID-Balta Dar[place] (Pfizer)SAÚL Gillespie Otterbein Work Phone: [facility] Payers DatePayer CategoryPayerPolicy [id number] [id number] [id number] [id number] [id number] 2.16.840.1.345242.3.57[id number] 2.840.1.190255.3.57[id number] 2.840.1.528817.3.57[id number] 2.840.1.055668.3.57[id number] 2.16.840.1.911403.3.57[id number] 2.16.840.1.005301.3.57[id number] 2.16.840.1.340469.3.57[id number] 2.16840.1.166506.3.57[id number] 2.16.840.1.993992.3.57[id number] 2.16840.1.979656.3.57[id number] 2.16.840.1.880639.3.579.2.470767-25-5235Kkpg-[id number] [id number] 2.16.840.1.441964.3.579.2.531 Social History DateTypeDetailFacilityStart: 11-26-2023 End: 81-07-4408Tnp Assigned At [facility] [employer] Other Start: 04-22-2021 End: 39-24-1914Mirgjgn smoking status NHISNever smoked tobacco (finding) [facility]art: 75-31-0484Lsw Assigned At [facility]: 65-75-4241Hhgwern use and exposure Smokeless tobacco non-userNOVA HealthcareStart: 11-26-2023 End: 28-63-0608Qfbiebhxx beverage intakeLifetime non-drinker (finding)[facility] HealthcareStart: 11-26-2023 End: 90-03-7904Vdnxujy of Social functionNOMS HealthcareStart: 76-19-1271Nkf assigned at birthNot on fileNOVA HealthcareHow often to you have a drink containing alcohol?NeverNOMS HealthcareStart: 60-40-3085Ihh many standard drinks containing alcohol do you have on a typical day?Patient does not drinkNOVA HealthcareStart: 83-34-3831GpmThgict (finding)[facility] Start: 27-99-7797UualguirgXNDK Healthcare Clinical Notes 09-29-2021 to 01-26-2025 Note Date & KctyRbrvCnbyefux71-75-0064 History of Present illness Narrative* Latanya Oneal LPN - 01/26/2025 10:00 AM EDT Reason for Appointment: Patient ID: Anju Molina [...] 09/02/2024 Irregular menses 09/02/2024 Positive urine test ([facility]) 09/29/2024 Resolved Ambulatory Problems Diagnosis Date Noted [...] nursing note reviewed. Exam conducted with a tourist adviser present. Vitals: Estimated body mass index is 36.85 kg/m as calculated from the following: Height as of 02/07/24: 5' 3 . Weight as of this encounter: 208 lb. BP: 122/80 Patient's last menstrual period was 09/02/2024. Assessment/Plan ICD-10-CM 1. Second trimester ([facility]) Z34.92 2. 20 weeks gestation of ([facility]) Z3A.20 POCT urinalysis dipstick manually resulted Patient presents today for a routine obstetrics appointment. Patient is currently 20w6d with a Estimated Date of Delivery: 06/09/25. Patient had anatomy scan prior to appointment today. Patient to return to clinic in 4 weeks for routine OB care. Documented by Latanya Oneal LPN on behalf of: Garfield Colin DO documented in this encounterResearch Belton HospitalQiinngivoc83-83-2410 History of Present illness Narrative* YANCY Izquierdo - 12/29/2024 11:00 AM EDT Reason for Appointment: Patient ID: Anju Molina [...] 09/02/2024 Irregular menses 09/02/2024 Positive urine test ([facility]) 09/29/2024 Resolved Ambulatory Problems Diagnosis Date Noted [...] nursing note reviewed. Exam conducted with a tourist adviser present. Vitals: Estimated body mass index is 36.58 kg/m as calculated from the following: Height as of 02/07/24: 5' 3 . Weight as of this encounter: 206 lb 8 oz. BP: 108/70 Patient's last menstrual period was 09/02/2024. ASSESSMENT & PLAN ICD-10-CM 1. Second trimester ([facility]) Z34.92 2. 16 weeks gestation of ([facility]) Z3A.16 POCT urinalysis dipstick manually resulted Alpha fetoprotein, maternal Alpha fetoprotein, maternal 3. Screening, , for anatomic survey ([facility]) Z36.89 US OB 14+ weeks anatomy scan US OB 14+ weeks anatomy scan 4. STD exposure Z20.2 SURESWAB(R) ADVANCED VAGINITIS PLUS, TMA CHLAMYDIA TRACHOMATIS (GENITO/STI) Neisseria gonorrhea DNA probe, direct 5. Well woman exam with routine gynecological exam Z01.419 Pap Smear Return OB/Annual Exam: Patient presents today for a annual exam/routine obstetrics appointment. Patient is currently 70x4vefcjrfdv. Patient states she is doing well but [...] behalf of: YANCY Izquierdo documented in this encounterResearch [facility] [id number] History of Present illness Narrative* Tiana Renner NP - 12/01/2024 10:50 AM EDT Reason for Appointment: Patient ID: Anju Molina [...] 09/02/2024 Irregular menses 09/02/2024 Positive urine test ([facility]) 09/29/2024 Resolved Ambulatory Problems Diagnosis Date Noted [...] nursing note reviewed. Exam conducted with a tourist adviser present. Vitals: Estimated body mass index is 36.34 kg/m as calculated from the following: Height as of 02/07/24: 5' 3 . Weight as of this encounter: 205 lb 1.9 oz. BP: 116/74 Patient's last menstrual period was 09/02/2024. ASSESSMENT & PLAN ICD-10-CM 1. Second trimester ([facility]) Z34.92 Vit-Fe Fumarate-FA ( Vitamins) 28-0.8 MG tablet POCT urinalysis dipstick manually resulted 2. 12 weeks gestation of ([facility]) Z3A.12 Vit-Fe Fumarate-FA ( Vitamins)28-0.8 MG tablet POCT urinalysis dipstick manually resulted [...] by Tiana Renner NP on behalf of: Garfield Colin DO documented in this encounterResearch Belton [id number] History of Present illness Narrative* Nichol Alves LPN - 10/31/2024 10:30 AM EDT Reason for Appointment: Patient ID: Anju Molina [...] 09/02/2024 Irregular menses 09/02/2024 Positive urine test ([facility]) 09/29/2024 Resolved Ambulatory Problems Diagnosis Date Noted [...] dipstick manually resulted , unspecified gestational age ([facility]) - Type and screen; Future - ABO/Rh; Future - CBC and differential - Hemoglobin A1c - RPR - Rubella antibody, IgG - Hepatitis B surface antigen - Hepatitis C antibody - HIV-1 and HIV-2 antibodies - Rapid drug screen, urine; Future Encounter for supervision of normal first in first [facility] - Rapid drug screen, urine; Future Nurse Note: OB Intake: Patient presents today for first OB visit. Patients history has been reviewed in great detail including any potential risks. Patient signed consent forms and patient desires testing in both trimesters. Patient currently has no complaints and has been advised to drink 6-8 glasses of water a day, eatno raw or undercooked meat, and stay away from [facility]. Patient has also been advised to not change litter boxes and eat 6 small meals a day. Patient has been consulted regarding the do's and don'ts ofpregnancy. Patient was given labs and all questions and concerns were answered. Patient was given [place] to have completed at initial lab draw. Patient does have history of Genital warts and a dvised treatment will be started in later. Follow Up: Patient is to return in 4 weeks for routine OB appointment. Follow Up: Patient is to have labs drawn at directed and return to office for initial OB appointment with provider. Patient may call office as needed with any concerns or questions. Nurse Visit Completed by: Nichol Alves LPN documented in this [facility]04-24-2025 Evaluation note* Diagnosis Onset Date Resolution Status Admit Date Dysuria acuteApril 2024 9:45am [facility] Work Phone: [phone]) 680-917402-26-2025 History of Present illness Narrative* Mariana More [...] nursing note reviewed. Exam conducted with a tourist adviser present. Vitals: Estimated body mass index is [...] by Mariana More LPN on behalf of: Garfield Colin DO documented in this encounterResearch Belton [id number] History of Present illness Narrative* Kendal F CIELO Rincon - 02/07/2024 8:20 AM EDT Name: Anju [...] No follow-ups on file. documented in this [facility]10-23-2024 Telephone encounter Note* Telephone Encounter - Dung Price - 01/30/2024 8:23 AM EDT Pt would like lab read please. Thank you! [facility] Bel[facility] [id number] Miscellaneous Notes* Telephone Encounter - Dung Price - 01/30/2024 8:23 AM EDT Pt would like lab read please. Thank you! documented in this [facility]10-07-2024 History of Present illness Narrative* Peter Romero MD - 01/14/2024 10:00 AM EDT Anju [...] reviewed with the patient documented in this encounterResearch Belton [id number] History of Present illness Narrative* Lisset Matos [...] was interested in further evaluation by an campus recruiting intern. The patient was informed that a referral had been sent for an campus recruiting intern consultation and that additional testing would be [...] inquired about the timeline for seeing an campus recruiting intern and was informed that it could take [...] Plan: a) Referred the patient to an campus recruiting intern for further evaluation of adrenal function. b) The patient may consider repeating the cortisol test with fasting if desired. c) Educated the patient on low cortisol and its implications. 2. Ovulation and hormonal levels - Assessment: Normal ovulation and hormonal levels were observed in the lab work. - Plan: a) No further action needed at this time. 3. Patient's concern about the campus recruiting intern appointment - Plan: a) The patient will call the referral department to inquire about the earliest available appointment. documented in this encounterResearch Belton [id number] History of Present illness Narrative* Lisset Matos [...] informed and [facility] Return for annual and prn documented in this encounterResearch Belton [id number] Evaluation note* Encounter Date Diagnosis Assessment Notes Treatment Notes Treatment Clinical Notes Jan, Dysuria (ICD-10 - R30.0) Jan,cute cystitis with hematuria (ICD-10 - N30.01)Take medication as directed. Urine analysis shows abnormalities today in office. Urine culture will be sent to lab. Will call with results if resistance present to antibiotic. Increase fluid intake. Follow hygiene guidelines such as wiping front to back, avoid using perfumed lotions, bath beads, bubble bath. Prevention tips inlcude urinating after sexual intercourse. Follow up with primary care provider or aerial planting and cultivation manager if no improvement of symptoms. 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 Pt treated prophylactically for BV. Specimen sent to lab and pt will be notified of results. Treatment plan may be adjusted accordingly based on these results.Pt advised to abstain from sexual activity while awaiting results. Pt understood and agreed to treatment plan. Sep,cute cystitis without hematuria (ICD-10 - N30.00)Meds as prescribed. Push fluids. Urine sent for [...] Pt understood and agreed to teatment plan. [employer] Other evaluation noteNo InformationNortPaoli Hospital [employer] Other evaluation noteNo assessment information available [facility] Work Phone: evaluation note* Diagnosis Low serum cortisol level- Primary Encounter for dietary consultation Class 1 obesity due to excess calories without serious comorbidity with body mass index (BMI) of 33.0 to 33.9 in adult documented in this encounter [facility] HealthcareEvaluation [facility]* Diagnosis Low serum cortisol level- Primary Acute vaginitis Unspecified vaginitis and vulvovaginitis documented [facility] encounter [facility]* Diagnosis Irregular menses- Primary Irregular menstrual cycle Female infertility Female infertility of unspecified origin documented in this encounter [facility] HealthcareEvaluation note* Diagnosis Acute vaginitis- Primary Unspecified vaginitis and vulvovaginitis documented in this encounter [facility]* Diagnosis Acute vaginitis- Primary [...] syndrome) Polycystic ovaries documented in this encounter [facility]* Diagnosis Missed menses , unspecified gestational age ([facility]) Encounter for supervision of normal first in first trimester ([facility]) Nausea Nausea alone documented in this encounter [facility]* Diagnosis Second trimester ([facility]) state, incidental 12 weeks gestation of ([facility]) documented in this encounter [facility]* Diagnosis Tinea- Primary Dermatophytosis of unspecified site Second trimester ([facility]) state, incidental 16 weeks gestation of ([facility]) Screening, , for anatomic survey ([facility]) Encounter for anatomic survey STD exposure Well woman exam with routine gynecological exam Routine gynecological examination documented in this encounter [facility]* Diagnosis Second trimester ([facility]) state, incidental 20 weeks gestation of ([facility]) documented in this encounter [facility] HealthcareHistory general Narrative - Reported* Type Description Date Surgical History appendectomy [facility] Other Summary Purpose Family History No Family [...] and content) DATE CREATED AUTHOR 10/03/2021 [facility] DATE CREATED AUTHOR AUTHOR'S ORGANIZ ATION 10/28/2021 [facility] DATE CREATED AUTHOR AUTHOR'S ORGANIZ ATION 08/07/2024 [facility] DATE CREATED AUTHOR AUTHOR'S ORGANIZ ATION 01/28/2025 [facility] EPIC REASON FOR VISIT (unrecogniz ed section and content) ReasonCommentsRoutine VisitReasonCommentsInfertilityReasonComments Gynecologic ExamReasonCommentsMenstrual ProblemReasonCommentsTelevisitReason CommentscortisolFollow-upPOSS UTISTI CHECK Care Teams (unrecognized sec tion and content) Team Status: Inactive Member Role Status Dates SAÚL Bey Attending Provider Faby reyna Team MemberRelationshipSpecialtyStart DateEnd Date Unallocated, Noms Provider, [address] [place] [address] [facility]/26/23Team MemberRelationshipSpecialtyStart DateEnd Date Unallocated, Noms MD Trinh [facility] [place] [address] PCP - [facility]11/26/23Team MemberRelationshipSpecialtyStart DateEnd Date Unallocated, Noms MD Trinh [facility] [place] [address] PCP - [facility]11/26/23Team MemberRelationshipSpecialtyStart DateEnd Date Unallocated, Osito Tsang MD [facility] [place] [address] PCP - [facility]11/26/23Team MemberRelationshipSpecialtyStart DateEnd Date Unallocated, Osito Tsang MD [facility] [place] [address] PCP - [facility]11/26/23Team MemberRelationshipSpecialtyStart DateEnd Date Unallocated, Osito Tsang MD [facility] [address] [facility] [place] [address] PCP - [facility]11/26/23Team MemberRelationshipSpecialtyStart DateEnd Date Unallocated, Osito Tsang MD [facility] [place] [address] PCP - [facility]11/26/23Team MemberRelationshipSpecialtyStart DateEnd Date Unallocated, Osito Tsang MD [facility] [place] [address] PCP - [facility]11/26/23Team MemberRelationshipSpecialtyStart DateEnd Date Unallocated, Osito Tsang MD [facility] [place] [address] PCP - [facility]11/26/23 Team Status: Inactive Member Role Status Dates PHYSICIAN NO FAMILY Primary Care Provider Active Start: July 31, 2024 End: July 31Giselle Ford ProviderActiveStart: July 31, 2024 End: July 31, 2024 Team Status: Inactive Member Role Status Dates Teresa Vitale APRN Attending Provider Active Start: July 31, 2024 End: July 31, 2024Team MemberRelationshipSpecialtyStart DateEnd Date Unallocated, Katelyns MD Trinh [address] [facility] [place] [address] PCP - [facility]11/26/23Team MemberRelationshipSpecialtyStart DateEnd Date Unallocated, Osito Tsang MD [facility] [address] [facility] [place] [address] PCP - [facility]11/26/23Team MemberRelationshipSpecialtyStart DateEnd Date Unallocated, Osito Tsang MD [facility] [address] [facility] [place] [address] PCP - [facility]11/26/23Team MemberRelationshipSpecialtyStart DateEnd Date Unallocated, Osito Tsang MD [address] [facility] [place] [address] PCP - [facility]11/26/23Team MemberRelationshipSpecialtyStart DateEnd Date Unallocated, Osito Tsang MD [address] [facility] [place] [address] PCP - [facility]11/26/23Team MemberRelationshipSpecialtyStart DateEnd Date Unallocated, Katelyns MD Trinh [address] [facility] [place] [address] PCP - GeneralFamily Medicine11/26/23 Goals (unrecognized section and content) Goals may [...] BE BASED ON THE PRIMARY CLINICAL RECORDS. [facility] [employer] [facility]. provides no warranty or guarantee of the accuracy or completeness of information in this document.
== END 2025-02-10 09:27 | disposition home or self-care (01) ==
LOC: US 09:26
PROVIDERS: Visit Provider Obstetrics & Gynecology
DX: Z36.86 Encounter for antenatal screening for cervical length (principal); Z36.2 Encounter for other antenatal screening follow-up; N88.8 Other specified noninflammatory disorders of cervix uteri
CPT/HCPCS: 76815; 76817

== ENCOUNTER 2025-02-24 11:30 | Outpatient (OUT) | payer MEDICAID, SELFPAY ==
--- OUTSIDE RECORDS SUMMARY | 2025-02-24 11:35 | XMS_ITS | CCD ---
Author Organization [facility] Care Team Providers Care Production Clerk Name Role Phone DR JANIE FRAGOSO Primary [...] Provider Jose Miguel Resendiz Unavailable Unallocated , Farhana Provider Primary Care Provi marcelino Unallocated , Noms Provider Primary Care Provi marcelino Teresa Vitale APRN Attending Provider Teresa Vitale Attending Unavailable Teresa Vitale Admitting Unavailable GARFIELD COLIN Attending Unavailable GARFIELD COLIN Referring Unavailable GARFIELD COLIN Attending Unavailable KIMBERLEY STEVENSON Attending Unavailable KENDAL RINCON Attending Unavailable KIMBERLEY STEVENSON Referring Unavailable GARFIELD COLIN Attending Unavailable Medications Current Medications MedicationDrug Class(es)DatesSig (Normalized)Sig (Original)clindamycin 20 mg/ml vaginal cream (1 source)Lincosamide AntibacterialStart: 11-30-2023 End: 58-39-9077mefjdaklski (Cleocin) 2 % vaginal cream Indications: Bacterial Vaginosis Insert 1 applicator into the vagina at bedtime for 7 days 40 g 2 11/30/2023 12/07/2023 Activeetonogestrel 68 mg drug implant (3 sources)ProgestinNexplanon 68 MG as directed Subcutaneous Activefluconazole 150 mg oral tablet (4 sources)Azole AntifungalStart: 12-29-2024 End: 41-46-2220wwdyxcblomk (Diflucan) 150 MG tablet Indications: Tinea Take 1 tablet (150 mg) by mouth 1 (one) time for 1 dose Repeat in 7 days if symptoms persist. 2 tablet 12/29/2024 12/29/2024 ActiveStart: 11-26-2023 End: 67-39-9150lfio 1 tablet by mouth oncefluconazole (Diflucan) 150 MG tablet Indications: Acute vaginitis Take 1 tablet (150 mg) by mouth 1(one) time for 1 dose 1 tablet 1 11/26/2023 11/26/2023 ExpiredmetFORMIN hydrochloride 500 mg oral tablet (7 sources)BiguanideStart: 06-04-2024 End: 63-74-2911tfgx 1 tablet by mouth at mealtimemetFORMIN (Glucophage) 500 MG tablet Indications: Abnormal uterine bleeding (AUB) , PCOS (polycystic ovarian syndrome) Take 1 tablet (500 mg) by mouth in the morning. Take with meals. 30 tablet 11 06/04/2024 10/31/2024 DiscontinuedmethylPREDNISolone (4 sources)CorticosteroidStart: 12-29-2024 End: 79-98-2941llhytoBRDCAXLhglpo (Medrol Dospak) 4 MG tablets Indications: Tinea Follow schedule on package instructions 21 tablet 12/29/2024 01/05/2025 ActivemetroNIDAZOLE 500 mg oral tablet (3 sources)Nitroimidazole AntimicrobialStart: 63-28-1808vkas 1 tablet by mouth every twelve hoursmetroNIDAZOLE 500 MG 1 tablet Orally Twice a day for 7 days Sep, Activenitrofurantoin, macrocrystals 25 mg / nitrofurantoin, monohydrate 75 mg oral capsule (1 source)Nitrofuran AntibacterialStart: 45-74-2758bmco 1 capsule by mouth every twelve hours at mealtimeNitrofurantoin Monohyd/M-Cryst (Macrobid) 100 mg capsule Active 100 MG PO Every 12 hours 14 2024 12:00am must administer with a meal/foodondansetron 4 mg disintegrating oral tablet (4 sources)Serotonin-3 Receptor AntagonistStart: 10-31-2024 End: 23-20-7392clrj 1 tablet by mouth every six hours as needed for nausea and vomiting and nausea and nauseaondansetron ODT (Zofran-ODT) 4 MG disintegrating tablet Indications: Nausea Take 1 tablet (4 mg) bymouth every 6 (six) hours if needed for nausea or vomiting 30 tablet 2 10/31/2024 11/30/2024 ActiveStart: 04-22-2021 End: 86-18-4707anvl 1 tablet by mouth every six hours as needed for nausea and vomitingOndansetron 4 mg tablet,disintegrating Discontinued 4 MG PO Q6H as needed for nausea and vomiting April 22, 2021 5:04pm February 08, 2024 4:08pmphenazopyridine hydrochloride 200 mg oral tablet (2 sources)Start: 07-06-2816dkro 1 tablet by mouth every eight hoursPyridium 200 MG 1 tablet after meals Orally Three times a day for 2 day(s) Jan, ActivePrenatal MV-Min-Fe Fum-FA-DHA ( 1 PO) (14 sources) MV-Min-Fe Fum-FA-DHA ( 1 PO) Take 1 tablet by mouth Daily ActivePrenatal Vit-Fe Fumarate-FA ( Vitamins) 28-0.8 MG tablet (11 sources)Start: 12-01-2024 End: 39-34-8299wury 1 tablet by mouth once dailyPrenatal Vit-Fe Fumarate-FA ( Vitamins) 28-0.8 MG tablet Indications: Second trimester ([facility]) , 12 weeks gestation of ([facility]) Take 1 tablet by mouth Daily 30 tablet 11 12/01/2024 12/01/2025 Activesulfamethoxazole 800 mg / trimethoprim 160 mg oral tablet (8 sources)Dihydrofolate Reductase Inhibitor Antibacterial, Sulfonamide AntimicrobialStart: 84-82-1228vkmp 1 tablet by mouth every twelve hoursBactrim DS 800-160 MG 1 tablet Orally Twice a day for 7 days Jan, ActiveStart: 67-35-2100nypl 1 tablet by mouth every twelve hoursBactrim DS 800-160 MG 1 tablet Orally Twice a day for 3 days Sep, ActivevalACYclovir 1000 mg oral tablet (3 sources)Herpesvirus Nucleoside Analog DNA Polymerase Inhibitor, Herpes Simplex Virus Nucleoside Analog DNA Polymerase Inhibitor, Herpes Zoster Virus Nucleoside Analog DNA Polymerase InhibitorStart: 09-22-2024 End: 81-94-3740qzjf 1 tablet by mouth in the morningvalACYclovir (Valtrex) 1 g tablet Indications: Genital herpes simplex, unspecified site Take 1 tablet (1,000 mg) by mouth in the morning and 1 tablet (1,000 mg) before bedtime. Do all this for 10 days. 20 tablet 09/22/2024 10/02/2024 Active Completed/Discontinued Medications MedicationDrug Class(es)DatesSig (Normalized)Sig (Original)amoxicillin 500 mg oral capsule (2 sources)Penicillin-class AntibacterialStart: 02-08-2024 End: 74-93-7639lmhk 1 capsule by mouth twice dailyAmoxicillin 500 mg capsule Discontinued 500 MG PO Twice daily 26 01February 08, 2024 12:00am February 08, 2024 5:51pmARIPiprazole 10 mg oral tablet (4 sources)Atypical AntipsychoticStart: 04-04-2020 End: 28-85-8544akgh 1 tablet by mouth once dailyAripiprazole (Abilify) 10 mg tablet Discontinued 10 MG PO Daily August 20, 2020 10:36am April 22, 2021 4:30pmazithromycin 500 mg oral tablet (7 sources)Macrolide AntimicrobialStart: 11-26-2023 End: 81-18-7259prda 1 tablet by mouth once dailyazithromycin (Zithromax) 500 MG tablet Indications: Acute vaginitis Take 1 tablet (500 mg) by mouthDaily for 10 days 10 tablet 1 11/26/2023 12/06/2023 ExpiredStart: 51-99-0491xvpb 2 tablets by mouth onceAzithromycin 500 MG 2 tablets Orally once for 1 day Sep, ActiveNorgestimate-Ethinyl Estradiol (2 sources)Progestin, EstrogenStart: 04-04-2020 End: 67-98-6562Mvubkbcrydyr-Ethinyl Estradiol (Tri Femynor) 0.18/0.215/0.25 mg- 35 mcg () tablet Discontinued TABTABLET April 04, 2020 1:00am August 17, 2020 1:28pmhydrOXYzine hydrochloride 50 mg oral tablet (2 sources)AntihistamineStart: 08-17-2020 End: 62-52-4196nxto 1 tablet by mouth three times daily as needed for anxiety Hydroxyzine Hcl 50 mg tablet Discontinued 50 MG PO Three times daily as needed for Anxiety August 17, 2020 12:00am August 20, 2020 10:36amlamoTRIgine 100 mg oral tablet (4 sources)Mood Stabilizer, Anti-epileptic AgentStart: 08-17-2020 End: 22-19-3751aofo 1 tablet by mouth once dailyLamotrigine 100 mg tablet Discontinued 100 MG PO Daily August 17, 2020 12:00am August 20, 2020 10:36amStart: 04-04-2020 End: 72-68-8452Oladigxjirb 25 mg tablet Discontinued TABLET April 04, 2020 1:00am August 17, 2020 1:28pmStart: 04-04-2020 End: 85-29-3168Oebagfyprkw Discontinued TABLET April 04, 2020 1:00am August 17, 2020 1:28pm Problems Active Problems Problem ClassificationProblemDateDocumented DateEpisodic/ChronicFemale infertility (2 sources)Female infertility; Translations: [Female infertility, unspecified] 04-36-2851XjqgicuBbpsgnmqfxzzh symptoms and ill-defined conditions (4 sources)Dysuria; Translations: [Dysuria]Onset: 54-62-1611EcsbagwzHnmpxnbp; including migraine (1 source)Headache; including migraine; Translations: [HEADACHE UNSPECIFIED] Onset: 17-85-4020Jukimtbtipwlv and screening for infectious disease (12 sources)Patient encounter status; Translations: [Dietary counseling and surveillance]Onset: 851039-03-4801NkvrmajiNrxupaodaztjc and screening for infectious disease (2 sources)Exposure to sexually transmissible disorder; Translations: [Contact with and (suspected) exposure to infections with a predominantly sexual mode of transmission]27-07-5337UjqjqognPkydjkytapxs diseases of female pelvic organs (6 sources)Acute vaginitis; Translations: [Acute vaginitis]Onset: 10-03-2021 74-17-7838HlxjgadoLblkwyswm disorders (20 sources)Irregular periods; Translations: [Irregular menstruation, unspecified]Onset: 332211-58-3198UgivvntEfydywk (2 sources)Dermatophytosis; Translations: [Dermatophytosis, unspecified] 19-95-6166BxafuxvwPhsjdi and vomiting (2 sources)Nausea; Translations: [Nausea]Onset: 498079-18-8706Lvxivieg Other endocrine disorders (19 sources)Polycystic ovary syndrome; Translations: [Polycystic ovarian syndrome]Onset: 755259-56-2660DudxksyWjmif female genital disorders (19 sources)Abnormal uterine bleeding; Translations: [Abnormal uterine and vaginal bleeding, unspecified]Onset: 635755-27-1684OyipmouVilrj inflammatory condition of skin (3 sources)Other pruritus; Translations: [OTHER PRURITUS]Onset: 10-02-2021 EpisodicOther nutritional; endocrine; and metabolic disorders (2 sources)Obesity caused by energy imbalance; Translations: [Class 1 obesity due to excess calories without serious comorbidity with body mass index (BMI) of 33.0 to 33.9 in adult]10-08-3047VihrfulRuwlp screening for suspected conditions (not mental disorders or infectious disease) (4 sources)Decreased cortisol level; Translations: [Other specified abnormal findings of blood chemistry]60-39-8276SyupndzkJsjlm upper respiratory infections (4 sources)Upper respiratory infection; Translations: [Acute upper respiratory infection, unspecified]86-94-5265XhlcnfmpFtbbioes codes; unclassified (2 sources)Gestation period, 12 weeks; Translations: [12 weeks gestation of ]19-07-0740ZytlzhtjRtwvayev codes; unclassified (2 sources)Gestation period, 16 weeks; Translations: [16 weeks gestation of ]42-49-2132LsuwwzpbLttkvbnj codes; unclassified (2 sources)Gestation period, 20 weeks; Translations: [20 weeks gestation of ]90-29-5425TqcgradjByvcdoe and intentional self-inflicted injury (2 sources)Suicide attempt ; Translations: [Poisoning by unspecified drugs, medicaments and biological substances, intentional self-harm, initial encounter] 69-16-5028SrqvrmldZecaclofpmfn (3 sources)CONTACT W/AND (SUSP) EXPOS COVID-19; Translations: [CONTACT W/AND (SUSP) EXPOS COVID-19]Onset: 50-98-3943Atkamjj tract infections (2 sources)Acute cystitis without hematuria; Translations: [Acute cystitis with hematuria]Onset: 09-29-2021 Resolved: 52-90-5954GrcusmchMtwce infection (2 sources)Disease caused by 2019-nCoV; Translations: [COVID-19]04-22-2021 Episodic Past or Other Problems Problem ClassificationProblemDateDocumented DateEpisodic/ChronicOther endocrine disorders (2 sources)Disorder of endocrine system; Translations: [Endocrine disorder, unspecified]73-15-2703MbyloksvBcrwr endocrine disorders (2 sources)Gynecological endocrinology disorder; Translations: [Endocrine disorder, unspecified]94-32-9664EnpzqejpLqyas and delivery including normal (20 sources)Urine test positive; Translations: [Encounter for test, result positive]Onset: 765264-63-2020KekaxgbhVadfytgy codes; unclassified (1 source)High risk bisexual behaviorOnset: 09-29-2021 Resolved: 19-30-5497NkwfvalgEtdpjypceavi (1 source)CONTACT W/AND (SUSP) EXPOS COVID-19; Translations: [CONTACT W/AND (SUSP) EXPOS COVID-19]Onset: 04-14-2021 Results Test NameValueInterpretationReference RangeFacilityNo Panel InformationOrdered By: Radiologist Radiology on 33-52-9314[facility] Work Phone: No Panel Informationon 74-64-6857Lgwfvhkfy Study observation (narrative)NOMS HealthcareUS OB CERVICAL LENGTHon 53-38-8280LpwM[place], [place] [address] Ultrasound Report Signed Patient: ETIENNE MOLINA MR#: [id number] : 2005 Acct:[id number] Age/Sex: 19 / F ADM Date: 02/10/25 Loc: US Attending Dr: Garfield Colin D.O. Ordering Physician: Garfield Colin D.O. Date of Service: 02/10/25 Procedure(s): US OB cervical length Accession Number(s): [id number] cc: Garfield Colin D.O.; Physician,Non-Staff Shaan The [address] [address] Patient Name: ETIENNE MOLINA MRN: [id number] date: 2005 Sex: F Assigned Patient Location: US Current Patient Location: US Accession/Order Number: [id number] Exam Date: 02/10/2025 09:34 Report Date: 02/10/2025 10:31 At the request of: GARFIELD COLIN DO Procedure: US OB cervical length CLINICAL DATA: Follow-up anatomy. ULTRASOUND OB INCOMPLETE ANATOMY COMPARISON: 01/27/2024 There is a single live intrauterine gestation in cephalic presentation. There is cardiac and somatic activity with heart rate of 147 bpm. The facial features were imaged. The spine is better visualized and no abnormalities were detected. US/US OB cervical length IMPRESSION: NO DETECTED SPINAL ABNORMALITIES. ULTRASOUND OB CERVICAL COMPARISON: 01/27/2024 The cervix was evaluated with the transvaginal probe. Minimal funneling is again seen. Estimated cervical length is 3.2 cm. There is a posterior placenta with no evidence of previa. IMPRESSION: MINOR FUNNELING. CERVICAL LENGTH 3.2 CM. Impression dictated by: Mariana Lan M.D. 02/10/2025 10:31 AM Dictation Location: [place] [address] Electronically authenticated by: [id number] Y Date: 02/10/2025 10:31 Dictated By: Mariana Lan M.D. Signed By: 02/10/25 1034 DD/ 1031 TD/TT: English Horn Player:YORDYHRadiology, Radiologist, - 02/10/[address] [address] Ultrasound Report Signed Patient: ETIENNE MOLINA MR#: [id number] : 2005 Acct:[id number] Age/Sex: 19 / F ADM Date: 02/10/25 Loc: US Attending Dr: Garfield Colin D.O. Ordering Physician: Garfield Colin D.O. Date of Service: 02/10/25 Procedure(s): US OB cervical length Accession Number(s): [id number] cc: Garfield Colin D.O.; Physician,Non-Staff Shaan The [address] [address] Patient Name: ETIENNE MOLINA MRN: [id number] date: 2005 Sex: F Assigned Patient Location: US Current Patient Location: US Accession/Order Number: [id number] Exam Date: 02/10/2025 09:34 Report Date: 02/10/2025 10:31 At the request of: GARFIELD COLIN DO Procedure: US OB cervical length CLINICAL DATA: Follow-up anatomy. ULTRASOUND OB INCOMPLETE ANATOMY COMPARISON: 01/27/2024 There is a single live intrauterine gestation in cephalic presentation. There is cardiac and somatic activity with heart rate of 147 bpm. The facial features were imaged. The spine is better visualized and no abnormalities were detected. US/US OB cervical length IMPRESSION: NO DETECTED SPINAL ABNORMALITIES. ULTRASOUND OB CERVICAL COMPARISON: 01/27/2024 The cervix was evaluated with the transvaginal probe. Minimal funneling is again seen. Estimated cervical length is 3.2 cm. There is a posterior placenta with no evidence of previa. IMPRESSION: MINOR FUNNELING. CERVICAL LENGTH 3.2 CM. Impression dictated by: Mariana Lan M.D. 02/10/2025 10:31 AM Dictation Location: [place] [address] Electronically authenticated by: [id number] Y Date: 02/10/2025 10:31 Dictated By: Mariana Lan M.D. Signed By: 02/10/25 1034 DD/ 1031 TD/TT: English Horn Player: FARHANA Loyd OB INCOMPLETE ANATOMYon 61-72-8463[address] [address] Ultrasound Report Signed Patient: ETIENNE MOLINA MR#: [id number] : 2005 Acct:[id number] Age/Sex: 19 / F ADM Date: 02/10/25 Loc: US Attending Dr: Garfield Colin D.O. Ordering Physician: Garfield Colin D.O. Date of Service: 02/10/25 Procedure(s): US OB incomplete anatomy Accession Number(s): [id number] cc: Garfield Colin D.O.; Physician,Non-Staff Shaan The [place] [address] Patient Name: ETIENNE MOLINA MRN: [facility]:[id number] date: 2005 Sex: F Assigned Patient Location: US Current Patient Location: US Accession/Order Number: [id number] Exam Date: 02/10/2025 09:34 Report Date: 02/10/2025 10:31 At the request of: GARFIELD COLIN DO Procedure: US OB cervical length CLINICAL DATA: Follow-up anatomy. ULTRASOUND OB INCOMPLETE ANATOMY COMPARISON: 01/27/2024 There is a single live intrauterine gestation in cephalic presentation. There is cardiac and somatic activity with heart rate of 147 bpm. The facial features were imaged. The spine is better visualized and no abnormalities were detected. US/US OB incomplete anatomy IMPRESSION: NO DETECTED SPINAL ABNORMALITIES. ULTRASOUND OB CERVICAL COMPARISON: 01/27/2024 The cervix was evaluated with the transvaginal probe. Minimal funneling is again seen. Estimated cervical length is 3.2 cm. There is a posterior placenta with no evidence of previa. IMPRESSION: MINOR FUNNELING. CERVICAL LENGTH 3.2 CM. Impression dictated by: Mariana Lan M.D. 02/10/2025 10:31 AM Dictation Location: [place] [address] Electronically authenticated by: [id number] Y Date: 02/10/2025 10:31 Dictated By: Mariana Lan M.D. Signed By: 02/10/25 1034 DD/ 1031 TD/TT: English Horn Player:ROSAURAadiologmariann, Radiologist, - 02/10/2025 [place] [address] Ultrasound Report Signed Patient: ETIENNE MOLINA MR#: [id number] : 2005 Acct:[id number] Age/Sex: 19 / F ADM Date: 02/10/25 Loc: US Attending Dr: Garfield Colin D.O. Ordering Physician: Garfield Colin D.O. Date of Service: 02/10/25 Procedure(s): US OB incomplete anatomy Accession Number(s): [id number] cc: Garfield Colin D.O.; Physician,Non-Staff M.Myriam [place] [address] Patient Name: ETIENNE MOLINA MRN: [facility]:[id number] date: 2005 Sex: F Assigned Patient Location: US Current Patient Location: Accession/Order Number: [id number] Exam Date: 02/10/2025 09:34 Report Date: 02/10/2025 10:31 At the request of: GARFIELD COLIN DO Procedure: US OB cervical length CLINICAL DATA: Follow-up anatomy. ULTRASOUND OB INCOMPLETE ANATOMY COMPARISON: 01/27/2024 There is a single live intrauterine gestation in cephalic presentation. There is cardiac and somatic activity with heart rate of 147 bpm. The facial features were imaged. The spine is better visualized and no abnormalities were detected. US/US OB incomplete anatomy IMPRESSION: NO DETECTED SPINAL ABNORMALITIES. ULTRASOUND OB CERVICAL COMPARISON: 01/27/2024 The cervix was evaluated with the transvaginal probe. Minimal funneling is again seen. Estimated cervical length is 3.2 cm. There is a posterior placenta with no evidence of previa. IMPRESSION: MINOR FUNNELING. CERVICAL LENGTH 3.2 CM. Impression dictated by: Mariana Lan M.D. 02/10/2025 10:31 AM Dictation Location: [place] [address] Electronically authenticated by: [id number] Y Date: 02/10/2025 10:31 Dictated By: Mariana Lan M.D. Signed By: 02/10/25 1034 DD/ 1031 TD/TT: English Horn Player: FARHANA RaderUrinalysis macro (dipstick) panel (U)on 81-72-1314Cjuyrfrsm, UA NegativeNegative - 4(70) +++ mg/dLNOMS HealthcareBlood, UANegativeNegative - 50 Juan Alberto/mcLNOMS HealthcareClarity, UAClearNOMS HealthcareColor, UAAmberNOMS HealthcareGlucose, UANegativeNegative - 1999(110) ++++ mg/dLNOMS Healthcare Interpretation and review of laboratory resultsAbnormalNOMS HealthcareKetones, UANegativeNegative - 160(16) ++++ mg/dLNOMS HealthcareLeukocytes, UA3+Negative - 500+++ Artie/mcLNOMS HealthcareNitrite, UANegativeNegative - PositiveNOMS HealthcarepH, UA6.05 - 9NOMS HealthcareProtein, UANegativeNegative - 1999(20) ++++ mg/dLNOMS HealthcareSpec Grav, UA1.0201 - 1.03NOMS HealthcareUrobilinogen, UA1.00.2 - 12 mg/dLNOMS HealthcareNOMS HealthcareIGP,APTIMA HPV,AGE GDLNon 68-55-1462MRQ GDLN ACOG TESTINGNote.NOMS HealthcareComment on above:TESTS RESULT FLAG UNITS REF RANGE LAB Clinician Provided Cytology Information Source.............Endocervix Other.............. No. of containers..01 ThinPrep Vial Age Algo ACOG Cat... FLAG LEGEND: L-Low Normal,H-High Normal,LL-Alert Low,HH-Alert High <-Panic Low,>-Panic High,A-Abnormal,AA-Critical Abnormal Performed at: 01 =G [facility] [address] [facility] [place] [address] Noemi Bond MD, IGP, RFX APTIMA HPV ASCUNote.NOMS HealthcareComment on above:TESTS RESULT FLAG UNITS REF RANGE LAB DIAGNOSIS: 02 NEGATIVE FOR INTRAEPITHELIAL LESION OR MALIGNANCY. Specimen adequacy: 02 Satisfactory for evaluation. Endocervical and/or squamous metaplastic cells (endocervical component) are present. Performed by: 02 Sin Ruby, Wire Fence Erector ([facility]) . 02 Note: Note 02 The [...] Low,>-Panic High,A-Abnormal,AA-Critical Abnormal Performed at: 02 [address] [facility] [address], [place] [address] Noemi Bond MD, Performed at: =[facility] [id number] Wellness Educator: Noemi Bond MD, Phone: [phone] Performed at: [address] [id number] Wellness Educator: Noemi Bond MD, Phone: [phone] SPATULA-ALONE ENDOCERVIX CLINISYNCNOMS HealthcareRECURRENT VAGINITIS (HTRX)on 54-05-9353TRFHADDCN VAGINAE 24.285AbnormalNOMS HealthcareATOPOBIUM VAGINAEDetectedAbnormalNOMS Healthcare BVAB 2,3 (BACTERIAL VAGINOSIS ASSOCIATED BACTERIA 2, 3); MOBILUNCUS AWH4XFTS HealthcareBVAB 2,3 (BACTERIAL VAGINOSIS ASSOCIATED BACTERIA 2, 3); MOBILUNCUS SPPNot detectedNOMS HealthcareCANDIDA ALBICANS, PARAPSILOSIS, [id number] HealthcareCANDIDA ALBICANS, PARAPSILOSIS, TROPICALISNot detectedNOMS Healthcare TERESA [id number] HealthcareCANDIDA GLABRATANot detectedNOMS Healthcare TERESA NRIFYM0UDNB HealthcareCANDIDA KRUSEINot detectedNOMS HealthcareCHLAMYDIA CMMZHDOTNQI5DKZN HealthcareCHLAMYDIA TRACHOMATISNot detectedNOMS HealthcareERMB, C; MEFA19.094AbnormalNOMS HealthcareERMB, C; MEFADetectedAbnormalNOMS Healthcare GARDNERELLA DGLDRZBHJ62.618AbnormalNOMS HealthcareGARDNERELLA VAGINALISDetected AbnormalNOMS HealthcareInterpretation and review of laboratory resultsAbnormal NOMS HealthcareMEGASPHAERA (TYPES 1, 2)0NOMS HealthcareMEGASPHAERA (TYPES 1, 2) Not detectedNOMS HealthcareMYCOPLASMA [id number] HealthcareMYCOPLASMA GENITALIUMNot detectedNOMS HealthcareNEISSERIA AJARIDDETAI5QIUR Healthcare NEISSERIA GONORRHOEAENot detectedNOMS HealthcareTET B, TET M16.686AbnormalNOMS HealthcareTET B, TET MDetectedAbnormalNOMS HealthcareTRICHOMONAS PBRZYCFML9DGYQ HealthcareTRICHOMONAS VAGINALISNot detectedNOMS HealthcareNOMS HealthcareUS OB 14+ WEEKS ANATOMY SCANon 00-50-4216VH OB 14+ WEEKS ANATOMY SCAN ADDENDUM #1 [...] TRANSCRIBED BY: ELECTRONICALLY SIGNED BY: Dony José MDNormalNot AvailableComment on above:Order Comment: US OB ANATOMY SINGLE W US OB CERVICAL LENGTH Estimated Date of Delivery: 06/09/25 Gestational Age as of 12/29/2024: 82k4uXclfauaswn macro (dipstick) panel (U)on 68-18-3023Vwrlvqmhn, UANegativeNegative - 4(70) +++ mg/dLNOMS HealthcareBlood, UANegativeNegative - 50 Juan Alberto/mcLNOMS HealthcareClarity, UAClearNOMS Healthcare Color, UAYellowNOMS HealthcareGlucose, UANegativeNegative - 2000(110) ++++ mg/dL NOMS HealthcareInterpretation and review of laboratory resultsAbnormalNOMS HealthcareKetones, UANegativeNegative - 160(16) ++++ mg/dLNOMS Healthcare Leukocytes, UAPositiveNegative - 500+++ Artie/mcLNOMS HealthcareComment on above: 1+Nitrite, UANegativeNegative - PositiveNOMS HealthcarepH, UA75 - 9NOMS HealthcareProtein, UANegativeNegative - 2000(20) ++++ mg/dLNOMS HealthcareSpec Grav, UA1.011 - 1.03NOME HealthcareUrobilinogen, UA0.20.2 - 12 mg/dLNOCedar County Memorial Hospital HealthcareUrinalysis macro (dipstick) panel (U)on 12-01-2024 Bilirubin, UANegativeNegative - 4(70) +++ mg/dLNOMS HealthcareBlood, UANegative Negative - 50 Juan Alberto/mcLNOME HealthcareClarity, UAClearNOMS HealthcareColor, UA YellowNOMS HealthcareGlucose, UANegativeNegative - 2000(110) ++++ mg/dLNOMS HealthcareInterpretation and review of laboratory resultsNoMeadows Psychiatric Center Ketones, UANegativeNegative - 160(16) ++++ mg/dLNOME HealthcareLeukocytes, UA NegativeNegative - 500+++ Artie/mcLNOME HealthcareNitrite, UANegativeNegative - PositiveNOME HealthcarepH, UA75 - 9NOMS HealthcareProtein, UANegativeNegative - 2000(20) ++++ mg/dLNOMS HealthcareSpec Grav, UA1.011 - 1.03NOME Healthcare Urobilinogen, UA1.00.2 - 12 mg/dLNOSaint John's HospitalNOME HealthcareBOX TESTon 64-68-9613MVT TEST SENT OUTUNPsychiatric Hospital at VanderbiltLikxudllswITS5FSVMQBKWR HealthcareBOX2 11/04/24NOSaint John's HospitalCLINISYNCNBoone Hospital CenterHCG ( test) Ql (U)on 58-09-4838Nzkgqijljrphcs and review of laboratory resultsAbMunson Healthcare [facility] Preg Test, UrPositiveNegativeNOSaint John's HospitalNOME HealthcareUS OB TRANSVAGINALon 37-87-4950LH OB TRANSVAGINALEXAM: US OB TRANSVAGINAL HISTORY: Dating. [...] II, MD, PHD at 03-Nov-2024 11:42:05 PM [facility]-[place] TeleradiologyNormalNot AvailableComment on above:Order Comment: US OB TRANSVAGINAL No LMP recorded.Urinalysis macro (dipstick) panel (U)on 35-64-2086Eqdurubwv, UA NegativeNegative - 4(70) +++ mg/dLNOMS HealthcareBlood, UANegativeNegative - 50 Juan Alberto/mcLNOMS HealthcareClarity, UAClearNOMS HealthcareColor, UAYellowNOMS HealthcareGlucose, UANegativeNegative - 2000(110) ++++ mg/dLNOME Healthcare Interpretation and review of laboratory resultsNormalNOME HealthcareKetones, UA NegativeNegative - 160(16) ++++ mg/dLWashington County Memorial HospitalLeukocytes, UANegative Negative - 500+++ Artie/mcLNOSaint John's HospitalNitrite, UANegativeNegative - Positive NOMS HealthcarepH, UA6.55 - 9NOME HealthcareProtein, UANegativeNegative - 2000(20) ++++ mg/dLNOME HealthcareSpec Grav, UA1.021 - 1.03NOSaint John's Hospital Urobilinogen, UA1.00.2 - 12 mg/dLNOSaint John's HospitalNOME HealthcareTBH PREG QUANT HCGon 65-64-2880UZB ALBCPQZNQLMN466tTW/mLNOMS HealthcareComment on above:5-50 0.2-1 WEEK 50-500 1-2 WEEKS 100-5,000 2-3 WEEKS 500-10,000 3-4 WEEKS 1,000-50,000 4-5 WEEKS 10,000-100,000 5-6 WEEKS 15,000-200,000 6-8 WEEKS 10,000-100,000 2-3 [facility] PREG QUANT HCGon 46-60-9241EVL DKYPBDUNZMVS098kUT/mL NOMS HealthcareComment on above:5-50 0.2-1 WEEK 50-500 1-2 WEEKS 100-5,000 2-3 WEEKS 500-10,000 3-4 WEEKS 1,000-50,000 4-5 WEEKS 10,000-100,000 5-6 WEEKS 15,000-200,000 6-8 WEEKS 10,000-100,000 2-3 MONTHS [facility]INFreeman [facility] InstituteALL PROGESTERONEon 81-96-8430AEOMZCHVEWFN86.5 ng/mL.NOMS HealthcareComment on above:Follicular phase 0.1 - 0.9 Luteal phase 1.8 - 23.9 Ovulation phase 0.1 - 12.0 First trimester 11.0 - 44.3 Second trimester 25.4 - 83.3 Third trimester 58.7 - 214.0 Postmenopausal 0.0 - 0.1 Performed at: [address] [id number] Wellness Educator: Keenan Murillo PhD, Phone: [phone] [facility] CenterUrine Cultureon 97-18-1823Ofkaasjs identified Cx Nom (U) 25,000 colonies/ml mixed bacterial skin contaminants 2 Days PERFORMED BY: [place] [id number] PATHOLOGIST ADDICTION SPECIALIST YUMIKO GRIER M.D.NormalThe [facility] Richmond Physician GroupComment on above: Performed By: #### CUU #### [address] [address] USAUS PELVIC COMPLETE W/ TVon 00-71-7031EM PELVIC COMPLETE W/ TVEXAM: US PELVIC COMPLETE [...] the bilateral ovaries. Electronically Signed:Electronically signed by MADYSON WARREN II, MD, PHD at 26-Jun-2024 08:43:57 AM [facility]-[place]i TeleradiologyNormalNot AvailableComment on above:Order Comment: US PELVIS-TRANSVAG IF INDICATED Patient's last menstrual period was 05/05/2024.Cortisolon 53-25-0436Sqgemyrb [Mass/Vol]4.7 ug/dLLow6.2 - 19.4 ug/dLWashington County Memorial HospitalComment on above:Please Note: The reference interval and flagging for this test is for an AM collection. If this is a PM collection please use: Cortisol PM: 2.3-11.9 Interpretation and review of laboratory resultsAbnormTemple University Hospital DHEA-sulfateon 07-77-8013MDHY-S [Mass/Vol]267.0 ug/dL110.0 - 431.7 ug/dLNOMS HealthcareEstradiolon 96-74-2148S9 [Mass/Vol]188.0 pg/mLNOMS HealthcareComment on above:Adult Female Range Follicular phase 12.5 - 166.0 Ovulation phase 85.8 - 498.0 Luteal phase 43.8 - 211.0 Postmenopausal <6.0 - 54.7 1st trimester 215.0 - >4300.0 Vidya ECLIA methodology Estroneon 50-89-1623B4 [Mass/Vol]104 pg/mL27 - 231 pg/mLNOMS HealthcareComment on above:Range Adult (Premenopausal) 27 - 231 Menstrual Cycle (1-10 days) 19 - 149 Menstrual Cycle (11-20 days) 32 - 176 Menstrual Cycle (21-30 days) 37 - 200 Performed at: [address] [id number] Wellness Educator: Collette Mesa MD, Phone: [phone] stimulating hormoneon 11-76-1956Zpdcmiarxlr Qn2.3 m[IU]/mLmIU/mLNOMS HealthcareComment on above:Adult Female Range Follicular phase 3.5 - 12.5 Ovulation phase 4.7 - 21.5 Luteal phase 1.7 - 7.7 Postmenopausal 25.8 - 134.8 Insulin, fastingon 66-32-6084Ingckqw Qn20.6 u[IU]/mLNOMS HealthcareNo Panel Informationon 40-10-9886Izyfpmmsl at: [address] [id number] Wellness Educator: Keenan Murillo PhD, Phone: [phone] Healthcare Progesteroneon 60-55-5478Fimikwjhhfie [Mass/Vol]11.4 ng/mLNOMS HealthcareComment on above:Follicular phase 0.1 - 0.9 Luteal phase 1.8 - 23.9 Ovulation phase 0.1 - 12.0 First trimester 11.0 - 44.3 Second trimester 25.4 - 83.3 Third trimester 58.7 - 214.0 Postmenopausal 0.0 - 0.1 TSHon 48-77-7153SLV Qn3.160 m[IU]/LNOMS HealthcareNo Panel Informationon 04-79-6573HHAVYKTKJJUKG BAUMANII0.000NOMS HealthcareACINETOBACTER BAUMANIINot detectedNOMS HealthcareATOPOBIUM WPOMHOH08.732AbnormalNOMS HealthcareATOPOBIUM VAGINAEDetectedAbnormalNOMS HealthcareBVAB 2,3 (BACTERIAL VAGINOSIS ASSOCIATED [...] HealthcareTRICHOMONAS VAGINALIS0.000N[facility] Healthcare TRICHOMONAS VAGINALISNot detectedNOMS HealthcareUREAPLASMA HJMQDT79.453Abnormal NOMS HealthcareUREAPLASMA PARVUMDetectedAbnormalNOMS HealthcareUREAPLASMA UREALYTICUM0.000NOMS HealthcareUREAPLASMA UREALYTICUMNot detectedNOMS Healthcare NOMS HealthcareUrinalysis - DIPSTICKon 40-33-4384Xfpwswgsuw (U)[facility] Tackk Other Bilirubin Ql (U)[facility] Tackk Other Color (U)dark yellow-orangeFriend Trusted Tackk Other Glucose Ql (U)[facility] Tackk Other Hemoglobin Ql (U)[facility] Tackk Other Ketones Ql (U)Critical access hospitalFriend Trusted Tackk Other Leukocyte esterase Test strip Ql (U)[facility] Tackk Other Nitrite Ql (U)PositiveCanada Tackk Other pH (U)7.0 [pH][facility] eMindful Other Protein Ql (U)NegativeNocox branson Tackk Other Specific gravity (U) [Rel density]1.010Nort Tackk Other Urobilinogen (U) [Mass/Vol]normalNocox branson Tackk Other Urinalysis - DIPSTICKNocox branson Tackk Other Urine Cultureon 06-33-4761Npmwa Ngylnze69,000Nocox branson Tackk Other Urine Culture<16SusceptibleCanada Tackk Other Urine Culture<8/4SusceptibleCanada Tackk Other Urine Culture<8SusceptibleCanada Tackk Other Urine Culture<4SusceptibleCanada Tackk Other Urine Culture<2SusceptibleCanada Tackk Other Urine Culture<1SusceptibleCanada Tackk Other Urine Culture<0.25SusceptNortheast Missouri Rural Health Network Tackk Other Urine Culture<0.5SusceptibleCanada Tackk Other Urine Ouvejfm6GgdzpdyajvtFafcb Tackk Other Urine Culture<0.5/9.5SusceptibleNocox branson Tackk Other Consenton 28-43-5822Zscupgt [id number]#1.00CD:127CesiliaProtestant HospitalRegistrationon 09-50-1542Zannybqminct [id number]#1.00CD:127NoalSt. Elizabeth HospitalQuantiferon-TB Plus (Client Incubated)on 88-55-6275Kakbw interferon background IA Qn (Bld)0.04 International_Unit/mLInvalid Interpretation Code St. Elizabeth HospitalComment on above:Performed By: #### [id number], [id number], [id number], [id number] #### [facility] [address] tuberculosis stim IFN-g by CD4+ CD8+ T-cells corrected for background Qn (Bld)0.01 International_Unit/mLInvalid Interpretation CodeSt. Elizabeth HospitalComment on above:Performed By: #### [id number], [id number], [id number], [id number] #### [facility] [address] [place] [address]. tuberculosis stim IFN-g by CD4+ T-cells corrected for background Qn (Bld)0.01 International_Unit/mLInvalid Interpretation [facility] HospitalComment on above:Performed By: #### [id number], [id number], [id number], [id number] #### [facility] [address] [place] [address]. tuberculosis stim IFN-g Ql (Bld) [Interp]NegativeInvalid Interpretation CodeNegativeSt. Elizabeth HospitalComment on above:Result Comment: The specimen received for QuantiFERON testing was incubated by the ordering institution. Specific procedures outlined in our Directory of Services and in the package insert for the QuantiFERON Gold (In Tube) test must be followed to enable for proper stimulation of cells for the production of interferon gamma. Chemiluminescence immunoassay methodology Performed at: [facility] [address] [place] [id number] PhD Chidi HusseinPerformed By: #### [id number], [id number], [id number], [id number] #### [facility] [address] [place], [place] [address]Rcxwejr stimulated gamma interferon Qn (Bld)>10.00Invalid Interpretation [facility] HospitalComment on above:Performed By: #### [id number], [id number], [id number], [id number] #### [facility] [address] [place], [place] [address]Gmgxsyt comment (Unsp spec) [Interp]CommentInvalid Interpretation [facility] HospitalComment on above:Result Comment: The QuantiFERON-TB Gold Plus result is determined by subtracting the Nil value from either TB antigen (Ag) tube. The mitogen tube serves as a control for the test.Performed By: #### [id number], [id number], [id number], [id number] #### [facility] [address] [place] [address]Oqe Bs Abon 55-18-8125SOJ surface Ab Ql (S)ReactiveInvalid Interpretation [facility] HospitalComment on above:Result Comment: Non Reactive: Inconsistent with immunity, less than 10 mIU/mL Reactive: Consistent with immunity, greater than 9.9 mIU/mL Performed at: [address] [id number] PhD Chidi HusseinPerformed By: #### [id number], [id number], [id number], [id number] #### [facility] [address] [place] [address]Msodfmn/Mumps/Rubella Immunityon 26-98-9647ShI IgG IA Qn (S) {index_val}Invalid Interpretation CodeImmune >16.4[facility] Comment on above:Result Comment: Negative <13.5 Equivocal 13.5 - 16.4 Positive >16.4 Presence of antibodies to Rubeola is presumptive evidence of immunity except when acute infection is suspected.Performed By: #### [id number], [id number], [id number], [id number] #### [facility] [address] [place], [place] [address]AmJ IgG IA Qn (S)243.0 A unit/mLInvalid Interpretation Code Immune >10.9St. Elizabeth HospitalComment on above:Result Comment: Negative <9.0 Equivocal 9.0 - 10.9 Positive >10.9 A positive result generally indicates past exposure to Mumps virus or previous vaccination. Performed at: [address] [id number] PhD Chidi HusseinPerformed By: #### [id number], [id number], [id number], [id number] #### [facility] [address] [place] [address]Uxgmdlo virus IgG Qn (S)16.20 [IU]/mLInvalid Interpretation CodeImmune >0.99St. Elizabeth HospitalComment on above:Result Comment: Non- immune <0.90 Equivocal 0.90 - 0.99 Immune >0.99Performed By: #### [id number], [id number], [id number], [id number] #### [facility] [address] [place] [address]Inadw IgGon 87-02-8232WJJ IgG IA Qn (S)863Invalid Interpretation CodeImmune >165St. Elizabeth HospitalComment on above:Result Comment: Negative <135 Equivocal 135 - 165 Positive >165 A positive result generally indicates exposure to the pathogen or administration of specific immunoglobulins, but it is not indication of active infection or stage of disease. Performed at: [facility] [address] [place] [id number] PhD Chidi HusseinPerformed By: #### [id number], [id number], [id number], [id number] #### [facility] [address] [place] [address]Rxyrinryg Orderon 20-16-4694Daipcvoij Order [id number]#1.00CD:127NormalSt. Elizabeth HospitalCULTURE URINEon 45-91-4356TUXBAGW URINECulture Observations: MODERATE GROWTH OF MIXED GENITAL BETZY. NO POTENTIAL PATHOGENS SEEN.NormalAkron Children'S HospitalComment on above:Performed By: #### URCX #### [facility] [address] [place] [address] Dr. Lisa Kirkpatrick URINE PROFILEon 65-04-4533Cseqtfbkq Ql (U)NegativeNormal NEGATIVEAkron Children'S HospitalComment on above:Performed By: #### ERUR, PREGU, UMICRO #### [facility] [address] [place] [address] [address] Lisa ChirinosClarity (U)CLEARNormalCLEARAkron Children'S HospitalComment on above: Performed By: #### ERUR, PREGU, UMICRO #### [facility] [address] [place] [address] Dr. Lisa ChirinosColor (U)YELLOWNormalYELLOWAkron Children'S HospitalComment on above: Performed By: #### ERUR, PREGU, UMICRO #### [facility] [address] [place] [address] Dr. Lisa Mendosa micrscopic examination will be performed if indicated. NormalAkron Children'S HospitalComment on above:Performed By: #### ERUR, PREGU, UMICRO #### [facility] [address] [place] [address] Dr. Lisa ChirinosGlucose Ql (U)NegativeNormalNEGATIVEAkron Children'S HospitalComment on above:Performed By: #### ERUR, PREGU, UMICRO #### [facility] [address] [place] [address] Dr. Lisa ChirinosHemoglobin Ql (U)NegativeNormalNEGATIVEGalion Community Hospital on above:Performed By: #### ERUR, PREGU, UMICRO #### [facility] [address] [place] [address] Dr. Lisa ChirinosKetones Ql (U)NegativeNormalNEGATIVEAkron Children'S HospitalComment on above:Performed By: #### ERUR, PREGU, UMICRO #### [facility] [address] [place], [place] [id number] Dr. Lisa GoreOCYTESSMALLAbnormalNEGATIVEThe [facility]letown HospitalComment on above:Performed By: #### ERUR PREGU, UMICRO #### [facility] [address] [address] [address] Lisa Mobleytrkalina Ql (U)NegativeNormalNEGATIVEThe [facility]own HospitalComment on above:Performed By: #### ERUR, PREGU, UMICRO #### [facility] [address] [address] [address] Lisa ChirinospH (U)8.0 [pH]Normal5-9The [facility]own HospitalComment on above: Performed By: #### RAMANR, PREGU, UMICRO #### [facility] [address] [place] [address] Dr. Lisa ChirinosSPEC GRAVITY1.476Cslura3.005-<=1.025The [facility]own HospitalComment on above:Performed By: #### ERUR, PREGU, UMICRO #### [facility] [address] [place] [address] Dr. Lisa ChirinosUA PROTEINNegativeNormalNEGATIVE/ TRACEThe [facility] on above:Performed By: #### RAMANR, PREGU, UMICRO #### [facility] [address] [place] [address] Dr. Lisa ChirinosUR MICRO INDINDICATEDNormalThe [facility]own HospitalComment on above: Performed By: #### ERUR, PREGU, UMICRO #### [facility] [address] [place] [address] Dr. Lisa ChirinosUrobilinogen Qn (U)0.2 {Jyothi'U}/dLNormal0.2 - 1.0The [facility]own HospitalComment on above:Performed By: #### ERUR, PREGU, UMICRO #### [facility] [address] [place] [address] Dr. Lisa ChirinosPREGNANCY URon 15-17-5297FFEEVRGDW, QUALNegativeNormalNEGATIVEThe Stephen HospitalComment on above:Performed By: #### ERUR, PREGU, UMICRO #### [facility] [address] [address] [address] Lisa SEAY ONLYon 54-32-3584XXCAKBLCTJAAZDwxorzqjIZFC SEEN [facility] HospitalComva medical center on above:Performed By: #### ERUR, PREGU, UMICRO #### [facility] [address] [address] [address] Lisa Corbett identified Cx Nom (U)INDICATEDTrumbull Memorial HospitalComment on above:Performed By: #### ERUR, PREGU, UMICRO #### [facility] [address] [place] [address] Dr. Lisa Banda SEENNormalNONE SEENDunlap Memorial Hospital on above:Performed By: #### ERUR, PREGU, UMICRO #### [facility] [address] [place] [address] Dr. Lisa Kinsey LM Nom (Urine sed)NONE SEENNormalNONE SEENAkron Children'S HospitalComva medical center on above:Performed By: #### ERUR, PREGU, UMICRO #### [facility] [address] [place] [address] Dr. Gonzalez ChangEemilythelial cells LM Ql (Urine sed)FEWAbnormalNONE SEEN /RAREThe [facility] HospitalComva medical center on above:Performed By: #### ERUR, PREGU, UMICRO #### [facility] [address] [place] [address] Dr. Lisa Alvarenga SEENNormalNONE SEENAkron Children'S HospitalComva medical center on above:Performed By: #### ERUR, PREGU, UMICRO #### [facility] [address] [place] [address] Dr. Lisa LivingstonMejcgCZB8-5Bbbtmb6-4Fkl [facility] HospitalComment on above:Performed By: #### ERUR, PREGU, UMICRO #### [facility] [address] [place] [address] Dr. Lisa ChirinosIobbnTDB70-92TartltyaBMXW SEENThe [facility]own HospitalComment on above: Performed By: #### ZEN PAGE UMICRO #### [facility] [address] [place] [address] Dr. Lisa ChirinosChlamydia/GC/Trich NAAon 56-72-7397Gsdlpptim/GC/Trich NAAPositive Critically abnormalNegativePeacehealth St. [facility] eMindful Other Chlamydia/GC/Trich NAANegativeNegativeCanada Tackk Other Urinalysis - DIPSTICKon 50-76-2494Zcxhgfpieh (U)cloudy Game[place]eah Other Bilirubin Ql (U)NegativeCanada Tackk Other Color (U)dark yellowFriend Trusted Tackk Other Glucose Ql (U)NegativeFriend Trusted Tackk Other Hemoglobin Ql (U)traceNocox branson Tackk Other Ketones Ql (U)[facility] Tackk Other Leukocyte esterase Test strip Ql (U)moderateNocox branson Tackk Other Nitrite Ql (U)Critical access hospitalFriend Trusted Tackk Other pH (U)6.5 [pH][place] Other Protein Ql (U)NegativeFriend Trusted Tackk Other Specific gravity (U) [Rel density]1.020Nocox branson Tackk Other Urobilinogen (U) [Mass/Vol]0.2 mg/dLCanada Tackk Other Urinalysis - DIPSTICKFriend Trusted Tackk Other Urine Cultureon 79-49-0198Xvskuofm identified Cx Nom (U)[place] Other 773-8145Dehtm-72 PCR ([facility])on 31-24-1411KRMF-CoV-2 (COVID- 19) RNA ANSON+probe Ql (Unsp spec)Not detectedNormalNOT DETECTEDThe [facility] HospitalComment on above:Result Comment: This test is not yet approved or cleared by the [place] FDA. When there are no FDA-approved or cleared tests available, and other criteria are met, FDA can make tests available under an emergency access mechanism called an Emergency Use Authorization (EUA). The EUA for this test is supported by the [place] Worker of Health and Human Service's (HHS's) declaration [...] consistent with SARS-CoV-2.Performed By: #### CVDTB #### [facility] [address] [place] [address] Dr. Lisa Chirinos Vital Signs Date TimeVital SignValuePerforming IncpfquqlJjnoubkp37-66-2459 11:16-0400Body mass index (BMI) [Ratio]36.85 kg/g8Vkggq [employer] DO Work Phone: Poppermost ProductionsSaint John's HospitalZuqbtaqwsp39-26-5978 11:16-0400Body outnra87.35 kgCorey Cristi DO Work Phone: Poppermost ProductionsSaint John's HospitalHimghpmwsr04-87-2957 11:16-0400Diastolic blood idppqiym68 mm[Hg][employer] DO Work Phone: Poppermost ProductionsSaint John's HospitalLzysovdfnc65-42-4854 11:16-0400Systolic blood rlsaepfl344 mm[Hg]Garfield [employer] Work Phone: [facility] HospitalGykoitiubk53-98-0055 11:16-0400Body mass index (BMI) [Ratio]36.58 kg/m2Kimberley Nikos HAINES Work Phone: [facility] HospitalMiklzfmixl66-51-8039 11:16-0400Body oqtffm60.67 kgKimberley Brunsonlucio HAINES Work Phone: [facility] HospitalJsbncxnrec58-47-5874 11:16-0400Diastolic blood uijyxwqx43 mm[Hg]Kimberley Brunsonlucio HAINES Work Phone: [facility] HospitalUjwvsylovw25-25-9636 11:16-0400Systolic blood muvkdlff542 mm[Hg]Kimberley Stevenson PA Work Phone: [phone] [place], [place] [address]Jgileokhku30-00-1246 11:07-0400Body mass index (BMI) [Ratio]36.34 kg/f6Bapsp Cristi DO Work Phone: [facility] HospitalTszjvcaqdq35-39-2565 11:07-0400Body ospqhl75.04 kgCorey Cristi DO Work Phone: [phone] [place], [place] [address]Sntpskxwjk47-51-7660 11:07-0400Diastolic blood zptthagt37 mm[Hg]Garfield Cristi DO Work Phone: 1([phone] [place], [place] [address]Krtnkwvvfr41-48-9898 11:07-0400Systolic blood jxaisdce870 mm[Hg]Garfield Cristi DO Work Phone: [facility] HospitalOdbesmfqjb44-46-7068 10:35-0400Body mass index (BMI) [Ratio]36.31 kg/z2DnxqnMohawk Valley Health System07-25-2025 10:35-0400Body weight 92.99 kgMohawk Valley Health System07-25-2025 10:35-0400Diastolic blood jmkbzowm36 mm[Hg][facility]07-25-2025 10:35-0400Systolic blood wbzspuqk531 mm[Hg][facility]04-24-2025 10:02-0400Body qryjsp350.02 Sea Vitale APRN Work Phone: [facility]04-24-2025 10:02-0400 Body mass index (BMI) [Ratio]33.6 kg/z0OpufeTeresa Vitale APRN Work Phone: [facility]04-24-2025 10:02-0400 Body etgjpzyxhnt34.3 [degF]Teresa Vitale APRN Work Phone: [facility]04-24-2025 10:02-0400 Body dllucr58.18 kgTeresa Vitale APRN Work Phone: [facility]04-24-2025 10:02-0400 Diastolic blood zczenyrh05 mm[Hg]Teresa Vitale APRN Work Phone: [facility]04-24-2025 10:02-0400 Heart rate84 /minAmbgretta Vitale APRN Work Phone: [facility]04-24-2025 10:02-0400 SaO2% (BldA) [Mass fraction]97 %Teresa Vitale APRN Work Phone: [facility]04-24-2025 10:02-0400 Systolic blood upkqfenf860 mm[Hg]Teresa Vitale APRN Work Phone: [facility]02-26-2025 13:04-0500 Body mass index (BMI) [Ratio]36.46 kg/w9Cdxvy Cristi DO Work Phone: [facility] HospitalExjqprjzja56-18-8228 13:04-0500Body .35 kgCorey Cristi DO Work Phone: [facility] HospitalUehmtmsiwr26-09-0773 13:04-0500Diastolic blood nmkecneu36 mm[Hg]Garfield Cristi DO Work Phone: [facility] HospitalKmjhavxmzu56-12-4781 13:04-0500Systolic blood gctcytkn705 mm[Hg]Garfield Cristi DO Work Phone: noSaint John's HospitalRdrvmhzstu39-66-0602 08:17-0400Body gzbdby217 cm Kendal Rincon NP Work Phone: [phone] [place], [place] [address]Twvgkiqpdv95-53-2849 08:17-0400Body mass index (BMI) [Ratio]34.37 kg/a0FvkkhportKendal Rincon COMBINER Work Phone: [phone] [place], [place] [address]Nzxgfjkuio78-21-1002 08:17-0400Body aiqyfl04 kg Kendal Rincon COMBINER Work Phone: [phone])[facility] [place], [place] [address]Dcxoonyzzp24-61-7709 08:17-0400Diastolic blood cudgltaq60 mm[Hg]Kendal Rincon COMBINER Work Phone: [phone])[facility] [place], [place] [address]Locsmgvevh46-30-6551 08:17-0400Systolic blood gxqsrtfe791 mm[Hg]Kendal Rincon COMBINER Work Phone: [phone])[facility] [place], [place] [address]Mjfswjcfya00-02-6880 10:16-0400Body lxbcpu911 cm Peter Romero MD Work Phone: [phone] [place], [place] [address]Kktkwmddfg35-54-9951 10:16-0400Body mass index (BMI) [Ratio]33.66 kg/j3ZlvipPeter Romero MD Work Phone: [phone])[facility] [place], [place] [address]Zajdsrwnsx57-13-2321 10:16-0400Body aeqint89.18 kgPeter Romero MD Work Phone: [phone] [place], [place] [address]Lasrnnssaw11-46-3612 10:16-0400Heart rate70 /min Peter Romero MD Work Phone: [phone] [place], [place] [address]Ahzwqevkaq39-26-2897 10:16-0400Respiratory rate16 /minPeter Romero MD Work Phone: [phone] [place], [place] [address]08-19-2024 13:06-0400Body uvngeq79.36 kgLisset Matos MD Work Phone: [phone])[facility] CenterPer[facility] HospitalZdmvtoytva10-76-3923 13:06-0400Diastolic blood lmcuxxol35 mm[Hg]Lisset Matos MD Work Phone: 1(155)[facility] [place], [place] [address]Lvlanqemzi62-77-9982 13:06-0400Systolic blood awgxylse926 mm[Hg]Lisset Matos MD Work Phone: [phone])[facility] [place], [place] [address]Hhjcallegq86-30-7460 12:05-0400Body ymhvjx832.02 cmThombill Resendiz Other noGrandis Other 10-22-2023 12:05-0400Body mass index (BMI) [Ratio] 33.65 kg/x4Iyvjin Astrid Other [employer] Other 10-22-2023 12:05-0400Body yjhocdbazrr24.5 [degF]Jose Miguel Resendiz Other [employer] Other 10-22-2023 12:05-0400Body rxommz70.18 kgThomas Astrid Other [place] Other 10-22-2023 12:05-0400Diastolic blood pxighrfw92 mm[Hg] Jose Miguel Resendiz Other [place] Other 10-22-2023 12:05-0400Respiratory rate18 /minThomas Astrid Other [place] Other 10-22-2023 12:05-2543ClS7% (BldA) [Mass fraction]97 % Jose Miguel Resendiz Other [place] Other 10-22-2023 12:05-0400Systolic blood dmyfnwjq601 mm[Hg] Jose Miguel Astrid Other [place] Other 06-23-2022 12:55-0400Body pnaeqx103.02 Bacilio Melvin Other [place] Other 06-23-2022 12:55-0400Body mass index (BMI) [Ratio] 31.88 kg/s4UxubwoPhil Melvin Other [place] Other 06-23-2022 12:55-0400Body sczgudubpjr68.9 [degF]Phil Melvin Other [place] Other 06-23-2022 12:55-0400Body dtdgmo80.65 kgPhil Melvin Other [place] Other 06-23-2022 12:55-0400Respiratory rate18 /minPhil Melvin Other [place] Other 06-23-2022 12:55-7575NcZ1% (BldA) [Mass fraction]98 % Phil Melvin Other [place] Other Encounters Encounter DateEncounter TypeCare ProviderFacilityStart: 02-10-2025 End: 32-70-1257Vqnwecywb Result EncounterCorey Cristi DO Work Phone: noms External Department UnsolicitedStart: 02-10-2025 End: 61-33-6631Fdwmrlqvk Result EncounterCorey Cristi DO Work Phone: noms External Department UnsolicitedStart: 01-26-2025 End: 43-36-2615qsnvebfgqcNNMVU FAZIONot AvailableStart: 01-26-2025 End: 19-74-7220Mouoxh outpatient visit 15 minutesCorey Cristi DO Work Phone: noms [facility] OBGYNComment on above:Second trimester ([facility]); 20 weeks gestation of ([facility])Start: 01-26-2025 End: 86-68-3458byrddvepasFFW RAMEYNot AvailableStart: 12-29-2024 End: 13-25-6854Iqzfez flowsheetKimberley Stevenson PA Work Phone: noms [facility] OBGYNStart: 12-29-2024 End: 46-96-8702Tynnef flowsheetKimberley Stevenson YANCY Work Phone: NO [facility] OBGYNStart: 12-29-2024 End: 06-61-0304Uzliqmkmm Result EncounterKimberley Stevenson YANCY Work Phone: no External Department UnsolicitedStart: 12-29-2024 End: 14-76-8120Enkcdkrc Result EncounterKimberley Stevenson YANCY Work Phone: no External Department UnsolicitedStart: 12-29-2024 End: 47-60-0862Ubnszut encounter procedureKimberley Stevenson YANCY Work Phone: noms HealthcareStart: 12-29-2024 End: 53-67-7637Dmtibxuq preventive med est patient 18-39 yrsKimberley Brunsonlucio HAINES Work Phone: noMS [facility] OBGYNComment on above:Tinea (Primary Dx); Second trimester ([facility]); 16 weeks gestation of ([facility]); Screening, , for anatomic survey ([facility]); STD exposure; Well woman exam with routine gynecological examStart: 12-29-2024 End: 83-29-4691nnqzhycpgfAPA NIKOSAri AvailableStart: 12-01-2024 End: 89-31-6735Drkznn flowsheetCorey Cristi DO Work Phone: NOMS [facility]BGYNStart: 12-01-2024 End: 20-94-7520Eitpqc flowsheetCorey Cristi DO Work Phone: NO Stephen OBGYNStart: 12-01-2024 End: 66-88-6960Liwtyq outpatient visit 15 minutesCorey Cristi DO Work Phone: NOMS Stephen OBGYNComment on above:Second trimester ([facility]); 12 weeks gestation of ([facility])Start: 12-01-2024 End: 83-35-9653iinbwhhaypKLQFN FAZIONot AvailableStart: 11-04-2024 End: 38-03-6642Ogmfoaqlf Result EncounterCorey Cristi DO Work Phone: noms External Department UnsolicitedStart: 11-04-2024 End: 31-40-6500Fvuubxtak Result EncounterCorey Cristi DO Work Phone: noms External Department UnsolicitedStart: 10-31-2024 End: 72-01-2954Epkeij outpatient visit 5 minutesFazio Nurse [facility]oms Bcp ObNOMS BCP OBComment on above:GA: 8w2eZmpzk: 10-31-2024 End: 87-70-7438iuzrxnufpqJLUES FAZIONot AvailableStart: 10-02-2024 End: 81-41-1811Rsucqekea Result EncounterCorey Cristi DO Work Phone: noms External Department UnsolicitedStart: 10-02-2024 End: 71-98-3049Qjresjkrd Result EncounterCorey Cristi DO Work Phone: noms External Department UnsolicitedStart: 09-30-2024 End: 72-85-9814Xdelzgayi Result EncounterCorey Cristi DO Work Phone: noms External Department UnsolicitedStart: 09-30-2024 End: 29-40-4278Hqpvhhuuj Result EncounterCorey Cristi DO Work Phone: noms External Department UnsolicitedStart: 09-22-2024 End: 48-16-4280Xqefymaty Result EncounterCorey Cristi DO Work Phone: noms External Department UnsolicitedStart: 09-22-2024 End: 66-00-9877Qgqsefsvr Result EncounterCorey Cristi DO Work Phone: noms External Department UnsolicitedStart: 07-31-2024 End: 98-18-4454oxczzaqkshOupxg L KellerNovant Health [facility] Medical Centerestefany [facility] Work Phone: Start: 07-31-2024 End: 86-73-4406ArfjexkvDebbie Vitale APRN Work Phone: [facility] [address] Start: 07-31-2024 End: 47-37-1567Yruztmf encounter Arniegretta Vitale LIQUID CHLORINE OPERATOR Work Phone: [facility] Work Phone: Start: 06-24-2024 End: 34-32-8152zewvnuskmkIKFDD FAZIONot AvailableStart: 06-04-2024 End: 35-77-7419Mivopl flowsheetCorey Cristi DO Work Phone: noms BCP OBStart: 06-04-2024 End: 95-92-3732Gdllxy flowsheetCorey Cristi DO Work Phone: noms BCP OBStart: 06-04-2024 End: 74-82-9145Tlahdn outpatient visit 15 minutesCorey Cristi DO Work Phone: noms BCP OBComment on above:Abnormal uterine bleeding (AUB); PCOS (polycystic ovarian syndrome)Start: 06-04-2024 End: 35-85-2998hstowmpaxzEWAFE FAZIONot AvailableStart: 02-07-2024 End: 89-68-5621Kdchyc flowsAleena Rincon NP Work Phone: noms NB OBStart: 02-07-2024 End: 35-59-1621Gclwwv flowsAleena Rincon COMBINER Work Phone: noms NB OBStart: 02-07-2024 End: 24-55-5609Sqqvjw outpatient visit 15 minutesStloretta Rincon NP Work Phone: noms NB OBComment on above:Irregular menses (Primary Dx); Female infertilityStart: 02-07-2024 End: 97-08-8099hhaasaqpqzRDLLKTHMJ F HOFFMANNot AvailableStart: 01-30-2024 End: 08-16-4297Fnvsfcmdi encounterPeter Romero MD Work Phone: noms ENDOCRINOLOGYStart: 01-14-2024 End: 21-55-8022Pbmnns Carmel Romero MD Work Phone: noms ENDOCRINOLOGYStart: 01-14-2024 End: 38-04-4062Pbxtnk Carmel Romero MD Work Phone: noms ENDOCRINOLOGYStart: 01-14-2024 End: 30-08-2423Dmccdb outpatient new 30 minutesPeter Romero MD Work Phone: noms ENDOCRINOLOGYComment on above:Low serum cortisol level (Primary Dx); Encounter for dietary consultation; Class 1 obesity due to excess calories without serious comorbidity with body mass index (BMI) of 33.0 to 33.9 in adultStart: 12-06-2023 End: 73-85-4733Wxgrjvi encounter procedureLisset Matos MD Work Phone: noms [facility] OBComment on above:Low serum cortisol level (Primary Dx); Acute vaginitisStart: 11-30-2023 End: 88-23-6961Jpggwvdzx encounterLisset Matos MD Work Phone: noms SWS OBStart: 11-26-2023 End: 68-99-0500Jlgqfm OnlyLisset Matos MD Work Phone: noms External Department UnsolicitedStart: 11-26-2023 End: 03-79-8063Dviwfv outpatient visit 15 minutesLisset Matos MD Work Phone: noms [facility] OBComment on above:Acute vaginitis (Primary Dx); Encounter for gynecological examination without abnormal finding; control counseling; Irregular menses; Hormone imbalance; Thyroid disorder screen; Imbalance of male hormones with irregular menstruation and ovulation; Screen for STD (sexually transmitted disease)Start: 11-26-2023 End: 65-51-5548Pupmrof encounter statusLisset Matos MD Work Phone: noms HealthcareStart: 01-31-2023 End: 10-97-1727pwnzaoameeUfzjzx [place] Other nocox branson Tackk Other Start: 52-23-4988Botbaccry encounterThalexis ForzaneFPG Urgent Care Castine RoadStart: 13-13-0760Awbgxv outpatient visit 15 minutesThomas AstridFPG Urgent Care Castine RoadStart: 01-28-2023 End: 64-43-4245gogmzxtagrJK-Chris Resendiz Work Phone: [facility] Work Phone: Start: 01-28-2023 End: 22-78-1068Acglpvtj ReferredSAÚL Jose Miguel Resendiz Work Phone: [facility] Start: 10-04-2021 End: 72-30-0926wmwyzgcapuVjkwgm Taylor Other [place] Other Start: 79-97-9405Irhsdmrgz encounterCalministerio MelvinKARSON Urgent Care Castine RoadStart: 10-02-2021 End: 21-19-8462yxdkabgdbxPL JANIE MILNERYFacility:N2Fwuov: 09-29-2021 End: 36-05-4041gewpxucpcsJsocog Taylor Other [place] Other Start: 68-67-6054Rwdzyg outpatient visit 15 minutes Stacielucio [facility]rez [facility] Cast[address] RoadStart: 04-14-2021 End: 30-45-5412afghzxsjvaBLMKPX CRAMERFacility:C8Fchat: 68-08-7453zurhvfpsag JOSEF CRAMERFacility:H1 Procedures DateProcedureProcedure DetailPerforming ClinicianStart: 21-11-5158MD OB CERVICAL LENGTHCorey Cristi DO Work Phone: Start: 76-03-3471CO OB INCOMPLETE ANATOMYCorey Cristi DO Work Phone: Start: 72-80-9817Niuxy dip stick/tablet rgnt non-auto w/o micrscpCorey Cristi DO Work Phone: Start: 05-88-2543GDLKFYJHI VAGINITIS (HTRX)Kimberley HAINES Work Phone: Start: 39-35-0582Ymbuz dip stick/tablet rgnt non-auto w/o micrscpAmy Nikos HAINES Work Phone: Start: 86-29-2150UUR,APTIMA HPV,AGE GDLNAmy Nikos HAINES Work Phone: Start: 77-54-8643Mcqqb dip stick/tablet rgnt non-auto w/o micrscpCorey Cristi DO Work Phone: Start: 55-41-6115ZAI TESTCorey Cristi DO Work Phone: Start: 97-10-7194Nsdwv dip stick/tablet rgnt non-auto w/o micrscpCorey Cristi DO Work Phone: Start: 91-67-0391JJW PREG QUANT HCGCorey Cristi DO Work Phone: Start: 78-89-8437QEY PREG QUANT HCGCorey Cristi DO Work Phone: Start: 77-57-0317KBL PROGESTERONECorey Cristi DO Work Phone: Start: 32-27-9249ZYSPBEZFLLXJL INFECTION (HTRX)Lisset Matos MD Work Phone: start: 80-11-2053Dlhrivux totalLisset Matos MD Work Phone: start: 85-64-7723Rbmuizacgmtk/tazobactamThomas [place] Other Plan of Treatment DateCare ActivityDetailAuthorStart: 02-23-2025 End: 58-75-4760Vnivfng encounter oupjrzuwy02/17/2025 9:30 AM EST Routine [facility] [address] [place], [id number] Kimberley Stevenson PA [address] [place] [address] [facility] Stephen OBGYNStart: 01-26-2025 End: 55-07-3802Iuiggfk encounter lgpakgyho91/20/2025 10:00 AM EDT Routine [facility] [address] [place] [id number] Garfield Colin, [address] [place] [address] [facility] OBGYNStart: 01-26-2025 End: 33-85-8602Ijhtpozmnouh / ancillary services prfeyakdxb99/20/2025 9:00 AM EDT Ancillary Procedure [facility] [address] [place] [address] NOMS Stephen OBGYNStart: 12-29-2024 End: 06-47-4767Jbfab fetoprotein, maternalAlpha fetoprotein, maternal Lab Routine 16 weeks gestation of ([facility]) Expected: 12/29/2024 (Approximate), Expires: 02/28/2025NOME HealthcareComment on above:Expected: 12/29/2024 (Approximate), Expires: 02/28/2025Start: 12-29-2024 End: 63-04-2699ND for pregnancyUS OB 14+ weeks anatomy scan Imaging Routine Screening, , for anatomic survey ([facility]) Expected: 12/29/2024, Expires: 03/30/2025N[facility] HealthcareComment on above:Expected: 12/29/2024, Expires: 03/30/2025Start: 12-29-2024 End: 53-21-8830Gzorodc encounter procedureNOMS Stephen OBGYNComment on above: ArrivedStart: 65-56-3811JQUDP-19 Vaccine ( season)COVID-19 Vaccine ( season)NOMS HealthcareStart: 43-90-3920Rqpmiorpx vaccinationNOMS HealthcareStart: 12-01-2024 End: 43-62-8603Mdykogg encounter procedureNOMS BCP OBComment on above:Arrived Start: 10-31-2024 End: 02-61-4461YFN/RhABO/Rh Lab Routine Missed menses , unspecified gestational age ([facility]) Expected: 10/31/2024 (Approximate), Expires: 10/31/2025N[facility] HealthcareComment on above:Expected: 10/31/2024 (Approximate), Expires: 10/31/2025Start: 10-31-2024 End: 37-92-0751Xbonq type and Indirect antibody screen panel - BloodType and screen Lab Routine Missed menses , unspecified gestational age ([facility]) Expected: 10/31/2024 (Approximate), Expires: 10/31/2025[facility] Work Phone: comment on above:Expected: 10/31/2024 (Approximate), Expires: 10/31/2025Start: 10-31-2024 End: 02-95-6424Ehgth of abuse panel - Urine by Screen methodRapid drug screen, urine Lab Routine , unspecified gestational age ([facility]) Encounter for supervision of normal first in first trimester ([facility]) Expected: 10/31/2024 (Approximate), Expires: 10/31/2025N[facility] HealthcareComment on above: Expected: 10/31/2024 (Approximate), Expires: 10/31/2025Start: 09-03-2024 End: 36-88-0658Qbzxhih encounter noeudbnqt45/28/2025 2:50 PM EDT Office Visit [facility] [address] [place] [phone] Garfield Colin DO [address] [place] [address] NOMS BCP OBStart: 34-48-3283Gbvbdrgh identified in Urine by CultureUrine [facility] Hospitaltart: 07-31-2024 Urine cultureKettering Healthtart: 06-24-2024 End: 25-79-0171Xghlkstpudts / ancillary services rnbvagxsdf40/18/2025 9:30 AM EDT Ancillary Procedure [facility] [address] [place] [address] QVWZ BCP OBStart: 06-04-2024 End: 88-43-0796Cvyshkrhjjkmq hormone (AMH)Antimullerian hormone (AMH) Lab Routine Abnormal uterine bleeding (AUB) PCOS (polycystic ovarian syndrome) Expected: 06/04/2024 (Approximate), Expires: 06/04/2025NOMS HealthcareComment on above:Expected: 06/04/2024 (Approximate), Expires: 06/04/2025Start: 06-04-2024 End: 53-80-6599GR PelvisUS Pelvis w/ TV Imaging Routine Abnormal uterine bleeding (AUB) Expected: 06/04/2024, Expires: 06/04/2025NOMS HealthcareComment on above:Expected: 06/04/2024, Expires: 06/04/2025Start: 06-04-2024 End: 15-64-2517Vqeukai encounter ejtpjpdjo83/26/2025 1:10 PM EST Office Visit [facility] [address] [place] [address] Garfield Colin, DO [address] [place] [address] [place] [address] ArrivedNOMS [facility] OBComment on above:ArrivedStart: 02-07-2024 End: 89-60-2234Kznvvkl encounter procedureNOCHILDREN'S MERCY [facility] OBComment on above:Arrived Start: 01-14-2024 End: 22-50-5618BHLCPSPE Lab Routine Low serum cortisol level Expected: 01/14/2024 (Approximate), Expires: 01/13/2025NOMS HealthcareComment on above: Expected: 01/14/2024 (Approximate), Expires: 01/13/2025Start: 01-14-2024 End: 10-15-4552TqvuioxvBllotnjv Lab Routine Low serum cortisol level Expected: 01/14/2024 (Approximate), Expires: 01/13/2025[facility] Work Phone: Comment on above:Expected: 01/14/2024 (Approximate), Expires: 01/13/2025Start: 01-14-2024 End: 33-05-9107Kaphqrj encounter procedureNOMS ENDOCRINOLOGYComment on above: ArrivedStart: 34-71-6214Dhnjcbysp vaccinationInfluenza Vaccine (#1)NOMS HealthcareStart: 12-06-2023 End: 41-90-6286Ahvunft encounter moapnvwpz92/29/2024 8:15 AM EDT Office Visit [facility] [address] [place] [address] Lisset Matos MD [address] [place] [address] NOMJennie CASTAÑEDA OBStart: 11-26-2023 End: 11-56-3175RdodyscpEsqmfhnk Lab Routine Hormone imbalance Expected: 11/26/2023 (Approximate), Expires: 11/25/2024NOMS HealthcareComment on above: Expected: 11/26/2023 (Approximate), Expires: 11/25/2024Start: 11-26-2023 End: 28-92-3571LQLT-sulfateDHEA-sulfate Lab Routine Hormone imbalance Expected: 11/26/2023 (Approximate), Expires: 11/25/2024NOMS HealthcareComment on above: Expected: 11/26/2023 (Approximate), Expires: 11/25/2024Start: 11-26-2023 End: 91-98-2414UnetdkujcBvwgobneh Lab Routine Hormone imbalance Expected: 11/26/2023 (Approximate), Expires: 11/25/2024NOMS HealthcareComment on above: Expected: 11/26/2023 (Approximate), Expires: 11/25/2024Start: 11-26-2023 End: 07-76-1313TzyrcmaQutizot Lab Routine Hormone imbalance Expected: 11/26/2023 (Approximate), Expires: 11/25/2024NOMS HealthcareComment on above:Expected: 11/26/2023 (Approximate), Expires: 11/25/2024Start: 11-26-2023 End: 21-88-6710Hdlhkxpo stimulating hormoneFollicle stimulating hormone Lab Routine Hormone imbalance Thyroid disorder screen Expected: 11/26/2023 (Approximate), Expires: 11/25/2024[facility] HealthcareComment on above:Expected: 11/26/2023 (Approximate), Expires: 11/25/2024Start: 11-26-2023 End: 09-82-0059Cpsfris, randomInsulin, random Lab Routine Imbalance of male hormones with irregular menstruation and ovulation Expected: 11/26/2023 (Approximate), Expires: 11/25/2024[facility] HealthcareComment on above:Expected: 11/26/2023 (Approximate), Expires: 11/25/2024Start: 11-26-2023 End: 97-15-0971Genxztkbwlu hormoneLAKEVIEW HOSPITAL HealthcareComment on above:Expected: 11/26/2023 (Approximate), Expires: 11/25/2024Ordered: 11/26/2023Start: 11-26-2023 End: 86-90-8638QsfojnfexiqmFytltgxthqyq Lab Routine Hormone imbalance Expected: 11/26/2023 (Approximate), Expires: 11/25/2024[facility] HealthcareComment on above: Expected: 11/26/2023 (Approximate), Expires: 11/25/2024Start: 11-26-2023 End: 53-19-7092Dikmguytfnb [Units/volume] in Serum or PlasmaTSH Lab Routine Hormone imbalance Thyroid disorder screen Expected: 11/26/2023 (Approximate), Expires: 11/25/2024[facility] Work Phone: comment on above:Expected: 11/26/2023 (Approximate), Expires: 11/25/2024Start: 14-35-4134Xvdntgbv identified in Urine by Culture [facility] HospitalBacteria identified in Urine by CultureUrine culture Microbiology Routine Missed menses Ordered: 10/31/2024[facility] Healthcare Comment on above:Ordered: 5CBC W Auto Differential panel - BloodCBC and differential Lab Routine Missed menses , unspecified gestational age ([facility]) Ordered: 10/31/2024[facility] HealthcareComment on above:Ordered: 10/31/2024 CHLAMYDIA TRACHOMATIS (GENITO/STI)CHLAMYDIA TRACHOMATIS (GENITO/STI) Lab Routine STD exposure Ordered: 12/29/2024[facility] HealthcareComment on above:Ordered: 12/29/2024ortisolCortisol Lab Routine Low serum cortisol level Ordered: 12/06/2023[facility] Work Phone: comment on above:Ordered: 12/06/2023ytology Cervical or vaginal smear or scraping studyPap Smear Pathology and Cytology Routine Well woman exam with routine gynecological exam Ordered: 12/29/2024[facility] Work Phone: comment on above:Ordered: 12/29/2024Hemoglobin A1c/Hemoglobin.total in BloodHemoglobin A1c Lab Routine Imbalance of male hormones with irregular menstruation and ovulation Ordered: 11/26/2023[facility] HealthcareComment on above:Ordered: 11/26/2023Hemoglobin A1c/Hemoglobin.total in BloodHemoglobin A1c Lab Routine Abnormal uterine bleeding (AUB) Ordered: 06/04/2024[facility] HealthcareComment on above:Ordered: 06/04/2024Hemoglobin A1c/Hemoglobin.total in BloodHemoglobin A1c Lab Routine Missed menses , unspecified gestational age ([facility]) Ordered: 10/31/2024[facility] HealthcareComment on above:Ordered: 10/31/2024Hepatitis B virus surface Ag [Presence] in Serum or Plasma by ImmunoassayHepatitis B surface antigen Lab Routine Missed menses , unspecified gestational age ([facility]) Ordered: 10/31/2024[facility] HealthcareComment on above:Ordered: 10/31/2024Hepatitis C virus Ab [Presence] in Serum or Plasma by ImmunoassayHepatitis C antibody Lab Routine Missed menses , unspecified gestational age ([facility]) Ordered: 10/31/2024[facility] HealthcareComment on above:Ordered: 10/31/2024HIV-1/HIV-2 antigen/antibody combination immunoassayHIV-1 and HIV-2 antibodies Lab Routine Missed menses , unspecified gestational age ([facility]) Ordered: 10/31/2024[facility] HealthcareComment on above:Ordered: 10/31/2024Neisseria gonorrhoeae DNA [Presence] in Unspecified specimen by ANSON with probe detectionNeisseria gonorrhea DNA probe, direct Lab Routine STD exposure Ordered: 12/29/2024[facility] HealthcareComment on above:Ordered: 12/29/2024ProgesteroneProgesterone Lab Routine Abnormal uterine bleeding (AUB) PCOS (polycystic ovarian syndrome) Ordered: 06/04/2024[facility] Work Phone: comment on above:Ordered: 06/04/2024Reagin Ab [Presence] in Serum by RPRRPR Lab Routine Missed menses , unspecified gestational age ([facility]) Ordered: 10/31/2024[facility] HealthcareComment on above: Ordered: 10/31/2024Rubella antibody, IgGRubella antibody, IgG Lab Routine Missed menses , unspecified gestational age ([facility]) Ordered: 10/31/2024[facility] HealthcareComment on above:Ordered: 10/31/2024SURESWAB(R) ADVANCED VAGINITIS PLUS, TMASURESWAB(R) ADVANCED VAGINITIS PLUS, TMA Pathology and Cytology Routine STD exposure Ordered: 12/29/2024[facility] HealthcareComment on above:Ordered: 12/29/2024Thyrotropin [Units/volume] in Serum or PlasmaTSH Lab Routine Abnormal uterine bleeding (AUB) PCOS (polycystic ovarian syndrome) Ordered: 06/04/2024 [facility] HealthcareComment on above:Ordered: 06/04/2024 Immunizations Immunization DateImmunizationNotesCare NvuottnxZmaytsgg29-75-2269Jy not use COVID-19 Pfizer 2 [place]let Melvin Other [facility]07-01-2021COVID-19 Balta Warner (Pfizer)SAÚL Nolascoaker Work Phone: [facility] Payers DatePayer CategoryPayerPolicy ID2024Medicaid [id number] [id number] [id number] 2.16.840.1.274962.3.57[id number] 2.16.840.1.456949.3.57[id number] 2.16.840.1.100697.3.57[id number] 2.16.840.1.131770.3.57[id number] 2.16.840.1.921013.3.57[id number] 2.16.840.1.052691.3.57[id number] 2.16.840.1.514674.3.57[id number] 2.16.840.1.536372.3.57[id number] 2.16.840.1.986746.3.57[id number] 2.16.840.1.069427.3.57[id number] 2.16.840.1.057303.3.579.2.513375-10-9673Jgwd-[id number] [id number] 2.16.840.1.360319.3.579.2.531 Social History DateTypeDetailFacilityStart: 11-26-2023 End: 19-15-5273Sgo Assigned At [facility] Tackk Other Start: 04-22-2021 End: 04-64-3792Poqtjuz smoking status NHISNever smoked tobacco (finding) [facility]: 37-33-3887Fkn Assigned At BirthFemale [facility]art: 95-27-5203Cnfsoqk use and exposure Smokeless tobacco non-userNOMS HealthcareStart: 11-26-2023 End: 09-44-5912Bwdwoejrx beverage intakeLifetime non-drinker (finding)[facility] HealthcareStart: 11-26-2023 End: 88-08-0535Dotbzlz of Social functionNOMS HealthcareStart: 54-46-0592Cpq assigned at birthNot on fileNOME HealthcareHow often to you have a drink containing alcohol?NeverNOME HealthcareStart: 44-49-9017Vsw many standard drinks containing alcohol do you have on a typical day?Patient does not drinkNOME HealthcareStart: 59-70-5639HxkFcntbg (finding)[facility] Start: 60-75-4958WgryjcgebUCQV Healthcare Clinical Notes 09-29-2021 to 01-26-2025 Note Date & [id number] History of Present illness Narrative* Latanya Oneal, PABLO - 01/26/2025 10:00 AM EDT Reason for Appointment: Patient ID: Etienne Molina is a 19 y.o. female who [...] 09/02/2024 Irregular menses 09/02/2024 Positive urine test ([facility]) 09/29/2024 Resolved Ambulatory Problems Diagnosis Date Noted [...] nursing note reviewed. Exam conducted with a byproducts operator present. Vitals: Estimated body mass index is 36.85 kg/m as calculated from the following: Height as of 24: 5' 3 . Weight as of this encounter: 208 lb. BP: 122/80 Patient's last menstrual period was 09/02/2024. Assessment/Plan ICD-10-CM 1. Second trimester ([facility]) Z34.92 2. 20 weeks gestation of ([facility]) Z3A.20 POCT urinalysis dipstick manually resulted Patient presents today for a routine obstetrics appointment. Patient is currently 20w6d with a Estimated Date of Delivery: 06/09/25. Patient had anatomy scan prior to appointment today. Patient to return to clinic in 4 weeks for routine OB care. Documented by Latanya Oneal LPN on behalf of: Garfield Colin DO documented in this encounterWashington County Memorial [id number] History of Present illness Narrative* YANCY Izquierdo - 12/29/2024 11:00 AM EDT Reason for Appointment: Patient ID: Etienne Molina is a 19 y.o. female who [...] 09/02/2024 Irregular menses 09/02/2024 Positive urine test ([facility]) 09/29/2024 Resolved Ambulatory Problems Diagnosis Date [...] nursing note reviewed. Exam conducted with a byproducts operator present. Vitals: Estimated body mass index is [...] annual exam/routine obstetrics appointment. Patient is currently [id number]. Patient states she is doing well but [...] behalf of: YANCY Izquierdo documented in this encounterWashington County Memorial [id number] History of Present illness Narrative* Tiana Renner NP - 12/01/2024 10:50 AM EDT Reason for Appointment: Patient ID: Etienne Molina is a 19 y.o. female who [...] 09/02/2024 Irregular menses 09/02/2024 Positive urine test ([facility]) 09/29/2024 Resolved Ambulatory Problems Diagnosis Date [...] nursing note reviewed. Exam conducted with a byproducts operator present. Vitals: Estimated body mass index is [...] of ([facility]) Z3A.12 Vit-Fe Fumarate-FA ( Vitamins)28-0.8 MG tablet [...] of: Garfield Colin DO documented in this encounterWashington County Memorial [id number] History of Present illness Narrative* Nichol Alves LPN - 10/31/2024 10:30 AM EDT Reason for Appointment: Patient ID: Etienne Molina is a 19 y.o. female who [...] 09/02/2024 Irregular menses 09/02/2024 Positive urine test ([facility]) 09/29/2024 Resolved Ambulatory Problems Diagnosis Date Noted [...] dipstick manually resulted , unspecified gestational age ([facility]) - Type and screen; Future - ABO/Rh; Future - CBC and differential - Hemoglobin A1c - RPR - Rubella antibody, IgG - Hepatitis B surface antigen - Hepatitis C antibody - HIV-1 and HIV-2 antibodies - Rapid drug screen, urine; Future Encounter for supervision of normal first in first trimester ([facility]) - Rapid drug screen, urine; Future [...] or undercooked meat, and stay away from [facility]. Patient has also been advised to not change litter boxes and eat 6 small meals a day. Patient has been consulted regarding the do's and don'ts ofpregnancy. Patient was given labs and all questions and concerns were answered. Patient was given Elma to have completed at initial lab draw. [...] by: Nichol Alves LPN documented in this encounterWashington County Memorial HospitalEijhtcmwvj54-43-9429 Evaluation note* Diagnosis Onset Date Resolution Status Admit Date Dysuria acuteApril 2024 9:45am [facility] Work Phone: 1(184) 862-716902-26-2025 History of Present illness Narrative* Mariana More LPN - 06/04/2024 1:10 PM EST Reason for Appointment: Patient ID: Etienne Molina is a 19 y.o. female who [...] nursing note reviewed. Exam conducted with a byproducts operator present. Vitals: Estimated body mass index is [...] of: Garfield Colin DO documented in this encounterWashington County Memorial [id number] History of Present illness Narrative* Kendal Rincon NP - 02/07/2024 8:20 AM EDT Name: Etienne Molina Date/Time of Service:02/07/2024 8:45 AM :2005 Age: 18 y.o. Chief Complaint Patient presents with Menstrual Problem SUBJECTIVE: History of Present Illness Etienne Molina is a 18 y.o. nulliparous female [...] No follow-ups on file. documented in this encounterWashington County Memorial [id number] Telephone encounter Note* Telephone Encounter - Dung Wangarthy - 01/30/2024 8:23 AM EDT Pt would like lab read please. Thank you! [facility] [id number] Miscellaneous Notes* Telephone Encounter - Dung Albert - 01/30/2024 8:23 AM EDT Pt would like lab read please. Thank you! documented in this encounterWashington County Memorial HospitalGjbgxcwdsm47-29-0922 History of Present illness Narrative* Peter Romero MD - 01/14/2024 10:00 AM EDT Etienne Molina is a 18 y.o. female No [...] reviewed with the patient documented in this encounterWashington County Memorial HospitalNdtgqdoluv63-73-3080 History of Present illness Narrative* Lisset Matos MD - 12/06/2023 8:15 AM EDT Images from the original note were not included. Lisset Matos MD Obstetrics and Gynecology Patient: Etienne Molina : 2005 (18 y.o.) Exam Date: 12/06/2023 Reason for Visit - Chief Complaint Patient presents with Televisit Televisit to discuss test results and follow up on vaginitis. The patient presented with concerns about her recent lab work. She reported that she had questions about her low cortisol levels and was interested in further evaluation by an assistant spa manager. The patient was informed that a referral had been sent for an assistant spa manager consultation and that additional testing would be [...] inquired about the timeline for seeing an assistant spa manager and was informed that it could take [...] Plan: a) Referred the patient to an assistant spa manager for further evaluation of adrenal function. b) The patient may consider repeating the cortisol test with fasting if desired. c) Educated the patient on low cortisol and its implications. 2. Ovulation and hormonal levels - Assessment: Normal ovulation and hormonal levels were observed in the lab work. - Plan: a) No further action needed at this time. 3. Patient's concern about the assistant spa manager appointment - Plan: a) The patient will call the referral department to inquire about the earliest available appointment. documented in this encounterWashington County Memorial HospitalNmhwohpjzr57-08-8307 History of Present illness Narrative* Lisset Matos MD - 11/26/2023 1:00 PM EDT Images from the original note were not included. Lisset Matos MD Obstetrics and Gynecology Patient: Etienne Molina : 2005 (18 y.o.) Yearly Wellness [...] (sexually transmitted disease) Z11.3 GENITOURINARY INFECTION (HTRX) [place] was seen today for gynecologic exam. Diagnoses [...] informed and results will be available in MyChart in 72 hours Return for annual and prn documented in this encounterWashington County Memorial HospitalEtyhhrxjkx89-69-0127 Evaluation note* Encounter Date Diagnosis Assessment Notes [...] Follow up with primary care provider or geothermal heat pump machinist if no improvement of symptoms. [facility] Other 06-23-2022 Evaluation note* Encounter Date Diagnosis [...] Pt understood and agreed to teatment plan. [facility] Other evaluation noteNo InformationNortAllegheny [facility] eMindful Other evaluation noteNo assessment information available [facility] Work Phone: evaluzgudp note* Diagnosis Low serum cortisol level- Primary [...] Diagnosis Missed menses , unspecified gestational age ([facility]) Encounter for supervision of normal first in first trimester ([facility]) Nausea Nausea alone documented [facility] encounter [facility]* Diagnosis Second trimester ([facility]) state, incidental 12 weeks gestation of ([facility]) documented in this encounter [facility]* Diagnosis Tinea- Primary Dermatophytosis of unspecified site Second trimester ([facility]) state, incidental 16 weeks gestation of ([facility]) Screening, , for anatomic survey ([facility]) Encounter for anatomic survey STD exposure Well woman exam with routine gynecological exam Routine gynecological examination documented in this encounter [facility]* Diagnosis Second trimester ([facility]) state, incidental 20 weeks gestation of ([facility]) documented in this encounter [facility] HealthcareHistory general Narrative - Reported* Type Description Date Surgical History appendectomy [facility] Other Summary Purpose Family History No Family [...] and content) DATE CREATED AUTHOR 10/03/2021 [facility] DATE CREATED AUTHOR AUTHOR'S ORGANIZ ATION 10/28/2021 [facility] DATE CREATED AUTHOR AUTHOR'S ORGANIZ ATION 08/07/2024 [facility] DATE CREATED AUTHOR AUTHOR'S ORGANIZ ATION 01/28/2025 [facility] EPIC REASON FOR VISIT (unrecogniz ed section and content) ReasonCommentsRoutine VisitReasonCommentsInfertilityReasonComments Gynecologic ExamReasonCommentsMenstrual ProblemReasonCommentsTelevisitReason CommentscortisolFollow-upPOSS UTISTI CHECK Care Teams (unrecognized sec tion and content) Team Status: Inactive Member Role Status Dates Jose Miguel Resenidz , COMBINER-C Attending Provider Activ e Team MemberRelationshipSpecialtyStart DateEnd Date Unallocated, Farhana Tsang MD [address] [place] [address] [facility]11/26/23Team MemberRelationshipSpecialtyStart DateEnd Date Unallocated, MD Ferdy Hussein [facility] [place] [address] [facility]CP - [facility]Saint [facility]11/26/23Team MemberRelationshipSpecialtyStart DateEnd Date Unallocated, MD Fredy Hussein [facility] [place] [address] PCP - [facility]11/26/23Team MemberRelationshipSpecialtyStart DateEnd Date Unallocated, Noms MD Trinh [address] [place] [address] PCP - [facility]11/26/23Team MemberRelationshipSpecialtyStart DateEnd Date Unallocated, NomMD Demarc[address] [place] [address] PCP - [facility]11/26/23Team MemberRelationshipSpecialtyStart DateEnd Date Unallocated, MD Demarcus [address] [place] [address] PCP - [facility]11/26/23Team MemberRelationshipSpecialtyStart DateEnd Date Unallocated, Nomjennie Tsang MD [address] [place] [address] PCP - [facility]11/26/23Team MemberRelationshipSpecialtyStart DateEnd Date Unallocated, Farhana Tsang MD [address] [place] [address] PCP - [facility]11/26/23Team MemberRelationshipSpecialtyStart DateEnd Date Unallocated, Nomjennie Tsang MD [address] [place] [address] PCP - [facility]11/26/23 Team Status: Inactive Member Role Status Dates PHYSICIAN NO FAMILY Primary Care Provider Active Start: July 31, 2024 End: July 31Giselle Ford ProviderActiveStart: July 31, 2024 End: July 31, 2024 Team Status: Inactive Member Role Status Dates Teresa Vitale APRN Attending Provider Active Start: July 31, 2024 End: July 31, 2024Team MemberRelationshipSpecialtyStart DateEnd Date Unallocated, [place] [address] PCP - [facility]11/26/23Te MemberRelationshipSpecialtyStart DateEnd Date Unallocated, Farhana Tsang MD [facility] [address] [place] [address] [facility]11/26/23Te MemberRelationshipSpecialtyStart DateEnd Date Unallocated, Farhana Tsang MD [facility] [address] [place] [address] [facility]11/26/23Te MemberRelationshipSpecialtyStart DateEnd Date Unallocated, Farhana Tsang MD [facility] [place] [address] [facility]11/26/23Te MemberRelationshipSpecialtyStart DateEnd Date Unallocated, Farhana Tsang MD [address] [place], [place] [address] [address] [facility]11/26/23Te MemberRelationshipSpecialtyStart DateEnd Date Unallocated, Farhana Tsang MD [address] [place] [address], [place] [address] [facility]11/26/23 Goals (unrecognized section and content) Goals may [...] BE BASED ON THE PRIMARY CLINICAL RECORDS. [facility] [email or web address] [facility]. provides no warranty or guarantee of the accuracy or completeness of information in this document.
[2025-02-24 12:52] LABS: Glucose 1 Hour 121 mg/dL (<130)
[2025-02-24 13:40] LABS: Hematocrit 36.3 % (36.0-48.0); Hemoglobin 11.9 g/dL (12.0-16.0); Immature Granulocytes Abs Auto 0.09 10^3/uL (0.00-0.03); Immature Granulocytes Pct Auto 0.7 % (0.0-0.5); Lymphocytes Absolute Auto 2.2 10^3/uL (1.2-3.8); Mean Corpuscular HGB Conc 32.8 g/dL (29.9-35.2); Mean Corpuscular Hemoglobin 30.9 pg (26.7-34.0); Mean Corpuscular Volume 94.3 fL (81.0-99.0); Platelet Count 322 10^3/uL (150-450); Red Blood Count 3.85 10^6/uL (4.20-5.40); White Blood Count 12.8 10^3/uL (4.0-11.0)
== END 2025-02-24 11:31 | disposition home or self-care (01) ==
LOC: LAB 11:31
PROVIDERS: Visit Provider Physician Assistant
DX: Z34.92 Encounter for supervision of normal pregnancy, unspecified, second trimester (principal); Z3A.24 24 weeks gestation of pregnancy
CPT/HCPCS: 36415; 82950; 85025